=== PATIENT | male | born 1960 | race Caucasian/White ===

== ENCOUNTER 2018-12-14 20:49 | Emergency (ER) | payer MEDICAID, MEDICARE, OTHER ==
[~2018-12-14] VITALS: Ht 190.5 cm; Wt 89.8 kg
[~2018-12-14 20:49] MED LIST: ALBU0.83RX IH; ANTI1CAP3 PO; ASPI-245 PO; CARV3.122 PO; CETI10TA17 PO; CYAN100071 PO; FLECTOR TP; FLT05NA16 NSEACH; FLUN7INH IH; FLUT16SP22 NS; FNT50TD TD; IPR14IN INH; LORA1TAB PO; MAGN400T6 PO; MONT10TA24 PO; NITR0.3T6 SL; NYST1000 PO; OMEP-10 PO; POTA99TA7 PO; PRAV80TA PO; [UNRECOGNIZED DRUG - CODE] PO; albuterol INH; asmanex INH
--- OUTSIDE RECORDS SUMMARY | 2018-12-14 21:06 | XMS REPORT | Continuity of Care Document ---
Author Author [facility] [address] Organization [facility] [address] Address Unknown Phone Unavailable Allergies Active Description Code Type Severity Reaction Onset Reported/Identified Relationship to Patient Clinical Status Yes ketorolac tromethamine [id number] Drug Allergy Severe ANAPHYLAXIS 2011 Yes egg [id number] Drug Allergy Moderate N/A 08/18/2012 Yes meperidine HCl [id number] Drug Allergy Moderate N/A 08/18/2012 Yes Penicillins [id number] Drug Allergy Moderate N/A 08/18/2012 Yes honey bee venom honey bee venom Mild N/A 08/18/2012 Yes metoprolol [id number] Drug Allergy Mild N/A 08/18/2012 Yes propoxyphene HCl [id number] Drug Allergy Mild N/A 08/18/2012 Yes topiramate [id number] Drug Allergy Mild NAUSEA 08/18/2012 Yes citalopram [id number] Drug Allergy Unknown N/A 12/10/2013 Medications There is no data. Problems Date Dx Coded Attending Type Code Diagnosis Diagnosed By 08/18/2012 Ot 401.9 HYPERTENSION NOS 08/18/2012 Ot 412 OLD MYOCARDIAL INFARCT 08/18/2012 Ot 414.01 CORONARY ATHEROSCLEROSIS OF [place] CORON 08/18/2012 Ot 427.69 PREMATURE BEATS NEC 08/18/2012 Ot 496 CHR AIRWAY OBSTRUCT NEC 08/18/2012 Ot 786.59 CHEST PAIN NEC 08/18/2012 Ot V45.82 PERCUTANEOUS TRANSLUM CORON ANGIOPLASTY 08/18/2012 Ot V58.66 LONG-TERM ( 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 OF ASPIRIN 08/18/2012 Ot V58.69 OTH MED,LT, CURRENT USE 12/10/2013 VIRGINIA NAJERA MD Ot 786.50 CHEST PAIN NOS 12/10/2013 VIRGINIA NAJERA MD Ot 789.00 ABDOMINAL PAIN, UNSPECIFIED SITE 06/26/2016 GENNA FALLON MD Ot 272.4 HYPERLIPIDEMIA NEC/NOS 06/26/2016 GENNA FALLON MD Ot 397.0 TRICUSPID VALVE DISEASE 06/26/2016 GENNA FALLON MD Ot 401.9 HYPERTENSION NOS 06/26/2016 GENNA FALLON MD Ot 424.0 MITRAL VALVE DISORDER 06/26/2016 GENNA FALLON MD Ot 427.69 PREMATURE BEATS NEC 06/26/2016 GENNA FALLON MD Ot 786.50 CHEST PAIN NOS 06/26/2016 DAVID STEVENSON MD Ot M50.13 CERVICAL DISC DISORDER W RADICULOPATHY, 06/26/2016 DAVID STEVENSON MD Ot Z79.899 OTHER SENIOR LIVING (CURRENT) DRUG THERAPY 07/27/2016 DAVID STEVESNON MD Ot M50.13 CERVICAL DISC DISORDER W RADICULOPATHY, 07/27/2016 DAVID STEVENSON MD Ot Z79.899 OTHER SENIOR LIVING (CURRENT) DRUG THERAPY 07/29/2016 DAVID STEVENSON MD Ot M50.13 CERVICAL DISC DISORDER W RADICULOPATHY, 07/29/2016 DAVID STEVENSON MD Ot Z79.899 OTHER SENIOR LIVING (CURRENT) DRUG THERAPY 12/14/2018 GENNA FALLON MD Ot 272.4 HYPERLIPIDEMIA NEC/NOS 12/14/2018 GENNA FALLON MD Ot 397.0 TRICUSPID VALVE DISEASE 12/14/2018 GENNA FALLON MD Ot 401.9 HYPERTENSION NOS 12/14/2018 GENNA FALLON MD Ot 424.0 MITRAL VALVE DISORDER 12/14/2018 GENNA FALLON MD Ot 427.69 PREMATURE BEATS NEC 12/14/2018 GENNA FALLON MD Ot 786.50 CHEST PAIN NOS Procedures There is no data. Results There is no data. Encounters ACCT No. Visit Date/Time Discharge Status Pt. Type Provider Facility Loc./Unit Complaint [id number] 06/26/2016 07:30:00 06/26/2016 09:05:00 DIS Outpatient DAVID STEVENSON MD [facility] CARD DISC DISORDER [id number] 12/25/2013 14:46:00 12/25/2013 23:59:59 CLS Outpatient GENNA FALLON MD [facility] [address] CARD BP,HTN,HLP [id number] 12/10/2013 18:49:00 12/10/2013 21:04:00 DIS Emergency VIRGINIA NAJERA MD [facility] [address] ER ADB PAIN;ENLARGED HEART [id number] 12/14/2018 20:50:00 ACT Emergency ALEENA KING DO [facility] [address] ER FS SOB [id number] 08/18/2012 12:11:00 Document Registration
[2018-12-14] MEDS ORDERED: RT-ALBUTEROL/IPRATROPIUM 3 ML (DUONEB) VIAL INH STA (21:18)
[2018-12-14] MEDS ORDERED: DEXAMETHASONE 4 MG TAB (DECADRON) PO STA (21:18)
[2018-12-14] MEDS ORDERED: NS IV 1000 ML 1,000 ML IV STA (21:27)
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
[2018-12-14 22:01] LABS: HEMOGLOBIN 14.5 G/DL (13.3-17.7); WHITE BLOOD COUNT 8.6 10^3/uL (4.3-11.0)
[2018-12-14 22:02] LABS: MEAN PLATELET VOLUME 9.5 FL (7.4-10.4); RED CELL DISTRIBUTION WIDTH 12.8 % (10.0-14.5)
[2018-12-14] MEDS ORDERED: DEXAMETHASONE 10 MG/ML (DECADRON) 1 ML VIAL IV STA (22:17)
[2018-12-14 22:29] LABS: ALANINE AMINOTRANSFERASE 22 U/L (0-55); ALKALINE PHOSPHATASE 95 U/L (40-136); BILIRUBIN,TOTAL 0.3 MG/DL (0.1-1.0); BUN/CREATININE RATIO 16; CALCIUM 8.7 MG/DL (8.5-10.1); CARBON DIOXIDE 26 MMOL/L (21-32); CHLORIDE 99 MMOL/L (98-107); CREATININE SERUM 1.11 MG/DL (0.60-1.30); GFR ESTIMATED > 60; GLUCOSE 98 MG/DL (70-105); POTASSIUM 3.9 MMOL/L (3.6-5.0); SODIUM 139 MMOL/L (135-145)
[2018-12-14 22:30] LABS: ALBUMIN 4.3 GM/DL (3.2-4.5); TOTAL PROTEIN 6.9 GM/DL (6.4-8.2)
[2018-12-14 23:47] VITALS: BP 138/84
--- NOTE | 2018-12-15 06:51 | Diagnostic Imaging Report ---
INDICATION: Dyspnea Upright AP view of the chest is obtained with comparison made to the study of 12/10/2013. FINDINGS: Heart size and pulmonary vascularity are within normal limits, and the lungs are clear, bilaterally. IMPRESSION: Unremarkable chest. Dictated by: Dictated on workstation # [id number]
== END 2018-12-14 23:47 | disposition home or self-care (01) ==
LOC: EDUNIT# 20:49 → ER FS 20:50
DX: J45.901 Unspecified asthma with (acute) exacerbation (principal); J43.9 Emphysema, unspecified; I25.2 Old myocardial infarction; I10 Essential (primary) hypertension; G43.909 Migraine, unspecified, not intractable, without status migrainosus; F41.9 Anxiety disorder, unspecified; Z88.4 Allergy status to anesthetic agent; Z88.8 Allergy status to other drugs, medicaments and biological substances; Z88.0 Allergy status to penicillin; Z79.82 Long term (current) use of aspirin; Z79.51 Long term (current) use of inhaled steroids; Z87.891 Personal history of nicotine dependence
CPT/HCPCS: 36415; 71045; 80053; 83735; 83880; 84484; 85027; 85610; 85730; 93041

== ENCOUNTER 2019-01-30 18:41 | Emergency (ER) | payer MEDICARE ==
[~2019-01-30] VITALS: Ht 190.5 cm; Wt 90.7 kg
[2019-01-30] MEDS ORDERED: NS IV 500 ML 500 ML IV ONE (19:05)
[2019-01-30] MEDS ORDERED: methylPREDNISolone 125 MG (Solu-MEDROL) VIAL IV STA (19:05)
[2019-01-30] MEDS ORDERED: RT-epiNEPHrine (RACEMIC) 2.25% 0.5 ML VIAL INH ONE (19:15)
[2019-01-30] MEDS ORDERED: LORATADINE (CLARITIN) 10 MG TAB PO ONE (19:15)
[2019-01-30] MEDS ORDERED: FAMOTIDINE 20MG/2ML IV (PEPCID) IVP ONE (19:15)
[2019-01-30] MEDS ORDERED: diphenhydrAMINE 50 MG/ML INJ (BENADRYL) IVP ONE (19:15)
[2019-01-30] MEDS ORDERED: RT-ALBUTEROL/IPRATROPIUM 3 ML (DUONEB) VIAL ONE (19:23)
--- NOTE | 2019-01-30 19:24 | ED Respiratory ---
General Chief Complaint: Allergic Reaction Stated Complaint: ALLERGIC REACTION Source: patient Exam Limitations: no limitations History of Present Illness Date Seen by Provider: Jan 30, 2019 Time Seen by Provider: 18:53 Initial Comments The patient presents to the ER by private conveyance with chief complaint of shortness of breath, tightness in his throat after eating something at [employer] which she thinks may have contained eggs to which she is known to be allergic. He says he went immediately to urgent care and they gave him a subcutaneous shot of epinephrine which helped some but he still feeling a lot of tightness and swelling in the back of his throat. He felt voice changes. He does not carry a autoinjector of epinephrine with him. He takes Coreg with a history of heart attacks and COPD/asthma. He is not coughing anything up and is having only minor difficulty swallowing secretions. No nausea, chills or fever. No abdominal pain dysuria or diarrhea. Allergies and Home Medications Allergies Coded Allergies: ketorolac tromethamine (Verified Allergy, Severe, ANAPHYLAXIS, 01/30/19) prednisone (Verified Allergy, Severe, angry and agitated, 01/30/19) Penicillins (Verified Allergy, Intermediate, 01/30/19) sob, wheezing egg (Verified Allergy, Intermediate, 01/30/19) swelling meperidine HCl (Verified Allergy, Intermediate, 01/30/19) sob, wheezing propoxyphene HCl (Verified Allergy, Mild, 01/30/19) sob, wheezing topiramate (Verified Allergy, Mild, NAUSEA, 08/18/12) diarrhea, citalopram (Verified Allergy, Unknown, 12/14/18) metoprolol (Verified Adverse Reaction, Mild, 08/18/12) sob, wheezing Uncoded Allergies: honey bee venom (Allergy, Mild, 08/18/12) sob, wheezing Home Medications Aspirin 81 Mg Tablet.dr, 81 MG PO DAILY, (Reported) Carvedilol 3.125 Mg Tablet, 1 EACH PO BID, (Reported) Cetirizine Hcl 10 Mg Tablet, 10 MG PO DAILY, (Reported) Fluticasone Propionate 16 Gm [place], 2 SPRAYS NSEACH DAILY, (Reported) Ipratropium [place] 12.9 Gm Aers, 12.9 GM INH Q6H, (Reported) Lorazepam 1 Mg Tablet, 1 EACH PO TID PRN, (Reported) Montelukast Sodium 10 Mg Tablet, 10 MG PO DAILY, (Reported) Nitroglycerin 0.3 Mg Tab.subl, 0.3 MG SL PRN, (Reported) Omeprazole 20 Mg Capsule.dr, 20 MG PO DAILY, (Reported) Salsalate 500 Mg Tab, 1,000 MG PO TID, (Reported) [albuterol] , 2 PUFF INH QID, (Reported) Patient Home Medication List Home Medication List Reviewed: Yes Review of Systems Review of Systems Constitutional: No chills, No fever EENTM: No ear discharge, No ear pain Respiratory: No cough, No orthopnea; short of breath, wheezing Cardiovascular: No chest pain, No edema Gastrointestinal: No abdominal pain, No constipation, No diarrhea Genitourinary: No discharge, No dysuria Past Vjhiods-Mysxys-Ztjnuo Hx Patient Social History Alcohol Use: Denies Use Recreational Drug Use: No Smoking Status: Current Someday Smoker Type Used: Cigars Former Smoker, Quit: March 09, 2018 2nd Hand Smoke Exposure: No Recent Foreign Travel: No Contact w/Someone Who Travel: No Recent Hopitalizations: No Seasonal Allergies Seasonal Allergies: Yes Past Medical History Gallbladder, Joint Replacement Respiratory: Yes Asthma, Chronic Bronchitis, COPD, Emphysema Currently Using CPAP: No Currently Using BIPAP: No Cardiac: Yes Heart Attack, Hypertension, Palpitations Neurological: Yes Headaches /Migraines Genitourinary: No Gastrointestinal: No Musculoskeletal: No Arthritis Endocrine: No Anxiety Integumentary: No Physical Exam Vital Signs - First Documented 01/30/19 18:45 Temp 98.0 Pulse 76 Resp 20 B/P (MAP) 121/76 (91) Pulse Ox 96 Capillary Refill : Height: 6'3.00" Weight: 198lbs. 0.0oz. 89.259205ki; 25.6 BMI Method:Stated General Appearance: WD/WN, mild distress Eyes: Bilateral Eye Normal Inspection, Bilateral Eye PERRL, Bilateral Eye EOMI HEENT: PERRL/EOMI, other (erythema, soft palate and uvula with mild edema) Neck: non-tender, full range of motion, supple, normal inspection Respiratory: chest non-tender, lungs clear, no respiratory distress, no accessory muscle use, decreased breath sounds, wheezing (faint bilateral) Cardiovascular: normal peripheral pulses, regular rate, rhythm Gastrointestinal: non tender, soft Neurologic/Psychiatric: alert, oriented x 3, other (anxious) Skin: normal color, warm/dry Progress/Results/Core Measures Suspected Sepsis SIRS Temperature: Pulse: Respiratory Rate: Laboratory Tests 01/30/19 18:50: White Blood Count 11.6H Blood Pressure / Mean: Laboratory Tests 01/30/19 18:50: Creatinine 1.06, Platelet Count 386, Total Bilirubin 0.5 Results/Orders Lab Results Laboratory Tests Test 01/30/19 18:50 Range/Units White Blood Count 11.6 H 4.3-11.0 10^3/uL Red Blood Count 4.87 4.35-5.85 10^6/uL Hemoglobin 15.2 13.3-17.7 G/DL Hematocrit 44 40-54 % Mean Corpuscular Volume 90 80-99 FL Mean Corpuscular Hemoglobin 31 25-34 PG Mean Corpuscular Hemoglobin Concent 35 32-36 G/DL Red Cell Distribution Width 12.5 10.0-14.5 % Platelet Count 386 130-400 10^3/uL Mean Platelet Volume 9.4 7.4-10.4 FL Neutrophils (%) (Auto) 42 42-75 % Lymphocytes (%) (Auto) 44 12-44 % Monocytes (%) (Auto) 9 0-12 % Eosinophils (%) (Auto) 5 0-10 % Basophils (%) (Auto) 1 0-10 % Neutrophils # (Auto) 4.9 1.8-7.8 X 10^3 Lymphocytes # (Auto) 5.1 H 1.0-4.0 X 10^3 Monocytes # (Auto) 1.0 0.0-1.0 X 10^3 Eosinophils # (Auto) 0.5 H 0.0-0.3 10^3/uL Basophils # (Auto) 0.1 0.0-0.1 10^3/uL Sodium Level 138 135-145 MMOL/L Potassium Level 3.9 3.6-5.0 MMOL/L Chloride Level 97 L 98-107 MMOL/L Carbon Dioxide Level 23 21-32 MMOL/L Anion Gap 18 H 5-14 MMOL/L Blood Urea Nitrogen 13 7-18 MG/DL Creatinine 1.06 0.60-1.30 MG/DL Estimat Glomerular Filtration Rate > 60 BUN/Creatinine Ratio 12 Glucose Level 137 H 70-105 MG/DL Calcium Level 9.1 8.5-10.1 MG/DL Corrected Calcium 8.7 8.5-10.1 MG/DL Total Bilirubin 0.5 0.1-1.0 MG/DL Aspartate Amino Transf (AST/SGOT) 18 5-34 U/L Alanine Aminotransferase (ALT/SGPT) 14 0-55 U/L Alkaline Phosphatase 83 40-136 U/L Total Protein 7.3 6.4-8.2 GM/DL Albumin 4.5 3.2-4.5 GM/DL My Orders Orders - NATALYA CALZADA Ekg Tracing (01/30/19 19:05) Continuous Ekg Monitoring (01/30/19:05) Ed Iv/Invasive Line Start (01/30/19:05) Ns Iv 500 Ml (Sodium Chloride 0.9%) (01/30/19:05) Rt Epinephrine (Racemic Epinephrine 2.25 (01/30/19 19:15) Methylprednisolone Sod Succ (Solu-Medrol (01/30/19 19:05) Cbc With Automated Diff (01/30/19:05) Comprehensive Metabolic Panel (01/30/19:05) Chest 1 View Ap/Pa Only (01/30/19:05) Svn Small Volume Nebulizer (01/30/19 19:05) Diphenhydramine Injection (Benadryl Inje (01/30/19 19:15) Loratadine Tablet (Claritin Tablet) (01/30/19 19:15) Famotidine Injection (Pepcid Injection) (01/30/19 19:15) Albuterol/Ipra Inhalation Soln (Duoneb I (01/30/19 19:23) Lorazepam Tablet (Ativan Tablet) (01/30/19 19:26) Albuterol/Ipra Inhalation Soln (Duoneb I (01/30/19 19:30) Medications Given in ED Current Medications Medications Dose Ordered Sig/Viv Route Start Time Stop Time Status Last Admin Dose Admin Albuterol/ Ipratropium 3 ml ONCE ONCE INH 01/30/19 19:30 01/30/19 19:31 DC 01/30/19 19:29 3 ML Diphenhydramine HCl 25 mg ONCE ONCE IVP 01/30/19 19:15 01/30/19 19:16 DC 01/30/19 19:18 25 MG Epinephrine 0.5 ml ONCE ONCE INH 01/30/19 19:15 01/30/19 19:16 DC 01/30/19 19:15 0.5 ML Famotidine 20 mg ONCE ONCE IVP 01/30/19 19:15 01/30/19 19:16 DC 01/30/19 19:18 20 MG Sodium Chloride 500 ml @ 0 mls/hr Q0M ONCE IV 01/30/19 19:05 01/30/19 19:08 DC 01/30/19 19:17 999 MLS/HR Vital Signs/I&O 01/30/19 18:45 Temp 98.0 Pulse 76 Resp 20 B/P (MAP) 121/76 (91) Pulse Ox 96 Capillary Refill : Progress Note #1: Time: 19:29 Progress Note 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 Unfortunately her to give him 125 mg Solu- Medrol. He uses Ativan a couple times a day as needed for agitation sober any give him a milligram which is his usual dose now and observe him. His beta blockers or keeping his heart rate down around 80. We've given him an epinephrine nebulizer which has helped open up his lung sounds a little bit has revealed some still wheezing sore and give him a DuoNeb in addition. We'll give him about an hour while these interventions get started and see how he is doing before turning him loose. Loratadine, Benadryl, Pepcid And 500 cc of fluids although his blood pressures still very good. Progress Note #2: Time: 20:12 Progress Note The patient's feeling much better having no difficulty swallowing fluids breathing stridor or wheezing. His breath sounds are much improved. 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 ECG Initial ECG Impression Date: Jan 30, 2019 Initial ECG Impression Time: 19:01 Initial ECG Rate: 74 Initial ECG Rhythm: Normal Sinus Initial ECG Intervals: Normal Initial ECG Impression: Normal Comment No ST elevation or depression. Diagnostic Imaging Diagonstic Imaging: Xray Plain Films/CT/US/NM/MRI: chest Comments No acute cardiopulmonary processes noted. Reviewed: Reviewed by Me Departure Impression Primary Impression: Allergic angioedema Qualified Codes: T78.3XXA - Angioneurotic edema, initial encounter Disposition: 01 HOME, SELF-CARE Condition: Stable Departure-Patient Inst. Decision time for Depature: 20:13 Referrals: JULIA HERRERA MD (PCP/Family) Primary Care Physician Patient Instructions: Angioedema (DC) Add. Discharge Instructions: If he started having itching in the back your throat swelling or difficulty you can take one or 2 tablets of Benadryl every 6 hours. For the next week continue to take Pepcid twice a day as prescribed. For the next week take loratadine or cetirizine 1 tablet daily as a we'll have the same effect of Benadryl without making you drowsy. It can be used in addition to Benadryl. 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 All discharge instructions reviewed with patient and/or family. Voiced understanding. Scripts Epinephrine (Epipen 2-Jatinder) 0.3 Mg/0.3 Ml Auto.injct 0.3 MG IJ Q15M PRN for WHEEZING, #1 EA 0 Refills Use once every 15 min if having angioedema, difficulty breathing, itching and swelling of the throat. Prov: NATALYA CALZADA 01/30/19 Copy Copies To 1: JULIA HERRERA MD, TITUS J Jan 30, 2019 19:24
[2019-01-30] MEDS ORDERED: LORazepam 0.5 MG (ATIVAN) TABLET PO STA (19:26)
[2019-01-30] MEDS ORDERED: RT-ALBUTEROL/IPRATROPIUM 3 ML (DUONEB) VIAL INH ONE (19:30)
--- NOTE | 2019-01-30 19:50 | Diagnostic Imaging Report ---
INDICATION: Allergic reaction. Comparison is made to prior study from 08/08/2018. FINDINGS: Lungs demonstrate no focal alveolar consolidation. There is no effusion. There is no pneumothorax. Heart size and mediastinal contours appear appropriate. The central pulmonary vascularity appears within normal limits. IMPRESSION: 1. No radiographic evidence of an acute cardiopulmonary process. Dictated by: Dictated on workstation # [id number]
[2019-01-30 20:01] LABS: HEMATOCRIT 44 % (40-54); HEMOGLOBIN 15.2 G/DL (13.3-17.7); MEAN CORPUSCULAR HEMOGLOBIN 31 PG (25-34); MEAN CORPUSCULAR HGB CONC 35 G/DL (32-36); MEAN CORPUSCULAR VOLUME 90 FL (80-99); MEAN PLATELET VOLUME 9.4 FL (7.4-10.4); PLATELET COUNT 386 10^3/uL (130-400); RED CELL DISTRIBUTION WIDTH 12.5 % (10.0-14.5); WHITE BLOOD COUNT 11.6 10^3/uL (4.3-11.0)
[2019-01-30 20:02] LABS: BASOPHILS # (AUTO) 0.1 10^3/uL (0.0-0.1); BASOPHILS % (AUTO) 1 % (0-10); EOSINOPHILS # (AUTO) 0.5 10^3/uL (0.0-0.3); EOSINOPHILS % (AUTO) 5 % (0-10); LYMPHOCYTES # (AUTO) 5.1 X 10^3 (1.0-4.0); LYMPHOCYTES % (AUTO) 44 % (12-44); MONOCYTES % (AUTO) 9 % (0-12); NEUTROPHILS # (AUTO) 4.9 X 10^3 (1.8-7.8); NEUTROPHILS % (AUTO) 42 % (42-75)
[2019-01-30 20:03] LABS: ALKALINE PHOSPHATASE 83 U/L (40-136); BILIRUBIN,TOTAL 0.5 MG/DL (0.1-1.0); BUN/CREATININE RATIO 12; CALCIUM 9.1 MG/DL (8.5-10.1); CARBON DIOXIDE 23 MMOL/L (21-32); CHLORIDE 97 MMOL/L (98-107); CREATININE SERUM 1.06 MG/DL (0.60-1.30); GFR ESTIMATED > 60; GLUCOSE 137 MG/DL (70-105); POTASSIUM 3.9 MMOL/L (3.6-5.0); SODIUM 138 MMOL/L (135-145)
[2019-01-30 20:04] LABS: ALANINE AMINOTRANSFERASE 14 U/L (0-55); ALBUMIN 4.5 GM/DL (3.2-4.5); TOTAL PROTEIN 7.3 GM/DL (6.4-8.2)
[2019-01-30] MEDS ORDERED: EPIN0.3P3 IJ (20:17)
[2019-01-30 20:30] VITALS: BP 125/69
== END 2019-01-30 20:30 | disposition home or self-care (01) ==
LOC: EDUNIT# 18:41 → ER FS 18:45
DX: T78.3XXA Angioneurotic edema, initial encounter (principal); J43.9 Emphysema, unspecified; I10 Essential (primary) hypertension; I25.2 Old myocardial infarction; G43.909 Migraine, unspecified, not intractable, without status migrainosus; F41.9 Anxiety disorder, unspecified; Z88.4 Allergy status to anesthetic agent; Z88.8 Allergy status to other drugs, medicaments and biological substances; Z88.0 Allergy status to penicillin; Z79.82 Long term (current) use of aspirin; Z79.51 Long term (current) use of inhaled steroids; Z87.891 Personal history of nicotine dependence
CPT/HCPCS: 36415; 71045; 80053; 85025; 93005; 96374; 96375

== ENCOUNTER 2019-04-05 20:22 | Emergency (ER) | payer MEDICARE ==
[~2019-04-05] VITALS: Ht 190.5 cm; Wt 81.6 kg
[~2019-04-05 20:22] MED LIST changes: +EPIN0.3P3 IJ
[2019-04-05] MEDS ORDERED: DOXYCYCLINE 100 MG (VIBRAMYCIN) TABLET PO STA (21:33)
[2019-04-05] MEDS ORDERED: DOXY100T2 PO (21:39)
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
--- NOTE | 2019-04-05 21:45 | NUR ---
POLICE ARE HERE TAKING A REPORT AT THIS TIME.
--- NOTE | 2019-04-05 21:46 | NUR ---
NOTIFIED THE [facility] DEPARTMENT OF THE PATIENTS DOG BITE. THEY TOLD THIS RN THAT THEY WOULD LET US KNOW IF THEY ARE COMING OUT.
--- NOTE | 2019-04-05 21:48 | NUR ---
POLICE DEPARTMENT JUST CALLED AND WILL COME TO SEE THE PATIENT.
[2019-04-05 22:00] VITALS: BP 134/87
== END 2019-04-05 21:57 | disposition home or self-care (01) ==
LOC: EDUNIT# 20:22 → ER FS 20:23
DX: S71.152A Open bite, left thigh, initial encounter (principal); J43.9 Emphysema, unspecified; J45.909 Unspecified asthma, uncomplicated; J42 Unspecified chronic bronchitis; I10 Essential (primary) hypertension; I25.2 Old myocardial infarction; G43.909 Migraine, unspecified, not intractable, without status migrainosus; F41.9 Anxiety disorder, unspecified; Z88.0 Allergy status to penicillin; Z88.5 Allergy status to narcotic agent; Z88.8 Allergy status to other drugs, medicaments and biological substances; Z88.6 Allergy status to analgesic agent; Z91.012 Allergy to eggs; Z79.82 Long term (current) use of aspirin; Z79.51 Long term (current) use of inhaled steroids; W54.0XXA Bitten by dog, initial encounter

== ENCOUNTER 2019-04-23 19:45 | Emergency (ER) | payer MEDICARE ==
[~2019-04-23] VITALS: Ht 190.5 cm; Wt 88.9 kg
[~2019-04-23 19:45] MED LIST changes: +DOXY100T2 PO
[2019-04-23] MEDS ORDERED: ONDANSETRON 4 MG (ZOFRAN) ORAL DISSOLVE TAB PO STA (20:22)
[2019-04-23] MEDS ORDERED: diphenhydrAMINE 25 MG TAB (BENADRYL) PO ONE (20:30)
[2019-04-23] MEDS ORDERED: methylPREDNISolone 40 MG/ML (DEPO MEDROL) VIAL IM ONE (20:30)
[2019-04-23] MEDS ORDERED: ACETAMINOPHEN 500 MG TAB (TYLENOL) PO ONE (20:30)
[2019-04-23] MEDS ORDERED: HALOPERIDOL 5 MG/ML (HALDOL) AMP IM ONE (20:30)
[2019-04-23] MEDS ORDERED: PROMETHAZINE INJ 25 MG/ML (PHENERGAN) AMP IM ONE (20:30)
--- NOTE | 2019-04-23 20:33 | ED Headache ---
General Stated Complaint: MIGRAINE History of Present Illness Date Seen by Provider: Apr 23, 2019 Time Seen by Provider: 20:15 Initial Comments The patient presents to ER by private conveyance with a significant other and chief complaint he has a migraine headache. He's first started getting it 1400 today and so he took some Zofran because he is having nausea and at 5:00 it really took off and got bad. He laid down and took some Fioricet but it didn't seem to help so he decided to come in. He has a history of migraines and this one is similar to the others although he says it's pretty bad. He says it's frontal left parietal and occipital and has photophobia, phonophobia and no aura. Because of his history of cardiac stents he can no longer take triptan's which it worked well in the past nor does he take any NSAIDs. He does take aspirin on a daily basis. He is not on a blood thinner. He sees a neurologist for his migraines as well as Dr. Shelton. He took his last dose of Fioricet this afternoon. No fevers chills diarrhea dysuria or cough. Allergies and Home Medications Allergies Coded Allergies: ketorolac tromethamine (Verified Allergy, Severe, ANAPHYLAXIS, 01/30/19) prednisone (Verified Allergy, Severe, angry and agitated, 01/30/19) Penicillins (Verified Allergy, Intermediate, 01/30/19) sob, wheezing egg (Verified Allergy, Intermediate, 01/30/19) swelling meperidine HCl (Verified Allergy, Intermediate, 01/30/19) sob, wheezing propoxyphene HCl (Verified Allergy, Mild, 01/30/19) sob, wheezing topiramate (Verified Allergy, Mild, NAUSEA, 08/18/12) diarrhea, citalopram (Verified Allergy, Unknown, 12/14/18) metoprolol (Verified Adverse Reaction, Mild, 08/18/12) sob, wheezing Uncoded Allergies: honey bee venom (Allergy, Mild, 08/18/12) sob, wheezing EGGS (Allergy, Unknown, 04/05/19) TETANUS (Allergy, Unknown, 04/05/19) Home Medications Aspirin 81 Mg Tablet., 81 MG PO DAILY, (Reported) Carvedilol 3.125 Mg Tablet, 1 EACH PO BID, (Reported) Cetirizine Hcl 10 Mg Tablet, 10 MG PO DAILY, (Reported) Doxycycline Hyclate 100 Mg Tablet, 100 MG PO BID Prescribed by: GAVIN PEREZ on 04/05/192138 Epinephrine 0.3 Mg/0.3 Ml Auto.injct, 0.3 MG IJ Q15M PRN for WHEEZING Use once every 15 min if having angioedema, difficulty breathing, itching and swelling of the throat. Prescribed by: NATALYA CALZADA on 01/30/192016 Fluticasone Propionate 16 Gm [place], 2 SPRAYS NSEACH DAILY, (Reported) Ipratropium [place] 12.9 Gm Aers, 12.9 GM INH Q6H, (Reported) Lorazepam 1 Mg Tablet, 1 EACH PO TID PRN, (Reported) Montelukast Sodium 10 Mg Tablet, 10 MG PO DAILY, (Reported) Nitroglycerin 0.3 Mg Tab.subl, 0.3 MG SL PRN, (Reported) Omeprazole 20 Mg Capsule.dr, 20 MG PO DAILY, (Reported) Salsalate 500 Mg Tab, 1,000 MG PO TID, (Reported) [albuterol] , 2 PUFF INH QID, (Reported) Patient Home Medication List Home Medication List Reviewed: Yes Review of Systems Review of Systems Constitutional: No chills, No fever Eyes: See HPI; Denies Blindness, Denies Blurred Vision Ears, Nose, Mouth, Throat: denies ear pain, denies ear discharge Respiratory: No cough, No short of breath Cardiovascular: No chest pain, No edema Gastrointestinal: No abdominal pain; nausea, vomiting Genitourinary: No discharge, No dysuria Musculoskeletal: No back pain, No joint pain Past Ycxasey-Qilulz-Hqauva Hx Patient Social History Alcohol Use: Denies Use Recreational Drug Use: No Smoking Status: Former Smoker Type Used: Cigars Former Smoker, Quit: March 09, 2018 2nd Hand Smoke Exposure: No Recent Hopitalizations: No Seasonal Allergies Seasonal Allergies: Yes Past Medical History Gallbladder, Joint Replacement Respiratory: Yes Asthma, Chronic Bronchitis, COPD, Emphysema Currently Using CPAP: No Currently Using BIPAP: No Cardiac: Yes Heart Attack, Hypertension, Palpitations Neurological: Yes Headaches /Migraines Genitourinary: No Gastrointestinal: No Musculoskeletal: No Arthritis Endocrine: No Cancer: No Psychosocial: Yes Anxiety Integumentary: No Physical Exam Vital Signs Capillary Refill : Height, Weight, BMI Height: 6'3.00" Weight: 180lbs. 0.0oz. 81.678750zt; 25.6 BMI Method:Stated General Appearance: WD/WN, moderate distress HEENT: normal ENT inspection, pharynx normal Neck: full range of motion, normal inspection Cardiovascular: normal peripheral pulses, regular rate, rhythm Respiratory: no respiratory distress, no accessory muscle use Psychiatric: alert, oriented x 3 Crainal Nerves: normal hearing, normal speech, PERRL Coordination/Gait: normal gait Motor/Sensory: no motor deficit, no sensory deficit Progress/Results/Core Measures Results/Orders My Orders Orders - NATALYA CALZADA Ondansetron Oral Dissolve Tab (Zofran (04/23/19 20:22) Acetaminophen Tablet (Tylenol Tablet) (04/23/19 20:30) Promethazine Injection (Phenergan Injec (04/23/19 20:30) Diphenhydramine Tablet (Benadryl Tablet) (04/23/19 20:30) Haloperidol Injection (Haldol Injectio (04/23/19 20:30) Methylprednisolone Acetate Inj (Depo-Med (04/23/19 20:30) Progress Progress Note : Time: 20:31 Progress Note Plan to give him Tylenol, Zofran, Phenergan per his request and we will trial Haldol 5 mg IM as well as Depo-Medrol. He has been successful on this in the past. He does describe some symptoms of akathisia in the past so we'll give him 50 mg of Benadryl and instructions to use it again every 6 hours if the symptoms come back. Patient has a ride home and is in agreement with this plan. We will refill his Fioricet Departure Impression Primary Impression: Migraine headache Qualified Codes: G43.009 - Migraine without aura, not intractable, without status migrainosus Disposition: HOME, SELF-CARE Condition: Stable Departure-Patient Inst. Decision time for Depature: 20:32 Referrals: JULIA HERRERA MD (PCP/Family) Primary Care Physician Patient Instructions: Migraine Headache (DC) Add. Discharge Instructions: Drink plenty of fluids and get some sleep. Use the Fioricet as prescribed. Use Tylenol 1000 mg every 8 hours as needed. If you have feelings of on rest you may use one to 2 tablets of Benadryl every 6 hours as needed. Scripts Butalb/Acetaminophen/Caffeine (Fkhyzs-Yufroddi-Xpdr 50-325-40) 1 Each Tablet 1 EACH PO Q4H PRN for HEADACHE, #14 TAB 0 Refills Prov: NATALYA CALZADA 04/23/19 NATALYA CALZADA Apr 23, 2019 20:33
[2019-04-23] MEDS ORDERED: BUTA1TAB9 PO (20:34)
[2019-04-23 20:51] VITALS: BP 136/79
== END 2019-04-23 20:53 | disposition home or self-care (01) ==
LOC: EDUNIT# 19:45 → ER FS 19:46
DX: G43.909 Migraine, unspecified, not intractable, without status migrainosus (principal); J43.9 Emphysema, unspecified; J45.909 Unspecified asthma, uncomplicated; I10 Essential (primary) hypertension; I25.2 Old myocardial infarction; F41.9 Anxiety disorder, unspecified; Z95.5 Presence of coronary angioplasty implant and graft; Z79.82 Long term (current) use of aspirin; Z88.6 Allergy status to analgesic agent; Z88.0 Allergy status to penicillin; Z88.8 Allergy status to other drugs, medicaments and biological substances; Z88.7 Allergy status to serum and vaccine; Z79.51 Long term (current) use of inhaled steroids; Z87.891 Personal history of nicotine dependence
CPT/HCPCS: 96372; 99284

== ENCOUNTER 2019-05-08 20:34 | Emergency (ER) | payer MEDICARE ==
[~2019-05-08] VITALS: Ht 190.5 cm; Wt 89.8 kg
[~2019-05-08 20:34] MED LIST changes: +BUTA1TAB9 PO
--- NOTE | 2019-05-08 20:56 | ED Headache ---
General Stated Complaint: MIGRAINE, NECK PAIN Source: patient, RN notes reviewed, old records Exam Limitations: no limitations History of Present Illness Date Seen by Provider: May 08, 2019 Time Seen by Provider: 20:56 Initial Comments Patient well known to department. Presents c/ c/o migraine c/ N/V and neck muscle spasms since earlier this evening. (+) PMH of the same. Took a Zofran and the N/V is better. Wasn't sure if he could take his Fioricet along c/ a new medication his PCP gave him for blood in his urine. Reviewed the 2 meds and assured him that he could take them both. Requesting a muscle relaxant for his neck. Timing/Duration: 1-3 hours Severity/Quality: moderate, constant, throbbing Location: occipital Prior Headaches/Recent Trauma: frequent headaches Modifying Factors: improves with other (none) Associated Symptoms: denies symptoms Allergies and Home Medications Allergies Coded Allergies: ketorolac tromethamine (Verified Allergy, Severe, ANAPHYLAXIS, 01/30/19) prednisone (Verified Allergy, Severe, angry and agitated, 01/30/19) Penicillins (Verified Allergy, Intermediate, 01/30/19) sob, wheezing egg (Verified Allergy, Intermediate, 01/30/19) swelling meperidine HCl (Verified Allergy, Intermediate, 01/30/19) sob, wheezing propoxyphene HCl (Verified Allergy, Mild, 01/30/19) sob, wheezing topiramate (Verified Allergy, Mild, NAUSEA, 08/18/12) diarrhea, citalopram (Verified Allergy, Unknown, 12/14/18) metoprolol (Verified Adverse Reaction, Mild, 08/18/12) sob, wheezing Uncoded Allergies: honey bee venom (Allergy, Mild, 08/18/12) sob, wheezing EGGS (Allergy, Unknown, 04/05/19) TETANUS (Allergy, Unknown, 04/05/19) Home Medications Aspirin 81 Mg Tablet.dr, 81 MG PO DAILY, (Reported) Butalb/Acetaminophen/Caffeine 1 Each Tablet, 1 EACH PO Q4H PRN for HEADACHE Prescribed by: NATALYA CALZADA on 04/23/192033 Carvedilol 3.125 Mg Tablet, 1 EACH PO BID, (Reported) Cetirizine Hcl 10 Mg Tablet, 10 MG PO DAILY, (Reported) Doxycycline Hyclate 100 Mg Tablet, 100 MG PO BID Prescribed by: GAVIN PEREZ on 04/05/192138 Epinephrine 0.3 Mg/0.3 Ml Auto.injct, 0.3 MG IJ Q15M PRN for WHEEZING Use once every 15 min if having angioedema, difficulty breathing, itching and swelling of the throat. Prescribed by: NATALYA CALZADA on 01/30/192016 Fluticasone Propionate 16 Gm [place], 2 SPRAYS NSEACH DAILY, (Reported) Ipratropium [place] 12.9 Gm Aers, 12.9 GM INH Q6H, (Reported) Lorazepam 1 Mg Tablet, 1 EACH PO TID PRN, (Reported) Montelukast Sodium 10 Mg Tablet, 10 MG PO DAILY, (Reported) Nitroglycerin 0.3 Mg Tab.subl, 0.3 MG SL PRN, (Reported) Omeprazole 20 Mg Capsule.dr, 20 MG PO DAILY, (Reported) Salsalate 500 Mg Tab, 1,000 MG PO TID, (Reported) [albuterol] , 2 PUFF INH QID, (Reported) Patient Home Medication List Home Medication List Reviewed: Yes Review of Systems Review of Systems Constitutional: see HPI Gastrointestinal: see HPI, nausea, vomiting Musculoskeletal: see HPI, neck pain (spasm) Psychiatric/Neurological: See HPI, Headache All Other Systems Reviewed Negative Unless Noted: Yes (Negative excepted noted.) Past Spvqjmc-Yncfmk-Ulyffx Hx Patient Social History Type Used: Cigars Former Smoker, Quit: March 09, 2018 2nd Hand Smoke Exposure: No Recent Foreign Travel: No Contact w/Someone Who Travel: No Recent Hopitalizations: No Seasonal Allergies Seasonal Allergies: Yes Past Medical History Surgeries: Yes (heart catheter, left shoulder surgery and right hip replacement) Gallbladder, Joint Replacement Respiratory: Yes Asthma, Chronic Bronchitis, COPD, Emphysema Currently Using CPAP: No Currently Using BIPAP: No Cardiac: Yes Heart Attack, Hypertension, Palpitations Neurological: Yes Headaches /Migraines Genitourinary: No Gastrointestinal: No Musculoskeletal: No Arthritis Endocrine: No Cancer: No Psychosocial: Yes Anxiety Integumentary: No Physical Exam Vital Signs Vital Signs - First Documented 05/08/19 20:43 Temp 97.5 Pulse 69 Resp 18 B/P (MAP) 135/88 (104) Pulse Ox 98 O2 Delivery Room Air Capillary Refill : Height, Weight, BMI Height: 6'3.00" Weight: 196lbs. 0.0oz. 88.319594ts; 25.6 BMI Method:Stated General Appearance: WD/WN, moderate distress HEENT: PERRL/EOMI, pharynx normal, photophobia Neck: full range of motion, supple, tender lateral, other ((+) muscle spasm) Cardiovascular: regular rate, rhythm Respiratory: no respiratory distress Psychiatric: alert, oriented x 3, depressed affect Crainal Nerves: normal hearing, normal speech, PERRL Coordination/Gait: normal gait Skin: warm/dry; No rash Progress/Results/Core Measures Results/Orders My Orders Orders - CEASAR REMY DO Orphenadrine Injection (Norflex Injectio (05/08/19 21:15) Medications Given in ED Current Medications Medications Dose Ordered Sig/Viv Route Start Time Stop Time Status Last Admin Dose Admin Orphenadrine Citrate 60 mg ONCE ONCE IM 05/08/19 21:15 05/08/19 21:16 DC 05/08/19 21:15 60 MG Vital Signs/I&O 05/08/19 05/08/19 20:43 21:22 Temp 97.5 97.5 Pulse 69 69 Resp 18 18 B/P (MAP) 135/88 (104) 135/88 (104) Pulse Ox 98 98 O2 Delivery Room Air Room Air Departure Impression Primary Impression: Muscle spasms of neck Additional Impression: Migraine Disposition: 01 HOME, SELF-CARE Condition: Stable Departure-Patient Inst. Decision time for Depature: 21:20 Referrals: JULIA HERRERA MD (PCP/Family) Primary Care Physician Patient Instructions: Tension Headache (DC) CEASAR REMY DO May 08, 2019 20:56
[2019-05-08] MEDS ORDERED: ORPHENADRINE 60 MG/2 ML (NORFLEX) AMP IM ONE (21:15)
[2019-05-08 21:22] VITALS: BP 135/88
== END 2019-05-08 21:22 | disposition home or self-care (01) ==
LOC: EDUNIT# 20:34 → ER FS 20:36
DX: G43.909 Migraine, unspecified, not intractable, without status migrainosus (principal); M62.838 Other muscle spasm; J43.9 Emphysema, unspecified; J45.909 Unspecified asthma, uncomplicated; I10 Essential (primary) hypertension; I25.2 Old myocardial infarction; F41.9 Anxiety disorder, unspecified; Z96.641 Presence of right artificial hip joint; Z95.9 Presence of cardiac and vascular implant and graft, unspecified; Z88.6 Allergy status to analgesic agent; Z88.0 Allergy status to penicillin; Z88.1 Allergy status to other antibiotic agents; Z88.8 Allergy status to other drugs, medicaments and biological substances; Z79.82 Long term (current) use of aspirin; Z79.51 Long term (current) use of inhaled steroids
CPT/HCPCS: 96372; 99284

== ENCOUNTER 2019-06-11 19:53 | Emergency (ER) | payer MEDICARE ==
[~2019-06-11] VITALS: Ht 190.5 cm; Wt 89.4 kg
[2019-06-11] MEDS ORDERED: diphenhydrAMINE 50 MG/ML INJ (BENADRYL) IVP ONE (20:30)
[2019-06-11] MEDS ORDERED: NS IV 1000 ML 1,000 ML IV SCH (20:30)
[2019-06-11] MEDS ORDERED: PROCHLORPERAZINE 10 MG/2ML INJ (COMPAZINE) IV ONE (20:30)
[2019-06-11] MEDS ORDERED: METOCLOPRAMIDE INJ 10 MG/2 ML (REGLAN) IVP ONE (20:30)
[2019-06-11 21:56] VITALS: BP 119/72
--- NOTE | 2019-06-12 10:53 | ED Head Injury ---
General Chief Complaint: Head/Cervical Problems Stated Complaint: MIGRAINE Nursing Triage Note: Patient advises he has a hx. of migraines and states migraine began at 1000 this morning. He advises that he took his regularly prescribed migraine medications at 10am as well as phenergan for nausea at 1200 with no improvement of symptoms. Source: patient Exam Limitations: no limitations History of Present Illness Date Seen by Provider: Jun 12, 2019 Time Seen by Provider: 20:00 Initial Comments Patient is a 58-year-old male with history of migraine headaches who presents with typical migraine headache starting several hours prior to ED arrival. Headache is retro-orbital dull, throbbing and associated with nausea, vomiting and light sensitivity. This is not the worst headache of the patient's life. Denies neck pain, extremity weakness or loss of sensation. Patient is compliant with migraine prophylaxis therapy. He states this migraines are typically triggered by weather and sleep. No other acute symptoms or complaints. Occurred: just prior to arrival Severity: moderate Location: other Loss of Consciousness: no loss of consciousness Associated Systoms: Nausea/Vomiting Allergies and Home Medications Allergies Coded Allergies: ketorolac tromethamine (Verified Allergy, Severe, ANAPHYLAXIS, 01/30/19) prednisone (Verified Allergy, Severe, angry and agitated, 01/30/19) Penicillins (Verified Allergy, Intermediate, 01/30/19) sob, wheezing egg (Verified Allergy, Intermediate, 01/30/19) swelling meperidine HCl (Verified Allergy, Intermediate, 01/30/19) sob, wheezing propoxyphene HCl (Verified Allergy, Mild, 01/30/19) sob, wheezing topiramate (Verified Allergy, Mild, NAUSEA, 08/18/12) diarrhea, citalopram (Verified Allergy, Unknown, 12/14/18) metoprolol (Verified Adverse Reaction, Mild, 08/18/12) sob, wheezing Uncoded Allergies: honey bee venom (Allergy, Mild, 08/18/12) sob, wheezing EGGS (Allergy, Unknown, 04/05/19) TETANUS (Allergy, Unknown, 04/05/19) Home Medications Aspirin 81 Mg Tablet., 81 MG PO DAILY, (Reported) Butalb/Acetaminophen/Caffeine 1 Each Tablet, 1 EACH PO Q4H PRN for HEADACHE Prescribed by: NATALYA CALZADA on 04/23/192033 Carvedilol 3.125 Mg Tablet, 1 EACH PO BID, (Reported) Cetirizine Hcl 10 Mg Tablet, 10 MG PO DAILY, (Reported) Doxycycline Hyclate 100 Mg Tablet, 100 MG PO BID Prescribed by: GAVIN PEREZ on 04/05/192138 Epinephrine 0.3 Mg/0.3 Ml Auto.injct, 0.3 MG IJ Q15M PRN for WHEEZING Use once every 15 min if having angioedema, difficulty breathing, itching and swelling of the throat. Prescribed by: NATALYA CALZADA on 01/30/192016 Fluticasone Propionate 16 Gm [place], 2 SPRAYS NSEACH DAILY, (Reported) Ipratropium [place] 12.9 Gm Aers, 12.9 GM INH Q6H, (Reported) Lorazepam 1 Mg Tablet, 1 EACH PO TID PRN, (Reported) Montelukast Sodium 10 Mg Tablet, 10 MG PO DAILY, (Reported) Nitroglycerin 0.3 Mg Tab.subl, 0.3 MG SL PRN, (Reported) Omeprazole 20 Mg Capsule.dr, 20 MG PO DAILY, (Reported) Salsalate 500 Mg Tab, 1,000 MG PO TID, (Reported) [albuterol] , 2 PUFF INH QID, (Reported) Patient Home Medication List Home Medication List Reviewed: Yes Review of Systems Review of Systems Constitutional: see HPI Eyes: See HPI Ears, Nose, Mouth, Throat: see HPI Respiratory: see HPI Cardiovascular: see HPI Gastrointestinal: see HPI Genitourinary: see HPI Musculoskeletal: see HPI Skin: see HPI Psychiatric/Neurological: See HPI Endocrine: See HPI Hematologic/Lymphatic: See HPI Past Roljzih-Gzhmyh-Gsjuwe Hx Patient Social History Alcohol Use: Denies Use Recreational Drug Use: No Smoking Status: Current Everyday Smoker Type Used: Cigars Former Smoker, Quit: March 09, 2018 2nd Hand Smoke Exposure: No Recent Foreign Travel: No Contact w/Someone Who Travel: No Recent Infectious Disease Expo: No Recent Hopitalizations: No Seasonal Allergies Seasonal Allergies: Yes Past Medical History Surgeries: Yes (heart catheter, left shoulder surgery and right hip replacement) Gallbladder, Joint Replacement Respiratory: Yes Asthma, Chronic Bronchitis, COPD, Emphysema Currently Using CPAP: No Currently Using BIPAP: No Cardiac: Yes Heart Attack, Hypertension, Palpitations Neurological: Yes Headaches /Migraines Genitourinary: No Gastrointestinal: No Musculoskeletal: No Arthritis Endocrine: No Cancer: No Psychosocial: Yes Anxiety Integumentary: No Physical Exam Vital Signs Vital Signs - First Documented 06/11/19 20:06 Temp 98.6 Pulse 70 Resp 14 B/P (MAP) 143/82 (102) Pulse Ox 97 O2 Delivery Room Air Capillary Refill : Less Than 3 Seconds Height, Weight, BMI Height: 6'3.00" Weight: 197lbs. 0oz. 89.297223vl; 25.6 BMI Method:Stated General Appearance: moderate distress HEENT: PERRL/EOMI, normal ENT inspection, pale conjunctivae (L), photophobia Neck: non-tender, full range of motion Cardiovascular: normal peripheral pulses, regular rate, rhythm Respiratory: chest non-tender, lungs clear Gastrointestinal: non tender, soft Extremities: normal range of motion, non-tender Coordination/Gait: normal gait Motor/Sensory: no motor deficit, no sensory deficit Skin: normal color Progress/Results/Core Measures Results/Orders My Orders Orders - GAVIN PEREZ DO Metoclopramide Injection (Reglan Injecti (06/11/19 20:30) Diphenhydramine Injection (Benadryl Inje (06/11/19 20:30) Prochlorperazine Injection (Compazine In (06/11/19 20:30) Ns Iv 1000 Ml (Sodium Chloride 0.9%) (06/11/19 20:30) Blood Pressure Mean: 88 Departure Communication (Admissions) Typical migraine headache without neurologic deficits. Symptoms fully resolved with treatment. Impression Primary Impression: Migraine headache Disposition: 01 HOME, SELF-CARE Condition: Improved Departure-Patient Inst. Patient Instructions: Migraine Headache (DC) GAVIN PEREZ DO Jun 12, 2019 10:53
== END 2019-06-11 21:59 | disposition home or self-care (01) ==
LOC: EDUNIT# 19:53 → ER FS 19:54 → ER 21:59
DX: G43.909 Migraine, unspecified, not intractable, without status migrainosus (principal); J43.9 Emphysema, unspecified; J45.909 Unspecified asthma, uncomplicated; I10 Essential (primary) hypertension; I25.2 Old myocardial infarction; F41.9 Anxiety disorder, unspecified; F17.290 Nicotine dependence, other tobacco product, uncomplicated; Z96.641 Presence of right artificial hip joint; Z88.6 Allergy status to analgesic agent; Z88.0 Allergy status to penicillin; Z88.5 Allergy status to narcotic agent; Z88.8 Allergy status to other drugs, medicaments and biological substances; Z79.82 Long term (current) use of aspirin; Z91.012 Allergy to eggs; Z91.030 Bee allergy status

== ENCOUNTER 2019-07-16 14:10 | Emergency (ER) | payer MEDICARE ==
[~2019-07-16] VITALS: Ht 190.5 cm; Wt 85.9 kg
[2019-07-16] MEDS ORDERED: LIDOCAINE 2% VISCOUS 15 ML UDC PO ONE (14:30)
[2019-07-16] MEDS ORDERED: RT-ALBUTEROL/IPRATROPIUM 3 ML (DUONEB) VIAL INH ONE (14:30)
[2019-07-16] MEDS ORDERED: LORazepam INJ 2 MG/ML (ATIVAN) VIAL IVP ONE (14:30)
[2019-07-16] MEDS ORDERED: PANTOPRAZOLE 40 MG (PROTONIX) VIAL IV ONE (14:30)
[2019-07-16] MEDS ORDERED: ANTACID SUSP 30 ML UDC (MYLANTA) PO ONE (14:30)
--- NOTE | 2019-07-16 14:35 | ED Chest Pain ---
General Chief Complaint: Chest Pain Stated Complaint: CHEST PAIN,SOB Source: patient Exam Limitations: no limitations History of Present Illness Date Seen by Provider: Jul 16, 2019 Time Seen by Provider: 14:22 Initial Comments The patient is a pleasant 58-year-old male presents for evaluation of 2-3 days of chest discomfort described as burning and shortness of breath. He reports a history of 8 previous MIs as well as COPD. He noted some wheezing at home and u ses nebulizer machine with little relief after treatments. He states he recently received some anxiety provoking news, related to some legal trouble, and believes that he is also having a panic attack. He says this does not remind him of his previous MIs. He is alert and oriented 4, anxious, but appears to be in no distress. He denies fevers or chills, abdominal or back pain, dizziness, syncope, palpitations, nausea or vomiting. He did have an episode where he either coughed up or spit up a small amount of blood and does report a history of GERD causing previous similar bleeding in the past. Timing/Duration: 2-3 days Severity/Quality: moderate Location: substernal Radiation: no radiation Activities at Onset: none Prior CP/Workup: cardiac cath ASA po MAINTENANCE MAN: No NTG SL MAINTENANCE MAN: No Associated Symptoms: shortness of breath Allergies and Home Medications Allergies Coded Allergies: ketorolac tromethamine (Verified Allergy, Severe, ANAPHYLAXIS, 01/30/19) prednisone (Verified Allergy, Severe, angry and agitated, 01/30/19) Penicillins (Verified Allergy, Intermediate, 01/30/19) sob, wheezing egg (Verified Allergy, Intermediate, 01/30/19) swelling meperidine HCl (Verified Allergy, Intermediate, 01/30/19) sob, wheezing propoxyphene HCl (Verified Allergy, Mild, 01/30/19) sob, wheezing topiramate (Verified Allergy, Mild, NAUSEA, 08/18/12) diarrhea, citalopram (Verified Allergy, Unknown, 12/14/18) metoprolol (Verified Adverse Reaction, Mild, 08/18/12) sob, wheezing Uncoded Allergies: honey bee venom (Allergy, Mild, 08/18/12) sob, wheezing EGGS (Allergy, Unknown, 04/05/19) TETANUS (Allergy, Unknown, 04/05/19) Home Medications Aspirin 81 Mg Tablet.dr, 81 MG PO DAILY, (Reported) Butalb/Acetaminophen/Caffeine 1 Each Tablet, 1 EACH PO Q4H PRN for HEADACHE Prescribed by: NATALYA CALZADA on 04/23/192033 Carvedilol 3.125 Mg Tablet, 1 EACH PO BID, (Reported) Cetirizine Hcl 10 Mg Tablet, 10 MG PO DAILY, (Reported) Doxycycline Hyclate 100 Mg Tablet, 100 MG PO BID Prescribed by: GAVIN PEREZ on 04/05/192138 Epinephrine 0.3 Mg/0.3 Ml Auto.injct, 0.3 MG IJ Q15M PRN for WHEEZING Use once every 15 min if having angioedema, difficulty breathing, itching and swelling of the throat. Prescribed by: NATALYA CALZADA on 01/30/192016 Fluticasone Propionate 16 Gm [place], 2 SPRAYS NSEACH DAILY, (Reported) Ipratropium [place] 12.9 Gm Aers, 12.9 GM INH Q6H, (Reported) Lorazepam 1 Mg Tablet, 1 EACH PO TID PRN, (Reported) Montelukast Sodium 10 Mg Tablet, 10 MG PO DAILY, (Reported) Nitroglycerin 0.3 Mg Tab.subl, 0.3 MG SL PRN, (Reported) Omeprazole 20 Mg Capsule.dr, 20 MG PO DAILY, (Reported) Salsalate 500 Mg Tab, 1,000 MG PO TID, (Reported) [albuterol] , 2 PUFF INH QID, (Reported) Patient Home Medication List Home Medication List Reviewed: Yes Review of Systems Review of Systems Constitutional: no symptoms reported EENTM: No Symptoms Reported Respiratory: Shortness of Air, Wheezing Cardiovascular: Chest Pain Gastrointestinal: No Symptoms Reported Genitourinary: No Symptoms Reported Musculoskeletal: no symptoms reported Skin: no symptoms reported Psychiatric/Neurological: No Symptoms Reported Endocrine: No Symptoms Reported Hematologic/Lymphatic: No Symptoms Reported All Other Systems Reviewed Negative Unless Noted: Yes Past Hmkutxl-Hiqipv-Mxviqc Hx Past Med/Social Hx: Reviewed Nursing Past Med/Soc Hx Patient Social History Type Used: Cigars Former Smoker, Quit: March 09, 2018 2nd Hand Smoke Exposure: No Recent Hopitalizations: No Seasonal Allergies Seasonal Allergies: Yes Past Medical History Surgeries: Yes (heart catheter, left shoulder surgery and right hip replacement) Gallbladder, Joint Replacement Respiratory: Yes Asthma, Chronic Bronchitis, COPD, Emphysema Currently Using CPAP: No Currently Using BIPAP: No Cardiac: Yes Heart Attack, Hypertension, Palpitations Neurological: Yes Headaches /Migraines Genitourinary: No Gastrointestinal: No Musculoskeletal: No Arthritis Endocrine: No Cancer: No Psychosocial: Yes Anxiety Integumentary: No Physical Exam Vital Signs Vital Signs - First Documented 07/16/19 14:10 Temp 36.7 Pulse 70 Resp 16 B/P (MAP) 166/89 (114) Pulse Ox 98 O2 Delivery Room Air Capillary Refill : Less Than 3 Seconds Height, Weight, BMI Height: 6'3.00" Weight: 197lbs. 0oz. [id number]; 25.6 BMI Method:Stated General Appearance: No Apparent Distress, WD/WN HEENT: PERRL/EOMI, Pharynx Normal Neck: Full Range of Motion, Normal Inspection, Non Tender, Supple Respiratory: Chest Non Tender, No Accessory Muscle Use, No Respiratory Distress, Wheezing Cardiovascular: Regular Rate, Rhythm, No Edema, No Gallop, No JVD, Normal Peripheral Pulses Gastrointestinal: Normal Bowel Sounds, No Pulsatile Mass, Non Tender, Soft Extremity: Normal Capillary Refill, Normal Inspection, Normal Range of Motion, Non Tender Neurologic/Psychiatric: Alert, Oriented x3, No Motor/Sensory Deficits, Normal Mood/Affect, lead consultant II-XII Norm as Tested Skin: Normal Color, Warm/Dry Progress/Results/Core Measures Results/Orders Lab Results Laboratory Tests Test 07/16/19 14:25 Range/Units White Blood Count 9.6 4.3-11.0 10^3/uL Red Blood Count 4.49 4.35-5.85 10^6/uL Hemoglobin 14.3 13.3-17.7 G/DL Hematocrit 41 40-54 % Mean Corpuscular Volume 91 80-99 FL Mean Corpuscular Hemoglobin 32 25-34 PG Mean Corpuscular Hemoglobin Concent 35 32-36 G/DL Red Cell Distribution Width 12.5 10.0-14.5 % Platelet Count 290 130-400 10^3/uL Mean Platelet Volume 9.1 7.4-10.4 FL Neutrophils (%) (Auto) 55 42-75 % Lymphocytes (%) (Auto) 33 12-44 % Monocytes (%) (Auto) 9 0-12 % Eosinophils (%) (Auto) 1 0-10 % Basophils (%) (Auto) 1 0-10 % Neutrophils # (Auto) 5.3 1.8-7.8 X 10^3 Lymphocytes # (Auto) 3.2 1.0-4.0 X 10^3 Monocytes # (Auto) 0.9 0.0-1.0 X 10^3 Eosinophils # (Auto) 0.1 0.0-0.3 10^3/uL Basophils # (Auto) 0.1 0.0-0.1 10^3/uL Prothrombin Time 13.4 12.2-14.7 SEC INR Comment 1.0 0.8-1.4 Activated Partial Thromboplast Time 26 24-35 SEC Sodium Level 137 135-145 MMOL/L Potassium Level 4.4 3.6-5.0 MMOL/L Chloride Level 99 98-107 MMOL/L Carbon Dioxide Level 26 21-32 MMOL/L Anion Gap 12 5-14 MMOL/L Blood Urea Nitrogen 18 7-18 MG/DL Creatinine 1.05 0.60-1.30 MG/DL Estimat Glomerular Filtration Rate > 60 BUN/Creatinine Ratio 17 Glucose Level 95 70-105 MG/DL Calcium Level 9.0 8.5-10.1 MG/DL Corrected Calcium 8.8 8.5-10.1 MG/DL Magnesium Level 1.8 1.6-2.4 MG/DL Total Bilirubin 0.7 0.1-1.0 MG/DL Aspartate Amino Transf (AST/SGOT) 16 5-34 U/L Alanine Aminotransferase (ALT/SGPT) 15 0-55 U/L Alkaline Phosphatase 65 40-136 U/L Troponin I < 0.30 <0.30 NG/ML Total Protein 6.4 6.4-8.2 GM/DL Albumin 4.2 3.2-4.5 GM/DL My Orders Orders - ALLISON OLMEDO DO Cbc With Automated Diff (07/16/19 14:17) Magnesium (07/16/19 14:17) Chest 1 View Ap/Pa Only (07/16/19 14:17) Ekg Tracing (07/16/19 14:17) Comprehensive Metabolic Panel (07/16/19 14:17) Protime With Inr (07/16/19 14:17) Partial Thromboplastin Time (07/16/19 14:17) O2 (07/16/19 14:17) Monitor-Rhythm Ecg Trace Only (07/16/19 14:17) Ed Iv/Invasive Line Start (07/16/19 14:17) Creatine Kinase Mb (07/16/19 14:17) Troponin I Fs (07/16/19 14:17) Probnp Fs (07/16/19 14:17) Lorazepam Injection (Ativan Injection) (07/16/19 14:30) Lidocaine 2% Viscous 15 Ml (Xylocaine Vi (07/16/19 14:30) Antacid Suspension (Mylanta Suspension (07/16/19 14:30) Pantoprazole Injection (Protonix Injecti (07/16/19 14:30) Albuterol/Ipra Inhalation Soln (Duoneb I (07/16/19 14:30) Svn Small Volume Nebulizer (07/16/19 14:27) Troponin I Fs (07/16/19 16:45) Medications Given in ED Current Medications Medications Dose Ordered Sig/Viv Route Start Time Stop Time Status Last Admin Dose Admin Al Hydrox/Mg Hydrox/Simethicone 30 ml ONCE ONCE PO 07/16/19 14:30 07/16/19 14:31 DC 07/16/19 14:43 30 ML Albuterol/ Ipratropium 3 ml ONCE ONCE INH 07/16/19 14:30 07/16/19 14:31 DC 07/16/19 14:44 3 ML Lidocaine HCl 15 ml ONCE ONCE PO 07/16/19 14:30 07/16/19 14:31 DC 07/16/19 14:43 15 ML Lorazepam 1 mg ONCE ONCE IVP 07/16/19 14:30 07/16/19 14:31 DC 07/16/19 14:43 1 MG Pantoprazole 40 mg ONCE ONCE IV 07/16/19 14:30 07/16/19 14:31 DC 07/16/19 14:43 40 MG Vital Signs/I&O 07/16/19 14:10 Temp 36.7 Pulse 70 Resp 16 B/P (MAP) 166/89 (114) Pulse Ox 98 O2 Delivery Room Air Progress Progress Note : Progress Note @1488 - patient updated on lab and imaging results. He states he is feeling completely better and has no complaints. The patient likely a combination of some heartburn as well as some anxiety. Advised the patient to stay for a second troponin however his symptoms have been going on for a week and he declines this. Advised the patient to follow up with his PCP in the next 1-2 days and to return to the emergency Department immediately for new or worsening symptoms. The patient expresses verbal understanding and agreement with the plan and is stable for discharge. EKG : Comment @1417 - Normal sinus rhythm, rate of 66, normal axis, no acute ischemic findings noted, no STEMI, reviewed and interpreted by myself Diagnostic Imaging Comments [facility]. [place], [place] NAME: EMILE CHENG [facility] REC#: [id number] PT STATUS: REG ER : 1960 PHYSICIAN: ALLISON OLMEDO DO ADMIT DATE: 07/16/19/ER FS Draft Date of Exam:07/16/19 CHEST 1 VIEW AP/PA ONLY Clinical indication: Patient with chest pain and shortness of breath. Exam: Portable chest x-ray upright view. Comparisons: Chest x-ray dated 01/30/2019. Findings: Lungs/pleura: Lungs are clear. There is no pneumothorax. There is no pleural effusion. Mediastinum: Unremarkable. Pulmonary vasculature: Unremarkable. Heart: Unremarkable. Bones/extrathoracic soft tissue: Unremarkable. Impression: There is no radiographic evidence of acute cardiopulmonary process. Dictated on workstation # [id number] Dict: 07/16/19 1440 Trans: 07/16/19 1442 CV [id number] Interpreted by: RYANNE TURNER MD Electronically signed by: Departure Impression Primary Impression: Chest pain Additional Impressions: Anxiety Heartburn Disposition: 01 HOME, SELF-CARE Condition: Stable Departure-Patient Inst. Decision time for Depature: 17:18 Referrals: JULIA HERRERA MD (PCP/Family) Primary Care Physician Patient Instructions: Chest Pain That Is Not Caused by the Heart (DC), Acid Reflux (Gastroesophageal Reflux Disease), Adult (DC), Anxiety, Adult (DC) Add. Discharge Instructions: Take the prescribed medication as directed. Return to the emergency department immediately for new or worsening symptoms. Follow-up with your doctor in the next 1-2 days. Scripts Famotidine (Pepcid) 20 Mg Tablet 20 MG PO DAILY for 30 Days, #30 TAB Prov: ALLISON OLMEDO DO 07/16/19 ALLISON OLMEDO DO Jul 16, 2019 14:34
[2019-07-16 14:37] LABS: HEMOGLOBIN 14.3 G/DL (13.3-17.7); MEAN CORPUSCULAR HEMOGLOBIN 32 PG (25-34); WHITE BLOOD COUNT 9.6 10^3/uL (4.3-11.0)
[2019-07-16 14:38] LABS: BASOPHILS # (AUTO) 0.1 10^3/uL (0.0-0.1); BASOPHILS % (AUTO) 1 % (0-10); EOSINOPHILS # (AUTO) 0.1 10^3/uL (0.0-0.3); EOSINOPHILS % (AUTO) 1 % (0-10); HEMATOCRIT 41 % (40-54); LYMPHOCYTES # (AUTO) 3.2 X 10^3 (1.0-4.0); LYMPHOCYTES % (AUTO) 33 % (12-44); MEAN CORPUSCULAR HGB CONC 35 G/DL (32-36); MEAN CORPUSCULAR VOLUME 91 FL (80-99); MEAN PLATELET VOLUME 9.1 FL (7.4-10.4); MONOCYTES # (AUTO) 0.9 X 10^3 (0.0-1.0); MONOCYTES % (AUTO) 9 % (0-12); NEUTROPHILS # (AUTO) 5.3 X 10^3 (1.8-7.8); NEUTROPHILS % (AUTO) 55 % (42-75); PLATELET COUNT 290 10^3/uL (130-400); RED CELL DISTRIBUTION WIDTH 12.5 % (10.0-14.5)
--- NOTE | 2019-07-16 14:42 | Diagnostic Imaging Report ---
Clinical indication: Patient with chest pain and shortness of breath. Exam: Portable chest x-ray upright view. Comparisons: Chest x-ray dated 01/30/2019. Findings: Lungs/pleura: Lungs are clear. There is no pneumothorax. There is no pleural effusion. Mediastinum: Unremarkable. Pulmonary vasculature: Unremarkable. Heart: Unremarkable. Bones/extrathoracic soft tissue: Unremarkable. Impression: There is no radiographic evidence of acute cardiopulmonary process. Dictated by: Dictated on workstation # [id number]
[2019-07-16 14:48] LABS: PROTHROMBIN TIME PATIENT 13.4 SEC (12.2-14.7)
[2019-07-16 15:17] LABS: ALANINE AMINOTRANSFERASE 15 U/L (0-55); ALBUMIN 4.2 GM/DL (3.2-4.5); ALKALINE PHOSPHATASE 65 U/L (40-136); BILIRUBIN,TOTAL 0.7 MG/DL (0.1-1.0); BUN/CREATININE RATIO 17; CARBON DIOXIDE 26 MMOL/L (21-32); CHLORIDE 99 MMOL/L (98-107); CREATININE SERUM 1.05 MG/DL (0.60-1.30); GFR ESTIMATED > 60; GLUCOSE 95 MG/DL (70-105); MAGNESIUM 1.8 MG/DL (1.6-2.4); POTASSIUM 4.4 MMOL/L (3.6-5.0); SODIUM 137 MMOL/L (135-145); TOTAL PROTEIN 6.4 GM/DL (6.4-8.2)
--- NOTE | 2019-07-16 16:00 | NUR ---
Updated pending chemistry results.
--- NOTE | 2019-07-16 17:00 | NUR ---
Updated patient. Delays in lab with chemistry analyzer, hope to be resulted soon.
--- NOTE | 2019-07-16 17:15 | NUR ---
Dr reports patient will be discharged and went to update pt. Pt reports he has slept some after medications administered.
[2019-07-16] MEDS ORDERED: FAMO-119 PO (17:19)
[2019-07-16 17:22] VITALS: BP 143/94
--- NOTE | 2019-07-16 17:22 | NUR ---
Patient discharged to home after review of home instructions read and verbalized by pt as understood.
[2019-07-17 18:56] LABS: CREATINE KINASE MB 2.3 NG/ML (<6.6)
== END 2019-07-16 17:22 | disposition home or self-care (01) ==
LOC: EDUNIT# 14:10 → ER FS 14:11
DX: R07.2 Precordial pain (principal); F41.9 Anxiety disorder, unspecified; R12 Heartburn; I25.2 Old myocardial infarction; J43.9 Emphysema, unspecified; J45.909 Unspecified asthma, uncomplicated; K21.9 Gastro-esophageal reflux disease without esophagitis; I10 Essential (primary) hypertension; G43.909 Migraine, unspecified, not intractable, without status migrainosus; Z88.6 Allergy status to analgesic agent; Z88.8 Allergy status to other drugs, medicaments and biological substances; Z88.0 Allergy status to penicillin; Z91.012 Allergy to eggs; Z79.82 Long term (current) use of aspirin; Z87.891 Personal history of nicotine dependence; Z96.641 Presence of right artificial hip joint; Z95.9 Presence of cardiac and vascular implant and graft, unspecified
CPT/HCPCS: 36415; 71045; 80053; 82553; 83735; 83880; 84484; 85025; 85610; 85730; 93005; 93041; 96374; 96375

== ENCOUNTER 2019-07-18 19:41 | Emergency (ER) | payer MEDICARE ==
[~2019-07-18] VITALS: Ht 190 cm; Wt 83.9 kg
[~2019-07-18 19:41] MED LIST changes: +FAMO-119 PO
[2019-07-18] MEDS ORDERED: LORazepam 0.5 MG (ATIVAN) TABLET PO STA (19:52)
--- NOTE | 2019-07-18 20:30 | ED General ---
General Chief Complaint: Psych/Social Disorder Stated Complaint: ANXIETY ATTACK Nursing Triage Note: PT ANXIOUS AND CRYING ON ARRIVAL. PT STATES HE IS HAVING A REACTION TO A MEDICATION. PT ALSO STATES THAT HE HAS A LOT GOING ON AT HOME AND IS HAVING A LOT OF ANXIETY. Nursing Sepsis Screen: No Definite Risk Source of Information: Patient Exam Limitations: No Limitations History of Present Illness Date Seen by Provider: Jul 18, 2019 Time Seen by Provider: 20:00 Initial Comments Patient is a 58-year-old male with history of anxiety presents with acute panic attack. Patient reports feeling increased unease, anxiety, tremors and headache starting this evening after taking medications prescribed to him he days ago by his primary care provider. Patient states he has chronic daily anxiety but has symptoms of worsening in the past several days prompting him to take 1 mg of Ativan 2 hours prior to ED arrival and then to come to the emergency department. Reports racing thoughts and concerns that the please for monitoring and. No HI or SI. Patient stated friends anxiety by his primary care physician. He is not currently on antidepressant are SSRI. No other acute symptoms or complaints. Timing/Duration: Changing Over Time, Getting Worse Severity: Moderate Modifying Factors: improves with Medication Associated Systoms: Other Allergies and Home Medications Allergies Coded Allergies: ketorolac tromethamine (Verified Allergy, Severe, ANAPHYLAXIS, 01/30/19) prednisone (Verified Allergy, Severe, angry and agitated, 01/30/19) Penicillins (Verified Allergy, Intermediate, 01/30/19) sob, wheezing egg (Verified Allergy, Intermediate, 01/30/19) swelling meperidine HCl (Verified Allergy, Intermediate, 01/30/19) sob, wheezing propoxyphene HCl (Verified Allergy, Mild, 01/30/19) sob, wheezing topiramate (Verified Allergy, Mild, NAUSEA, 08/18/12) diarrhea, citalopram (Verified Allergy, Unknown, 12/14/18) metoprolol (Verified Adverse Reaction, Mild, 08/18/12) sob, wheezing Uncoded Allergies: honey bee venom (Allergy, Mild, 08/18/12) sob, wheezing EGGS (Allergy, Unknown, 04/05/19) TETANUS (Allergy, Unknown, 04/05/19) Home Medications Aspirin 81 Mg Tablet.dr, 81 MG PO DAILY, (Reported) Butalb/Acetaminophen/Caffeine 1 Each Tablet, 1 EACH PO Q4H PRN for HEADACHE Prescribed by: NATALYA CALZADA on 04/23/192033 Carvedilol 3.125 Mg Tablet, 1 EACH PO BID, (Reported) Cetirizine Hcl 10 Mg Tablet, 10 MG PO DAILY, (Reported) Doxycycline Hyclate 100 Mg Tablet, 100 MG PO BID Prescribed by: GAVIN PEREZ on 04/05/192138 Epinephrine 0.3 Mg/0.3 Ml Auto.injct, 0.3 MG IJ Q15M PRN for WHEEZING Use once every 15 min if having angioedema, difficulty breathing, itching and swelling of the throat. Prescribed by: NATALYA CALZADA on 01/30/192016 Famotidine 20 Mg Tablet, 20 MG PO DAILY Prescribed by: ALLISON OLMEDO on 07/16/191718 Fluticasone Propionate 16 Gm [place], 2 SPRAYS NSEACH DAILY, (Reported) Ipratropium [place] 12.9 Gm Aers, 12.9 GM INH Q6H, (Reported) Lorazepam 1 Mg Tablet, 1 EACH PO TID PRN, (Reported) Montelukast Sodium 10 Mg Tablet, 10 MG PO DAILY, (Reported) Nitroglycerin 0.3 Mg Tab.subl, 0.3 MG SL PRN, (Reported) Omeprazole 20 Mg Capsule.dr, 20 MG PO DAILY, (Reported) Salsalate 500 Mg Tab, 1,000 MG PO TID, (Reported) [albuterol] , 2 PUFF INH QID, (Reported) Patient Home Medication List Home Medication List Reviewed: Yes Review of Systems Review of Systems Constitutional: other (anxious) Cardiovascular: no symptoms reported Gastrointestinal: no symptoms reported Genitourinary: no symptoms reported Musculoskeletal: no symptoms reported Skin: no symptoms reported Psychiatric/Neurological: Anxiety, Emotional Problems Past Memhbdh-Ragsfs-Vbfrvd Hx Past Med/Social Hx: Reviewed Nursing Past Med/Soc Hx Patient Social History Alcohol Use: Denies Use Recreational Drug Use: No Smoking Status: Current Everyday Smoker Type Used: Cigarettes Former Smoker, Quit: March 09, 2018 2nd Hand Smoke Exposure: No Recent Foreign Travel: No Contact w/Someone Who Travel: No Recent Infectious Disease Expo: No Recent Hopitalizations: No Physical Abuse: No Sexual Abuse: No Mistreated: No Fear: No Seasonal Allergies Seasonal Allergies: Yes Past Medical History Surgeries: Yes (heart catheter, left shoulder surgery and right hip replacement) Gallbladder, Joint Replacement Respiratory: Yes Asthma, Chronic Bronchitis, COPD, Emphysema Currently Using CPAP: No Currently Using BIPAP: No Cardiac: Yes Heart Attack, Hypertension, Palpitations Neurological: Yes Headaches /Migraines Genitourinary: No Gastrointestinal: No Musculoskeletal: No Arthritis Endocrine: No HEENT: No Cancer: No Psychosocial: Yes Anxiety Integumentary: No Physical Exam Vital Signs Vital Signs - First Documented 07/18/19 19:43 Temp 37.0 Pulse 80 Resp 22 B/P (MAP) 163/84 (110) Pulse Ox 98 O2 Delivery Room Air Capillary Refill : Less Than 3 Seconds Height, Weight, BMI Height: 6'3.00" Weight: 197lbs. 0oz. 89.753896fv; 23.00 BMI Method:Stated General Appearance: Anxious, Other (tearful) Eyes: Bilateral Eye Normal Inspection, Bilateral Eye PERRL, Bilateral Eye EOMI HEENT: PERRL/EOMI Neck: Normal Inspection, Supple Respiratory: Chest Non Tender, Lungs Clear, Normal Breath Sounds Cardiovascular: Regular Rate, Rhythm Gastrointestinal: Soft Extremity: Normal Capillary Refill, Normal Inspection, Normal Range of Motion Neurologic/Psychiatric: Alert, Oriented x3, bird tender II-XII Norm as Tested Skin: Normal Color, Warm/Dry Focused Exam Sepsis Stage: Ruled Out Progress/Results/Core Measures Suspected Sepsis Recent Fever Within 48 Hours: No Infection Criteria Present: None New/Unexplained Altered Menta: No Sepsis Screen: No Definite Risk SIRS Temperature: Pulse: 80 Respiratory Rate: 22 Blood Pressure 163 /84 Mean: 110 Results/Orders My Orders Orders - GAVIN PEREZ DO Lorazepam Tablet (Ativan Tablet) (07/18/19 19:52) Vital Signs/I&O 07/18/19 19:43 Temp 37.0 Pulse 80 Resp 22 B/P (MAP) 163/84 (110) Pulse Ox 98 O2 Delivery Room Air Capillary Refill : Less Than 3 Seconds Blood Pressure Mean: 110 Departure Communication (Admissions) Ativan given. Patient appears more calm. Symptoms are improved. Patient states he feels as though newly prescribed medications, and dicyclomine and do xycycline or contributing to his anxiety. Patient was prescribed these medications on 07/10/19. Patient instructed to hold medications until he can follow up with his PCP for reevaluation of his anxiety. Recommend when necessary Ativan in the interim. Impression Primary Impression: Anxiety Disposition: HOME, SELF-CARE Condition: Improved Departure-Patient Inst. Decision time for Depature: 20:30 Referrals: JULIA HERRERA MD (PCP/Family) Primary Care Physician Patient Instructions: Panic Disorder (DC) Add. Discharge Instructions: Please go home and rest. Given Ativan as prescribed and discontinue newly prescribed medications until he can follow-up with your PCP in the office the next 1-2 days. All discharge instructions reviewed with patient and/or family. Voiced understanding. GAVIN PEREZ DO Jul 18, 2019 20:30
[2019-07-18 20:56] VITALS: BP 125/84
== END 2019-07-18 21:06 | disposition home or self-care (01) ==
LOC: EDUNIT# 19:41 → ER FS 19:43
DX: F41.9 Anxiety disorder, unspecified (principal); I10 Essential (primary) hypertension; I25.2 Old myocardial infarction; J43.9 Emphysema, unspecified; G43.909 Migraine, unspecified, not intractable, without status migrainosus; F17.210 Nicotine dependence, cigarettes, uncomplicated; Z95.9 Presence of cardiac and vascular implant and graft, unspecified; Z96.641 Presence of right artificial hip joint; Z79.51 Long term (current) use of inhaled steroids; Z79.82 Long term (current) use of aspirin; Z88.0 Allergy status to penicillin; Z88.5 Allergy status to narcotic agent; Z88.8 Allergy status to other drugs, medicaments and biological substances; Z88.7 Allergy status to serum and vaccine
CPT/HCPCS: 99283

== ENCOUNTER 2019-08-10 17:07 | Emergency (ER) | payer MEDICARE ==
[~2019-08-10] VITALS: Ht 185.6 cm; Wt 86.2 kg
--- NOTE | 2019-08-10 17:30 | NUR ---
Pt reports to RN in full sentences his history. Pt reports he did not realize the condom he was asked to wear for his girlfriend was made of latex. Pt had initial Sat on arrival 100% Rm air. Pt appears anxious. Pt asks, "Someone aked me to pee in a cup if I went to bathroom, so why?" "You know I am on Lorazepam and I will be positive on drug screen." Pt continues to talk rapidly and escalating voice reporting he has been on Lorazepam for yrs stating he is using a Class IV. Pt concerned about seeing Dr Vazquez Wednesday as he is going to begin the weaning process of Lorazepam.
[2019-08-10] MEDS ORDERED: EPINEPHrine INJECTION 1 MG/ML AMP IM ONE (18:30)
[2019-08-10] MEDS ORDERED: diphenhydrAMINE 50 MG/ML INJ (BENADRYL) IVP ONE (18:30)
[2019-08-10] MEDS ORDERED: FAMOTIDINE 20MG/2ML IV (PEPCID) IVP ONE (18:30)
[2019-08-10] MEDS ORDERED: HYDR-3781 PO (18:41)
[2019-08-10] MEDS ORDERED: FAMO-119 PO (18:41)
[2019-08-10 18:50] LABS: BASOPHILS # (AUTO) 0.1 10^3/uL (0.0-0.1); BASOPHILS % (AUTO) 1 % (0-10); EOSINOPHILS # (AUTO) 0.4 10^3/uL (0.0-0.3); EOSINOPHILS % (AUTO) 4 % (0-10); HEMATOCRIT 39 % (40-54); HEMOGLOBIN 13.7 G/DL (13.3-17.7); LYMPHOCYTES # (AUTO) 2.5 X 10^3 (1.0-4.0); LYMPHOCYTES % (AUTO) 28 % (12-44); MEAN CORPUSCULAR HEMOGLOBIN 32 PG (25-34); MEAN CORPUSCULAR HGB CONC 35 G/DL (32-36); MEAN CORPUSCULAR VOLUME 91 FL (80-99); MONOCYTES # (AUTO) 0.7 X 10^3 (0.0-1.0); MONOCYTES % (AUTO) 7 % (0-12); NEUTROPHILS # (AUTO) 5.5 X 10^3 (1.8-7.8); NEUTROPHILS % (AUTO) 60 % (42-75); PLATELET COUNT 285 10^3/uL (130-400); RED CELL DISTRIBUTION WIDTH 12.1 % (10.0-14.5); WHITE BLOOD COUNT 9.1 10^3/uL (4.3-11.0)
--- NOTE | 2019-08-10 19:00 | NUR ---
Report to Susie QUEVEDO, IV is started and meds pulled but not given at this time. Pt resting on cart HOB elevated 45 degrees, no distress. SaO2 96-100% Rm air.
[2019-08-10 19:11] LABS: ALANINE AMINOTRANSFERASE 13 U/L (0-55); ALKALINE PHOSPHATASE 63 U/L (40-136); BILIRUBIN,TOTAL 0.3 MG/DL (0.1-1.0); BUN/CREATININE RATIO 13; CALCIUM 8.6 MG/DL (8.5-10.1); CARBON DIOXIDE 28 MMOL/L (21-32); CHLORIDE 100 MMOL/L (98-107); GFR ESTIMATED > 60; GLUCOSE 97 MG/DL (70-105); POTASSIUM 3.8 MMOL/L (3.6-5.0); SODIUM 140 MMOL/L (135-145)
--- NOTE | 2019-08-10 19:13 | ED General ---
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 PT REPORTS AFTERWARDS HE SAW ON THE WRAPPER IT WAS LATEX. PT STATES LATEX ALLERGY MAKES HIM FEEL AIRWAY CLOSING. SAO2 100% R.A. Nursing Sepsis Screen: No Definite Risk Exam Limitations: No Limitations History of Present Illness Date Seen by Provider: Aug 10, 2019 Time Seen by Provider: 18:20 Initial Comments Patient is a 58-year-old male with history of psychosis and latex ideology presents with shortness of breath and subjective throat tightening after exposure to latex 1 hour prior to ED arrival. Patient denies hives, wheezing, itching and chest tightness. No medications at home. Patient does have an epinephrine pen available but did not use. No other acute symptoms or complaints. Timing/Duration: 1-3 Hours, 4-6 Hours Associated Systoms: Cough, Shortness of Air Allergies and Home Medications Allergies Coded Allergies: ketorolac tromethamine (Verified Allergy, Severe, ANAPHYLAXIS, 01/30/19) prednisone (Verified Allergy, Severe, angry and agitated, 01/30/19) Penicillins (Verified Allergy, Intermediate, 01/30/19) sob, wheezing egg (Verified Allergy, Intermediate, 01/30/19) swelling meperidine HCl (Verified Allergy, Intermediate, 01/30/19) sob, wheezing propoxyphene HCl (Verified Allergy, Mild, 01/30/19) sob, wheezing topiramate (Verified Allergy, Mild, NAUSEA, 08/18/12) diarrhea, citalopram (Verified Allergy, Unknown, 12/14/18) metoprolol (Verified Adverse Reaction, Mild, 08/18/12) sob, wheezing Uncoded Allergies: honey bee venom (Allergy, Mild, 08/18/12) sob, wheezing EGGS (Allergy, Unknown, 04/05/19) TETANUS (Allergy, Unknown, 04/05/19) Home Medications Aspirin 81 Mg Tablet.dr, 81 MG PO DAILY, (Reported) Butalb/Acetaminophen/Caffeine 1 Each Tablet, 1 EACH PO Q4H PRN for HEADACHE Prescribed by: NATALYA CALZADA on 04/23/192033 Carvedilol 3.125 Mg Tablet, 1 EACH PO BID, (Reported) Cetirizine Hcl 10 Mg Tablet, 10 MG PO DAILY, (Reported) Doxycycline Hyclate 100 Mg Tablet, 100 MG PO BID Prescribed by: GAVIN PEREZ on 04/05/192138 Epinephrine 0.3 Mg/0.3 Ml Auto.injct, 0.3 MG IJ Q15M PRN for WHEEZING Use once every 15 min if having angioedema, difficulty breathing, itching and swelling of the throat. Prescribed by: NATALYA CALZADA on 01/30/192016 Famotidine 20 Mg Tablet, 20 MG PO DAILY Prescribed by: ALLISON OLMEDO on 07/16/191718 Famotidine 20 Mg Tablet, 20 MG PO BID Prescribed by: GAVIN PEREZ on 08/10/191840 Fluticasone Propionate 16 Gm [place], 2 SPRAYS NSEACH DAILY, (Reported) Hydroxyzine Pamoate 25 Mg Capsule, 25 MG PO Q8 Prescribed by: GAVIN PEREZ on 08/10/191840 Ipratropium [place] 12.9 Gm Aers, 12.9 GM INH Q6H, (Reported) Lorazepam 1 Mg Tablet, 1 EACH PO TID PRN, (Reported) Montelukast Sodium 10 Mg Tablet, 10 MG PO DAILY, (Reported) Nitroglycerin 0.3 Mg Tab.subl, 0.3 MG SL PRN, (Reported) Omeprazole 20 Mg Capsule.dr, 20 MG PO DAILY, (Reported) Salsalate 500 Mg Tab, 1,000 MG PO TID, (Reported) [albuterol] , 2 PUFF INH QID, (Reported) Patient Home Medication List Home Medication List Reviewed: Yes Review of Systems Review of Systems Constitutional: see HPI EENTM: see HPI Respiratory: see HPI Cardiovascular: see HPI Gastrointestinal: no symptoms reported Genitourinary: see HPI Musculoskeletal: see HPI Skin: see HPI Psychiatric/Neurological: See HPI Hematologic/Lymphatic: See HPI Immunological/Allergic: see HPI All Other Systems Reviewed Negative Unless Noted: No Past Peuzral-Fpuyht-Aslpzg Hx Past Med/Social Hx: Reviewed Nursing Past Med/Soc Hx Patient Social History Alcohol Use: Denies Use Recreational Drug Use: No Smoking Status: Current Everyday Smoker Type Used: Cigarettes Former Smoker, Quit: March 09, 2018 2nd Hand Smoke Exposure: No Recent Foreign Travel: No Contact w/Someone Who Travel: No Recent Infectious Disease Expo: No Recent Hopitalizations: No Physical Abuse: No Sexual Abuse: No Mistreated: No Fear: No Seasonal Allergies Seasonal Allergies: Yes Past Medical History Surgeries: Yes (heart catheter, left shoulder surgery and right hip replacement) Gallbladder, Joint Replacement Respiratory: Yes Asthma, Chronic Bronchitis, COPD, Emphysema Currently Using CPAP: No Currently Using BIPAP: No Cardiac: Yes Heart Attack, Hypertension, Palpitations Neurological: Yes Headaches /Migraines Genitourinary: No Gastrointestinal: No Musculoskeletal: No Arthritis Endocrine: No HEENT: No Cancer: No Psychosocial: Yes Anxiety Integumentary: No Blood Disorders: No Physical Exam Vital Signs Vital Signs - First Documented 08/10/19 17:20 Temp 36.0 Pulse 74 Resp 18 B/P (MAP) 159/90 (113) Pulse Ox 100 O2 Delivery Room Air Capillary Refill : Less Than 3 Seconds Height, Weight, BMI Height: 6'3.00" Weight: 197lbs. 0oz. 89.737473kn; 25.00 BMI Method:Stated General Appearance: No Apparent Distress, WD/WN, Anxious Eyes: Bilateral Eye Normal Inspection, Bilateral Eye PERRL, Bilateral Eye EOMI HEENT: PERRL/EOMI, TMs Normal, Pharynx Normal Neck: Full Range of Motion, Normal Inspection, Non Tender, Supple Respiratory: Lungs Clear Cardiovascular: Regular Rate, Rhythm, No Edema Skin: Normal Color Focused Exam Sepsis Stage: Ruled Out Progress/Results/Core Measures Suspected Sepsis Recent Fever Within 48 Hours: No Infection Criteria Present: None New/Unexplained Altered Menta: No Sepsis Screen: No Definite Risk SIRS Temperature: Pulse: 74 Respiratory Rate: 18 Laboratory Tests 08/10/19 18:40: White Blood Count 9.1 Blood Pressure 159 /90 Mean: 113 Laboratory Tests 08/10/19 18:40: Platelet Count 285 Results/Orders Lab Results Laboratory Tests Test 08/10/19 18:40 Range/Units White Blood Count 9.1 4.3-11.0 10^3/uL Red Blood Count 4.28 L 4.35-5.85 10^6/uL Hemoglobin 13.7 13.3-17.7 G/DL Hematocrit 39 L 40-54 % Mean Corpuscular Volume 91 80-99 FL Mean Corpuscular Hemoglobin 32 25-34 PG Mean Corpuscular Hemoglobin Concent 35 32-36 G/DL Red Cell Distribution Width 12.1 10.0-14.5 % Platelet Count 285 130-400 10^3/uL Mean Platelet Volume 9.0 7.4-10.4 FL Neutrophils (%) (Auto) 60 42-75 % Lymphocytes (%) (Auto) 28 12-44 % Monocytes (%) (Auto) 7 0-12 % Eosinophils (%) (Auto) 4 0-10 % Basophils (%) (Auto) 1 0-10 % Neutrophils # (Auto) 5.5 1.8-7.8 X 10^3 Lymphocytes # (Auto) 2.5 1.0-4.0 X 10^3 Monocytes # (Auto) 0.7 0.0-1.0 X 10^3 Eosinophils # (Auto) 0.4 H 0.0-0.3 10^3/uL Basophils # (Auto) 0.1 0.0-0.1 10^3/uL My Orders Orders - GAVIN PEREZ DO Epinephrine 1 Mg Injection (Adrenalin I (08/10/19 18:30) Cbc With Automated Diff (08/10/19 18:30) Comprehensive Metabolic Panel (08/10/19 18:30) Diphenhydramine Injection (Benadryl Inje (08/10/19 18:30) Famotidine Injection (Pepcid Injection) (08/10/19 18:30) Medications Given in ED Current Medications Medications Dose Ordered Sig/Viv Route Start Time Stop Time Status Last Admin Dose Admin Diphenhydramine HCl 50 mg ONCE ONCE IVP 08/10/19 18:30 08/10/19 18:32 DC 08/10/19 18:52 50 MG Epinephrine HCl 0.3 mg ONCE ONCE IM 08/10/19 18:30 08/10/19 18:32 DC 08/10/19 18:52 0.3 MG Famotidine 20 mg ONCE ONCE IVP 08/10/19 18:30 08/10/19 18:32 DC 08/10/19 18:51 20 MG Vital Signs/I&O 08/10/19 17:20 Temp 36.0 Pulse 74 Resp 18 B/P (MAP) 159/90 (113) Pulse Ox 100 O2 Delivery Room Air Capillary Refill : Less Than 3 Seconds Blood Pressure Mean: 113 Departure Communication (Admissions) Patient cannot take radiated to worsening of psychosis. Pepcid, Benadryl and I am epinephrine given. The patient was monitored improved in the ED without recurrence of symptoms. Typical Impression Primary Impression: Allergic reaction Disposition: 01 HOME, SELF-CARE Condition: Stable Departure-Patient Inst. Patient Instructions: Latex Allergy Add. Discharge Instructions: Take medications as directed and avoid future allergy exposures. Use home epi- pen if symptoms recur and call 911. Follow up with your PCP as needed. All discharge instructions reviewed with patient and/or family. Voiced understanding. Scripts Hydroxyzine Pamoate (Hydroxyzine Pamoate) 25 Mg Capsule 25 MG PO Q8, #14 CAP Prov: GAVIN PEREZ DO 08/10/19 Famotidine (Pepcid) 20 Mg Tablet 20 MG PO BID, #20 TAB Prov: GAVIN PEREZ DO 08/10/19 GAVIN PEREZ DO Aug 10, 2019 19:13
[2019-08-10 19:39] VITALS: BP 140/71
== END 2019-08-10 19:38 | disposition home or self-care (01) ==
LOC: EDUNIT# 17:07 → ER FS 17:08
DX: T78.49XA Other allergy, initial encounter (principal); J43.9 Emphysema, unspecified; I10 Essential (primary) hypertension; I25.2 Old myocardial infarction; G43.909 Migraine, unspecified, not intractable, without status migrainosus; F41.9 Anxiety disorder, unspecified; F17.210 Nicotine dependence, cigarettes, uncomplicated; Z79.82 Long term (current) use of aspirin; Z91.040 Latex allergy status; Z96.641 Presence of right artificial hip joint; Z79.51 Long term (current) use of inhaled steroids; Z88.6 Allergy status to analgesic agent; Z88.0 Allergy status to penicillin; Z88.5 Allergy status to narcotic agent; Z88.8 Allergy status to other drugs, medicaments and biological substances
CPT/HCPCS: 36415; 80053; 85025; 96372; 96374; 96375

== ENCOUNTER 2019-10-16 17:58 | Emergency (ER) | payer MEDICARE ==
[~2019-10-16] VITALS: Ht 190.5 cm; Wt 84.5 kg
[~2019-10-16 17:58] MED LIST changes: +HYDR-3781 PO
--- NOTE | 2019-10-16 18:28 | ED Headache ---
General Chief Complaint: Head/Cervical Problems Stated Complaint: MIGRAINE/SORE NECK Source: patient Exam Limitations: no limitations History of Present Illness Date Seen by Provider: Oct 16, 2019 Time Seen by Provider: 18:27 Initial Comments 58-year-old male presents with migraine" his neck being out" patient reports similar to his previous migraines and previous neck strain. Patient reports that the symptoms started today. He has no reports of nausea or vomiting at this time. Has no fevers chills or any other systemic complaints. Severity/Quality: moderate Location: occipital Prior Headaches/Recent Trauma: chronic headaches Associated Symptoms: No confusion, No fever/chills, No loss of consciousness, No numbness in legs/feet, No vision changes Allergies and Home Medications Allergies Coded Allergies: ketorolac tromethamine (Verified Allergy, Severe, ANAPHYLAXIS, 01/30/19) prednisone (Verified Allergy, Severe, angry and agitated, 01/30/19) Penicillins (Verified Allergy, Intermediate, 01/30/19) sob, wheezing egg (Verified Allergy, Intermediate, 01/30/19) swelling meperidine HCl (Verified Allergy, Intermediate, 01/30/19) sob, wheezing propoxyphene HCl (Verified Allergy, Mild, 01/30/19) sob, wheezing topiramate (Verified Allergy, Mild, NAUSEA, 08/18/12) diarrhea, citalopram (Verified Allergy, Unknown, 12/14/18) metoprolol (Verified Adverse Reaction, Mild, 08/18/12) sob, wheezing Uncoded Allergies: honey bee venom (Allergy, Mild, 08/18/12) sob, wheezing EGGS (Allergy, Unknown, 04/05/19) TETANUS (Allergy, Unknown, 04/05/19) Home Medications Aspirin 81 Mg Tablet.dr, 81 MG PO DAILY, (Reported) Butalb/Acetaminophen/Caffeine 1 Each Tablet, 1 EACH PO Q4H PRN for HEADACHE Prescribed by: NATALYA CALZADA on 04/23/192033 Carvedilol 3.125 Mg Tablet, 1 EACH PO BID, (Reported) Cetirizine Hcl 10 Mg Tablet, 10 MG PO DAILY, (Reported) Doxycycline Hyclate 100 Mg Tablet, 100 MG PO BID Prescribed by: GAVIN PEREZ on 04/05/192138 Epinephrine 0.3 Mg/0.3 Ml Auto.injct, 0.3 MG IJ Q15M PRN for WHEEZING Use once every 15 min if having angioedema, difficulty breathing, itching and swelling of the throat. Prescribed by: NATALYA CALZADA on 01/30/192016 Famotidine 20 Mg Tablet, 20 MG PO DAILY Prescribed by: ALLISON OLMEDO on 07/16/191718 Famotidine 20 Mg Tablet, 20 MG PO BID Prescribed by: GAVIN PEREZ on 08/10/191840 Fluticasone Propionate 16 Gm [place], 2 SPRAYS NSEACH DAILY, (Reported) Hydroxyzine Pamoate 25 Mg Capsule, 25 MG PO Q8 Prescribed by: GAVIN PEREZ on 08/10/191840 Ipratropium [place] 12.9 Gm Aers, 12.9 GM INH Q6H, (Reported) Lorazepam 1 Mg Tablet, 1 EACH PO TID PRN, (Reported) Montelukast Sodium 10 Mg Tablet, 10 MG PO DAILY, (Reported) Nitroglycerin 0.3 Mg Tab.subl, 0.3 MG SL PRN, (Reported) Omeprazole 20 Mg Capsule.dr, 20 MG PO DAILY, (Reported) Salsalate 500 Mg Tab, 1,000 MG PO TID, (Reported) [albuterol] , 2 PUFF INH QID, (Reported) Patient Home Medication List Home Medication List Reviewed: Yes Review of Systems Review of Systems Constitutional: No chills, No fever Eyes: No Symptoms Reported Respiratory: no symptoms reported Cardiovascular: no symptoms reported Genitourinary: no symptoms reported Musculoskeletal: see HPI Skin: no symptoms reported Past Epzlrnk-Okfmaj-Embmra Hx Past Med/Social Hx: Reviewed Nursing Past Med/Soc Hx Patient Social History Type Used: Cigarettes Former Smoker, Quit: March 09, 2018 2nd Hand Smoke Exposure: No Recent Foreign Travel: No Contact w/Someone Who Travel: No Recent Hopitalizations: No Seasonal Allergies Seasonal Allergies: Yes Past Medical History Surgeries: Yes (heart catheter, left shoulder surgery and right hip replacement) Gallbladder, Joint Replacement Respiratory: Yes Asthma, Chronic Bronchitis, COPD, Emphysema Currently Using CPAP: No Currently Using BIPAP: No Cardiac: Yes Heart Attack, Hypertension, Palpitations Neurological: Yes Headaches /Migraines Genitourinary: No Gastrointestinal: No Musculoskeletal: No Arthritis Endocrine: No HEENT: No Cancer: No Psychosocial: Yes Anxiety Integumentary: No Blood Disorders: No Physical Exam Vital Signs Vital Signs - First Documented 10/16/19 18:24 Temp 36.4 Pulse 73 Resp 18 B/P (MAP) 144/91 (108) Pulse Ox 96 O2 Delivery Room Air Capillary Refill : Height, Weight, BMI Height: 6'3.00" Weight: 197lbs. 0oz. 89.612790nu; 25.00 BMI Method:Stated General Appearance: WD/WN, no apparent distress HEENT: PERRL/EOMI, normal ENT inspection Neck: non-tender, full range of motion Cardiovascular: normal peripheral pulses, regular rate, rhythm Respiratory: chest non-tender, lungs clear, normal breath sounds Gastrointestinal: non tender, soft Extremities: normal range of motion, non-tender Crainal Nerves: normal hearing, normal speech Coordination/Gait: normal gait Motor/Sensory: no motor deficit, no sensory deficit Skin: normal color Progress/Results/Core Measures Results/Orders My Orders Orders - LIZY JEAN BAPTISTE DO Orphenadrine Injection (Norflex Injectio (10/16/19 18:45) Diphenhydramine Injection (Benadryl Inje (10/16/19 18:45) Metoclopramide Injection (Reglan Injecti (10/16/19 18:45) Medications Given in ED Current Medications Medications Dose Ordered Sig/Viv Route Start Time Stop Time Status Last Admin Dose Admin Diphenhydramine HCl 50 mg ONCE ONCE IM 10/16/19 18:45 10/16/19 18:46 DC 10/16/19 18:41 50 MG Metoclopramide HCl 10 mg ONCE ONCE IM 10/16/19 18:45 10/16/19 18:46 DC 10/16/19 18:40 10 MG Orphenadrine Citrate 60 mg ONCE ONCE IM 10/16/19 18:45 10/16/19 18:46 DC 10/16/19 18:41 60 MG Vital Signs/I&O 10/16/19 18:24 Temp 36.4 Pulse 73 Resp 18 B/P (MAP) 144/91 (108) Pulse Ox 96 O2 Delivery Room Air Departure Impression Primary Impression: Tension type headache Qualified Codes: G44.229 - Chronic tension-type headache, not intractable Additional Impression: Migraine Qualified Codes: G43.909 - Migraine, unspecified, not intractable, without status migrainosus Disposition: 01 HOME, SELF-CARE Condition: Improved Departure-Patient Inst. Referrals: GUANI,JULIA K MD (PCP/Family) Primary Care Physician Patient Instructions: Migraine Headache (DC), Headache, Adult (DC), Torticollis (DC) LIZY JEAN BAPTISTE DO Oct 16, 2019 18:27
[2019-10-16] MEDS ORDERED: diphenhydrAMINE 50 MG/ML INJ (BENADRYL) IM ONE (18:45)
[2019-10-16] MEDS ORDERED: METOCLOPRAMIDE INJ 10 MG/2 ML (REGLAN) IM ONE (18:45)
[2019-10-16] MEDS ORDERED: ORPHENADRINE 60 MG/2 ML (NORFLEX) AMP IM ONE (18:45)
[2019-10-16 19:00] VITALS: BP 144/91
== END 2019-10-16 19:00 | disposition home or self-care (01) ==
LOC: EDUNIT# 17:58 → ER FS 18:00
DX: G44.209 Tension-type headache, unspecified, not intractable (principal); G43.909 Migraine, unspecified, not intractable, without status migrainosus; J43.9 Emphysema, unspecified; I10 Essential (primary) hypertension; I25.2 Old myocardial infarction; F41.9 Anxiety disorder, unspecified; Z88.8 Allergy status to other drugs, medicaments and biological substances; Z88.0 Allergy status to penicillin; Z88.5 Allergy status to narcotic agent; Z88.6 Allergy status to analgesic agent; Z79.82 Long term (current) use of aspirin; Z87.891 Personal history of nicotine dependence; Z95.9 Presence of cardiac and vascular implant and graft, unspecified; Z96.641 Presence of right artificial hip joint
CPT/HCPCS: 96372; 99284

== ENCOUNTER 2019-11-10 18:07 | Emergency (ER) | payer MEDICARE ==
[~2019-11-10] VITALS: Ht 190 cm; Wt 88.5 kg
[2019-11-10] MEDS ORDERED: ORPHENADRINE 60 MG/2 ML (NORFLEX) AMP IM ONE (18:45)
[2019-11-10] MEDS ORDERED: diphenhydrAMINE 50 MG/ML INJ (BENADRYL) IM ONE (18:45)
[2019-11-10] MEDS ORDERED: METOCLOPRAMIDE INJ 10 MG/2 ML (REGLAN) IM ONE (18:45)
--- NOTE | 2019-11-10 19:03 | ED Headache ---
General Chief Complaint: Head/Cervical Problems Stated Complaint: MIGRAINE Nursing Triage Note: PT HAS HAD A MIGRAINE SINCE 1500. PT HAS NOT TAKEN ANYTHING FOR THE HEADACHE. Nursing Sepsis Screen: No Definite Risk Source: patient History of Present Illness Date Seen by Provider: Nov 10, 2019 Time Seen by Provider: 17:30 Initial Comments This 59-year-old male presents to the emergency room for evaluation for treatment of intractable migraine headache. The patient states that he has throbbing headache that radiates from the top of his head around the sides and down the back of the neck. The patient reports that he is in the emergency room approximately one time per month for evaluation and treatment of intractable headaches. Patient states that he has a neurologist at the [facility]. He had previously been on opioids but no longer is allowed to take opioids for his headaches. He has allergies to eggs penicillin and tetanus citalopram honey bee venom ketorolac meperidine metoprolol prednisone propoxyphene and topiramate. This headache started at 3 PM this afternoon became extremely severe and he came into the emergency room for evaluation and treatment. Patient states that he no longer is allowed to take the tripped and she used to be on Imitrex but this has been stopped. Patient states that his heart has been damaged from previous use. He states he's had multiple small heart attacks. Dr. Gonzales is his attending physician. Patient states that we give him a combination of 3 medications intramuscularly to break his migraine headaches and this is what he wanted. Upon review the previous record the patient has been getting Benadryl 50 mg Norflex 60 mg and Reglan 10 mg IM. Patient has history of a right total knee replacement and a left shoulder replacement. This patient has given informed consent for diagnostic and therapeutic intervention. Patient is aware of the risks benefits and alternatives of opioids and he is decided to avoid taking any opioids. Patient appears slightly dehydrated and he has been advised that appropriate hydration and appropriate sleep are critical to prevent recurrent migraine headaches. Timing/Duration: 1-3 hours Severity/Quality: moderate Location: frontal, temporal, occipital Prior Headaches/Recent Trauma: frequent headaches, other (atypical migraine headaches. The treatment of neurology in [facility]) Modifying Factors: improves with exposure to light, improves with movement, improves with rest (aggravated by the lack of rest) Associated Symptoms: confusion, facial pain, nasal congestion, stiff neck, weakness Allergies and Home Medications Allergies Coded Allergies: ketorolac tromethamine (Verified Allergy, Severe, ANAPHYLAXIS, 01/30/19) prednisone (Verified Allergy, Severe, angry and agitated, 01/30/19) Penicillins (Verified Allergy, Intermediate, 01/30/19) sob, wheezing egg (Verified Allergy, Intermediate, 01/30/19) swelling meperidine HCl (Verified Allergy, Intermediate, 01/30/19) sob, wheezing propoxyphene HCl (Verified Allergy, Mild, 01/30/19) sob, wheezing topiramate (Verified Allergy, Mild, NAUSEA, 08/18/12) diarrhea, citalopram (Verified Allergy, Unknown, 12/14/18) metoprolol (Verified Adverse Reaction, Mild, 08/18/12) sob, wheezing Uncoded Allergies: honey bee venom (Allergy, Mild, 08/18/12) sob, wheezing EGGS (Allergy, Unknown, 04/05/19) TETANUS (Allergy, Unknown, 04/05/19) Home Medications Aspirin 81 Mg Tablet.dr, 81 MG PO DAILY, (Reported) Butalb/Acetaminophen/Caffeine 1 Each Tablet, 1 EACH PO Q4H PRN for HEADACHE Prescribed by: NATALYA CALZADA on 04/23/192033 Carvedilol 3.125 Mg Tablet, 1 EACH PO BID, (Reported) Cetirizine Hcl 10 Mg Tablet, 10 MG PO DAILY, (Reported) Doxycycline Hyclate 100 Mg Tablet, 100 MG PO BID Prescribed by: GAVIN PEREZ on 04/05/192138 Epinephrine 0.3 Mg/0.3 Ml Auto.injct, 0.3 MG IJ Q15M PRN for WHEEZING Use once every 15 min if having angioedema, difficulty breathing, itching and swelling of the throat. Prescribed by: NATALYA CALZADA on 01/30/192016 Famotidine 20 Mg Tablet, 20 MG PO DAILY Prescribed by: ALLISON OLMEDO on 07/16/19 171 Famotidine 20 Mg Tablet, 20 MG PO BID Prescribed by: GAVIN PEREZ on 08/10/19 184 Fluticasone Propionate 16 Gm [place], 2 SPRAYS NSEACH DAILY, (Reported) Hydroxyzine Pamoate 25 Mg Capsule, 25 MG PO Q8 Prescribed by: GAVIN PEREZ on 08/10/19 184 Ipratropium [place] 12.9 Gm Aers, 12.9 GM INH Q6H, (Reported) Lorazepam 1 Mg Tablet, 1 EACH PO TID PRN, (Reported) Montelukast Sodium 10 Mg Tablet, 10 MG PO DAILY, (Reported) Nitroglycerin 0.3 Mg Tab.subl, 0.3 MG SL PRN, (Reported) Omeprazole 20 Mg Capsule.dr, 20 MG PO DAILY, (Reported) Salsalate 500 Mg Tab, 1,000 MG PO TID, (Reported) [albuterol] , 2 PUFF INH QID, (Reported) Patient Home Medication List Home Medication List Reviewed: Yes Review of Systems Review of Systems Constitutional: dizziness, malaise, weakness Eyes: Blurred Vision Ears, Nose, Mouth, Throat: no symptoms reported Respiratory: cough Cardiovascular: other (weakness but no ischemic heart disease symptoms he however has to avoid triptan's because of recurrent ischemic events) Gastrointestinal: no symptoms reported, nausea Genitourinary: no symptoms reported Musculoskeletal: back pain, muscle stiffness, neck pain Skin: no symptoms reported Psychiatric/Neurological: Anxiety (currently on lorazepam 1 mg 3 times a day) Past Yrvhghd-Rpevpb-Bzegvi Hx Patient Social History Alcohol Use: Denies Use Recreational Drug Use: No Type Used: Cigarettes Former Smoker, Quit: March 09, 2018 2nd Hand Smoke Exposure: No Recent Foreign Travel: No Contact w/Someone Who Travel: No Recent Infectious Disease Expo: No Recent Hopitalizations: No Physical Abuse: No Sexual Abuse: No Mistreated: No Fear: No Seasonal Allergies Seasonal Allergies: Yes Past Medical History Surgeries: Yes (heart catheter, left shoulder surgery and right hip replacement) Gallbladder, Joint Replacement Respiratory: Yes Asthma, Chronic Bronchitis, COPD, Emphysema Currently Using CPAP: No Currently Using BIPAP: No Cardiac: Yes Heart Attack, Hypertension, Palpitations Neurological: Yes Headaches /Migraines Genitourinary: No Gastrointestinal: No Musculoskeletal: No Arthritis Endocrine: No HEENT: No Cancer: No Psychosocial: Yes Anxiety Integumentary: No Blood Disorders: No Family Medical History Reviewed Nursing Family Hx Physical Exam Vital Signs Vital Signs - First Documented 11/10/19 18:23 Temp 36.2 Pulse 70 Resp 18 B/P (MAP) 112/77 (89) Pulse Ox 96 O2 Delivery Room Air Capillary Refill : Less Than 3 Seconds Height, Weight, BMI Height: 6'3.00" Weight: 197lbs. 0oz. 89.314341tj; 24.00 BMI Method:Stated General Appearance: moderate distress (secondary to acute exacerbation of chronic headache) HEENT: PERRL/EOMI, normal ENT inspection, pharynx normal Neck: normal inspection, limited range of motion, tender lateral Cardiovascular: regular rate, rhythm, no edema, no gallop, no JVD, no murmur Respiratory: chest non-tender, lungs clear, normal breath sounds, no respiratory distress, no accessory muscle use Gastrointestinal: normal bowel sounds, non tender, soft, no organomegaly, no pulsatile mass Back: CVA tenderness (L), muscle spasm, vertebral tenderness Extremities: normal range of motion, non-tender, normal inspection, no pedal edema, no calf tenderness Psychiatric: alert, oriented x 3, depressed affect (from chronic pain) Crainal Nerves: hearing deficit (R), hearing deficit (L) Coordination/Gait: normal gait Motor/Sensory: negative Babinski's sign, sensory deficit Reflexes: 2+ Bicep (R), 2+ Bicep (L), 2+ Knee (R), 2+ Knee (L) Skin: normal color, warm/dry Lymphatic: no adenopathy Progress/Results/Core Measures Results/Orders My Orders Orders - DACIA WRIGHT DO Metoclopramide Injection (Reglan Injecti (11/10/19 18:45) Diphenhydramine Injection (Benadryl Inje (11/10/19 18:45) Orphenadrine Injection (Norflex Injectio (11/10/19 18:45) Vital Signs/I&O 11/10/19 18:23 Temp 36.2 Pulse 70 Resp 18 B/P (MAP) 112/77 (89) Pulse Ox 96 O2 Delivery Room Air Blood Pressure Mean: 89 Departure Impression Primary Impression: Migraine Disposition: 01 HOME, SELF-CARE Condition: Stable Departure-Patient Inst. Decision time for Depature: 19:11 Referrals: JULIA HERRERA MD (PCP/Family) Primary Care Physician Patient Instructions: Migraine Headache (DC) Add. Discharge Instructions: 59-year-old male with acute exacerbation of chronic headaches and has been treated with a combination of Reglan Benadryl and Norflex with positive results. Patient's in the emergency room asking for the same and treatment and this has been ordered for him. Follow up with Dr Herrera. Needs to stay hydrated and rest adequately All discharge instructions reviewed with patient and/or family. Voiced understanding. DACIA WRIGHT DO Nov 10, 2019 19:03
[2019-11-10 19:31] VITALS: BP 108/69
== END 2019-11-10 19:31 | disposition home or self-care (01) ==
LOC: EDUNIT# 18:07 → ER FS 18:08
DX: G43.909 Migraine, unspecified, not intractable, without status migrainosus (principal); J43.9 Emphysema, unspecified; I10 Essential (primary) hypertension; I25.2 Old myocardial infarction; Z96.641 Presence of right artificial hip joint; Z88.0 Allergy status to penicillin; Z88.5 Allergy status to narcotic agent; Z88.8 Allergy status to other drugs, medicaments and biological substances; Z79.82 Long term (current) use of aspirin; Z79.51 Long term (current) use of inhaled steroids; Z87.891 Personal history of nicotine dependence
CPT/HCPCS: 96372; 99284

== ENCOUNTER 2019-12-18 17:49 | Emergency (ER) | payer MEDICARE, OTHER ==
[~2019-12-18] VITALS: Ht 190 cm; Wt 90.7 kg
[2019-12-18 18:07] VITALS: BP 126/108
[2019-12-18] MEDS ORDERED: diphenhydrAMINE 50 MG/ML INJ (BENADRYL) IM STA (18:12)
[2019-12-18] MEDS ORDERED: ORPHENADRINE 60 MG/2 ML (NORFLEX) AMP IM STA (18:12)
[2019-12-18] MEDS ORDERED: METOCLOPRAMIDE INJ 10 MG/2 ML (REGLAN) IM STA (18:12)
--- NOTE | 2019-12-18 18:29 | ED Headache ---
General Chief Complaint: Head/Cervical Problems Stated Complaint: HEADACHE Nursing Triage Note: complaining of migraine x 1 hour. States has not had his migraine meds for several months. Nursing Sepsis Screen: No Definite Risk Source: patient History of Present Illness Date Seen by Provider: Dec 18, 2019 Time Seen by Provider: 18:09 Initial Comments 59-year-old male presenting with complaints of right-sided headache. He states this feels like his typical migraine headache. He had been taking a nap at home and woke up with headache. He had one episode of vomiting at home. He denies any fever or chills. He has no increase in his cough or congestion. He states that the headache feels similar to his prior headaches. He recently has had his neck and back out of place as well as left shoulder. He did see a chiropractor earlier today and had an adjustment done. He does have a history of tension headaches as well. Part of this episode today could be related to his neck pain from before being adjusted and having muscle spasms. He states that he usually responds well to injections of Benadryl, Norflex, Reglan when he comes to the emergency department. Allergies and Home Medications Allergies Coded Allergies: ketorolac tromethamine (Verified Allergy, Severe, ANAPHYLAXIS, 01/30/19) prednisone (Verified Allergy, Severe, angry and agitated, 01/30/19) Penicillins (Verified Allergy, Intermediate, 01/30/19) sob, wheezing egg (Verified Allergy, Intermediate, 01/30/19) swelling meperidine HCl (Verified Allergy, Intermediate, 01/30/19) sob, wheezing propoxyphene HCl (Verified Allergy, Mild, 01/30/19) sob, wheezing topiramate (Verified Allergy, Mild, NAUSEA, 08/18/12) diarrhea, citalopram (Verified Allergy, Unknown, 12/14/18) metoprolol (Verified Adverse Reaction, Mild, 08/18/12) sob, wheezing Uncoded Allergies: honey bee venom (Allergy, Mild, 08/18/12) sob, wheezing EGGS (Allergy, Unknown, 04/05/19) TETANUS (Allergy, Unknown, 04/05/19) Home Medications Aspirin 81 Mg Tablet.dr, 81 MG PO DAILY, (Reported) Butalb/Acetaminophen/Caffeine 1 Each Tablet, 1 EACH PO Q4H PRN for HEADACHE Prescribed by: NATALYA CALZADA on 04/23/192033 Carvedilol 3.125 Mg Tablet, 1 EACH PO BID, (Reported) Cetirizine Hcl 10 Mg Tablet, 10 MG PO DAILY, (Reported) Doxycycline Hyclate 100 Mg Tablet, 100 MG PO BID Prescribed by: GAVIN PEREZ on 04/05/192138 Epinephrine 0.3 Mg/0.3 Ml Auto.injct, 0.3 MG IJ Q15M PRN for WHEEZING Use once every 15 min if having angioedema, difficulty breathing, itching and swelling of the throat. Prescribed by: NATALYA CALZADA on 01/30/192016 Famotidine 20 Mg Tablet, 20 MG PO DAILY Prescribed by: ALLISON OLMEDO on 07/16/191718 Famotidine 20 Mg Tablet, 20 MG PO BID Prescribed by: GAVIN PEREZ on 08/10/191840 Fluticasone Propionate 16 Gm [place], 2 SPRAYS NSEACH DAILY, (Reported) Hydroxyzine Pamoate 25 Mg Capsule, 25 MG PO Q8 Prescribed by: GAVIN PEREZ on 08/10/191840 Ipratropium [place] 12.9 Gm Aers, 12.9 GM INH Q6H, (Reported) Lorazepam 1 Mg Tablet, 1 EACH PO TID PRN, (Reported) Montelukast Sodium 10 Mg Tablet, 10 MG PO DAILY, (Reported) Nitroglycerin 0.3 Mg Tab.subl, 0.3 MG SL PRN, (Reported) Omeprazole 20 Mg Capsule.dr, 20 MG PO DAILY, (Reported) Salsalate 500 Mg Tab, 1,000 MG PO TID, (Reported) [albuterol] , 2 PUFF INH QID, (Reported) Patient Home Medication List Home Medication List Reviewed: Yes Review of Systems Review of Systems Constitutional: No chills, No diaphoresis, No dizziness, No fever Eyes: Denies Blurred Vision; Photophobia; Denies Vision Changes Ears, Nose, Mouth, Throat: denies ear pain, denies ear discharge, denies nose pain, denies nose discharge, denies epistaxis Respiratory: cough (chronic and not worse than normal) Cardiovascular: No chest pain Gastrointestinal: nausea, vomiting (x1 at home) Genitourinary: no symptoms reported Musculoskeletal: back pain (chronic neck and low back pain), joint pain (chronic left shoulder pain), neck pain (chronic neck and low back pain) Skin: No rash Psychiatric/Neurological: Anxiety, Headache (and right-sided headache feels similar to his migraines that he usually gets); Denies Numbness, Denies Paresthesia All Other Systems Reviewed Negative Unless Noted: Yes (Negative excepted noted.) Past Wpjrttv-Jywghg-Lqdzhq Hx Past Med/Social Hx: Reviewed Nursing Past Med/Soc Hx Patient Social History Alcohol Use: Denies Use Recreational Drug Use: No Smoking Status: Current Everyday Smoker Type Used: Cigarettes Former Smoker, Quit: March 09, 2018 2nd Hand Smoke Exposure: Yes Recent Foreign Travel: No Contact w/Someone Who Travel: No Recent Infectious Disease Expo: No Recent Hopitalizations: No Seasonal Allergies Seasonal Allergies: Yes Past Medical History Surgeries: Yes (heart catheter, left shoulder surgery and right hip replacement) Gallbladder, Joint Replacement Respiratory: Yes Asthma, Chronic Bronchitis, COPD, Emphysema Currently Using CPAP: No Currently Using BIPAP: No Cardiac: Yes Heart Attack, Hypertension, Palpitations Neurological: Yes Headaches /Migraines Genitourinary: No Gastrointestinal: No Musculoskeletal: No Arthritis Endocrine: No HEENT: No Cancer: No Psychosocial: Yes Anxiety Integumentary: No Blood Disorders: No Physical Exam Vital Signs Vital Signs - First Documented 12/18/19 18:07 Temp 36.3 Pulse 71 Resp 16 B/P (MAP) 126/108 (114) Pulse Ox 93 Capillary Refill : Less Than 3 Seconds Height, Weight, BMI Height: 6'3.00" Weight: 197lbs. 0oz. 89.574120au; 25.00 BMI Method:Stated General Appearance: WD/WN, mild distress, thin HEENT: PERRL/EOMI, normal ENT inspection, TMs normal, pharynx normal Neck: supple, other (paraspinal muscle spasms of the neck) Cardiovascular: normal peripheral pulses, regular rate, rhythm Respiratory: chest non-tender, lungs clear, normal breath sounds Gastrointestinal: normal bowel sounds, non tender, soft, no pulsatile mass Extremities: normal range of motion, non-tender, normal capillary refill Psychiatric: alert, oriented x 3 Crainal Nerves: normal speech, PERRL Coordination/Gait: normal gait Motor/Sensory: no motor deficit, no sensory deficit Skin: normal color, warm/dry Progress/Results/Core Measures Results/Orders My Orders Orders - TOOTIE PAEZ MD Diphenhydramine Injection (Benadryl Inje (12/18/19 18:12) Orphenadrine Injection (Norflex Injectio (12/18/19 18:12) Metoclopramide Injection (Reglan Injecti (12/18/19 18:12) Vital Signs/I&O 12/18/19 18:07 Temp 36.3 Pulse 71 Resp 16 B/P (MAP) 126/108 (114) Pulse Ox 93 Blood Pressure Mean: 114 Progress Progress Note : Progress Note Ordered Norflex 60 mg IM, Benadryl 50 mg IM, Reglan 10 mg IM as he has responded well to these medications in the past. Encouraged to rest in a dark room at home. Continue on his regular medicines. Follow-up with Dr. Herrera for continued care Departure Impression Primary Impression: Migraine headache Qualified Codes: G43.009 - Migraine without aura, not intractable, without status migrainosus Disposition: 01 HOME, SELF-CARE Condition: Stable Departure-Patient Inst. Decision time for Depature: 18:28 Referrals: JULIA HERRERA MD (PCP/Family) Primary Care Physician Patient Instructions: Migraine Headache (DC) Add. Discharge Instructions: Continue on your regular medicines. Follow up with Dr. Herrera for continued concerns Rest in a cool dark room. All discharge instructions reviewed with patient and/or family. Voiced understanding. TOOTIE PAEZ MD Dec 18, 2019 18:29
== END 2019-12-18 18:44 | disposition home or self-care (01) ==
LOC: EDUNIT# 17:49 → ER FS 17:51
DX: G43.909 Migraine, unspecified, not intractable, without status migrainosus (principal); J43.9 Emphysema, unspecified; J45.909 Unspecified asthma, uncomplicated; I10 Essential (primary) hypertension; I25.2 Old myocardial infarction; F41.9 Anxiety disorder, unspecified; F17.210 Nicotine dependence, cigarettes, uncomplicated; Z96.641 Presence of right artificial hip joint; Z88.0 Allergy status to penicillin; Z88.8 Allergy status to other drugs, medicaments and biological substances; Z91.012 Allergy to eggs; Z91.030 Bee allergy status; Z79.82 Long term (current) use of aspirin
CPT/HCPCS: 99284

== ENCOUNTER 2020-01-11 16:23 | Emergency (ER) | payer MEDICARE, OTHER ==
[~2020-01-11] VITALS: Ht 191 cm; Wt 88.6 kg
--- NOTE | 2020-01-11 16:38 | ED Headache ---
General Chief Complaint: Head/Cervical Problems Stated Complaint: MIGRAINE Nursing Triage Note: Patient reports migraine after smoking meat all day, patient states has a history of migraines and this feels quite similiar Nursing Sepsis Screen: No Definite Risk Source: patient Exam Limitations: no limitations History of Present Illness Date Seen by Provider: Jan 11, 2020 Time Seen by Provider: 16:25 Initial Comments The patient is a pleasant 59-year-old male who presents for evaluation of a migraine headache. He states it is a history of migraines and gets them frequently. He states that he often times will have to come to the emergency department for treatment. He states the pain is in the back of his head and reminds him of his typical migraines. It began gradually while he was smoking meat at home. He denies anything unusual about this headache. He also denies fevers or chills, neck pain or stiffness, vision changes, focal weakness or numbness, confusion, difficulty speaking, dizziness or syncope. He is alert and oriented 4, calm, and appears to be in no distress at this time. Timing/Duration: 1-3 hours Severity/Quality: moderate Location: occipital Prior Headaches/Recent Trauma: frequent headaches, chronic headaches Modifying Factors: improves with exposure to light (makes it worse) Associated Symptoms: denies symptoms Allergies and Home Medications Allergies Coded Allergies: ketorolac tromethamine (Verified Allergy, Severe, ANAPHYLAXIS, 01/30/19) prednisone (Verified Allergy, Severe, angry and agitated, 01/30/19) Penicillins (Verified Allergy, Intermediate, 01/30/19) sob, wheezing egg (Verified Allergy, Intermediate, 01/30/19) swelling meperidine HCl (Verified Allergy, Intermediate, 01/30/19) sob, wheezing propoxyphene HCl (Verified Allergy, Mild, 01/30/19) sob, wheezing topiramate (Verified Allergy, Mild, NAUSEA, 08/18/12) diarrhea, citalopram (Verified Allergy, Unknown, 12/14/18) metoprolol (Verified Adverse Reaction, Mild, 08/18/12) sob, wheezing Uncoded Allergies: honey bee venom (Allergy, Mild, 08/18/12) sob, wheezing EGGS (Allergy, Unknown, 04/05/19) TETANUS (Allergy, Unknown, 04/05/19) Home Medications Aspirin 81 Mg Tablet.dr, 81 MG PO DAILY, (Reported) Butalb/Acetaminophen/Caffeine 1 Each Tablet, 1 EACH PO Q4H PRN for HEADACHE Prescribed by: NATALYA CALZADA on 04/23/192033 Carvedilol 3.125 Mg Tablet, 1 EACH PO BID, (Reported) Cetirizine Hcl 10 Mg Tablet, 10 MG PO DAILY, (Reported) Doxycycline Hyclate 100 Mg Tablet, 100 MG PO BID Prescribed by: GAVIN PEREZ on 04/05/192138 Epinephrine 0.3 Mg/0.3 Ml Auto.injct, 0.3 MG IJ Q15M PRN for WHEEZING Use once every 15 min if having angioedema, difficulty breathing, itching and swelling of the throat. Prescribed by: NATALYA CALZADA on 01/30/192016 Famotidine 20 Mg Tablet, 20 MG PO DAILY Prescribed by: ALLISON OLMEDO on 07/16/191718 Famotidine 20 Mg Tablet, 20 MG PO BID Prescribed by: GAVIN PEREZ on 08/10/191840 Fluticasone Propionate 16 Gm [place], 2 SPRAYS NSEACH DAILY, (Reported) Hydroxyzine Pamoate 25 Mg Capsule, 25 MG PO Q8 Prescribed by: GAVIN PEREZ on 08/10/191840 Ipratropium [place] 12.9 Gm Aers, 12.9 GM INH Q6H, (Reported) Lorazepam 1 Mg Tablet, 1 EACH PO TID PRN, (Reported) Montelukast Sodium 10 Mg Tablet, 10 MG PO DAILY, (Reported) Nitroglycerin 0.3 Mg Tab.subl, 0.3 MG SL PRN, (Reported) Omeprazole 20 Mg Capsule.dr, 20 MG PO DAILY, (Reported) Salsalate 500 Mg Tab, 1,000 MG PO TID, (Reported) [albuterol] , 2 PUFF INH QID, (Reported) Patient Home Medication List Home Medication List Reviewed: Yes Review of Systems Review of Systems Constitutional: no symptoms reported Eyes: No Symptoms Reported Ears, Nose, Mouth, Throat: no symptoms reported Respiratory: no symptoms reported Cardiovascular: no symptoms reported Gastrointestinal: no symptoms reported Genitourinary: no symptoms reported Musculoskeletal: no symptoms reported Skin: no symptoms reported Psychiatric/Neurological: Headache All Other Systems Reviewed Negative Unless Noted: Yes Past Glydzor-Hfqtdq-Ndydsb Hx Past Med/Social Hx: Reviewed Nursing Past Med/Soc Hx Patient Social History Alcohol Use: Denies Use Recreational Drug Use: No Smoking Status: Former Smoker Type Used: Cigarettes Former Smoker, Quit: March 09, 2018 2nd Hand Smoke Exposure: Yes Recent Foreign Travel: No Contact w/Someone Who Travel: No Recent Infectious Disease Expo: No Recent Hopitalizations: No Seasonal Allergies Seasonal Allergies: Yes Past Medical History Surgeries: Yes (heart catheter, left shoulder surgery and right hip replacement) Gallbladder, Joint Replacement Respiratory: Yes Asthma, Chronic Bronchitis, COPD, Emphysema Currently Using CPAP: No Currently Using BIPAP: No Cardiac: Yes Heart Attack, Hypertension, Palpitations Neurological: Yes Headaches /Migraines Genitourinary: No Gastrointestinal: No Musculoskeletal: No Arthritis Endocrine: No HEENT: No Cancer: No Psychosocial: Yes Anxiety Integumentary: No Blood Disorders: No Physical Exam Vital Signs Vital Signs - First Documented 01/11/20 16:28 Temp 36.8 Pulse 83 Resp 18 B/P (MAP) 134/98 (110) Pulse Ox 97 Capillary Refill : Less Than 3 Seconds Height, Weight, BMI Height: 6'3.00" Weight: 197lbs. 0oz. 89.288872pd; 24.00 BMI Method:Stated General Appearance: WD/WN, no apparent distress HEENT: PERRL/EOMI, pharynx normal Neck: non-tender, full range of motion, supple, normal inspection Cardiovascular: regular rate, rhythm, no edema, no JVD Respiratory: lungs clear, normal breath sounds, no respiratory distress, no accessory muscle use Gastrointestinal: normal bowel sounds, non tender, soft Extremities: normal range of motion, no pedal edema Psychiatric: alert, oriented x 3 Crainal Nerves: normal hearing, normal speech, PERRL Motor/Sensory: no motor deficit, no sensory deficit Skin: normal color, warm/dry Progress/Results/Core Measures Results/Orders My Orders Orders - ALLISON OLMEDO DO Metoclopramide Injection (Reglan Injecti (01/11/20 16:45) Orphenadrine Injection (Norflex Injectio (01/11/20 16:45) Diphenhydramine Injection (Benadryl Inje (01/11/20 16:45) Medications Given in ED Current Medications Medications Dose Ordered Sig/Viv Route Start Time Stop Time Status Last Admin Dose Admin Diphenhydramine HCl 25 mg ONCE ONCE IM 01/11/20 16:45 01/11/20 16:46 DC 01/11/20 16:42 25 MG Metoclopramide HCl 10 mg ONCE ONCE IM 01/11/20 16:45 01/11/20 16:46 DC 01/11/20 16:42 10 MG Orphenadrine Citrate 60 mg ONCE ONCE IM 01/11/20 16:45 01/11/20 16:46 DC 01/11/20 16:42 60 MG Vital Signs/I&O 01/11/20 16:28 Temp 36.8 Pulse 83 Resp 18 B/P (MAP) 134/98 (110) Pulse Ox 97 Blood Pressure Mean: 110 Progress Progress Note : Progress Note @1655 - The patient reports it is feeling better at this time. He is asking to be discharged home. The patient asked for medication recommendations and we discussed a few options. He would like to be prescribed Fioricet. Advised the patient to follow up with his PCP and/or neurologist the next 1-2 days and to return to the Emergency Department immediately for new or worsening symptoms. The patient expresses verbal understanding and agreement with the plan and is stable for discharge. Departure Impression Primary Impression: Migraine Disposition: 01 HOME, SELF-CARE Condition: Stable Departure-Patient Inst. Decision time for Depature: 16:56 Referrals: JULIA HERRERA MD (PCP/Family) Primary Care Physician Patient Instructions: Migraine Headache (DC) Add. Discharge Instructions: Take her home migraine medications as directed. Follow-up with your PCP and/or neurologist in the next 1-2 days. Return to the emergency Department immediately for new or worsening symptoms. Scripts Butalb/Acetaminophen/Caffeine (Avtpil-Qwzfscgp-Jdwz 50-325-40) 1 Each Tablet 1 EACH PO Q6H for Migraine for 5 Days, #20 TAB Prov: ALLISON OLMEDO DO 01/11/20 ALLISON OLMEDO DO Jan 11, 2020 16:38
[2020-01-11] MEDS ORDERED: ORPHENADRINE 60 MG/2 ML (NORFLEX) AMP IM ONE (16:45)
[2020-01-11] MEDS ORDERED: diphenhydrAMINE 50 MG/ML INJ (BENADRYL) IM ONE (16:45)
[2020-01-11] MEDS ORDERED: METOCLOPRAMIDE INJ 10 MG/2 ML (REGLAN) IM ONE (16:45)
[2020-01-11] MEDS ORDERED: BUTA1TAB9 PO (16:58)
[2020-01-11 17:08] VITALS: BP 134/98
--- OUTSIDE RECORDS SUMMARY | 2020-01-11 18:17 | XMS REPORT | Clinical Summary ---
Author Author [facility] Organization [facility] Address Unknown Phone Unavailable Care Team Providers Care Hr Shared Services Consultant Name Role Phone Kalina Vazquez MD PCP [phone] Source Comments Some departments are not documenting in the electronic medical record. If you d o not see the information that you expected, contact Release of Information in [facility] [place] Information Management department at [phone] for further assistan ce in locating additional records.[facility] Allergies Comments Active Allergy Reactions Severity Noted Date Azithromycin AGITATION Low 06/02/2019 Allergen Xqa-Dhiaz-Eclub RASH Medium 06/02 Bee Meperidine ITCHING, Low 06/02/2019 AGITATION Nutritional ITCHING Low 06/02/2019 Supplement-Fiber Gabapentin RHINITIS, Low 06/02/2019 AGITATION Influenza A (H1n1) Vac 09 ITCHING Low 05/18 (Pf) Clonazepam RHINITIS, Low 06/02/2019 ITCHING, AGITATION Latex RHINITIS, Low 06/02/2019 AGITATION Levofloxacin RASH, Medium 06/02/2019 RHINITIS, AGITATION Metoprolol RHINITIS, Low 06/02/2019 ITCHING, AGITATION Oxycodone RHINITIS, Medium 06/02/2019 ITCHING, AGITATION Penicillins AGITATION Low 06/02/2019 Prednisone ITCHING, Low 06/02/2019 PHOTOSENSITIV ITY, AGITATION Propoxyphene ITCH[place], Low 06/02/2019 AGITATION Topiramate [place]CH[place], Low 06/02/2019 AGITATION Ketorolac RHINITIS, Low 06/02/2019 ITCHING, AGITATION Tramadol RHINITIS, Low 06/02/2019 ITCHING, AGITATION Tizanidine [place], Low 06/02/2019 ITCHING, AGITATION Medications End Date Status Medication Sig Dispensed Refills Start Date Active albuterol 0.5% Inhale 2.5 mg 0 (PROVENTIL; VENTOLIN) 2.5 solution by mg/0.5 mL nebulizer nebulizer as solution directed every 6 hours as needed for Shortness of Breath or Wheezing. Active aspirin 81 mg chewable Chew 81 mg by 0 tablet mouth daily. Take with food. Active carvedilol (COREG) 6.25 Take 6.25 mg 0 mg tablet by mouth twice daily with meals. Take with food. Active EPINEPHRINE HCL IJ Inject 0.3 mg 0 to area(s) as directed. Active fluticasone/salmeterol Inhale 2 0 (ADVAIR DISKUS) 100-50 puffs by mcg inhalation disk mouth into the lungs every 12 hours. Active mometasone(+) (ASMANEX Inhale 1 puff 0 TWISTHALER) 220 by mouth into mcg/actuation inhaler the lungs twice daily. Active nitroglycerin (NITROSTAT) Place 0.4 mg 0 0.3 mg tablet under tongue every 5 minutes as needed for Chest Pain. Active tiotropium-olodaterol Inhale 2 0 (STIOLTO RESPIMAT) puffs by 2.5-2.5 mcg/actuation mouth into inhaler the lungs daily. Active nystatin (MYCOSTATIN) Take 500,000 0 100,000 units/mL oral Units by suspension mouth four times daily. Active acetaminophen (TYLENOL) Take 325 mg 0 325 mg tablet by mouth every 4 hours as needed for Pain. Active calcium carbonate (TUMS) Chew 500 mg 0 500 mg (200 mg elemental by mouth calcium) chewable tablet daily. Active codeine/guaiFENesin Take 5 mL by 0 (ROBITUSSIN-AC) 10/100 mouth every 4 mg/5 mL oral solution hours as needed for Cough. Active cyclobenzaprine Take 10 mg by 0 (FLEXERIL) 10 mg tablet mouth twice daily as needed for Muscle Cramps. Active divalproex (DEPAKOTE EC) Take [address] mg [address] tablet by mouth twice daily. Take with food. Active famotidine(+) (PEPCID) 40 Take 40 mg by 0 mg tablet mouth twice daily. Active fish oil /omega-3 fatty Take 2 0 acids (SEA-OMEGA) capsules by 340/1000 mg capsule mouth daily. Active LORazepam (ATIVAN) 1 mg Take 1 mg by 0 tablet mouth twice daily. Active ondansetron (ZOFRAN ODT) Dissolve 8 mg 0 8 mg rapid dissolve by mouth tablet every 8 hours as needed for Nausea or Vomiting. Place on tongue to disolve. Active sertraline (ZOLOFT) 25 mg Take 25 mg by 0 tablet mouth daily. Active sucralfate (CARAFATE) 1 Take 1 g by 0 gram tablet mouth every 6 hours. Take on an empty stomach. Active Problems Not on file Social History Date Tobacco Use Types Packs/Day Years Used Current Every Day Smoker 1 10 Smokeless Tobacco: Former Chew User Sex Assigned at Date Recorded Not on file Industry Job Start Date Occupation Not on file Not on file Not on file Travel End Travel History Travel Start No recent travel history available. Last Filed Vital Signs Reading Time Taken Comments Vital Sign 128/89 06/02/2019 3:00 PM CDT Blood Pressure 62 06/02/2019 3:00 PM CDT Pulse 36.3 C (97.3 F) 06/02/2019 2:36 PM CDT Temperature - - Respiratory Rate 96% 06/02/2019 3:00 PM CDT Oxygen Saturation - - Inhaled Oxygen Concentration 89.8 kg (198 lb) 06/02/2019 1:23 PM CDT Weight 190.5 cm (6' 3") 06/02/2019 1:23 PM CDT Height 24.75 06/02/2019 1:23 PM CDT Body Mass Index Plan of Treatment Health Maintenance Due Date Last Done Comments HEPATITIS C SCREENING 1959 DTAP/TDAP VACCINES (1 - 1970 Tdap) HIV SCREENING 1974 PHYSICAL (COMPREHENSIVE) 1977 EXAM COLORECTAL CANCER 2009 SCREENING SHINGLES RECOMBINANT 2009 VACCINE (1 of 2) INFLUENZA VACCINE 05/18/2019 Implants Device Identifier Shelf Expiration Date Model / Serial / L ot Implanted Type Area Manufactur er Hip Hip Wire Wire Left: Shoulder Results Not on filefrom Last 3 Months Advance Directives Patient 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
--- OUTSIDE RECORDS SUMMARY | 2020-01-11 18:19 | XMS REPORT ---
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 Active 667309804 Problem Paralytic ileus K56.0 Dec, Active 5 6468993 Problem Migraine with aura G43.109 Active 4 032634 Problem Chronic obstructive pulmonar y disease with acute lower respiratory infection J44.0 Active 119288694 Problem Anxiety state F41.1 Dec, Active 198 768741 Problem Erectile dysfunction N52.9 22 Nov, 2010 Active 384349656 Problem CAD (coronary artery disease) I25.10 14 Jun, 09 Active 38873026 Problem Essential hypertension I10 Active 61827608 Problem Primary osteoarthritis of left shoulder M19.012 Active 76126029 Problem Chronic migraine w/o aura w/o status migrainosus , not intractable G43.709 Active 501762705 Problem HTN (hypertension) with goal to be determined I10 Active 74366757 Problem Benign prostatic hyperplasia without lower urina ry tract symptoms N40.0 Active 023826498 Problem Primary osteoarthritis, right shoulder M19.011 Active 88434036 Problem Status post colonoscopy with polypectomy Z98.890 12 Nov, 2014 Active 958380334 Problem Benign prostatic hyperplasia without lower urina ry tract symptoms N40.0 Active 127831103 Problem Tobacco use Z72.0 Jun, Active 63862 3000 Problem Serrated adenoma of colon D12.6 12 Nov, 2014 A ctive 50761046 Problem RLS (restless legs syndrome) G25.81 A ctive 23670124 Problem Yuen''s esophagus with low grade dysplasia K22. 710 Active [id number] Problem Irritable bowel syndrome with diarrhea K58.0 Active 199412427 Problem Irritable bowel syndrome with diarrhea K58.0 Active 142281242 ALLERGIES No Information ENCOUNTERS Encounter Location Date Diagnosis [facility] [address] [place] [address] Sep, [facility] [address] [place] [address] Sep, Anxiety state F41.1 [facility] [address] [place] [address] Sep, Anxiety state F41.1 [facility] [address] [place] [address] Sep, [facility] [address] [place] [address] Aug, Anxiety state F41.1 [facility] [address] [place] [address] Aug, [facility] [address] [place] [address] Jul, Essential hypertension I10 ; CAD (coronary artery disease) I25.10 and Anxiety state F41.1 [facility] [address] [place] [address] Jul, [facility] [address] [place] [address] Jul, Anxiety state F41.1 [facility] [address] [place] [address] Jul, [facility] [address] [place] [address] Jul, [facility] [address] [place] [address] Jul, [facility] [address] [place] [address] Jul, [facility] [address] [place] [address] Jun, Irritable bowel syndrome wit h diarrhea K58.0 ; Chronic obstructive pulmonary disease with acute lower respiratory infection J44.0 and Benign prostatic hyperplasia without lower urinary tract symptoms N40.0 [facility] [address] [place] [address] Jun, [facility] [address] [place] [address] Jun, [facility] [address] [place] [address] Jun, [facility] [address] [place] [address] May, Benign prostatic hyperplasia without lower urinary tract symptoms N40.0 [facility] [address] [place] [address] May, [facility] [address] [place] [address] May, [facility] [address] [place] [address] Apr, Muscle spasm M62.838 and Con tusion of left thigh, initial encounter S70.12XA [facility] [address] [place] [address] Apr, [facility] [address] [place] [address] Apr, Benign prostatic hyperplasia without lower urinary tract symptoms N40.0 ; Chronic obstructive pulmonary disease with acute lower respiratory infection J44.0 and Yuen''s esophagus with low grade dysplasia K22.710 [facility] [address] [place] [address] Apr, Chronic obstructive pulmonar y disease with acute lower respiratory infection J44.0 [facility] [address] [place] [address] Apr, [facility] [address] [place] [address] Apr, Hematuria, unspecified type R31.9 and Dyshidrotic eczema L30.1 [facility] [address] [place] [address] Apr, [address] [place] [address] Mar, [facility] [address] [place] [address] Mar, [address] [place] [address] Mar, [facility] [address] [place] [address] February, [address] [place] [address] February, Essential hypertension I10 ; CAD (coronary artery disease) I25.10 ; Elevated PSA R97.20 ; Yuen''s esophagus with low grade dysplasia K22.710 and RLS (restless legs syndrome) G25.81 [facility] [address] [place] [address] February, HTN (hypertension) with goal to be determined I10 [facility] [address] [place] [address] Jan, [address] [place] [address] Jan, [facility] [address] [place] [address] Jan, Anaphylaxis, initial encount er T78.2XXA [facility] [address] [id number] [place] [address] Jan, [address] [place] [address] Dec, Chronic obstructive pulmonar y disease with acute lower respiratory infection J44.[address] [place] [address] Dec, Chronic obstructive pulmonar y disease with acute lower respiratory infection J44.0 ; Chronic migraine w/o aura w/o status migrainosus, not intractable G43.709 ; Primary osteoarthritis, right shoulder M19.011 and Primary osteoarthritis of left shoulder M19.012 [facility] [address] [id number] [place] [address] Nov, [facility] [id number] [place] [address] Nov, [facility] [address] [id number] [place] [address] Sep, [facility] [address] [id number] [place] [address] Jun, IMMUNIZATIONS No Known Immunizations SOCIAL HISTORY Never Assessed REASON FOR VISIT med change PLAN OF CARE VITAL SIGNS MEDICATIONS Medication Instructions Dosage Frequency Start Date End Date Duration S tatus Flovent HFA 110 MCG/ACT Inhalation Twice a day 1 puff 12h Dec, 30 days Active RESULTS No Results PROCEDURES No Known procedures INSTRUCTIONS MEDICATIONS ADMINISTERED No Known Medications MEDICAL (GENERAL) HISTORY Type Description Date Medical History Migraines Medical History COPD (chronic obstructive pulmonary dise ase) Medical History Coronary artery disease Medical History Anxiety state Medical History Yuen's esophagus without dysplasia Surgical History colonoscopy Surgical History total hip Surgical History shoulder repair x4 Surgical History cardiac cath x3 Hospitalization History surgeries Hospitalization History heart attacks
--- OUTSIDE RECORDS SUMMARY | 2020-01-11 18:20 | XMS REPORT | Continuity of Care Document ---
Author Organization Unknown Address Unknown Phone Unavailable Allergies Active Description Code Type Severity Reaction Onset Reported/Identified Relationship to Patient Clinical Status Yes honey bee venom honey bee venom Mild N/A 08/18/2012 Yes metoprolol [id number] Drug Allerg y Mild N/A 08/18/2012 Yes topiramate [id number] Drug Allerg y Mild NAUSEA 08/18/2012 Yes citalopram [id number] Drug Allerg y Unknown N/A 12/14/2018 Yes ketorolac tromethamine [id number] Drug Allergy Severe ANAPHYLAXIS 9 Yes prednisone [id number] Drug Allerg y Severe angry and agita 01/30/2019 Yes egg [id number] Drug Allergy Moderate N/A 01/30/[id number] ug Allergy Moderate N/A 01/30/2019 Yes Penicillins [id number] Drug Aller gy Moderate N/A 01/30/2019 Yes propoxyphene HCl [id number] Drug Allergy Mild N/A 01/30/2019 Yes EGGS EGGS Unknown N/A 04/05/2019 Yes TETANUS TETANUS Unknown N/A 04/05/2019 Medications There is no data. Problems Date Dx Coded Attending Type Code Diagnosis Diagnosed By 08/18/2012 Ot 401.9 HYPE RTENSION NOS 08/18/2012 Ot 412 OLD MY OCARDIAL INFARCT 08/18/2012 Ot 414.01 COR ONARY ATHEROSCLEROSIS OF [place] CORON 08/18/2012 Ot 427.69 PRE MATURE BEATS NEC 08/18/2012 Ot 496 CHR AI RWAY OBSTRUCT NEC 08/18/[address] PAIN NEC 08/18/2012 Ot V45.82 PER CUTANEOUS TRANSLUM CORON ANGIOPLASTY 08/18/2012 Ot V58.66 JOSE G-TERM (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 OF ASPIRIN 08/18/2012 Ot V58.69 OTH MED,LT,CURRENT USE 12/10/2013 VIRGINIA NAJERA MD Ot 786. 50 CHEST PAIN NOS 12/10/2013 DANIA MD, [place] A Ot 789. 00 ABDOMINAL PAIN, UNSPECIFIED SITE 06/26/2016 GENNA FALLON MD Ot 272. 4 HYPERLIPIDEMIA NEC/NOS 06/26/2016 GENNA FALLON MD Ot 397. 0 TRICUSPID VALVE DISEASE 06/26/2016 GENNA FALLON MD Ot 401. 9 HYPERTENSION NOS 06/26/2016 GENNA FALLON MD Ot 424. 0 MITRAL VALVE DISORDER 06/26/2016 GENNA FALLON MD Ot 427. 69 PREMATURE BEATS NEC 06/26/2016 GENNA FALLON MD Ot 786. 50 CHEST PAIN NOS 06/26/2016 DAVID STEVENSON MD Ot M50. 13 CERVICAL DISC DISORDER W RADICULOPATHY, 06/26/2016 DAVID STEVENSON MD Ot Z79.899 OTHER ASSISTED (CURRENT) DRUG THERAPY 07/27/2016 DAVID STEVENSON MD Ot M50. 13 CERVICAL DISC DISORDER W RADICULOPATHY, 07/27/2016 DAVID STEVENSON MD Ot Z79.899 OTHER ASSISTED (CURRENT) DRUG THERAPY 07/29/2016 DAVDI STEVENSON MD Ot M50. 13 CERVICAL DISC DISORDER W RADICULOPATHY, 07/29/2016 DAVID STEVENSON MD Ot Z79.899 OTHER 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 TEST ENGINEER (CURRENT) DRUG THERAPY 12/14/2018 GENNA FALLON MD Ot 272. 4 HYPERLIPIDEMIA NEC/NOS 12/14/2018 GENNA FALLON MD Ot 397. 0 TRICUSPID VALVE DISEASE 12/14/2018 GENNA FALLON MD Ot 401. 9 HYPERTENSION NOS 12/14/2018 GENNA FALLON MD Ot 424. 0 MITRAL VALVE DISORDER 12/14/2018 GENNA FALLON MD Ot 427. 69 PREMATURE BEATS NEC 12/14/2018 GENNA FALLON MD Ot 786. 50 CHEST PAIN NOS 12/14/2018 ALEENA KING DO Ot F41. 9 ANXIETY DISORDER, UNSPECIFIED 12/14/2018 ALEENA KING DO Ot G43.909 MIGRAINE, UNSP, NOT INTRACTABLE, WITHOUT 12/14/2018 ALEENA KING DO Ot I10 ESSENTIAL (PRIMARY) HYPERTENSION 12/14/2018 ALEENA KING DO Ot I25. 2 OLD MYOCARDIAL INFARCTION 12/14/2018 ALEENA KING DO Ot J43. 9 EMPHYSEMA, UNSPECIFIED 12/14/2018 ALEENA KING DO Ot J45.901 UNSPECIFIED ASTHMA WITH (ACUTE) EXACERBA 12/14/2018 ALEENA KING DO Ot R06. 02 SHORTNESS OF BREATH 12/14/2018 ALEENA KING DO Ot Z79. 51 ASSISTED (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 OF INHALED STERO 12/14/2018 ALEENA KING DO Ot Z79. 82 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 TEST 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 12/14/2018 ALEENA KING DO Ot Z87.891 PERSONAL HISTORY OF NICOTINE DEPENDENCE 12/14/2018 ALEENA KING DO Ot Z88. 0 ALLERGY STATUS TO PENICILLIN 12/14/2018 ALEENA KING DO Ot Z88. 4 ALLERGY STATUS TO ANESTHETIC AGENT STATU 12/14/2018 ALEENA KING DO Ot Z88. 8 ALLERGY STATUS TO OTH DRUG/MEDS/BIOL SUB 12/15/2018 GENNA FALLON MD J Ot 272. 4 HYPERLIPIDEMIA NEC/NOS 12/15/2018 GENNA FALLON MD J Ot 397. 0 TRICUSPID VALVE DISEASE 12/15/2018 GENNA FALLON MD J Ot 401. 9 HYPERTENSION NOS 12/15/2018 LEEANNE CONRAD, GENNA J Ot 424. 0 MITRAL VALVE DISORDER 12/15/2018 LEEANNE CONRAD, GENNA J Ot 427. 69 PREMATURE BEATS NEC 12/15/2018 LEEANNE CONRAD, GENNA J Ot 786. 50 CHEST PAIN NOS 12/16/2018 ALEENA KING DO Ot F41. 9 ANXIETY DISORDER, UNSPECIFIED 12/16/2018 ALEENA KING DO Ot G43.909 MIGRAINE, UNSP, NOT INTRACTABLE, WITHOUT 12/16/2018 ALEENA KING DO T Ot I10 ESSENTIAL (PRIMARY) HYPERTENSION 12/16/2018 ALEENA KING DO Ot I25. 2 OLD MYOCARDIAL INFARCTION 12/16/2018 ALEENA KING DO Ot J43. 9 EMPHYSEMA, UNSPECIFIED 12/16/2018 ALEENA KING DO Ot J45.901 UNSPECIFIED ASTHMA WITH (ACUTE) EXACERBA 12/16/2018 ALEENA KING DO Ot R06. 02 SHORTNESS OF BREATH 12/16/2018 ALEENA KING DO Ot Z79. 51 ASSISTED (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 OF INHALED STERO 12/16/2018 ALEENA KING DO Ot Z79. 82 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 TEST 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 12/16/2018 CHRISTINE GERBER ALEENA T Ot Z87.891 PERSONAL HISTORY OF NICOTINE DEPENDENCE 12/16/2018 DUSTY KING DOED T Ot Z88. 0 ALLERGY STATUS TO PENICILLIN 12/16/2018 CHRISTINE GERBER ALEENA T Ot Z88. 4 ALLERGY STATUS TO ANESTHETIC AGENT STATU 12/16/2018 CHRISTINE GERBER ALEENA T Ot Z88. 8 ALLERGY STATUS TO OTH DRUG/MEDS/BIOL SUB 01/07/2019 CHRISTINE GERBER ALEENA T Ot F41. 9 ANXIETY DISORDER, UNSPECIFIED 01/07/2019 CHRISTINE GERBER ALEENA T Ot G43.909 MIGRAINE, UNSP, NOT INTRACTABLE, WITHOUT 01/07/2019 CHRISTINE GERBER ALEENA T Ot I10 ESSENTIAL (PRIMARY) HYPERTENSION 01/07/2019 CHRISTINE GERBER ALEENA T Ot I25. 2 OLD MYOCARDIAL INFARCTION 01/07/2019 DUSTY KING DOED T Ot J43. 9 EMPHYSEMA, UNSPECIFIED 01/07/2019 DUSTY KING DOED T Ot J45.901 UNSPECIFIED ASTHMA WITH (ACUTE) EXACERBA 01/07/2019 DUSTY KING DOED T Ot R06. 02 SHORTNESS OF BREATH 01/07/2019 CHRISTINE GERBER ALEENA T Ot Z79. 51 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 TEST ENGINEER (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 OF INHALED STERO 01/07/2019 DUSTY KING DOED T Ot Z79. 82 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 TEST 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 01/07/2019 DUSTY KING DOED T Ot Z87.891 PERSONAL HISTORY OF NICOTINE DEPENDENCE 01/07/2019 DUSTY KING DOED T Ot Z88. 0 ALLERGY STATUS TO PENICILLIN 01/07/2019 DUSTY KING DOED T Ot Z88. 4 ALLERGY STATUS TO ANESTHETIC AGENT STATU 01/07/2019 CHRISTINE GREBER ALEENA T Ot Z88. 8 ALLERGY STATUS TO OTH DRUG/MEDS/BIOL SUB 01/30/2019 ELSI CONRAD, NATALYA Barclay Ot F41. 9 ANXIETY DISORDER, UNSPECIFIED 01/30/2019 ELSI CONRAD, NATALYA Barclay Ot G43.909 MIGRAINE, UNSP, NOT INTRACTABLE, WITHOUT 01/30/2019 ELSI CONRAD, NATALYA J Ot I10 ESSENTIAL (PRIMARY) HYPERTENSION 01/30/2019 ELSI CONRAD, NATALYA Barclay Ot I25. 2 OLD MYOCARDIAL INFARCTION 01/30/2019 ELSI CONRAD, NATALYA Barclay Ot J43. 9 EMPHYSEMA, UNSPECIFIED 01/30/2019 NATALYA CALZADA MD Ot R06. 02 SHORTNESS OF BREATH 01/30/2019 NATALYA CALZADA MD Ot T78.3XXA ANGIONEUROTIC EDEMA, INITIAL ENCOUNTER 01/30/2019 NATALYA CALZADA MD Ot Z79. 51 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 TEST ENGINEER (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 OF INHALED STERO 01/30/2019 NATALYA CALZADA MD Ot Z79. 82 ASSISTED (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 OF ASPIRIN 01/30/2019 NATALYA CALZADA MD Ot Z87.891 PERSONAL HISTORY OF NICOTINE DEPENDENCE 01/30/2019 NATALYA CALZADA MD Ot Z88. 0 ALLERGY STATUS TO PENICILLIN 01/30/2019 NATALYA CALZADA MD Ot Z88. 4 ALLERGY STATUS TO ANESTHETIC AGENT STATU 01/30/2019 NATALYA CALZADA MD Ot Z88. 8 ALLERGY STATUS TO OTH DRUG/MEDS/BIOL SUB 02/01/2019 NATALYA CALZADA MD Ot F41. 9 ANXIETY DISORDER, UNSPECIFIED 02/01/2019 NATALYA CALZADA MD Ot G43.909 MIGRAINE, UNSP, NOT INTRACTABLE, WITHOUT 02/01/2019 NATALYA CALZADA MD Ot I10 ESSENTIAL (PRIMARY) HYPERTENSION 02/01/2019 NATALYA CALZADA MD Ot I25. 2 OLD MYOCARDIAL INFARCTION 02/01/2019 NATALYA CALZADA MD Ot J43. 9 EMPHYSEMA, UNSPECIFIED 02/01/2019 NATALYA CALZADA MD Ot R06. 02 SHORTNESS OF BREATH 02/01/2019 NATALYA CALZADA MD Ot T78.3XXA ANGIONEUROTIC EDEMA, INITIAL ENCOUNTER 02/01/2019 NATALYA CALZADA MD Ot Z79. 51 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 TEST ENGINEER (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 OF INHALED STERO 02/01/2019 NATALYA CALZADA MD Ot Z79. 82 ASSISTED (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 OF ASPIRIN 02/01/2019 NATALYA CALZADA MD Ot Z87.891 PERSONAL HISTORY OF NICOTINE DEPENDENCE 02/01/2019 NATALYA CALZADA MD Ot Z88. 0 ALLERGY STATUS TO PENICILLIN 02/01/2019 NATALYA CALZADA MD Ot Z88. 4 ALLERGY STATUS TO ANESTHETIC AGENT STATU 02/01/2019 NATALYA CALZADA MD Ot Z88. 8 ALLERGY STATUS TO OTH DRUG/MEDS/BIOL SUB 02/05/2019 NATALYA CALZADA MD Ot F41. 9 ANXIETY DISORDER, UNSPECIFIED 02/05/2019 NATALYA CALZADA MD Ot G43.909 MIGRAINE, UNSP, NOT INTRACTABLE, WITHOUT 02/05/2019 NATALYA CALZADA MD Ot I10 ESSENTIAL (PRIMARY) HYPERTENSION 02/05/2019 NATALYA CALZADA MD Ot I25. 2 OLD MYOCARDIAL INFARCTION 02/05/2019 NATALYA CALZADA MD, Ot J43. 9 EMPHYSEMA, UNSPECIFIED 02/05/2019 NATALYA CALZADA MD Ot R06. 02 SHORTNESS OF BREATH 02/05/2019 NATALYA CALZADA MD Ot T78.3XXA ANGIONEUROTIC EDEMA, INITIAL ENCOUNTER 02/05/2019 NATALYA CALZADA MD Ot Z79. 51 ASSISTED (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 OF INHALED STERO 02/05/2019 NATALYA CALZADA MD Ot Z79. 82 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 TEST 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 02/05/2019 NATALYA CALZADA MD Ot Z87.891 PERSONAL HISTORY OF NICOTINE DEPENDENCE 02/05/2019 NATALYA CALZADA MD Ot Z88. 0 ALLERGY STATUS TO PENICILLIN 02/05/2019 NATALYA CALZADA MD Ot Z88. 4 ALLERGY STATUS TO ANESTHETIC AGENT STATU 02/05/2019 NATALYA CALZADA MD Ot Z88. 8 ALLERGY STATUS TO OTH DRUG/MEDS/BIOL SUB 04/05/2019 GAVIN PEREZ DO, Ot F41.9 ANXIETY DISORDER, UNSPECIFIED 04/05/2019 GAVIN PEREZ DO, Ot G43.909 MIGRAINE, UNSP, NOT INTRACTABLE, WITHOUT 04/05/2019 GAVIN PEREZ DO, Ot I10 ESSENTIAL (PRIMARY) HYPERTENSION 04/05/2019 GAVIN PEREZ DO, Ot I25.2 OLD MYOCARDIAL INFARCTION 04/05/2019 GAVIN PEREZ DO, Ot J42 UNSPECIFIED CHRONIC BRONCHITIS 04/05/2019 GAVIN PEREZ DO, Ot J43.9 EMPHYSEMA, UNSPECIFIED 04/05/2019 GAVIN PEREZ DO, Ot J45.909 UNSPECIFIED ASTHMA, UNCOMPLICATED 04/05/2019 GAVIN PEREZ DO, Ot S71.152A OPEN BITE, LEFT THIGH, INITIAL ENCOUNTER 04/05/2019 GAVIN PEREZ DO, Ot W54.0XXA BITTEN BY DOG, INITIAL ENCOUNTER 04/05/2019 GAVIN PEREZ DO, Ot Z79.51 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 TEST ENGINEER (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 OF INHALED STERO 04/05/2019 PEREZ DO, GAVIN Ot Z79.82 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 TEST 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 04/05/2019 CHRIS DO, GAVIN Ot Z88.0 ALLERGY STATUS TO PENICILLIN 04/05/2019 PEREZ DO, GAVIN Ot Z88.5 ALLERGY STATUS TO NARCOTIC AGENT STATUS 04/05/2019 PEREZ DO, GAVIN Ot Z88.6 ALLERGY STATUS TO ANALGESIC AGENT STATUS 04/05/2019 PEREZ DO, GAVIN Ot Z88.8 ALLERGY STATUS TO OTH DRUG/MEDS/BIOL SUB 04/05/2019 [place] DO, GAVIN Ot Z91.012 ALLERGY TO EGGS 04/07/2019 [place] DO, GAVIN Ot F41.9 ANXIETY DISORDER, UNSPECIFIED 04/07/2019 [place] DO, GAVIN Ot G43.909 MIGRAINE, UNSP, NOT INTRACTABLE, WITHOUT 04/07/2019 PEREZ DO, GAVIN Ot I10 ESSENTIAL (PRIMARY) HYPERTENSION 04/07/2019 [place] DO, GAVIN Ot I25.2 OLD MYOCARDIAL INFARCTION 04/07/2019 PEREZ DO, GAVIN Ot J42 UNSPECIFIED CHRONIC BRONCHITIS 04/07/2019 [place] DO, GAVIN Ot J43.9 EMPHYSEMA, UNSPECIFIED 04/07/2019 [place] DO, GAVIN Ot J45.909 UNSPECIFIED ASTHMA, UNCOMPLICATED 04/07/2019 [place] DO, GAVIN Ot S71.152A OPEN BITE, LEFT THIGH, INITIAL ENCOUNTER 04/07/2019 PEREZ DO, GAVIN Ot W54.0XXA BITTEN BY DOG, INITIAL ENCOUNTER 04/07/2019 PEREZ DO, GAVIN Ot Z79.51 ASSISTED (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 OF INHALED STERO 04/07/2019 CHRIS DO, GAVIN Ot Z79.82 ASSISTED (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 OF ASPIRIN 04/07/2019 CHRIS DO, GAVIN Ot Z88.0 ALLERGY STATUS TO PENICILLIN 04/07/2019 PEREZ DO, GAVIN Ot Z88.5 ALLERGY STATUS TO NARCOTIC AGENT STATUS 04/07/2019 CHRIS DO, GAVIN Ot Z88.6 ALLERGY STATUS TO ANALGESIC AGENT STATUS 04/07/2019 CHRIS DO, GAVIN Ot Z88.8 ALLERGY STATUS TO OTH DRUG/MEDS/BIOL SUB 04/07/2019 PEREZ DO, GAVIN Ot Z91.012 ALLERGY TO EGGS 04/23/2019 ELSI CONRAD, NATALYA Barclay Ot F41. 9 ANXIETY DISORDER, UNSPECIFIED 04/23/2019 ELSI CONRAD, NATALYA Barclay Ot G43.909 MIGRAINE, UNSP, NOT INTRACTABLE, WITHOUT 04/23/2019 NATALYA CALZADA MD Ot I10 ESSENTIAL (PRIMARY) HYPERTENSION 04/23/2019 NATALYA CALZADA MD Ot I25. 2 OLD MYOCARDIAL INFARCTION 04/23/2019 NATALYA CALZADA MD Ot J43. 9 EMPHYSEMA, UNSPECIFIED 04/23/2019 NATALYA CALZADA MD Ot J45.909 UNSPECIFIED ASTHMA, UNCOMPLICATED 04/23/2019 NATALYA CALZADA MD Ot Z79. 51 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 TEST ENGINEER (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 OF INHALED STERO 04/23/2019 NATALYA CALZADA MD Ot Z79. 82 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 TEST 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 04/23/2019 NATALYA CALZADA MD Ot Z87.891 PERSONAL HISTORY OF NICOTINE DEPENDENCE 04/23/2019 NATALYA CALZADA MD Ot Z88. 0 ALLERGY STATUS TO PENICILLIN 04/23/2019 NATALYA CALZADA MD Ot Z88. 6 ALLERGY STATUS TO ANALGESIC AGENT STATUS 04/23/2019 NATALYA CALZADA MD Ot Z88. 7 ALLERGY STATUS TO SERUM AND VACCINE STAT 04/23/2019 NATALYA CALZADA MD Ot Z88. 8 ALLERGY STATUS TO OTH DRUG/MEDS/BIOL SUB 04/23/2019 NATALYA CALZADA MD Ot Z95. 5 PRESENCE OF CORONARY ANGIOPLASTY IMPLANT 04/29/2019 NATALYA CALZADA MD Ot F41. 9 ANXIETY DISORDER, UNSPECIFIED 04/29/2019 NATALYA CALZADA MD Ot G43.909 MIGRAINE, UNSP, NOT INTRACTABLE, WITHOUT 04/29/2019 NATALYA CALZADA MD Ot I10 ESSENTIAL (PRIMARY) HYPERTENSION 04/29/2019 NATALYA CALZADA MD Ot I25. 2 OLD MYOCARDIAL INFARCTION 04/29/2019 NATALYA CALZADA MD Ot J43. 9 EMPHYSEMA, UNSPECIFIED 04/29/2019 NATALYA CALZADA MD Ot J45.909 UNSPECIFIED ASTHMA, UNCOMPLICATED 04/29/2019 NATALYA CALZADA MD Ot Z79. 51 ASSISTED (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 OF INHALED STERO 04/29/2019 NATALYA CALZADA MD Ot Z79. 82 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 TEST 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 04/29/2019 NATALYA CALZADA MD Ot Z87.891 PERSONAL HISTORY OF NICOTINE DEPENDENCE 04/29/2019 NATALYA CALZADA MD Ot Z88. 0 ALLERGY STATUS TO PENICILLIN 04/29/2019 NATALYA CALZADA MD Ot Z88. 6 ALLERGY STATUS TO ANALGESIC AGENT STATUS 04/29/2019 NATALYA CALZADA MD Ot Z88. 7 ALLERGY STATUS TO SERUM AND VACCINE STAT 04/29/2019 NATALYA CALZADA MD Ot Z88. 8 ALLERGY STATUS TO OTH DRUG/MEDS/BIOL SUB 04/29/2019 NATALYA CALZADA MD Ot Z95. 5 PRESENCE OF CORONARY ANGIOPLASTY IMPLANT 04/29/2019 NATALYA CALZADA MD Ot F41. 9 ANXIETY DISORDER, UNSPECIFIED 04/29/2019 NATALYA CALZADA MD Ot G43.909 MIGRAINE, UNSP, NOT INTRACTABLE, WITHOUT 04/29/2019 NATALYA CALZADA MD Ot I10 ESSENTIAL (PRIMARY) HYPERTENSION 04/29/2019 NATALYA CALZADA MD Ot I25. 2 OLD MYOCARDIAL INFARCTION 04/29/2019 NATALYA CALZADA MD Ot J43. 9 EMPHYSEMA, UNSPECIFIED 04/29/2019 NATALYA CALZADA MD Ot J45.909 UNSPECIFIED ASTHMA, UNCOMPLICATED 04/29/2019 NATALYA CALZADA MD Ot Z79. 51 ASSISTED (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 OF INHALED STERO 04/29/2019 NATALYA CALZADA MD Ot Z79. 82 ASSISTED (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 OF ASPIRIN 04/29/2019 NATALYA CALZADA MD Ot Z87.891 PERSONAL HISTORY OF NICOTINE DEPENDENCE 04/29/2019 NATALYA CALZADA MD Ot Z88. 0 ALLERGY STATUS TO PENICILLIN 04/29/2019 NATALYA CALZADA MD Ot Z88. 6 ALLERGY STATUS TO ANALGESIC AGENT STATUS 04/29/2019 NATALYA CALZADA MD Ot Z88. 7 ALLERGY STATUS TO SERUM AND VACCINE STAT 04/29/2019 NATALYA CALZADA MD Ot Z88. 8 ALLERGY STATUS TO OTH DRUG/MEDS/BIOL SUB 04/29/2019 NATALYA CALZADA MD Ot Z95. 5 PRESENCE OF CORONARY ANGIOPLASTY IMPLANT 05/08/2019 CEASAR REMY DO Ot F41.9 ANXIETY DISORDER, UNSPECIFIED 05/08/2019 CEASAR REMY DO Ot G43.909 MIGRAINE, UNSP, NOT INTRACTABLE, WITHOUT 05/08/2019 CEASAR REMY DO Ot I1 0 ESSENTIAL (PRIMARY) HYPERTENSION 05/08/2019 CEASAR REMY DO, Ot I25.2 OLD MYOCARDIAL INFARCTION 05/08/2019 CEASAR REMY DO, Ot J43.9 EMPHYSEMA, UNSPECIFIED 05/08/2019 CEASAR REMY DO, Ot J45.909 UNSPECIFIED ASTHMA, UNCOMPLICATED 05/08/2019 CEASAR REMY DO, Ot M62.838 OTHER MUSCLE SPASM 05/08/2019 CEASAR REMY DO, Ot Z79.51 ASSISTED (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 OF INHALED STERO 05/08/2019 CEASAR REMY DO, Ot Z79.82 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 TEST 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 05/08/2019 CEASAR REMY DO, Ot Z88.0 ALLERGY STATUS TO PENICILLIN 05/08/2019 CEASAR REMY DO, Ot Z88.1 ALLERGY STATUS TO OTHER ANTIBIOTIC AGENT 05/08/2019 CEASAR REMY DO, Ot Z88.6 ALLERGY STATUS TO ANALGESIC AGENT STATUS 05/08/2019 CEASAR REMY DO, Ot Z88.8 ALLERGY STATUS TO OT DRUG/MEDS/BIOL SUB 05/08/2019 CEASAR REMY DO, Ot Z95.9 PRESENCE OF CARDIAC AND VASCULAR IMPLANT 05/08/2019 CEASAR REMY DO, Ot Z96.641 PRESENCE OF RIGHT ARTIFICIAL HIP JOINT 05/15/2019 CEASAR REMY DO, Ot F41.9 ANXIETY DISORDER, UNSPECIFIED 05/15/2019 CEASAR REMY DO, Ot G43.909 MIGRAINE, UNSP, NOT INTRACTABLE, WITHOUT 05/15/2019 CEASAR REMY DO, Ot I1 0 ESSENTIAL (PRIMARY) HYPERTENSION 05/15/2019 CEASAR REMY DO, Ot I25.2 OLD MYOCARDIAL INFARCTION 05/15/2019 CEASAR REMY DO, Ot J43.9 EMPHYSEMA, UNSPECIFIED 05/15/2019 CEASAR REMY DO, Ot J45.909 UNSPECIFIED ASTHMA, UNCOMPLICATED 05/15/2019 CEASAR REMY DO, Ot M62.838 OTHER MUSCLE SPASM 05/15/2019 CEASAR REMY DO, Ot Z79.51 ASSISTED (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 OF INHALED STERO 05/15/2019 CEASAR REMY DO, Ot Z79.82 ASSISTED (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 OF ASPIRIN 05/15/2019 CEASAR REMY DO, Ot Z88.0 ALLERGY STATUS TO PENICILLIN 05/15/2019 SANDRITA DO, CEASAR D Ot Z88.1 ALLERGY STATUS TO OTHER ANTIBIOTIC AGENT 05/15/2019 CEASAR REMY DO Ot Z88.6 ALLERGY STATUS TO ANALGESIC AGENT STATUS 05/15/2019 CEASAR REMY DO, Ot Z88.8 ALLERGY STATUS TO OTH DRUG/MEDS/BIOL SUB 05/15/2019 CEASAR REMY DO Ot Z95.9 PRESENCE OF CARDIAC AND VASCULAR IMPLANT 05/15/2019 CEASAR REMY DO Ot Z96.641 PRESENCE OF RIGHT ARTIFICIAL HIP JOINT 05/17/2019 CEASAR REMY DO, Ot F41.9 ANXIETY DISORDER, UNSPECIFIED 05/17/2019 CEASAR REMY DO, Ot G43.909 MIGRAINE, UNSP, NOT INTRACTABLE, WITHOUT 05/17/2019 CEASAR REMY DO, Ot I1 0 ESSENTIAL (PRIMARY) HYPERTENSION 05/17/2019 CEASAR REMY DO, Ot I25.2 OLD MYOCARDIAL INFARCTION 05/17/2019 CEASAR REMY DO, Ot J43.9 EMPHYSEMA, UNSPECIFIED 05/17/2019 CEASAR REMY DO, Ot J45.909 UNSPECIFIED ASTHMA, UNCOMPLICATED 05/17/2019 CEASAR REMY DO, Ot M62.838 OTHER MUSCLE SPASM 05/17/2019 CEASAR REMY DO, Ot Z79.51 ASSISTED (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 OF INHALED STERO 05/17/2019 CEASAR REMY DO, Ot Z79.82 ASSISTED (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 OF ASPIRIN 05/17/2019 CEASAR REMY DO, Ot Z88.0 ALLERGY STATUS TO PENICILLIN 05/17/2019 CEASAR REMY DO, Ot Z88.1 ALLERGY STATUS TO OTHER ANTIBIOTIC AGENT 05/17/2019 CEASAR REMY DO, Ot Z88.6 ALLERGY STATUS TO ANALGESIC AGENT STATUS 05/17/2019 CEASAR REMY DO, Ot Z88.8 ALLERGY STATUS TO OT DRUG/MEDS/BIOL SUB 05/17/2019 CEASAR REMY DO Ot Z95.9 PRESENCE OF CARDIAC AND VASCULAR IMPLANT 05/17/2019 CEASAR REMY DO, Ot Z96.641 PRESENCE OF RIGHT ARTIFICIAL HIP JOINT 06/11/2019 GAVIN PEREZ DO Ot F17.290 NICOTINE DEPENDENCE, OTHER TOBACCO PRODU 06/11/2019 GAVIN PEREZ DO Ot F41.9 ANXIETY DISORDER, UNSPECIFIED 06/11/2019 GAVIN PEREZ DO, Ot G43.909 MIGRAINE, UNSP, NOT INTRACTABLE, WITHOUT 06/11/2019 PEREZ DO, GAVIN Ot I10 ESSENTIAL (PRIMARY) HYPERTENSION 06/11/2019 PEREZ DO, GAVIN Ot I25.2 OLD MYOCARDIAL INFARCTION 06/11/2019 PEREZ DO, GAVIN Ot J43.9 EMPHYSEMA, UNSPECIFIED 06/11/2019 PEREZ DO, GAVIN Ot J45.909 UNSPECIFIED ASTHMA, UNCOMPLICATED 06/11/2019 PEREZ DO, GAVIN Ot Z79.82 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 TEST 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 06/11/2019 PEREZ DO, GAVIN Ot Z88.0 ALLERGY STATUS TO PENICILLIN 06/11/2019 PEREZ DO, GAVIN Ot Z88.5 ALLERGY STATUS TO NARCOTIC AGENT STATUS 06/11/2019 PEREZ DO, GAVIN Ot Z88.6 ALLERGY STATUS TO ANALGESIC AGENT STATUS 06/11/2019 PEREZ DO, GAVIN Ot Z88.8 ALLERGY STATUS TO OTH DRUG/MEDS/BIOL SUB 06/11/2019 PEREZ DO, GAVIN Ot Z91.012 ALLERGY TO EGGS 06/11/2019 [place] DO, GAVIN Ot Z91.030 BEE ALLERGY STATUS 06/11/2019 [place] DO, GAVIN Ot Z96.641 PRESENCE OF RIGHT ARTIFICIAL HIP JOINT 06/14/2019 PEREZ DO, GAVIN Ot F17.290 NICOTINE DEPENDENCE, OTHER TOBACCO PRODU 06/14/2019 PEREZ DO, GAVIN Ot F41.9 ANXIETY DISORDER, UNSPECIFIED 06/14/2019 PEREZ DO, GAVIN Ot G43.909 MIGRAINE, UNSP, NOT INTRACTABLE, WITHOUT 06/14/2019 PEREZ DO, GAVIN Ot I10 ESSENTIAL (PRIMARY) HYPERTENSION 06/14/2019 PEREZ DO, GAVIN Ot I25.2 OLD MYOCARDIAL INFARCTION 06/14/2019 PEREZ DO, GAVIN Ot J43.9 EMPHYSEMA, UNSPECIFIED 06/14/2019 PEREZ DO, GAVIN Ot J45.909 UNSPECIFIED ASTHMA, UNCOMPLICATED 06/14/2019 PEREZ DO, GAVIN Ot Z79.82 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 TEST 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 06/14/2019 PEREZ DO, GAVIN Ot Z88.0 ALLERGY STATUS TO PENICILLIN 06/14/2019 PEREZ DO, GAVIN Ot Z88.5 ALLERGY STATUS TO NARCOTIC AGENT STATUS 06/14/2019 PEREZ DO, GAVIN Ot Z88.6 ALLERGY STATUS TO ANALGESIC AGENT STATUS 06/14/2019 PEREZ DO, GAVIN Ot Z88.8 ALLERGY STATUS TO OTH DRUG/MEDS/BIOL SUB 06/14/2019 PEREZ DO, GAVIN Ot Z91.012 ALLERGY TO EGGS 06/14/2019 PEREZ DO, GAVIN Ot Z91.030 BEE ALLERGY STATUS 06/14/2019 PEREZ DO, GAVIN Ot Z96.641 PRESENCE OF RIGHT ARTIFICIAL HIP JOINT 06/17/2019 PEREZ DO, GAVIN Ot F17.290 NICOTINE DEPENDENCE, OTHER TOBACCO PRODU 06/17/2019 PEREZ DO, GAVIN Ot F41.9 ANXIETY DISORDER, UNSPECIFIED 06/17/2019 PEREZ DO, GAVIN Ot G43.909 MIGRAINE, UNSP, NOT INTRACTABLE, WITHOUT 06/17/2019 PEREZ DO, GAVIN Ot I10 ESSENTIAL (PRIMARY) HYPERTENSION 06/17/2019 PEREZ DO, GAVIN Ot I25.2 OLD MYOCARDIAL INFARCTION 06/17/2019 PEREZ DO, GAVIN Ot J43.9 EMPHYSEMA, UNSPECIFIED 06/17/2019 PEREZ DO, GAVIN Ot J45.909 UNSPECIFIED ASTHMA, UNCOMPLICATED 06/17/2019 PEREZ DO, GAVIN Ot Z79.82 ASSISTED (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 OF ASPIRIN 06/17/2019 PEREZ DO, GAVIN Ot Z88.0 ALLERGY STATUS TO PENICILLIN 06/17/2019 PEREZ DO, GAVIN Ot Z88.5 ALLERGY STATUS TO NARCOTIC AGENT STATUS 06/17/2019 PEREZ DO, GAVIN Ot Z88.6 ALLERGY STATUS TO ANALGESIC AGENT STATUS 06/17/2019 PEREZ DO, GAVIN Ot Z88.8 ALLERGY STATUS TO OTH DRUG/MEDS/BIOL SUB 06/17/2019 PEREZ DO, GAVIN Ot Z91.012 ALLERGY TO EGGS 06/17/2019 PEREZ DO, GAVIN Ot Z91.030 BEE ALLERGY STATUS 06/17/2019 PEREZ DO, GAVIN Ot Z96.641 PRESENCE OF RIGHT ARTIFICIAL HIP JOINT 07/18/2019 HONORIO COOPER DO Ot F41. 9 ANXIETY DISORDER, UNSPECIFIED 07/18/2019 HONORIO COOPRE DO Ot G43.909 MIGRAINE, UNSP, NOT INTRACTABLE, WITHOUT 07/18/2019 HONORIO COOPER DO Ot I10 ESSENTIAL (PRIMARY) HYPERTENSION 07/18/2019 HONORIO COOPER DO Ot I25. 2 OLD MYOCARDIAL INFARCTION 07/18/2019 HONORIO COOPER DO Ot J43. 9 EMPHYSEMA, UNSPECIFIED 07/18/2019 HONORIO COOPER DO Ot J45.909 UNSPECIFIED ASTHMA, UNCOMPLICATED 07/18/2019 HONORIO COOPER DO Ot K21. 9 GASTRO-ESOPHAGEAL REFLUX DISEASE WITHOUT 07/18/2019 HONORIO COOPER DO Ot R07. 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 0 ALLERGY STATUS TO PENICILLIN 07/18/2019 HONORIO COOPER DO Ot Z88. 6 ALLERGY STATUS TO ANALGESIC AGENT STATUS 07/18/2019 HONORIO COOPER DO Ot Z88. 8 ALLERGY STATUS TO OTH DRUG/MEDS/BIOL SUB 07/18/2019 HONORIO COOPER DO Ot Z91.012 ALLERGY TO EGGS 07/18/2019 HONORIO COOPER DO Ot Z95. 9 PRESENCE OF CARDIAC AND VASCULAR IMPLANT 07/18/2019 HONORIO COOPER DO Ot Z96.641 PRESENCE OF RIGHT ARTIFICIAL HIP JOINT 07/18/2019 GAVIN PEREZ DO Ot F17.210 NICOTINE DEPENDENCE, CIGARETTES, UNCOMPL 07/18/2019 GAVIN PEREZ DO Ot F41.9 ANXIETY DISORDER, UNSPECIFIED 07/18/2019 GAVIN PEREZ DO Ot G43.909 MIGRAINE, UNSP, NOT INTRACTABLE, WITHOUT 07/18/2019 GAVIN PEREZ DO Ot I10 ESSENTIAL (PRIMARY) HYPERTENSION 07/18/2019 GAVIN PEREZ DO Ot I25.2 OLD MYOCARDIAL INFARCTION 07/18/2019 GAVIN PEREZ DO Ot J43.9 EMPHYSEMA, UNSPECIFIED 07/18/2019 AGVIN PEREZ DO Ot Z79.51 ASSISTED (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 OF INHALED STERO 07/18/2019 GAVIN PEREZ DO Ot Z79.82 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 TEST 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 07/18/2019 GAVIN PEREZ DO Ot Z88.0 ALLERGY STATUS TO PENICILLIN 07/18/2019 GAVIN PEREZ DO Ot Z88.5 ALLERGY STATUS TO NARCOTIC AGENT STATUS 07/18/2019 GAVIN PEREZ DO Ot Z88.7 ALLERGY STATUS TO SERUM AND VACCINE STAT 07/18/2019 GAVIN PEREZ DO Ot Z88.8 ALLERGY STATUS TO OTH DRUG/MEDS/BIOL SUB 07/18/2019 GAVIN PEREZ DO Ot Z95.9 PRESENCE OF CARDIAC AND VASCULAR IMPLANT 07/18/2019 GAVIN PEREZ DO Ot Z96.641 PRESENCE OF RIGHT ARTIFICIAL HIP JOINT 07/20/2019 GAVIN PEREZ DO Ot F17.210 NICOTINE DEPENDENCE, CIGARETTES, UNCOMPL 07/20/2019 [place] DO, GAVIN Ot F41.9 ANXIETY DISORDER, UNSPECIFIED 07/20/2019 [place] DO, GAVIN Ot G43.909 MIGRAINE, UNSP, NOT INTRACTABLE, WITHOUT 07/20/2019 [place] DO, GAVIN Ot I10 ESSENTIAL (PRIMARY) HYPERTENSION 07/20/2019 PEREZ DO, GAVIN Ot I25.2 OLD MYOCARDIAL INFARCTION 07/20/2019 [place] DO, GAVIN Ot J43.9 EMPHYSEMA, UNSPECIFIED 07/20/2019 [place] DO, GAVIN Ot Z79.51 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 TEST ENGINEER (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 OF INHALED STERO 07/20/2019 [place] DO, GAVIN Ot Z79.82 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 TEST 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 07/20/2019 [place] DO, GAVIN Ot Z88.0 ALLERGY STATUS TO PENICILLIN 07/20/2019 [place] DO, GAVIN Ot Z88.5 ALLERGY STATUS TO NARCOTIC AGENT STATUS 07/20/2019 [place] DO, GAVIN Ot Z88.7 ALLERGY STATUS TO SERUM AND VACCINE STAT 07/20/2019 [place] DO, GAVIN Ot Z88.8 ALLERGY STATUS TO OTH DRUG/MEDS/BIOL SUB 07/20/2019 [place] DO, GAVIN Ot Z95.9 PRESENCE OF CARDIAC AND VASCULAR IMPLANT 07/20/2019 [place] DO, GAVIN Ot Z96.641 PRESENCE OF RIGHT ARTIFICIAL HIP JOINT 08/10/2019 [place] DO, GAVIN Ot F17.210 NICOTINE DEPENDENCE, CIGARETTES, UNCOMPL 08/10/2019 [place] DO, GAVIN Ot F41.9 ANXIETY DISORDER, UNSPECIFIED 08/10/2019 [place] DO, GAVIN Ot G43.909 MIGRAINE, UNSP, NOT INTRACTABLE, WITHOUT 08/10/2019 [place] DO, GAVIN Ot I10 ESSENTIAL (PRIMARY) HYPERTENSION 08/10/2019 [place] DO, GAVIN Ot I25.2 OLD MYOCARDIAL INFARCTION 08/10/2019 [place] DO, GAVIN Ot J43.9 EMPHYSEMA, UNSPECIFIED 08/10/2019 [place] DO, GAVIN Ot T78.40XA ALLERGY, UNSPECIFIED, INITIAL ENCOUNTER 08/10/2019 [place] DO, GAVIN Ot T78.49XA OTHER ALLERGY, INITIAL ENCOUNTER 08/10/2019 [place] DO, GAVIN Ot 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.51 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 TEST ENGINEER (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 OF INHALED STERO 08/10/2019 [place] DO, GAVIN Ot Z79.82 ASSISTED (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 OF ASPIRIN 08/10/2019 [place] DO, GAVIN Ot Z88.0 ALLERGY STATUS TO PENICILLIN 08/10/2019 [place] DO, GAVIN Ot Z88.5 ALLERGY STATUS TO NARCOTIC AGENT STATUS 08/10/2019 [place] DO, GAVIN Ot Z88.6 ALLERGY STATUS TO ANALGESIC AGENT STATUS 08/10/2019 [place] DO, GAVIN Ot Z88.8 ALLERGY STATUS TO OTH DRUG/MEDS/BIOL SUB 08/10/2019 [place] DO, GAVIN Ot Z91.040 LATEX ALLERGY STATUS 08/10/2019 [place] DO, GAVIN Ot Z96.641 PRESENCE OF RIGHT ARTIFICIAL HIP JOINT 10/20/2019 JEAN BAPTISTE DO, LIZY L Ot F41.9 ANXIETY DISORDER, UNSPECIFIED 10/20/2019 JEAN BAPTISTE DO, LIZY L Ot G43.9 09 MIGRAINE, UNSP, NOT INTRACTABLE, WITHOUT 10/20/2019 JEAN BAPTISTE DO, LIZY L Ot G44.2 09 TENSION-TYPE HEADACHE, UNSPECIFIED, NOT 10/20/2019 JEAN BAPTISTE DO, LIZY L Ot I10 ESSENTIAL (PRIMARY) HYPERTENSION 10/20/2019 JEAN BAPTISTE DO, LIZY L Ot I25.2 OLD MYOCARDIAL INFARCTION 10/20/2019 JEAN BAPTISTE DO, LIZY L Ot J43.9 EMPHYSEMA, UNSPECIFIED 10/20/2019 JEAN BAPTISTE DO, LIZY L Ot R51 HEADACHE 10/20/2019 JEAN BAPTISTE DO, LIZY L Ot Z79.8 2 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 TEST 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 10/20/2019 JEAN BAPTISTE DO, LIZY L Ot Z87.8 91 PERSONAL HISTORY OF NICOTINE DEPENDENCE 10/20/2019 JEAN BAPTISTE DO, LIZY L Ot Z88.0 ALLERGY STATUS TO PENICILLIN 10/20/2019 JEAN BAPTISTE DO, LIZY L Ot Z88.5 ALLERGY STATUS TO NARCOTIC AGENT STATUS 10/20/2019 JEAN BAPTISTE DO, LIZY L Ot Z88.6 ALLERGY STATUS TO ANALGESIC AGENT STATUS 10/20/2019 JEAN BAPTIST[place] DO, LIZY L Ot Z88.8 ALLERGY STATUS TO OTH DRUG/MEDS/BIOL SUB 10/20/2019 JEAN [place]APTIST[place] DO, LIZY L Ot Z95.9 PRESENCE OF CARDIAC AND VASCULAR IMPLANT 10/20/2019 JEAN BAPTISTE DO, LZIY L Ot Z96.6 41 PRESENCE OF RIGHT ARTIFICIAL HIP JOINT 11/10/2019 DACIA WRIGHT DO, Ot G43.909 MIGRAINE, UNSP, NOT INTRACTABLE, WITHOUT 11/10/2019 DACIA WRIGHT DO Ot I1 0 ESSENTIAL (PRIMARY) HYPERTENSION 11/10/2019 LILLY WRIGHT DOONY H Ot I25.2 OLD MYOCARDIAL INFARCTION 11/10/2019 [facility], DACIA Bari Ot J43.9 EMPHYSEMA, UNSPECIFIED 11/10/2019 [facility], DACIA Bari Ot R5 1 HEADACHE 11/10/2019 [facility], DACIA H Ot Z79.51 ASSISTED (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 OF INHALED STERO 11/10/2019 [facility], DACIA Bari Ot Z79.82 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 TEST 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 11/10/2019 [facility], DACIA Candelaria Ot Z87.891 PERSONAL HISTORY OF NICOTINE DEPENDENCE 11/10/2019 [facility], DACIA H Ot Z88.0 ALLERGY STATUS TO PENICILLIN 11/10/2019 [facility], DACIA Candelaria Ot Z88.5 ALLERGY STATUS TO NARCOTIC AGENT STATUS 11/10/2019 [facility], DACIA Candelaria Ot Z88.8 ALLERGY STATUS TO OTH DRUG/MEDS/BIOL SUB 11/10/2019 [facility], DACIA Candelaria Ot Z96.641 PRESENCE OF RIGHT ARTIFICIAL HIP JOINT 12/21/2019 JEANNINE CONRAD, TOOTIE John Ot F17.2 10 NICOTINE DEPENDENCE, CIGARETTES, UNCOMPL 12/21/2019 JEANNINE CONRAD, TOOTIE John Ot F41.9 ANXIETY DISORDER, UNSPECIFIED 12/21/2019 TOOTIE PAEZ MD Ot G43.9 09 MIGRAINE, UNSP, NOT INTRACTABLE, WITHOUT 12/21/2019 TOOTIE PAEZ MD Ot I10 ESSENTIAL (PRIMARY) HYPERTENSION 12/21/2019 TOOTIE PAEZ MD Ot I25.2 OLD MYOCARDIAL INFARCTION 12/21/2019 JEANNINE CONRAD, TOOTIE John Ot J43.9 EMPHYSEMA, UNSPECIFIED 12/21/2019 TOOTIE PAEZ MD Ot J45.9 09 UNSPECIFIED ASTHMA, UNCOMPLICATED 12/21/2019 TOOTIE PAEZ MD Ot R51 HEADACHE 12/21/2019 TOOTIE PAEZ MD Ot Z79.8 2 ASSISTED (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 OF ASPIRIN 12/21/2019 TOOTIE PAEZ MD Ot Z88.0 ALLERGY STATUS TO PENICILLIN 12/21/2019 TOOTIE PAEZ MD Ot Z88.8 ALLERGY STATUS TO OTH DRUG/MEDS/BIOL SUB 12/21/2019 TOOTIE PAEZ MD Ot Z91.0 12 ALLERGY TO EGGS 12/21/2019 TOOTIE PAEZ MD Ot Z91.0 30 BEE ALLERGY STATUS 12/21/2019 TOOTIE PAEZ MD Ot Z96.6 41 PRESENCE OF RIGHT ARTIFICIAL HIP JOINT 01/03/2020 TOOTIE PAEZ MD Ot F17.2 10 NICOTINE DEPENDENCE, CIGARETTES, UNCOMPL 01/03/2020 TOOTIE PAEZ MD Ot F41.9 ANXIETY DISORDER, UNSPECIFIED 01/03/2020 TOOTIE PAEZ MD Ot G43.9 09 MIGRAINE, UNSP, NOT INTRACTABLE, WITHOUT 01/03/2020 TOOTIE PAEZ MD Ot I10 ESSENTIAL (PRIMARY) HYPERTENSION 01/03/2020 TOOTIE PAEZ MD, Ot I25.2 OLD MYOCARDIAL INFARCTION 01/03/2020 TOOTIE PAEZ MD, Ot J43.9 EMPHYSEMA, UNSPECIFIED 01/03/2020 TOOTIE PAEZ MD, Ot J45.9 09 UNSPECIFIED ASTHMA, UNCOMPLICATED 01/03/2020 TOOTIE PAEZ MD Ot R51 HEADACHE 01/03/2020 TOOTIE PAEZ MD, Ot Z79.8 2 ASSISTED (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 OF ASPIRIN 01/03/2020 TOOTIE PAEZ MD Ot Z88.0 ALLERGY STATUS TO PENICILLIN 01/03/2020 TOOTIE PAEZ MD Ot Z88.8 ALLERGY STATUS TO OTH DRUG/MEDS/BIOL SUB 01/03/2020 TOOTIE PAEZ MD Ot Z91.0 12 ALLERGY TO EGGS 01/03/2020 TOOTIE PAEZ MD Ot Z91.0 30 BEE ALLERGY STATUS 01/03/2020 TOOTIE PAEZ MD, Ot Z96.6 41 PRESENCE OF RIGHT ARTIFICIAL HIP JOINT Procedures There is no data. Results Test Result Range Automated blood complete blood count (he mogram) panel - 12/14/18 21:37 Blood leukocytes automated count (number/volume) 8.6 10*3/uL 4.3-11.0 Blood erythrocytes automated count (number/volume) 4.66 10*6/uL 4.35-5.85 Venous blood hemoglobin measurement (mass/volume) 14.5 g/dL 13.3-17.7 Blood hematocrit (volume fraction) 43 % 40-54 Automated erythrocyte mean corpuscular volume 92 [ foz_us] 80-99 Automated erythrocyte mean corpuscular h emoglobin (mass per erythrocyte) 31 pg 25-34 Automated erythrocyte mean corpuscular h emoglobin concentration measurement (mass/volume) 34 g/dL 32-36 Automated erythrocyte distribution width ratio 12. 8 % 10.0- 14.5 Automated blood platelet count (count/volume) 294 10*3/uL 130-400 Automated blood platelet mean volume measurement 9.5 [foz_us] 7.4-10.4 Serum or plasma lithium measurement (mol es/volume) - 12/14/18 21:37 BNP level 31.4 pg/mL <100.0 Comprehensive metabolic panel - 12/14/18 21:37 Serum or plasma sodium measurement (moles/volume) 139 mmol/L 135-145 Serum or plasma potassium measurement (moles/volume) 3.9 mmol/L 3.6-5.0 Serum or plasma chloride measurement (moles/volume) 99 mmol/L 98-107 Carbon dioxide 26 mmol/L 21-32 Serum or plasma anion gap determination (moles/volume) 14 mmol/L 5-14 Serum or plasma urea nitrogen measurement (mass/volume ) 18 mg/dL 7-18 Serum or plasma creatinine measurement (mass/volume) 1.11 mg/dL 0.60-1.30 Serum or plasma urea nitrogen/creatinine mass ratio 16 NRG Serum or plasma creatinine measurement w ith calculation of estimated glomerular filtration rate > NRG Serum or plasma glucose measurement (mass/volume) 98 mg/dL 70-105 Serum or plasma calcium measurement (mass/volume) 8.7 mg/dL 8.5-10.1 Serum or plasma total bilirubin measurement (mass/volu me) 0.3 mg/dL 0.1-1.0 Serum or plasma alkaline phosphatase cinthya surement (enzymatic activity/volume) 95 U/L 40-136 Serum or plasma aspartate aminotransfera se measurement (enzymatic activity/volume) 31 U/L 5-34 Serum or plasma alanine aminotransferase measurement (enzymatic activity/volume) 22 U/L 0-55 Serum or plasma protein measurement (mass/volume) 6.9 g/dL 6.4-8.2 Serum or plasma albumin measurement (mass/volume) 4.3 g/dL 3.2-4.5 CALCIUM CORRECTED 8.5 mg/dL 8.5-10.1 Magnesium - 02/27/19 21:37 Magnesium 2.0 mg/dL 1.8-2.4 TROPONIN T - 12/14/18 21:37 TROPONIN T 9 % <=15 PT panel in platelet poor plasma by coag ulation assay - 12/14/18 21:37 Prothrombin time (PT) in platelet poor plasma by coagu lation assay 13.0 s 12.2-14.7 INR in platelet poor plasma or blood by coagulation as say 1.0 0.8-1.4 Activated partial thromboplastin time (a PTT) in platelet poor plasma bycoagulation assay - 12/14/18 21:37 Activated partial thromboplastin time (a PTT) in platelet poor plasma bycoagulation assay 29 s 24-35 Complete blood count (CBC) with automate d white blood cell (WBC) differential - 01/30/19 18:50 Blood leukocytes automated count (number/volume) 11.6 10*3/uL 4.3-11.0 Blood erythrocytes automated count (number/volume) 4.87 10*6/uL 4.35-5.85 Venous blood hemoglobin measurement (mass/volume) 15.2 g/dL 13.3-17.7 Blood hematocrit (volume fraction) 44 % 40-54 Automated erythrocyte mean corpuscular volume 90 [ foz_us] 80-99 Automated erythrocyte mean corpuscular h emoglobin (mass per erythrocyte) 31 pg 25-34 Automated erythrocyte mean corpuscular h emoglobin concentration measurement (mass/volume) 35 g/dL 32-36 Automated erythrocyte distribution width ratio 12. 5 % 10.0- 14.5 Automated blood platelet count (count/volume) 386 10*3/uL 130-400 Automated blood platelet mean volume measurement 9.4 [foz_us] 7.4-10.4 Automated blood neutrophils/100 leukocytes 42 % 42-75 Automated blood lymphocytes/100 leukocytes 44 % 12-44 Blood monocytes/100 leukocytes 9 % 0-12 Automated blood eosinophils/100 leukocytes 5 % 0-10 Automated blood basophils/100 leukocytes 1 % 0-10 Blood neutrophils automated count (number/volume) 4.9 10*3 1.8-7.8 Blood lymphocytes automated count (number/volume) 5.1 10*3 1.0-4.0 Blood monocytes automated count (number/volume) 1. 0 10*3 0.0-1.0 Automated eosinophil count 0.5 10*3/uL 0 .0-0.3 Automated blood basophil count (count/volume) 0.1 10*3/uL 0.0-0.1 Comprehensive metabolic panel - 01/30/19 18:50 Serum or plasma sodium measurement (moles/volume) 138 mmol/L 135-145 Serum or plasma potassium measurement (moles/volume) 3.9 mmol/L 3.6-5.0 Serum or plasma chloride measurement (moles/volume) 97 mmol/L 98-107 Carbon dioxide 23 mmol/L 21-32 Serum or plasma anion gap determination (moles/volume) 18 mmol/L 5-14 Serum or plasma urea nitrogen measurement (mass/volume ) 13 mg/dL 7-18 Serum or plasma creatinine measurement (mass/volume) 1.06 mg/dL 0.60-1.30 Serum or plasma urea nitrogen/creatinine mass ratio 12 NRG Serum or plasma creatinine measurement w ith calculation of estimated glomerular filtration rate > NRG Serum or plasma glucose measurement (mass/volume) 137 mg/dL 70-105 Serum or plasma calcium measurement (mass/volume) 9.1 mg/dL 8.5-10.1 Serum or plasma total bilirubin measurement (mass/volu me) 0.5 mg/dL 0.1-1.0 Serum or plasma alkaline phosphatase cinthya surement (enzymatic activity/volume) 83 U/L 40-136 Serum or plasma aspartate aminotransfera se measurement (enzymatic activity/volume) 18 U/L 5-34 Serum or plasma alanine aminotransferase measurement (enzymatic activity/volume) 14 U/L 0-55 Serum or plasma protein measurement (mass/volume) 7.3 g/dL 6.4-8.2 Serum or plasma albumin measurement (mass/volume) 4.5 g/dL 3.2-4.5 CALCIUM CORRECTED 8.7 mg/dL 8.5-10.1 PSA - 07/10/19 11:23 PSA, TOTAL 2.9 ng/mL < OR = 4.0 Complete blood count (CBC) with automate d white blood cell (WBC) differential - 07/16/19 14:25 Blood leukocytes automated count (number/volume) 9.6 10*3/uL 4.3-11.0 Blood erythrocytes automated count (number/volume) 4.49 10*6/uL 4.35-5.85 Venous blood hemoglobin measurement (mass/volume) 14.3 g/dL 13.3-17.7 Blood hematocrit (volume fraction) 41 % 40-54 Automated erythrocyte mean corpuscular volume 91 [ foz_us] 80-99 Automated erythrocyte mean corpuscular h emoglobin (mass per erythrocyte) 32 pg 25-34 Automated erythrocyte mean corpuscular h emoglobin concentration measurement (mass/volume) 35 g/dL 32-36 Automated erythrocyte distribution width ratio 12. 5 % 10.0- 14.5 Automated blood platelet count (count/volume) 290 10*3/uL 130-400 Automated blood platelet mean volume measurement 9.1 [foz_us] 7.4-10.4 Automated blood neutrophils/100 leukocytes 55 % 42-75 Automated blood lymphocytes/100 leukocytes 33 % 12-44 Blood monocytes/100 leukocytes 9 % 0-12 Automated blood eosinophils/100 leukocytes 1 % 0-10 Automated blood basophils/100 leukocytes 1 % 0-10 Blood neutrophils automated count (number/volume) 5.3 10*3 1.8-7.8 Blood lymphocytes automated count (number/volume) 3.2 10*3 1.0-4.0 Blood monocytes automated count (number/volume) 0. 9 10*3 0.0-1.0 Automated eosinophil count 0.1 10*3/uL 0 .0-0.3 Automated blood basophil count (count/volume) 0.1 10*3/uL 0.0-0.1 PT panel in platelet poor plasma by coag ulation assay - 07/16/19 14:25 Prothrombin time (PT) in platelet poor plasma by coagu lation assay 13.4 s 12.2-14.7 INR in platelet poor plasma or blood by coagulation as say 1.0 0.8-1.4 Activated partial thromboplastin time (a PTT) in platelet poor plasma bycoagulation assay - 07/16/19 14:25 Activated partial thromboplastin time (a PTT) in platelet poor plasma bycoagulation assay 26 s 24-35 Comprehensive metabolic panel - 07/16/19 14:25 Serum or plasma sodium measurement (moles/volume) 137 mmol/L 135-145 Serum or plasma potassium measurement (moles/volume) 4.4 mmol/L 3.6-5.0 Serum or plasma chloride measurement (moles/volume) 99 mmol/L 98-107 Carbon dioxide 26 mmol/L 21-32 Serum or plasma anion gap determination (moles/volume) 12 mmol/L 5-14 Serum or plasma urea nitrogen measurement (mass/volume ) 18 mg/dL 7-18 Serum or plasma creatinine measurement (mass/volume) 1.05 mg/dL 0.60-1.30 Serum or plasma urea nitrogen/creatinine mass ratio 17 NRG Serum or plasma creatinine measurement w ith calculation of estimated glomerular filtration rate > NRG Serum or plasma glucose measurement (mass/volume) 95 mg/dL 70-105 Serum or plasma calcium measurement (mass/volume) 9.0 mg/dL 8.5-10.1 Serum or plasma total bilirubin measurement (mass/volu me) 0.7 mg/dL 0.1-1.0 Serum or plasma alkaline phosphatase cinthya surement (enzymatic activity/volume) 65 U/L 40-136 Serum or plasma aspartate aminotransfera se measurement (enzymatic activity/volume) 16 U/L 5-34 Serum or plasma alanine aminotransferase measurement (enzymatic activity/volume) 15 U/L 0-55 Serum or plasma protein measurement (mass/volume) 6.4 g/dL 6.4-8.2 Serum or plasma albumin measurement (mass/volume) 4.2 g/dL 3.2-4.5 CALCIUM CORRECTED 8.8 mg/dL 8.5-10.1 Magnesium - 07/16/19 14:25 Magnesium 1.8 mg/dL 1.6-2.4 TROPONIN I FS - 07/16/19 14:25 TROPONIN I FS < 0.30 <0.30 Serum or plasma lithium measurement (mol es/volume) - 07/16/19 14:25 BNP PT 13.8 pg/mL <100.0 Serum or plasma creatine kinase MB measu rement (enzymatic activity/volume) - 07/16/19 14:25 Serum or plasma creatine kinase MB measu rement (enzymatic activity/volume) 2.3 ng/mL <6.6 Complete blood count (CBC) with automate d white blood cell (WBC) differential - 08/10/19 18:40 Blood leukocytes automated count (number/volume) 9.1 10*3/uL 4.3-11.0 Blood erythrocytes automated count (number/volume) 4.28 10*6/uL 4.35-5.85 Venous blood hemoglobin measurement (mass/volume) 13.7 g/dL 13.3-17.7 Blood hematocrit (volume fraction) 39 % 40-54 Automated erythrocyte mean corpuscular volume 91 [ foz_us] 80-99 Automated erythrocyte mean corpuscular h emoglobin (mass per erythrocyte) 32 pg 25-34 Automated erythrocyte mean corpuscular h emoglobin concentration measurement (mass/volume) 35 g/dL 32-36 Automated erythrocyte distribution width ratio 12. 1 % 10.0- 14.5 Automated blood platelet count (count/volume) 285 10*3/uL 130-400 Automated blood platelet mean volume measurement 9.0 [foz_us] 7.4-10.4 Automated blood neutrophils/100 leukocytes 60 % 42-75 Automated blood lymphocytes/100 leukocytes 28 % 12-44 Blood monocytes/100 leukocytes 7 % 0-12 Automated blood eosinophils/100 leukocytes 4 % 0-10 Automated blood basophils/100 leukocytes 1 % 0-10 Blood neutrophils automated count (number/volume) 5.5 10*3 1.8-7.8 Blood lymphocytes automated count (number/volume) 2.5 10*3 1.0-4.0 Blood monocytes automated count (number/volume) 0. 7 10*3 0.0-1.0 Automated eosinophil count 0.4 10*3/uL 0 .0-0.3 Automated blood basophil count (count/volume) 0.1 10*3/uL 0.0-0.1 Comprehensive metabolic panel - 08/10/19 18:40 Serum or plasma sodium measurement (moles/volume) 140 mmol/L 135-145 Serum or plasma potassium measurement (moles/volume) 3.8 mmol/L 3.6-5.0 Serum or plasma chloride measurement (moles/volume) 100 mmol/L 98-107 Carbon dioxide 28 mmol/L 21-32 Serum or plasma anion gap determination (moles/volume) 12 mmol/L 5-14 Serum or plasma urea nitrogen measurement (mass/volume ) 10 mg/dL 7-18 Serum or plasma creatinine measurement (mass/volume) 0.80 mg/dL 0.60-1.30 Serum or plasma urea nitrogen/creatinine mass ratio 13 NRG Serum or plasma creatinine measurement w ith calculation of estimated glomerular filtration rate > NRG Serum or plasma glucose measurement (mass/volume) 97 mg/dL 70-105 Serum or plasma calcium measurement (mass/volume) 8.6 mg/dL 8.5-10.1 Serum or plasma total bilirubin measurement (mass/volu me) 0.3 mg/dL 0.1-1.0 Serum or plasma alkaline phosphatase cinthya surement (enzymatic activity/volume) 63 U/L 40-136 Serum or plasma aspartate aminotransfera se measurement (enzymatic activity/volume) 15 U/L 5-34 Serum or plasma alanine aminotransferase measurement (enzymatic activity/volume) 13 U/L 0-55 Serum or plasma protein measurement (mass/volume) 6.0 g/dL 6.4-8.2 Serum or plasma albumin measurement (mass/volume) 4.0 g/dL 3.2-4.5 CALCIUM CORRECTED 8.6 mg/dL 8.5-10.1 Encounters ACCT No. Visit Date/Time Discharge Status Pt. Type Provider Facility Loc./Unit Complaint [id number] 08/14/2019 13:30:00 08/14/2019 23:59: 59 [facility] Outpatient [facility] [id number] 07/10/2019 09:45:00 Document Registration [id number] 12/18/2019 17:51:00 18:44:00 DIS Outpatient TOOTIE PAEZ MD Via [facility] ER FS HEADACHE [id number] 11/10/2019 18:08:00 19:31:00 DIS Emergency DACIA WRIGHT DO [facility] ER FS MIGRAINE [id number] 10/16/2019 18:00:00 19:00:00 DIS Outpatient LIZY JEAN BAPTISTE DO Via [facility] ER FS MIGRAINE/SORE NECK [id number] 08/10/2019 17:08:00 19:38:00 DIS Emergency GAVIN PEREZ DO [facility] ER FS ALLERGIC REACTION [id number] 07/18/2019 19:43:00 21:06:00 DIS Emergency GAVIN PEREZ DO [facility] ER FS ANXIETY ATTACK [id number] 07/16/2019 14:11:00 17:22:00 DIS Outpatient ALLISON HONORIO GERBER [facility] ER FS CHEST PAIN,SOB [id number] 06/11/2019 19:54:00 21:59:00 DIS Emergency GAVIN PEREZ DO [facility] ER MIGRAINE [id number] 05/08/2019 20:36:00 21:22:00 DIS Emergency SANDRITA GERBER CEASAR Gaitan [facility] ER FS MIGRAINE, NECK PAIN [id number] 04/23/2019 19:46:00 20:53:00 DIS Emergency ELSI CONRAD, NATALYA Barclay [facility] ER FS MIGRAINE [id number] 04/05/2019 20:23:00 21:57:00 DIS Emergency GAVIN PEREZ DO [facility] ER FS LT LEG ANIMAL BITE [id number] 01/30/2019 18:45:00 20:30:00 DIS Emergency ELSI CONRAD, NATALYA Barclay [facility] ER FS ALLERGIC REACTION [id number] 12/14/2018 20:50:00 23:47:00 DIS Emergency CHRISTINE GERBER ALEENA T [facility] ER FS SOB [id number] 06/26/2016 07:30:00 016 09:05:00 DIS Outpatient DAVID STEVENSON MD [facility] CARD DISC DISORDER [id number] 12/25/2013 14:46:00 014 23:59:59 CLS Outpatient LEEANNE CONRAD, GENNA Barclay [facility] CARD BP,HTN,HLP [id number] 12/10/2013 18:49:00 014 21:04:00 DIS Emergency VIRGINIA NAJERA MD [facility] ER ADB PAIN;ENLARGED HEART [id number] 08/18/2012 12:11:00 Document Registration
== END 2020-01-11 17:08 | disposition home or self-care (01) ==
LOC: EDUNIT# 16:23 → ER FS 16:25
DX: G43.909 Migraine, unspecified, not intractable, without status migrainosus (principal); J43.8 Other emphysema; I10 Essential (primary) hypertension; I25.2 Old myocardial infarction; Z96.641 Presence of right artificial hip joint; F41.9 Anxiety disorder, unspecified
CPT/HCPCS: 99284

== ENCOUNTER 2020-01-31 10:26 | Emergency (ER) | payer MEDICARE ==
[~2020-01-31] VITALS: Ht 191 cm; Wt 90.0 kg
--- NOTE | 2020-01-31 11:03 | ED Neurological Problem ---
General Chief Complaint: Neuro-Stroke Like Symptoms Stated Complaint: BLURRY VISION; ALTERED SPEECH; LT FACIAL NUMBNESS Nursing Triage Note: Patient reports at 1000 this morning he was driving at began to have blurry and cloudy vision in the L eye with L sided facial tingling and numbness. Patient denies symptoms below the neck and was able to ambulate without assistance. Nursing Sepsis Screen: No Definite Risk Source: patient Exam Limitations: no limitations History of Present Illness Date Seen by Provider: Jan 31, 2020 Time Seen by Provider: 10:36 Initial Comments 59-year-old male who appears older than his stated age presents with new onset blurry vision cloudy vision in his left eye with left-sided facial tingling and numbness. Patient states he had no trauma. He was able to ambulate without assistance and drove into the [facility] and was driven by staff to the emergency room parking lot for evaluation in the ER. Patient states his symptoms began at approximately 10 AM and he was at our facility by 10:30. Patient does admit to having a similar episode in the past. He denies any neck pain neck injury. He has no effect to his upper or lower extremities. His ambulation is asymmetric he was able to step on the scale without assistance he does not appear to have balance issues. The patient has given informed consent for diagnostic and therapeutic services. CT scan of the head has been ordered. NIH stroke evaluation has been done by nursing and is documented. Patient said when he had slight change in vision "I felt weird". He has a history of recurrent migraine headaches. He states he also has some discomfort in his left foot and his left hand tingles but there is no significant change in lateralization on examination. Timing/Duration: 1/2 hour Severity: moderate Associated Symptoms: fatigue, other (vision changes left thigh field) Allergies and Home Medications Allergies Coded Allergies: ketorolac tromethamine (Verified Allergy, Severe, ANAPHYLAXIS, 01/30/19) prednisone (Verified Allergy, Severe, angry and agitated, 01/30/19) Penicillins (Verified Allergy, Intermediate, 01/30/19) sob, wheezing egg (Verified Allergy, Intermediate, 01/30/19) swelling meperidine HCl (Verified Allergy, Intermediate, 01/30/19) sob, wheezing propoxyphene HCl (Verified Allergy, Mild, 01/30/19) sob, wheezing topiramate (Verified Allergy, Mild, NAUSEA, 08/18/12) diarrhea, citalopram (Verified Allergy, Unknown, 12/14/18) metoprolol (Verified Adverse Reaction, Mild, 08/18/12) sob, wheezing Uncoded Allergies: honey bee venom (Allergy, Mild, 08/18/12) sob, wheezing EGGS (Allergy, Unknown, 04/05/19) TETANUS (Allergy, Unknown, 04/05/19) Home Medications Aspirin 81 Mg Tablet.dr, 81 MG PO DAILY, (Reported) Butalb/Acetaminophen/Caffeine 1 Each Tablet, 1 EACH PO Q4H PRN for HEADACHE Prescribed by: NATALYA CALZADA on 04/23/192033 Butalb/Acetaminophen/Caffeine 1 Each Tablet, 1 EACH PO Q6H Prescribed by: ALLISON OLMEDO on 01/11/201657 Carvedilol 3.125 Mg Tablet, 1 EACH PO BID, (Reported) Cetirizine Hcl 10 Mg Tablet, 10 MG PO DAILY, (Reported) Doxycycline Hyclate 100 Mg Tablet, 100 MG PO BID Prescribed by: GAVIN PEREZ on 04/05/192138 Epinephrine 0.3 Mg/0.3 Ml Auto.injct, 0.3 MG IJ Q15M PRN for WHEEZING Use once every 15 min if having angioedema, difficulty breathing, itching and swelling of the throat. Prescribed by: NATALYA CALZADA on 01/30/192016 Famotidine 20 Mg Tablet, 20 MG PO DAILY Prescribed by: ALLISON OLMEDO on 07/16/19 171 Famotidine 20 Mg Tablet, 20 MG PO BID Prescribed by: GAVIN PEREZ on 08/10/19 184 Fluticasone Propionate 16 Gm [place], 2 SPRAYS NSEACH DAILY, (Reported) Hydroxyzine Pamoate 25 Mg Capsule, 25 MG PO Q8 Prescribed by: GAVIN PEREZ on 08/10/191840 Ipratropium [place] 12.9 Gm Aers, 12.9 GM INH Q6H, (Reported) Lorazepam 1 Mg Tablet, 1 EACH PO TID PRN, (Reported) Montelukast Sodium 10 Mg Tablet, 10 MG PO DAILY, (Reported) Nitroglycerin 0.3 Mg Tab.subl, 0.3 MG SL PRN, (Reported) Omeprazole 20 Mg Capsule.dr, 20 MG PO DAILY, (Reported) Salsalate 500 Mg Tab, 1,000 MG PO TID, (Reported) [albuterol] , 2 PUFF INH QID, (Reported) Patient Home Medication List Home Medication List Reviewed: Yes Review of Systems Review of Systems Constitutional: see HPI, other (vision changes left thigh field 30 minutes prior to arrival in the emergency room) Eyes: Blurred Vision (left eye field no trauma), Glasses Ears, Nose, Mouth, Throat: no symptoms reported (patient is edentulous) Respiratory: cough, dyspnea on exertion, other (she has a long history of emphysema bronchitis and COPD) Cardiovascular: no symptoms reported, other (he has a history of myocardial infarction with ischemic heart disease been no complaints of ischemic symptoms at this time) Gastrointestinal: no symptoms reported (but has a history of gallbladder d isease) Genitourinary: no symptoms reported Musculoskeletal: no symptoms reported, other (patient has degenerative joint disease but no lateralizing muscle weakness. He has some tingling in his left hand and left foot) Skin: no symptoms reported Psychiatric/Neurological: Anxiety (she has a history of migraine headaches anxiety) Endocrine: No Symptoms Reported Hematologic/Lymphatic: No Symptoms Reported Past Seduzbl-Qgndmk-Gezvff Hx Past Med/Social Hx: Reviewed Nursing Past Med/Soc Hx Patient Social History Alcohol Use: Denies Use Recreational Drug Use: No Type Used: Cigarettes Former Smoker, Quit: March 09, 2018 2nd Hand Smoke Exposure: Yes Recent Foreign Travel: No Contact w/Someone Who Travel: No Recent Infectious Disease Expo: No Recent Hopitalizations: No Seasonal Allergies Seasonal Allergies: Yes Past Medical History Surgeries: Yes (heart catheter, left shoulder surgery and right hip replacement) Gallbladder, Joint Replacement Respiratory: Yes Asthma, Chronic Bronchitis, COPD, Emphysema Currently Using CPAP: No Currently Using BIPAP: No Cardiac: Yes Heart Attack, Hypertension, Palpitations Neurological: Yes Headaches /Migraines Genitourinary: No Gastrointestinal: No Musculoskeletal: No Arthritis Endocrine: No HEENT: No Cancer: No Psychosocial: Yes Anxiety Integumentary: No Blood Disorders: No Physical Exam Vital Signs Vital Signs - First Documented 01/31/20 10:38 Temp 36.4 Pulse 60 Resp 14 B/P (MAP) 167/102 (123) Pulse Ox 100 Capillary Refill : Less Than 3 Seconds Height, Weight, BMI Height: 6'3.00" Weight: 197lbs. 0oz. 89.364496pb; 24.00 BMI Method:Stated General Appearance: WD/WN, moderate distress, other (she is concerned about left thigh field blurring) HEENT: PERRL/EOMI, normal ENT inspection, pharynx normal, other (patient is edentulous cranial nerve evaluation 2 through 12 are grossly intact NIH stroke score is 0) Neck: non-tender, full range of motion, supple, normal inspection Respiratory: chest non-tender, no respiratory distress, no accessory muscle u se, rales (posterior rales both lower bases improved with coughing and deep ventilation history of COPD and bronchitis) Cardiovascular: normal peripheral pulses, regular rate, rhythm, no edema, no gallop, no JVD, no murmur Peripheral Pulses: 1+ Carotid (R), 1+ Carotid (L); 2+ Femoral (R), 2+ Femoral (L) Gastrointestinal: normal bowel sounds, non tender, soft, no organomegaly, no pulsatile mass Back: normal inspection, no CVA tenderness, no vertebral tenderness Extremities: normal range of motion (with DJD changes according to age), non- tender, normal inspection, no pedal edema, no calf tenderness 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, no motor/sensory deficits, alert, normal mood/affect, oriented x 3, other (but patient does have subjective complaint of blurring left visual field) Crainal Nerves: normal hearing, normal speech Coordination/Gait: normal finger to nose, normal gait, negative Romberg's sign Motor/Sensory: no motor deficit, no sensory deficit, no pronator drift Reflexes: 2+ Bicep (R), 2+ Bicep (L), 2+ Knee (R), 2+ Knee (L) Skin: normal color, warm/dry Lymphatic: no adenopathy Stroke Onset of Symptoms Date of Onset of Symptoms: Jan 31, 2020 Time of Symptom Onset: 10:00 Onset of Symptoms: Yes (patient reports 10 AM started having some visual changes results observed and monitored by nurse and reviewed by physician) NIH Stroke Scale Assessment Level of Consciousness: 0=Alert (0), Level of Consciousness-Questions: 0=Answers both month/age (0), LOC Commands: 0=Performs both tasks (0), Visual Hale: 0=No visual loss (0), Facial Movement (Facial Paresis): 0=Normal symmetrical mnt (0), Motor Function-Arms Right: 0=No drift (0), Motor Function-Arms Left: 0=No drift (0), Motor Function-Legs Right: 0=No drift (0), Motor Function-Legs Left: 0=No drift (0), Limb Ataxia: 0=Absent (0), Sensory: 0=Normal:no loss (0), Best Language: 0=No aphasia (0), Extinction & Inattention: 0=No abnormality (0), Total: 0 Focused Exam Lactate Level 01/31/20 11:04: Lactic Acid Level 1.37 Lactic Acid Level Laboratory Tests Test 01/31/20 11:04 Lactic Acid Level 1.37 MMOL/L (0.50-2.00) Progress/Results/Core Measures Results/Orders Lab Results Laboratory Tests Test 01/31/20 10:38 01/31/20 10:44 01/31/20 11:04 Range/Units Glucometer 98 70-110 MG/DL White Blood Count 11.0 4.3-11.0 10^3/uL Red Blood Count 5.44 4.35-5.85 10^6/uL Hemoglobin 16.7 13.3-17.7 G/DL Hematocrit 48 40-54 % Mean Corpuscular Volume 90 80-99 FL Mean Corpuscular Hemoglobin 31 25-34 PG Mean Corpuscular Hemoglobin Concent 34 32-36 G/DL Red Cell Distribution Width 12.1 10.0-14.5 % Platelet Count 368 130-400 10^3/uL Mean Platelet Volume 9.0 7.4-10.4 FL Neutrophils (%) (Auto) 66 42-75 % Lymphocytes (%) (Auto) 25 12-44 % Monocytes (%) (Auto) 7 0-12 % Eosinophils (%) (Auto) 2 0-10 % Basophils (%) (Auto) 1 0-10 % Neutrophils # (Auto) 7.2 1.8-7.8 X 10^3 Lymphocytes # (Auto) 2.7 1.0-4.0 X 10^3 Monocytes # (Auto) 0.8 0.0-1.0 X 10^3 Eosinophils # (Auto) 0.2 0.0-0.3 10^3/uL Basophils # (Auto) 0.1 0.0-0.1 10^3/uL Neutrophils % (Manual) 64 % Lymphocytes % (Manual) 26 % Monocytes % (Manual) 7 % Eosinophils % (Manual) 1 % Basophils % (Manual) 0 % Band Neutrophils 2 % Blood Morphology Comment NORMAL Prothrombin Time 13.4 12.2-14.7 SEC INR Comment 1.0 0.8-1.4 Activated Partial Thromboplast Time 27 24-35 SEC Sodium Level 133 L 135-145 MMOL/L Potassium Level 4.5 3.6-5.0 MMOL/L Chloride Level 96 L 98-107 MMOL/L Carbon Dioxide Level 25 21-32 MMOL/L Anion Gap 12 5-14 MMOL/L Blood Urea Nitrogen 14 7-18 MG/DL Creatinine 0.96 0.60-1.30 MG/DL Estimat Glomerular Filtration Rate > 60 BUN/Creatinine Ratio 15 Glucose Level 95 70-105 MG/DL Calcium Level 9.4 8.5-10.1 MG/DL Corrected Calcium 9.0 8.5-10.1 MG/DL Total Bilirubin 0.8 0.1-1.0 MG/DL Aspartate Amino Transf (AST/SGOT) 22 5-34 U/L Alanine Aminotransferase (ALT/SGPT) 32 0-55 U/L Alkaline Phosphatase 118 40-136 U/L Troponin I < 0.30 <0.30 NG/ML Total Protein 7.2 6.4-8.2 GM/DL Albumin 4.5 3.2-4.5 GM/DL Urine Color YELLOW Urine Clarity CLEAR Urine pH 6.0 5-9 Urine Specific [place] <1.005 1.016-1.022 Urine Protein NEGATIVE NEGATIVE Urine Glucose (UA) NEGATIVE NEGATIVE Urine Ketones NEGATIVE NEGATIVE Urine Nitrite NEGATIVE NEGATIVE Urine Bilirubin NEGATIVE NEGATIVE Urine Urobilinogen 0.2 < = 1.0 MG/DL Urine Leukocyte Esterase NEGATIVE NEGATIVE Urine RBC (Auto) NEGATIVE NEGATIVE Urine RBC NONE /HPF Urine WBC RARE /HPF Urine Squamous Epithelial Cells RARE /HPF Urine Crystals NONE /LPF Urine Bacteria NONE /HPF Urine Casts NONE /LPF Urine Mucus NEGATIVE /LPF Urine Culture Indicated NO Lactic Acid Level 1.37 0.50-2.00 MMOL/L Micro Results Microbiology 01/31/20 Influenza Types A,B Antigen (CHATO) - Final, Complete My Orders Orders - DACIA WRIGHT DO Ct Head Wo (01/31/20 10:51) Cbc And Manual Diff (01/31/20 10:51) Comprehensive Metabolic Panel (01/31/20 10:51) Troponin I Fs (01/31/20 10:51) Urinalysis (01/31/20 10:51) Protime With Inr (01/31/20 10:51) Influenza A And B Antigens (01/31/20 10:51) Peripheral Iv Line Care 00,04,08,12,16,20 (01/31/20 10:51) Partial Thromboplastin Time (01/31/20 10:51) Lactic Acid Analyzer (01/31/20 10:51) Ekg Tracing (01/31/20 11:19) Vital Signs/I&O 01/31/20 10:38 Temp 36.4 Pulse 60 Resp 14 B/P (MAP) 167/102 (123) Pulse Ox 100 Blood Pressure Mean: 123 FSBG Bedside Testing Finger Stick Blood Glucose: 98 Blood Glucose Action Taken: told physician blood sugar Progress Progress Note : Time: 11:18 Progress Note FINDINGS: The examination is mildly limited by motion. Mild to moderate generalized cerebral and cerebellar parenchymal volume loss is age appropriate. No CT evidence of a territorial infarction. No intracranial hemorrhage, mass effect, hydrocephalus, or extra-axial fluid collections. The osseous structures are intact. The visualized paranasal sinuses and mastoids are clear. IMPRESSION: No acute intracranial CT findings. Initial ECG Impression Date: Jan 31, 2020 Initial ECG Impression Time: 11:18 Initial ECG Rate: 81 Initial ECG Rhythm: Normal Sinus Initial ECG Intervals: Normal Initial ECG Impression: Normal Departure Impression Primary Impression: Migraine Additional Impressions: Headache COPD (chronic obstructive pulmonary disease) Disposition: 01 HOME, SELF-CARE Condition: Improved Departure-Patient Inst. Decision time for Depature: 11:59 Referrals: JULIA HERRERA MD (PCP/Family) Primary Care Physician Patient Instructions: COPD Including Emphysema (DC), Headache, Adult (DC), Migraine Headache (DC) Add. Discharge Instructions: 59-year-old male has been evaluated in the emergency room laboratory evaluation CT scan and continued neurological evaluations have all been negative. Patient states that his visual disturbance has resolved. He states he has a "kink in the neck". He wanted to go to the chiropractor to have his neck snapped but I recommended that he not do so. The patient does have evidence of small vessel disease and most likely has some plaque formation in the carotids. Patient will follow up with his primary care provider. Does not appear that he has an acute central nervous system injury at this time. He does have evidence of small vessel disease with cerebral atrophy. Patient needs to hydrate well. Rest and fluids at home follow-up care with [facility]. If the patient has any degradation or lateralization or weakness he is encouraged to return to the emergency room. The patient did state that he wanted to go home. Patient appears to be appropriate for driving home he only lives a half mile from the hospital. Ambulation is without defect. All discharge instructions reviewed with patient and/or family. Voiced understanding. Copy Copies To 1: [facility]/DACIA MEJIA DO Jan 31, 2020 11:03
--- NOTE | 2020-01-31 11:04 | Diagnostic Imaging Report ---
PROCEDURE: CT head without contrast. TECHNIQUE: Multiple contiguous axial images were obtained through the brain without the use of intravenous contrast. Auto Exposure Controls were utilized during the CT exam to meet ALARA standards for radiation dose reduction. INDICATION: Left-sided numbness in face and neck. COMPARISON: None. FINDINGS: The examination is mildly limited by motion. Mild to moderate generalized cerebral and cerebellar parenchymal volume loss is age appropriate. No CT evidence of a territorial infarction. No intracranial hemorrhage, mass effect, hydrocephalus, or extra-axial fluid collections. The osseous structures are intact. The visualized paranasal sinuses and mastoids are clear. IMPRESSION: No acute intracranial CT findings. Dictated by: Dictated on workstation # [id number]
[2020-01-31 11:06] LABS: BASOPHILS # (AUTO) 0.1 10^3/uL (0.0-0.1); BASOPHILS % (AUTO) 1 % (0-10); EOSINOPHILS # (AUTO) 0.2 10^3/uL (0.0-0.3); EOSINOPHILS % (AUTO) 2 % (0-10); HEMATOCRIT 48 % (40-54); HEMOGLOBIN 16.7 G/DL (13.3-17.7); LYMPHOCYTES # (AUTO) 2.7 X 10^3 (1.0-4.0); LYMPHOCYTES % (AUTO) 25 % (12-44); MEAN CORPUSCULAR HEMOGLOBIN 31 PG (25-34); MEAN CORPUSCULAR HGB CONC 34 G/DL (32-36); MEAN CORPUSCULAR VOLUME 90 FL (80-99); MONOCYTES # (AUTO) 0.8 X 10^3 (0.0-1.0); MONOCYTES % (AUTO) 7 % (0-12); NEUTROPHILS # (AUTO) 7.2 X 10^3 (1.8-7.8); NEUTROPHILS % (AUTO) 66 % (42-75); PLATELET COUNT 368 10^3/uL (130-400); RED CELL DISTRIBUTION WIDTH 12.1 % (10.0-14.5)
[2020-01-31 11:13] LABS: PROTHROMBIN TIME PATIENT 13.4 SEC (12.2-14.7)
[2020-01-31 11:20] LABS: ALANINE AMINOTRANSFERASE 32 U/L (0-55); ALBUMIN 4.5 GM/DL (3.2-4.5); ALKALINE PHOSPHATASE 118 U/L (40-136); BILIRUBIN,TOTAL 0.8 MG/DL (0.1-1.0); BUN/CREATININE RATIO 15; CALCIUM 9.4 MG/DL (8.5-10.1); CARBON DIOXIDE 25 MMOL/L (21-32); CHLORIDE 96 MMOL/L (98-107); CREATININE SERUM 0.96 MG/DL (0.60-1.30); GFR ESTIMATED > 60; GLUCOSE 95 MG/DL (70-105); POTASSIUM 4.5 MMOL/L (3.6-5.0); SODIUM 133 MMOL/L (135-145); TOTAL PROTEIN 7.2 GM/DL (6.4-8.2)
[2020-01-31 11:33] LABS: BILIRUBIN,URINE NEGATIVE (NEGATIVE); CLARITY,URINE CLEAR; COLOR,URINE YELLOW; GLUCOSE, URINE (UA) NEGATIVE (NEGATIVE); KETONES,URINE NEGATIVE (NEGATIVE); LEUKOCYTE ESTERASE ,URINE NEGATIVE (NEGATIVE); NITRITE,URINE NEGATIVE (NEGATIVE); PROTEIN,URINE NEGATIVE (NEGATIVE); SQUAMOUS EPITHELIAL CELL,UR RARE /HPF; WBC,URINE RARE /HPF
[2020-01-31 11:42] LABS: BAND NEUTROPHILS 2 %; BASOPHILS % (MANUAL) 0 %; EOSINOPHILS % (MANUAL) 1 %; LYMPHOCYTES % (MANUAL) 26 %; MONOCYTES % (MANUAL) 7 %; NEUTROPHILS % (MANUAL) 64 %; RBC MORPH NORMAL
[2020-01-31 12:06] VITALS: BP 153/92
== END 2020-01-31 12:06 | disposition home or self-care (01) ==
LOC: EDUNIT# 10:26 → ER FS 10:27
DX: G43.909 Migraine, unspecified, not intractable, without status migrainosus (principal); J43.9 Emphysema, unspecified; I10 Essential (primary) hypertension; F41.9 Anxiety disorder, unspecified; I25.2 Old myocardial infarction; M19.91 Primary osteoarthritis, unspecified site; Z88.0 Allergy status to penicillin; Z88.8 Allergy status to other drugs, medicaments and biological substances; Z88.7 Allergy status to serum and vaccine; Z91.012 Allergy to eggs; Z79.82 Long term (current) use of aspirin; Z79.899 Other long term (current) drug therapy; Z87.891 Personal history of nicotine dependence; Z96.641 Presence of right artificial hip joint
CPT/HCPCS: 36415; 70450; 80053; 81000; 82962; 83605; 84484; 85007; 85027; 85610; 85730; 87804; 93005

== ENCOUNTER 2020-02-10 21:51 | Emergency (ER) | payer MEDICARE ==
[~2020-02-10] VITALS: Ht 190 cm; Wt 90.7 kg
[2020-02-10] MEDS ORDERED: ONDANSETRON 4 MG (ZOFRAN) ORAL DISSOLVE TAB PO STA (22:08)
--- OUTSIDE RECORDS SUMMARY | 2020-02-10 22:11 | XMS REPORT | Clinical Summary ---
Author Author [facility] Organization [facility] Address Unknown Phone Unavailable Care Team Providers Care Side Splitter Name Role Phone Kalina Vazquez MD PCP [phone] Source Comments Some departments are not documenting in the electronic medical record. If you d o not see the information that you expected, contact Release of Information in [facility] [employer] Information Management department at [phone] for further assistan ce in locating additional records.[facility] Allergies Comments Active Allergy Reactions Severity Noted Date Azithromycin AGITATION Low 06/02/2019 Allergen Glz-Lsqof-Hhpbx RASH Medium 06/02 Bee Meperidine ITCHING, Low [...] Health Maintenance Due Date Last Done Comments HIV SCREENING 1974 DTAP/TDAP VACCINES (1 - 1977 Tdap) HEPATITIS C SCREENING 1977 PHYSICAL (COMPREHENSIVE) 1977 EXAM COLORECTAL CANCER 2009 SCREENING SHINGLES RECOMBINANT 2009 VACCINE (1 of 2) INFLUENZA VACCINE 07/18/2020 Implants Device Identifier Shelf Expiration Date Model / Serial / L ot Implanted Type Area Manufactur er Hip Hip Wire Wire Left: Shoulder Results Not on filefrom Last 3 Months 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
--- OUTSIDE RECORDS SUMMARY | 2020-02-10 22:13 | XMS REPORT ---
Author Author Venkata HERRERA Organization [facility] Address [address] [place] [address] Care Team Providers Care Server Name Role Phone JULIA HERRERA Unavailable PROBLEMS Type Condition ICD9-CM Code [id number] Code Onset Dates Condition S tatus SNOMED Code Problem Acute pulmonary manifestations due to radiation J7 0.0 Active 550624715 Problem Paralytic ileus K56.0 Dec, Active 5 6620900 Problem Migraine with aura G43.109 Active 4 705090 Problem Chronic obstructive pulmonar y disease with acute lower respiratory infection J44.0 Active 570345432 Problem Anxiety state F41.1 Dec, Active 198 402043 Problem Erectile dysfunction N52.9 22 Nov, 2010 Active 350569713 Problem CAD (coronary artery disease) I25.10 14 Jun, 09 Active 96787378 Problem Essential hypertension I10 Active 78516515 Problem Primary osteoarthritis of left shoulder M19.012 Active 38046944 Problem Chronic migraine w/o aura w/o status migrainosus , not intractable G43.709 Active 911293985 Problem HTN (hypertension) with goal to be determined I10 Active 16988498 Problem Benign prostatic hyperplasia without lower urina ry tract symptoms N40.0 Active 717015537 Problem Primary osteoarthritis, right shoulder M19.011 Active 38014459 Problem Status post colonoscopy with polypectomy Z98.890 12 Nov, 2014 Active 848396879 Problem Benign prostatic hyperplasia without lower urina ry tract symptoms N40.0 Active 049837057 Problem Tobacco use Z72.0 Jun, Active 16907 3000 Problem Serrated adenoma of colon D12.6 12 Nov, 2014 A ctive 68421027 Problem RLS (restless legs syndrome) G25.81 A ctive 85580723 Problem Yuen''s esophagus with low grade dysplasia K22. 710 Active [id number] Problem Irritable bowel syndrome with diarrhea K58.0 Active 265857952 Problem Irritable bowel syndrome with diarrhea K58.0 Active 888090730 ALLERGIES No Information ENCOUNTERS Encounter Location Date Diagnosis [address] [id number] [place] [address] 07 Jan, 2020 [facility] [address] [id number] [place] [address] 06 Jan, 2020 Neck pain M54.2 and Acute pa in of left shoulder M25.512 [facility] [address] [id number] [place] [address] Nov, [facility] [address] [id number] [place] [address] Oct, [facility] [address] [id number] [place] [address] Sep, [facility] [address] [id number] [place] [address] Sep, Anxiety state F41.1 [facility] [address] [id number] [place] [address] Sep, Anxiety state F41.1 [facility] [address] [id number] [place] [address] Sep, [facility] [address] [id number] [place] [address] Aug, Anxiety state F41.1 [facility] [address] [id number] [place] [address] Aug, [facility] [address] [id number] [place] [address] Jul, Essential hypertension I10 ; CAD (coronary artery disease) I25.10 and Anxiety state F41.1 [facility] [address] [id number] [place] [address] Jul, [facility] [address] [id number] [place] [address] Jul, Anxiety state F41.1 [facility] [place] [address] [id number] [place] [address] Jul, [facility] [address] [id number] [place] [address] Jul, [facility] [address] [id number] [place] [address] Jul, [facility] [address] [id number] [place] [address] Jul, [facility] [place] [address] [id number] [place] [address] Jun, Irritable bowel syndrome wit h diarrhea K58.0 ; Chronic obstructive pulmonary disease with acute lower respiratory infection J44.0 and Benign prostatic hyperplasia without lower urinary tract symptoms N40.0 [facility] [address] [id number] [place] [address] Jun, [facility] [place] [address] [id number] [place] [address] Jun, [facility] [address] [id number] [place] [address] Jun, [facility] [address] [id number] [place] [address] May, Benign prostatic hyperplasia without lower urinary tract symptoms N40.0 [facility] [place] [address] [id number] [place] [address] May, [facility] [address] [id number] [place] [address] May, [facility] [address] [id number] [place] [address] Apr, Muscle spasm M62.838 and Con tusion of left thigh, initial encounter S70.12XA [facility] [address] [id number] [place] [address] Apr, [facility] [address] [id number] [place] [address] Apr, Benign prostatic hyperplasia without lower urinary tract symptoms N40.0 ; Chronic obstructive pulmonary disease with acute lower respiratory infection J44.0 and Yuen''s esophagus with low grade dysplasia K22.710 [facility] [address] [id number] [place] [address] Apr, Chronic obstructive pulmonar y disease with acute lower respiratory infection J44.0 [facility] [address] [id number] [place] [address] Apr, [facility] [address] [id number] [address] Apr, Hematuria, unspecified type R31.9 and Dyshidrotic eczema L30.1 [facility] [address] [id number] [place] [address] Apr, [facility] [address] [id number] [place] [address] Mar, [facility] [address] [id number] [address] Mar, [facility] [address] [id number] [place] [address] Mar, [facility] [address] [id number] [place] [address] February, [facility] [address] [id number] [place] [address] February, Essential hypertension I10 ; CAD (coronary artery disease) I25.10 ; Elevated PSA R97.20 ; Yuen''s esophagus with low grade dysplasia K22.710 and RLS (restless legs syndrome) G25.81 [facility] [address] [id number] [place] [address] February, HTN (hypertension) with goal to be determined I10 [facility] [address] [id number] [place] [address] Jan, [facility] [place] [address] [id number] [place] [address] Jan, [facility] [address] [id number] [place] [address] Jan, Anaphylaxis, initial encount er T78.2XXA [place] [address] [address] [facility] [id number] [address] [place] [address] Jan, [facility] [place] [address] [id number] [place] [address] Dec, Chronic obstructive pulmonar y disease with acute lower respiratory infection J44.0 [facility] [place] [address] [id number] [place] [address] Dec, Chronic obstructive pulmonar y disease with acute lower respiratory infection J44.0 ; Chronic migraine w/o aura w/o status migrainosus, not intractable G43.709 ; Primary osteoarthritis, right shoulder M19.011 and Primary osteoarthritis of left shoulder M19.012 [place] [address] [address] [facility] [id number] [address] [place] [address] Nov, [facility] [address] [facility] [id number] [address] [place] [address] Nov, [place] [address] [address] [facility] [id number] [address] [place] [address] Sep, [place] [address] [address] [facility] [id number] [address] [place] [address] Jun, IMMUNIZATIONS No Known Immunizations SOCIAL HISTORY Never Assessed REASON FOR VISIT controlled. PLAN OF CARE VITAL SIGNS MEDICATIONS Medication Instructions Dosage Frequency Start Date End Date Duration S tatus Lorazepam 1 MG Orally 2 times a day, prn 1 tablet Sep, 28 days Active RESULTS No Results PROCEDURES No [...]
--- OUTSIDE RECORDS SUMMARY | 2020-02-10 22:14 | XMS REPORT | Continuity of Care Document ---
Author Organization Unknown Address Unknown Phone Unavailable Allergies Active Description Code Type Severity Reaction Onset Reported/Identified Relationship to Patient Clinical Status Yes honey bee venom honey bee venom Mild N/A 08/18/2012 Yes metoprolol [id number] Drug Allerg y Mild N/A 08/18/2012 Yes topiramate [id number] Drug Allerg y Mild NAUSEA 08/18/2012 Yes citalopram [id number] Drug Allerg y Unknown N/A 12/14/2018 Yes ketorolac tromethamine [id number] Drug Allergy Severe ANAPHYLAXIS 9 Yes prednisone [id number] Drug Allerg y Severe angry and agita 01/30/2019 Yes egg [id number] Drug Allergy Moderate N/A 01/30/2019 [address] [id number] Dr ug Allergy Moderate N/A 01/30/2019 Yes Penicillins [id number] Drug Aller gy Moderate N/A 01/30/2019 Yes propoxyphene HCl [id number] Drug Allergy Mild N/A 01/30/2019 Yes EGGS EGGS Unknown N/A 04/05/2019 Yes TETANUS TETANUS Unknown N/A 04/05/2019 Medications There is no data. Problems Date Dx Coded Attending Type Code Diagnosis Diagnosed By 08/18/2012 Ot 401.9 HYPE RTENSION NOS 08/18/2012 Ot 412 OLD MY OCARDIAL INFARCT 08/18/2012 Ot 414.01 COR ONARY ATHEROSCLEROSIS OF [place] CORON 08/18/2012 Ot 427.69 PRE MATURE BEATS [...] 06/26/2016 DAVID STEVENSON MD Ot Z79.899 OTHER [facility] (CURRENT) DRUG THERAPY 07/27/2016 DAVID STEVENSON MD Ot M50. 13 CERVICAL DISC DISORDER W RADICULOPATHY, 07/27/2016 DAVID STEVENSON MD Ot Z79.899 OTHER [facility] (CURRENT) DRUG THERAPY 07/29/2016 DAVID STEVENSON MD Ot M50. 13 CERVICAL DISC DISORDER W RADICULOPATHY, 07/29/2016 DAVID STEVENSON MD Ot Z79.899 OTHER [facility] (CURRENT) DRUG THERAPY 12/14/2018 GENNA FALLON MD [...] 12/14/2018 ALEENA KING DO Ot Z79. 51 [facility] (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 OF INHALED STERO 12/14/2018 ALEENA KING DO Ot Z79. 82 [facility] (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 OF ASPIRIN 12/14/2018 ALEENA KING [...] Ot 786. 50 CHEST PAIN NOS 12/16/2018 ALENEA KING DO Ot F41. 9 ANXIETY DISORDER, [...] 12/16/2018 ALEENA KING DO Ot Z79. 51 [facility] (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 OF INHALED STERO 12/16/2018 ALEENA KING DO Ot Z79. 82 [facility] (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 OF ASPIRIN 12/16/2018 CHRISTINE GERBER ALEENA T Ot Z87.891 PERSONAL HISTORY OF NICOTINE DEPENDENCE 12/16/2018 DUSTY KING DOED T Ot Z88. 0 ALLERGY STATUS TO PENICILLIN 12/16/2018 CHRISTINE GERBER ALEENA T Ot Z88. 4 ALLERGY STATUS TO ANESTHETIC AGENT STATU 12/16/2018 CHRISTINE GERBER ALEENA T Ot Z88. 8 ALLERGY STATUS TO OTH DRUG/MEDS/BIOL SUB 01/07/2019 CHRISTINE GERBER LAEENA T Ot F41. 9 ANXIETY DISORDER, UNSPECIFIED [...] CHRISTINE GERBER ALEENA T Ot Z79. 51 [facility] (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 OF INHALED STERO 01/07/2019 DUSTY KING DOED T Ot Z79. 82 [employer] (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 OF ASPIRIN 01/07/2019 DUSTY KING DOED T Ot Z87.891 PERSONAL HISTORY OF NICOTINE DEPENDENCE 01/07/2019 DUSTY KING DOED T Ot Z88. 0 ALLERGY STATUS TO PENICILLIN 01/07/2019 DUSTY KING DOED T Ot Z88. 4 ALLERGY STATUS TO ANESTHETIC AGENT STATU 01/07/2019 CHRISTINE GERBER ALEENA T Ot Z88. 8 [...] 01/30/2019 NATALYA CALZADA MD Ot Z79. 51 [employer] (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 OF INHALED STERO 01/30/2019 NATALYA CALZADA MD Ot Z79. 82 [facility] (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 OF ASPIRIN 01/30/2019 NATALYA CALZADA MD Ot Z87.891 PERSONAL HISTORY OF NICOTINE DEPENDENCE 01/30/2019 NATALYA CALZADA MD Ot Z88. 0 ALLERGY STATUS TO PENICILLIN 01/30/2019 NATALYA CALZADA MD Ot Z88. 4 ALLERGY STATUS TO ANESTHETIC AGENT STATU 01/30/2019 NATALYA CALZADA MD Ot Z88. 8 ALLERGY STATUS TO OTH DRUG/MEDS/BIOL SUB 02/01/2019 NATALAY CALZADA MD Ot F41. 9 ANXIETY DISORDER, [...] 02/01/2019 NATALYA CALZADA MD Ot Z79. 51 [facility] (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 OF INHALED STERO 02/01/2019 NATALYA CALZADA MD Ot Z79. 82 [facility] (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 OF ASPIRIN 02/01/2019 NATALYA CALZADA [...] 02/05/2019 NATALYA CALZADA MD Ot Z79. 51 [facility] (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 OF INHALED STERO 02/05/2019 NATALYA CALZADA MD Ot Z79. 82 [facility] (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 OF ASPIRIN 02/05/2019 NATALYA CALZADA [...] ENCOUNTER 04/05/2019 GAVIN PEREZ DO, Ot Z79.51 [facility] (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 OF INHALED STERO 04/05/2019 PEREZ DO, GAVIN Ot Z79.82 [employer] [facility] (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 OF ASPIRIN 04/05/2019 CHRIS DO, GAVIN Ot Z88.0 ALLERGY STATUS TO PENICILLIN 04/05/2019 PEREZ DO, GAVIN Ot Z88.5 ALLERGY STATUS TO NARCOTIC AGENT STATUS 04/05/2019 PEREZ DO, GAVIN Ot Z88.6 ALLERGY STATUS TO ANALGESIC AGENT STATUS 04/05/2019 PEREZ DO, GAVIN Ot Z88.8 ALLERGY STATUS TO OTH DRUG/MEDS/BIOL SUB 04/05/2019 CANTON DO, GAVIN Ot Z91.012 ALLERGY TO EGGS 04/07/2019 CANTON DO, GAVIN Ot F41.9 ANXIETY DISORDER, UNSPECIFIED 04/07/2019 CANTON DO, GAVIN Ot G43.909 MIGRAINE, UNSP, NOT INTRACTABLE, WITHOUT 04/07/2019 PEREZ DO, GAVIN Ot I10 ESSENTIAL (PRIMARY) HYPERTENSION 04/07/2019 CANTON DO, GAVIN Ot I25.2 OLD MYOCARDIAL INFARCTION 04/07/2019 PEREZ DO, GAVIN Ot J42 UNSPECIFIED CHRONIC BRONCHITIS 04/07/2019 CANTON DO, GAVIN Ot J43.9 EMPHYSEMA, UNSPECIFIED 04/07/2019 CANTON DO, GAVIN Ot J45.909 UNSPECIFIED ASTHMA, UNCOMPLICATED 04/07/2019 CANTON DO, GAVIN Ot S71.152A OPEN BITE, LEFT THIGH, INITIAL ENCOUNTER 04/07/2019 PEREZ DO, GAVIN Ot W54.0XXA BITTEN BY DOG, INITIAL ENCOUNTER 04/07/2019 PEREZ DO, GAVIN Ot Z79.51 [facility] (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 OF INHALED STERO 04/07/2019 CHRIS DO, GAVIN Ot Z79.82 [facility] (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 OF ASPIRIN 04/07/2019 CHRIS DO, [...] 04/23/2019 NATALYA CALZADA MD Ot Z79. 51 [employer] (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 OF INHALED STERO 04/23/2019 NATALYA CALZADA MD Ot Z79. 82 [employer] (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 OF ASPIRIN 04/23/2019 NATALYA CALZADA [...] 04/29/2019 NATALYA CALZADA MD Ot Z79. 51 [facility] (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 OF INHALED STERO 04/29/2019 NATALYA CALZADA MD Ot Z79. 82 [facility] (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 OF ASPIRIN 04/29/2019 NATALYA CALZADA [...] 04/29/2019 NATALYA CALZADA MD Ot Z79. 51 [facility] (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 OF INHALED STERO 04/29/2019 NATALYA CALZADA MD Ot Z79. 82 [facility] (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 OF ASPIRIN 04/29/2019 NATALYA CALZADA [...] SPASM 05/08/2019 CEASAR REMY DO, Ot Z79.51 [facility] (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 OF INHALED STERO 05/08/2019 CEASAR REMY DO, Ot Z79.82 [place] (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 OF ASPIRIN 05/08/2019 CEASAR REMY [...] SPASM 05/15/2019 CEASAR REMY DO, Ot Z79.51 [facility] (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 OF INHALED STERO 05/15/2019 CEASAR REMY DO, Ot Z79.82 [facility] (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 OF ASPIRIN 05/15/2019 CEASAR REMY [...] SPASM 05/17/2019 CEASAR REMY DO, Ot Z79.51 [facility] (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 OF INHALED STERO 05/17/2019 CEASAR REMY DO, Ot Z79.82 [facility] (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 OF ASPIRIN 05/17/2019 CEASAR REMY [...] UNCOMPLICATED 06/11/2019 PEREZ DO, GAVIN Ot Z79.82 [facility] (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 OF ASPIRIN 06/11/2019 PEREZ DO, GAVIN Ot Z88.0 ALLERGY STATUS TO PENICILLIN 06/11/2019 PEREZ DO, GAVIN Ot Z88.5 ALLERGY STATUS TO NARCOTIC AGENT STATUS 06/11/2019 PEREZ DO, GAVIN Ot Z88.6 ALLERGY STATUS TO ANALGESIC AGENT STATUS 06/11/2019 PEREZ DO, GAVIN Ot Z88.8 ALLERGY STATUS TO OTH DRUG/MEDS/BIOL SUB 06/11/2019 PEREZ DO, GAVIN Ot Z91.012 ALLERGY TO EGGS 06/11/2019 CANTON DO, GAVIN Ot Z91.030 BEE ALLERGY STATUS 06/11/2019 CANTON DO, GAVIN Ot Z96.641 PRESENCE OF RIGHT [...] UNCOMPLICATED 06/14/2019 PEREZ DO, GAVIN Ot Z79.82 [place] [facility] (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 OF ASPIRIN 06/14/2019 PEREZ DO, [...] UNCOMPLICATED 06/17/2019 PEREZ DO, GAVIN Ot Z79.82 [facility] (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 OF ASPIRIN 06/17/2019 PEREZ DO, GAVIN Ot Z88.0 ALLERGY STATUS TO PENICILLIN 06/17/2019 PEREZ DO, GAVIN Ot Z88.5 ALLERGY STATUS TO NARCOTIC AGENT STATUS 06/17/2019 PEREZ DO, GAVIN Ot Z88.6 ALLERGY STATUS TO ANALGESIC AGENT STATUS 06/17/2019 PEREZ DO, GAVNI Ot Z88.8 ALLERGY STATUS TO OTH DRUG/MEDS/BIOL SUB 06/17/2019 PEREZ DO, GAVIN Ot Z91.012 ALLERGY TO EGGS 06/17/2019 PEREZ DO, GAVIN Ot Z91.030 BEE ALLERGY STATUS 06/17/2019 PEREZ DO, GAVIN Ot Z96.641 PRESENCE OF RIGHT ARTIFICIAL HIP JOINT 07/18/2019 HONORIO COOPER DO Ot F41. 9 ANXIETY DISORDER, UNSPECIFIED 07/18/2019 HONORIO COOPER DO Ot G43.909 MIGRAINE, UNSP, NOT INTRACTABLE, [...] 07/18/2019 HONORIO COOPER DO Ot Z79. 82 [place] [facility] (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 OF ASPIRIN 07/18/2019 HONORIO COOPER [...] PEREZ DO Ot J43.9 EMPHYSEMA, UNSPECIFIED 07/18/2019 GAVIN PEREZ DO Ot Z79.51 [facility] (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 OF INHALED STERO 07/18/2019 GAVIN PEREZ DO Ot Z79.82 [place] (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 OF ASPIRIN 07/18/2019 GAVIN PEREZ [...] Ot F17.210 NICOTINE DEPENDENCE, CIGARETTES, UNCOMPL 07/20/2019 CANTON DO, GAVIN Ot F41.9 ANXIETY DISORDER, UNSPECIFIED 07/20/2019 CANTON DO, GAVIN Ot G43.909 MIGRAINE, UNSP, NOT INTRACTABLE, WITHOUT 07/20/2019 CANTON DO, GAVIN Ot I10 ESSENTIAL (PRIMARY) HYPERTENSION 07/20/2019 PEREZ DO, GAVIN Ot I25.2 OLD MYOCARDIAL INFARCTION 07/20/2019 CANTON DO, GAVIN Ot J43.9 EMPHYSEMA, UNSPECIFIED 07/20/2019 CANTON DO, GAVIN Ot Z79.51 [facility] (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 OF INHALED STERO 07/20/2019 CANTON DO, GAVIN Ot Z79.82 [place] [facility] (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 OF ASPIRIN 07/20/2019 CANTON DO, GAVIN Ot Z88.0 ALLERGY STATUS TO PENICILLIN 07/20/2019 CANTON DO, GAVIN Ot Z88.5 ALLERGY STATUS TO NARCOTIC AGENT STATUS 07/20/2019 CANTON DO, GAVIN Ot Z88.7 ALLERGY STATUS TO SERUM AND VACCINE STAT 07/20/2019 CANTON DO, GAVIN Ot Z88.8 ALLERGY STATUS TO OTH DRUG/MEDS/BIOL SUB 07/20/2019 CANTON DO, GAVIN Ot Z95.9 PRESENCE OF CARDIAC AND VASCULAR IMPLANT 07/20/2019 CANTON DO, GAVIN Ot Z96.641 PRESENCE OF RIGHT ARTIFICIAL HIP JOINT 08/10/2019 CANTON DO, GAVIN Ot F17.210 NICOTINE DEPENDENCE, CIGARETTES, UNCOMPL 08/10/2019 CANTON DO, GAVIN Ot F41.9 ANXIETY DISORDER, UNSPECIFIED 08/10/2019 CANTON DO, GAVIN Ot G43.909 MIGRAINE, UNSP, NOT INTRACTABLE, WITHOUT 08/10/2019 PEREZ DO, GAVIN Ot I10 ESSENTIAL (PRIMARY) HYPERTENSION 08/10/2019 CANTON DO, GAVIN Ot I25.2 OLD MYOCARDIAL INFARCTION 08/10/2019 CANTON DO, GAVIN Ot J43.9 EMPHYSEMA, UNSPECIFIED 08/10/2019 CANTON DO, GAVIN Ot T78.40XA ALLERGY, UNSPECIFIED, INITIAL ENCOUNTER 08/10/2019 CANTON DO, GAVIN Ot T78.49XA OTHER ALLERGY, INITIAL ENCOUNTER 08/10/2019 CANTON DO, GAVIN Ot Z79.51 [facility] (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 OF INHALED STERO 08/10/2019 CANTON DO, GAVIN Ot Z79.82 [facility] (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 OF ASPIRIN 08/10/2019 CANTON DO, GAVIN Ot Z88.0 ALLERGY STATUS TO [...] BAPTISTE DO, LIZY L Ot Z79.8 2 [employer] (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 OF ASPIRIN 10/20/2019 JEAN BAPTISTE [...] AND VASCULAR IMPLANT 10/20/2019 JEAN BAPTISTE DO, LIZY L Ot Z96.6 41 PRESENCE OF RIGHT ARTIFICIAL HIP JOINT 11/10/2019 DACIA WRIGHT DO, Ot G43.909 MIGRAINE, UNSP, NOT INTRACTABLE, WITHOUT 11/10/2019 DACIA WRIGHT DO Ot I1 0 ESSENTIAL (PRIMARY) HYPERTENSION 11/10/2019 LILLY WRIGHT DOONY H Ot I25.2 OLD MYOCARDIAL INFARCTION 11/10/2019 [facility], DACIA Cnadelaria Ot J43.9 EMPHYSEMA, UNSPECIFIED 11/10/2019 [facility], DACIA Candelaria Ot R5 1 HEADACHE 11/10/2019 [facility], DACIA H Ot Z79.51 [facility] (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 OF INHALED STERO 11/10/2019 [facility], DACIA Candelaria Ot Z79.82 [place] (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 OF ASPIRIN 11/10/2019 [facility], DACIA H Ot Z87.891 PERSONAL HISTORY OF NICOTINE DEPENDENCE 11/10/2019 [facility], DACIA Bari Ot Z88.0 ALLERGY STATUS TO PENICILLIN 11/10/2019 [facility], DACIA Candelaria Ot Z88.5 ALLERGY STATUS TO NARCOTIC AGENT STATUS 11/10/2019 [facility], DACIA Candelaria Ot Z88.8 ALLERGY STATUS TO OTH DRUG/MEDS/BIOL SUB 11/10/2019 [facility], DACIA Candelaria Ot Z96.641 PRESENCE OF RIGHT ARTIFICIAL HIP JOINT 12/18/2019 JEANNINE CONRAD, TOOTIE John Ot F17.2 10 NICOTINE DEPENDENCE, CIGARETTES, UNCOMPL 12/18/2019 JEANNINE CONRAD, TOOTIE John Ot F41.9 ANXIETY DISORDER, UNSPECIFIED 12/18/2019 TOOTIE PAEZ MD Ot G43.9 09 MIGRAINE, UNSP, NOT INTRACTABLE, WITHOUT 12/18/2019 TOOTIE PAEZ MD Ot I10 ESSENTIAL (PRIMARY) HYPERTENSION 12/18/2019 TOOTIE PAEZ MD Ot I25.2 OLD MYOCARDIAL INFARCTION 12/18/2019 JEANNINE CONRAD, TOOTIE John Ot J43.9 EMPHYSEMA, UNSPECIFIED 12/18/2019 TOOTIE PAEZ MD Ot J45.9 09 UNSPECIFIED ASTHMA, UNCOMPLICATED 12/18/2019 TOOTIE PAEZ MD Ot R51 HEADACHE 12/18/2019 TOOTIE PAEZ MD Ot Z79.8 2 [facility] (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 OF ASPIRIN 12/18/2019 TOOTIE PAEZ MD Ot Z88.0 ALLERGY STATUS TO PENICILLIN 12/18/2019 TOOTIE PAEZ MD Ot Z88.8 ALLERGY STATUS TO OTH DRUG/MEDS/BIOL SUB 12/18/2019 TOOTIE PAEZ MD Ot Z91.0 12 ALLERGY TO EGGS 12/18/2019 TOOTIE PAEZ MD Ot Z91.0 30 BEE ALLERGY STATUS 12/18/2019 TOOTIE PAEZ MD Ot Z96.6 41 PRESENCE OF RIGHT ARTIFICIAL HIP JOINT 12/21/2019 TOOTIE PAEZ MD Ot F17.2 10 NICOTINE DEPENDENCE, CIGARETTES, UNCOMPL 12/21/2019 TOOTIE PAEZ MD Ot F41.9 ANXIETY DISORDER, UNSPECIFIED 12/21/2019 TOOTIE PAEZ MD Ot G43.9 09 MIGRAINE, UNSP, NOT INTRACTABLE, WITHOUT 12/21/2019 ENYART TOOTIE CONRAD Ot I10 ESSENTIAL (PRIMARY) HYPERTENSION 12/21/2019 TOOTIE PAEZ MD Ot I25.2 OLD MYOCARDIAL INFARCTION 12/21/2019 TOOTIE PAEZ MD Ot J43.9 EMPHYSEMA, UNSPECIFIED 12/21/2019 TOOTIE PAEZ MD Ot J45.9 09 UNSPECIFIED ASTHMA, UNCOMPLICATED 12/21/2019 TOOTIE PAEZ MD Ot R51 HEADACHE 12/21/2019 TOOTIE PAEZ MD Ot Z79.8 2 [facility] (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 OF ASPIRIN 12/21/2019 TOOTIE PAEZ [...] 09 MIGRAINE, UNSP, NOT INTRACTABLE, WITHOUT 01/03/2020 FRANKRT TOOTIE CONRAD Ot I10 ESSENTIAL (PRIMARY) HYPERTENSION 01/03/2020 TOOTIE PAEZ MD Ot I25.2 OLD MYOCARDIAL INFARCTION 01/03/2020 TOOTIE PAEZ MD Ot J43.9 EMPHYSEMA, UNSPECIFIED 01/03/2020 TOOTIE PAEZ MD Ot J45.9 09 UNSPECIFIED ASTHMA, UNCOMPLICATED 01/03/2020 TOOTIE PAEZ MD Ot R51 HEADACHE 01/03/2020 TOOTIE PAEZ MD Ot Z79.8 2 [facility] (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 OF ASPIRIN 01/03/2020 TOOTIE PAEZ MD Ot Z88.0 ALLERGY STATUS TO PENICILLIN 01/03/2020 TOOTIE PAEZ MD Ot Z88.8 ALLERGY STATUS TO OTH DRUG/MEDS/BIOL SUB 01/03/2020 TOOTIE PAEZ MD Ot Z91.0 12 ALLERGY TO EGGS 01/03/2020 TOOTIE PAEZ MD Ot Z91.0 30 BEE ALLERGY STATUS 01/03/2020 TOOTIE PAEZ MD Ot Z96.6 41 PRESENCE OF RIGHT ARTIFICIAL HIP JOINT 01/11/2020 HONORIO COOPER DO Ot F41. 9 ANXIETY DISORDER, UNSPECIFIED 01/11/2020 HONORIO COOPER DO Ot G43.909 MIGRAINE, UNSP, NOT INTRACTABLE, WITHOUT 01/11/2020 HONORIO COOPER DO Ot I10 ESSENTIAL (PRIMARY) HYPERTENSION 01/11/2020 HONORIO COOPER DO Ot I25. 2 OLD MYOCARDIAL INFARCTION 01/11/2020 HONORIO COOEPR DO Ot J43. 8 OTHER EMPHYSEMA 01/11/2020 HONORIO COOPER DO Ot Z96.641 PRESENCE OF RIGHT ARTIFICIAL HIP JOINT 01/15/2020 HONORIO COOPER DO Ot F41. 9 ANXIETY DISORDER, UNSPECIFIED 01/15/2020 HONORIO COOPER DO Ot G43.909 MIGRAINE, UNSP, NOT INTRACTABLE, WITHOUT 01/15/2020 HONORIO COOPER DO Ot I10 ESSENTIAL (PRIMARY) HYPERTENSION 01/15/2020 HONORIO COOPER DO Ot I25. 2 OLD MYOCARDIAL INFARCTION 01/15/2020 HONORIO COOPER DO Ot J43. 8 OTHER EMPHYSEMA 01/15/2020 HONORIO COOPER DO Ot Z96.641 PRESENCE OF RIGHT ARTIFICIAL HIP JOINT 02/01/2020 DACIA WRIGHT DO Ot F41.9 ANXIETY DISORDER, UNSPECIFIED 02/01/2020 DACIA WRIGHT DO Ot G43.909 MIGRAINE, UNSP, NOT INTRACTABLE, WITHOUT 02/01/2020 DACIA WRIGHT DO Ot H53.8 OTHER VISUAL DISTURBANCES 02/01/2020 [facility], DACIA Bari Ot I1 0 ESSENTIAL (PRIMARY) HYPERTENSION 02/01/2020 [facility], DACIA H Ot I25.2 OLD MYOCARDIAL INFARCTION 02/01/2020 [facility], DACIA H Ot J43.9 EMPHYSEMA, UNSPECIFIED 02/01/2020 [facility], DACIA H Ot M19.91 PRIMARY OSTEOARTHRITIS, UNSPECIFIED SITE 02/01/2020 [facility], DACIA Candelaria Ot Z79.82 [place] (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 OF ASPIRIN 02/01/2020 [facility], DACIA Candelaria Ot Z79.899 OTHER [place] (CURRENT) DRUG THERAPY 02/01/2020 [facility], DACIA Candelaria Ot Z87.891 PERSONAL HISTORY OF NICOTINE DEPENDENCE 02/01/2020 [facility], DACIA Candelaria Ot Z88.0 ALLERGY STATUS TO PENICILLIN 02/01/2020 [facility], DACIA Candelaria Ot Z88.7 ALLERGY STATUS TO SERUM AND VACCINE STAT 02/01/2020 [facility], DACIA Candelaria Ot Z88.8 ALLERGY STATUS TO OT DRUG/MEDS/BIOL SUB 02/01/2020 [facility], DACIA Bari Ot Z91.012 ALLERGY TO EGGS 02/01/2020 [facility], DACIA H Ot Z96.641 PRESENCE OF RIGHT ARTIFICIAL HIP JOINT Procedures There is no data. Results Test Result Range Automated blood complete blood count ([facility]) panel - 12/14/18 21:37 Blood leukocytes automated [...] CALCIUM CORRECTED 8.5 mg/dL 8.5-10.1 Magnesium - 12/14/18 21:37 Magnesium 2.0 mg/dL 1.8-2.4 TROPONIN T [...] g/dL 3.2-4.5 CALCIUM CORRECTED 8.6 mg/dL 8.5-10.1 Capillary blood glucose measurement by g lucometer (mass/volume) - 01/31/20 10:38 Capillary blood glucose measurement by glucometer (mas s/volume) 98 mg/dL 70-110 Blood CBC with ordered manual differenti al panel - 01/31/20 10:44 Blood leukocytes automated count (number/volume) 11.0 10*3/uL 4.3-11.0 Blood erythrocytes automated count (number/volume) 5.44 10*6/uL 4.35-5.85 Venous blood hemoglobin measurement (mass/volume) 16.7 g/dL 13.3-17.7 Blood hematocrit (volume fraction) 48 % 40-54 Automated erythrocyte mean corpuscular volume 90 [ foz_us] 80-99 Automated erythrocyte mean corpuscular h emoglobin (mass per erythrocyte) 31 pg 25-34 Automated erythrocyte mean corpuscular h emoglobin concentration measurement (mass/volume) 34 g/dL 32-36 Automated erythrocyte distribution width ratio 12. 1 % 10.0- 14.5 Automated blood platelet count (count/volume) 368 10*3/uL 130-400 Automated blood platelet mean volume measurement 9.0 [foz_us] 7.4-10.4 Automated blood neutrophils/100 leukocytes 66 % 42-75 Automated blood lymphocytes/100 leukocytes 25 % 12-44 Blood monocytes/100 leukocytes 7 % NRG Automated blood eosinophils/100 leukocytes 2 % 0-10 Automated blood basophils/100 leukocytes 1 % 0-10 Blood neutrophils automated count (number/volume) 7.2 10*3 1.8-7.8 Blood lymphocytes automated count (number/volume) 2.7 10*3 1.0-4.0 Blood monocytes automated count (number/volume) 0. 8 10*3 0.0-1.0 Automated eosinophil count 0.2 10*3/uL 0 .0-0.3 Automated blood basophil count (count/volume) 0.1 10*3/uL 0.0-0.1 Manual blood segmented neutrophils/100 leukocytes 64 % NRG Blood band neutrophils/100 leukocytes 2 % NRG Manual blood lymphocytes/100 leukocytes 26 % NRG Manual eosinophils/100 leukocytes in nose 1 % NRG Manual blood basophils/100 leukocytes 0 % NRG Blood erythrocyte morphology finding identification NORMAL NRG PT panel in platelet poor plasma by coag ulation assay - 01/31/20 10:44 Prothrombin time (PT) in platelet poor plasma by coagu lation assay 13.4 s 12.2-14.7 INR in platelet poor plasma or blood by coagulation as say 1.0 0.8-1.4 Activated partial thromboplastin time (a PTT) in platelet poor plasma bycoagulation assay - 01/31/20 10:44 Activated partial thromboplastin time (a PTT) in platelet poor plasma bycoagulation assay 27 s 24-35 Comprehensive metabolic panel - 01/31/20 10:44 Serum or plasma sodium measurement (moles/volume) 133 mmol/L 135-145 Serum or plasma potassium measurement (moles/volume) 4.5 mmol/L 3.6-5.0 Serum or plasma chloride measurement (moles/volume) 96 mmol/L 98-107 Carbon dioxide 25 mmol/L 21-32 Serum or plasma anion gap determination (moles/volume) 12 mmol/L 5-14 Serum or plasma urea nitrogen measurement (mass/volume ) 14 mg/dL 7-18 Serum or plasma creatinine measurement (mass/volume) 0.96 mg/dL 0.60-1.30 Serum or plasma urea nitrogen/creatinine mass ratio 15 NRG Serum or plasma creatinine measurement w ith calculation of estimated glomerular filtration rate > NRG Serum or plasma glucose measurement (mass/volume) 95 mg/dL 70-105 Serum or plasma calcium measurement (mass/volume) 9.4 mg/dL 8.5-10.1 Serum or plasma total bilirubin measurement (mass/volu me) 0.8 mg/dL 0.1-1.0 Serum or plasma alkaline phosphatase cinthya surement (enzymatic activity/volume) 118 U/L 40-136 Serum or plasma aspartate aminotransfera se measurement (enzymatic activity/volume) 22 U/L 5-34 Serum or plasma alanine aminotransferase measurement (enzymatic activity/volume) 32 U/L 0-55 Serum or plasma protein measurement (mass/volume) 7.2 g/dL 6.4-8.2 Serum or plasma albumin measurement (mass/volume) 4.5 g/dL 3.2-4.5 CALCIUM CORRECTED 9.0 mg/dL 8.5-10.1 TROPONIN I FS - 01/31/20 10:44 TROPONIN I FS < 0.30 <0.30 Blood lactic acid measurement (moles/vol ume) - 01/31/20 11:04 Blood lactic acid measurement (moles/volume) 1.37 mmol/L 0.50-2.00 Complete urinalysis with reflex to cultu re - 01/31/20 11:04 Urine color determination YELLOW NRG Urine clarity determination CLEAR NR G Urine pH measurement by test strip 6.0 5-9 Specific gravity of urine by test strip < 1.016-1.022 Urine protein assay by test strip, semi-quantitative NEGATIVE NEGATIVE Urine glucose detection by automated test strip NE GATIVE NEGATIVE Erythrocytes detection in urine sediment by light micr oscopy NEGATIVE NEGATIVE Urine ketones detection by automated test strip NE GATIVE NEGATIVE Urine nitrite detection by test strip NEGATIVE NEGATIVE Urine total bilirubin detection by test strip NEGA TIVE NEGATIVE Urine urobilinogen measurement by automated test strip (mass/volume) 0.2 mg/dL < = 1.0 Urine leukocyte esterase detection by dipstick NEG ATIVE NEGATIVE Automated urine sediment erythrocyte cou nt by microscopy (number/high power field) NONE NRG Automated urine sediment leukocyte count by microscopy (number/high power field) RARE NRG Bacteria detection in urine sediment by light microsco py NONE NRG Squamous epithelial cells detection in u rine sediment by light microscopy RARE NRG Crystals detection in urine sediment by light microsco py NONE NRG Casts detection in urine sediment by light microscopy NONE NRG Mucus detection in urine sediment by light microscopy NEGATIVE NRG Complete urinalysis with reflex to culture NO NRG Influenza virus A and B antigen detectio n - 01/31/20 11:04 FLU RESULT NEGATIVE FOR INFLUENZA A AND B ANTIGENS BY IA NRG Encounters ACCT No. Visit Date/Time Discharge Status Pt. Type Provider Facility Loc./Unit Complaint [id number] 08/14/2019 13:30:00 08/14/2019 23:59: 59 [facility] Outpatient JULIA HERRERA [facility] [id number] 07/10/2019 09:45:00 Document Registration [id number] 01/31/2020 10:27:00 12:06:00 DIS Outpatient DACIA WRIGHT DO [facility] ER FS BLURRY VISION; ALTERED SPEECH; LT FACIAL NUMBNESS [id number] 01/31/2020 10:24:00 10:24:00 CAN Preadmit DACIA WRIGHT DO [facility] ER BLURRY VISION; ALTERED SPEECH [id number] 01/11/2020 16:25:00 17:08:00 DIS Emergency HONORIO COOPER DO [facility] ER FS MIGRAINE [id number] 12/18/2019 17:51:00 18:44:00 DIS Emergency TOOTIE PAEZ MD [facility] ER FS HEADACHE [id number] 11/10/2019 18:08:00 19:31:00 DIS Emergency DACIA WRIGHT DO [facility] ER FS MIGRAINE [id number] 10/16/2019 18:00:00 19:00:00 DIS Outpatient LIZY JEAN BAPTISTE DO [facility] ER FS MIGRAINE/SORE NECK [id number] 08/10/2019 17:08:00 19:38:00 DIS Emergency GAVIN PEREZ DO [facility] ER FS ALLERGIC REACTION [id number] 07/18/2019 19:43:00 21:06:00 DIS Emergency GAVIN PEREZ DO [facility] ER FS ANXIETY ATTACK [id number] 07/16/2019 14:11:00 17:22:00 DIS Outpatient HONORIO COOPER DO [facility] ER FS CHEST PAIN,SOB [id number] 06/11/2019 19:54:00 019 21:59:00 DIS Emergency GAVIN PEREZ DO [facility] ER MIGRAINE [id number] 05/08/2019 20:36:00 019 21:22:00 DIS Emergency SANDRITA DOCEASAR [facility] ER FS MIGRAINE, NECK PAIN [id number] 04/23/2019 19:46:00 019 20:53:00 DIS Emergency ELSI CONRAD, NATALYA Barclay [facility] ER FS MIGRAINE [id number] 04/05/2019 20:23:00 21:57:00 DIS Emergency GAVIN PEREZ DO [facility] ER FS LT LEG ANIMAL BITE [id number] 01/30/2019 18:45:00 20:30:00 DIS Emergency ELSI CONRAD, NATALYA Barclay [facility] ER FS ALLERGIC REACTION [id number] 12/14/2018 20:50:00 019 23:47:00 DIS Emergency CHRISTINE GERBER ALEENA Abrahan [facility] ER FS SOB [id number] 06/26/2016 07:30:00 016 09:05:00 DIS Outpatient GRAHAM CONRAD, DAVID Barclay [facility] CARD DISC DISORDER [id number] 12/25/2013 14:46:00 014 23:59:59 CLS Outpatient LEEANNE CONRAD, GENNA Barclay [facility] CARD BP,HTN,HLP [id number] 12/10/2013 18:49:00 014 21:04:00 DIS Emergency VIRGINIA NAJERA [facility] [facility] PAIN;ENLARGED HEART [id number] 08/18/2012 12:11:00 Document Registration
[2020-02-10] MEDS ORDERED: ORPHENADRINE 60 MG/2 ML (NORFLEX) AMP IM ONE (22:15)
[2020-02-10] MEDS ORDERED: PROMETHAZINE INJ 25 MG/ML (PHENERGAN) AMP IM ONE (22:15)
[2020-02-10] MEDS ORDERED: diphenhydrAMINE 50 MG/ML INJ (BENADRYL) IM ONE (22:15)
--- NOTE | 2020-02-10 22:16 | ED Headache ---
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 He says this is similar presentation but 10 out of 10 pain. Started about an hour prior to arrival. He has nausea. He took no ondansetron at home but he did take Flexeril and Fioricet without relief of symptoms. He does not take Imitrex or NSAIDs and has a history of heart attacks. He is not on any blood thinners or antiplatelets or aspirin. He has frequent migraine headaches. Last time he was here he received Norflex, Phenergan and Benadryl and that worked for her well for him. 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 He is not having any weakness, numbness, lateralizing symptoms, slurred speech. He was brought up by his ex-. Allergies and Home Medications Allergies Coded Allergies: ketorolac tromethamine (Verified Allergy, Severe, ANAPHYLAXIS, 01/30/19) prednisone (Verified Allergy, Severe, angry and agitated, 01/30/19) Penicillins (Verified Allergy, Intermediate, 01/30/19) sob, wheezing egg (Verified Allergy, Intermediate, 01/30/19) swelling meperidine HCl (Verified Allergy, Intermediate, 01/30/19) sob, wheezing propoxyphene HCl (Verified Allergy, Mild, 01/30/19) sob, wheezing topiramate (Verified Allergy, Mild, NAUSEA, 08/18/12) diarrhea, citalopram (Verified Allergy, Unknown, 12/14/18) metoprolol (Verified Adverse Reaction, Mild, 08/18/12) sob, wheezing Uncoded Allergies: honey bee venom (Allergy, Mild, 08/18/12) sob, wheezing EGGS (Allergy, Unknown, 04/05/19) TETANUS (Allergy, Unknown, 04/05/19) Home Medications Aspirin 81 Mg Tablet.dr, 81 MG PO DAILY, (Reported) Butalb/Acetaminophen/Caffeine 1 Each Tablet, 1 EACH PO Q4H PRN for HEADACHE Prescribed by: NATALYA CALZADA on 04/23/192033 Butalb/Acetaminophen/Caffeine 1 Each Tablet, 1 EACH PO Q6H Prescribed by: ALLISON OLMEDO on 01/11/20 165 Carvedilol 3.125 Mg Tablet, 1 EACH PO BID, (Reported) Cetirizine Hcl 10 Mg Tablet, 10 MG PO DAILY, (Reported) Doxycycline Hyclate 100 Mg Tablet, 100 MG PO BID Prescribed by: GAVIN PEREZ on 04/05/192138 Epinephrine 0.3 Mg/0.3 Ml Auto.injct, 0.3 MG IJ Q15M PRN for WHEEZING Use once every 15 min if having angioedema, difficulty breathing, itching and swelling of the throat. Prescribed by: NATALYA CALZADA on 01/30/192016 Famotidine 20 Mg Tablet, 20 MG PO DAILY Prescribed by: ALLISON OLMEDO on 07/16/191718 Famotidine 20 Mg Tablet, 20 MG PO BID Prescribed by: GAVIN PEREZ on 08/10/191840 Fluticasone Propionate 16 Gm [place], 2 SPRAYS NSEACH DAILY, (Reported) Hydroxyzine Pamoate 25 Mg Capsule, 25 MG PO Q8 Prescribed by: GAVIN PEREZ on 08/10/19 184 Ipratropium [place] 12.9 Gm Aers, 12.9 GM INH Q6H, (Reported) Lorazepam 1 Mg Tablet, 1 EACH PO TID PRN, (Reported) Montelukast Sodium 10 Mg Tablet, 10 MG PO DAILY, (Reported) Nitroglycerin 0.3 Mg Tab.subl, 0.3 MG SL PRN, (Reported) Omeprazole 20 Mg Capsule.dr, 20 MG PO DAILY, (Reported) Salsalate 500 Mg Tab, 1,000 MG PO TID, (Reported) [albuterol] , 2 PUFF INH QID, (Reported) Patient Home Medication List Home Medication List Reviewed: Yes Review of Systems Review of Systems Constitutional: see HPI; No chills, No diaphoresis Eyes: Denies Blindness, Denies Blurred Vision, Denies Drainage Ears, Nose, Mouth, Throat: denies ear pain, denies ear discharge Respiratory: No cough, No short of breath Cardiovascular: No chest pain, No edema; Hx of Intervention Gastrointestinal: No abdominal pain; nausea, vomiting Genitourinary: No decreased output, No discharge, No dysuria Musculoskeletal: No back pain, No joint pain Past Jombumy-Iagfbi-Ccmiet Hx Patient Social History Alcohol Use: Denies Use Recreational Drug Use: No Type Used: Cigarettes Former Smoker, Quit: March 09, 2018 2nd Hand Smoke Exposure: Yes Recent Foreign Travel: No Contact w/Someone Who Travel: No Recent Infectious Disease Expo: No Recent Hopitalizations: No Physical Abuse: No Sexual Abuse: No Seasonal Allergies Seasonal Allergies: Yes Past Medical History Surgeries: Yes (heart cath, left shoulder surgery and right hip replacement) Gallbladder, Joint Replacement Respiratory: Yes Asthma, Chronic Bronchitis, COPD, Emphysema Currently Using CPAP: No Currently Using BIPAP: No Cardiac: Yes Heart Attack, Hypertension, Palpitations Neurological: Yes Headaches /Migraines Genitourinary: No Gastrointestinal: No Musculoskeletal: No Arthritis Endocrine: No HEENT: No Cancer: No Psychosocial: Yes Anxiety Integumentary: No Blood Disorders: No Physical Exam Vital Signs Vital Signs - First Documented 02/10/20 21:55 Temp 36.4 Pulse 73 Resp 18 B/P (MAP) 152/93 (112) Pulse Ox 98 O2 Delivery Room Air Capillary Refill : Less Than 3 Seconds Height, Weight, BMI Height: 6'3.00" Weight: 197lbs. 0oz. [id number]; 25.00 BMI Method:Stated General Appearance: WD/WN, mild distress HEENT: PERRL/EOMI, pharynx normal Neck: full range of motion, normal inspection Cardiovascular: normal peripheral pulses, regular rate, rhythm Respiratory: no respiratory distress, no accessory muscle use Psychiatric: alert, oriented x 3 Crainal Nerves: normal hearing, normal speech, PERRL Coordination/Gait: normal gait Motor/Sensory: no motor deficit, no sensory deficit Skin: normal color, warm/dry Progress/Results/Core Measures Results/Orders Vital Signs/I&O 02/10/20 21:55 Temp 36.4 Pulse 73 Resp 18 B/P (MAP) 152/93 (112) Pulse Ox 98 O2 Delivery Room Air Blood Pressure Mean: 112 Progress Progress Note : Time: 22:14 Progress Note Review the patient a shot of IM Phenergan, IM Benadryl, Norflex. He has Tylenol at home. Departure Impression Primary Impression: Migraine Qualified Codes: G43.009 - Migraine without aura, not intractable, without status migrainosus Disposition: 01 HOME, SELF-CARE Condition: Stable Departure-Patient Inst. Decision time for Depature: 22:15 Referrals: JULIA HERRERA MD (PCP/Family) Primary Care Physician Patient Instructions: Migraine Headache (DC) Add. Discharge Instructions: Go home and get some sleep. Drink some water. Tylenol 1000 mg every 8 hours as needed for pain. Return to the ER promptly if your symptoms worsen or change. All discharge instructions reviewed with patient and/or family. Voiced understanding. NATALYA CALZADA Feb 10, 2020 22:16
[2020-02-10 22:39] VITALS: BP 152/93
== END 2020-02-10 22:39 | disposition home or self-care (01) ==
LOC: EDUNIT# 21:51 → ER FS 21:54
DX: G43.909 Migraine, unspecified, not intractable, without status migrainosus (principal); J43.9 Emphysema, unspecified; J45.909 Unspecified asthma, uncomplicated; I10 Essential (primary) hypertension; I25.2 Old myocardial infarction; F41.9 Anxiety disorder, unspecified; Z87.891 Personal history of nicotine dependence; Z96.641 Presence of right artificial hip joint; Z79.82 Long term (current) use of aspirin; Z88.0 Allergy status to penicillin; Z88.6 Allergy status to analgesic agent; Z88.5 Allergy status to narcotic agent; Z88.8 Allergy status to other drugs, medicaments and biological substances; Z88.7 Allergy status to serum and vaccine; Z91.012 Allergy to eggs; Z91.030 Bee allergy status
CPT/HCPCS: 99284

== ENCOUNTER 2020-08-20 20:22 | Emergency (ER) | payer MEDICARE ==
[~2020-08-20] VITALS: Ht 190.5 cm; Wt 90.0 kg
--- NOTE | 2020-08-20 20:51 | ED Headache ---
General Chief Complaint: Head/Cervical Problems Stated Complaint: MIGRIANE,LT FOOT TOE PAIN Nursing Triage Note: pt reports dillon starting this afternoon, took dillon medication at home with no rlief, pt reports normal dillon for hime. pt also states left second toe has been hurting Nursing Sepsis Screen: No Definite Risk Source: patient Exam Limitations: no limitations History of Present Illness Date Seen by Provider: Aug 20, 2020 Time Seen by Provider: 20:46 Initial Comments Patient complains of headache describes onset at noon time throbbing left-sided occipital headache that she's had 2-3 times a week he describes as migraines. States he has had previous neurologic workups normally takes butalbital acetaminophen which he says is taken to today without relief. He's had no nausea no vomiting. The patient says he has the same typical headache to 3 times a week every week. He also complains of pain in the proximal left second toe since he broke his great toenail kicking a door and injured the other toe has been limping on it for several days. There was no bleeding no laceration no other injury Timing/Duration: other (8 hours) Severity/Quality: moderate Location: occipital (on the left) Prior Headaches/Recent Trauma: frequent headaches Modifying Factors: improves with exposure to light Associated Symptoms: denies symptoms Allergies and Home Medications Allergies Coded Allergies: ketorolac tromethamine (Verified Allergy, Severe, ANAPHYLAXIS, 01/30/19) prednisone (Verified Allergy, Severe, angry and agitated, 01/30/19) Penicillins (Verified Allergy, Intermediate, 01/30/19) sob, wheezing egg (Verified Allergy, Intermediate, 01/30/19) swelling meperidine HCl (Verified Allergy, Intermediate, 01/30/19) sob, wheezing propoxyphene HCl (Verified Allergy, Mild, 01/30/19) sob, wheezing topiramate (Verified Allergy, Mild, NAUSEA, 08/18/12) diarrhea, citalopram (Verified Allergy, Unknown, 12/14/18) metoprolol (Verified Adverse Reaction, Mild, 08/18/12) sob, wheezing Uncoded Allergies: honey bee venom (Allergy, Mild, 08/18/12) sob, wheezing EGGS (Allergy, Unknown, 04/05/19) TETANUS (Allergy, Unknown, 04/05/19) Home Medications Aspirin 81 Mg Tablet.dr, 81 MG PO DAILY, (Reported) Butalb/Acetaminophen/Caffeine 1 Each Tablet, 1 EACH PO Q4H PRN for HEADACHE Prescribed by: NATALYA CALZADA on 04/23/192033 Butalb/Acetaminophen/Caffeine 1 Each Tablet, 1 EACH PO Q6H Prescribed by: ALLISON OLMEDO on 01/11/20 165 Carvedilol 3.125 Mg Tablet, 1 EACH PO BID, (Reported) Cetirizine Hcl 10 Mg Tablet, 10 MG PO DAILY, (Reported) Doxycycline Hyclate 100 Mg Tablet, 100 MG PO BID Prescribed by: GAVIN PEREZ on 04/05/192138 Epinephrine 0.3 Mg/0.3 Ml Auto.injct, 0.3 MG IJ Q15M PRN for WHEEZING Use once every 15 min if having angioedema, difficulty breathing, itching and swelling of the throat. Prescribed by: NATALYA CALZADA on 01/30/192016 Famotidine 20 Mg Tablet, 20 MG PO DAILY Prescribed by: ALLISON OLMEDO on 07/16/19 171 Famotidine 20 Mg Tablet, 20 MG PO BID Prescribed by: GAVIN PEREZ on 08/10/19 184 Fluticasone Propionate 16 Gm [place], 2 SPRAYS NSEACH DAILY, (Reported) Hydroxyzine Pamoate 25 Mg Capsule, 25 MG PO Q8 Prescribed by: GAVIN PEREZ on 08/10/19 184 Ipratropium [place] 12.9 Gm Aers, 12.9 GM INH Q6H, (Reported) Lorazepam 1 Mg Tablet, 1 EACH PO TID PRN, (Reported) Montelukast Sodium 10 Mg Tablet, 10 MG PO DAILY, (Reported) Nitroglycerin 0.3 Mg Tab.subl, 0.3 MG SL PRN, (Reported) Omeprazole 20 Mg Capsule.dr, 20 MG PO DAILY, (Reported) Salsalate 500 Mg Tab, 1,000 MG PO TID, (Reported) [albuterol] , 2 PUFF INH QID, (Reported) Patient Home Medication List Home Medication List Reviewed: Yes Review of Systems Review of Systems Constitutional: no symptoms reported Eyes: Blurred Vision; Denies Drainage, Denies Decreased Acuity Ears, Nose, Mouth, Throat: no symptoms reported Respiratory: cough Cardiovascular: chest pain (yesterday for which she takes nitroglycerin for and none today) Gastrointestinal: diarrhea (patient states this is a chronic condition which she has to wear some diapers periodically 4.); No nausea, No vomiting Genitourinary: no symptoms reported Musculoskeletal: no symptoms reported Skin: no symptoms reported Psychiatric/Neurological: No Symptoms Reported Past Qfnibea-Pzyipq-Mwapbv Hx Past Med/Social Hx: Reviewed Nursing Past Med/Soc Hx Patient Social History Alcohol Use: Denies Use Recreational Drug Use: No Type Used: Cigarettes Former Smoker, Quit: March 09, 2018 2nd Hand Smoke Exposure: Yes Recent Foreign Travel: No Contact w/Someone Who Travel: No Recent Infectious Disease Expo: No Recent Hopitalizations: No Physical Abuse: No Sexual Abuse: No Mistreated: No Fear: No Seasonal Allergies Seasonal Allergies: Yes Past Medical History Surgeries: Yes (heart cath, left shoulder surgery and right hip replacement) Gallbladder, Joint Replacement Respiratory: Yes Asthma, Chronic Bronchitis, COPD, Emphysema Currently Using CPAP: No Currently Using BIPAP: No Cardiac: Yes Heart Attack, Hypertension, Palpitations Neurological: Yes Headaches /Migraines Genitourinary: No Gastrointestinal: No Musculoskeletal: No Arthritis Endocrine: No HEENT: No Cancer: No Psychosocial: Yes Anxiety Integumentary: No Blood Disorders: No Physical Exam Vital Signs Vital Signs - First Documented 08/20/20 20:31 Temp 35.8 Pulse 83 Resp 16 B/P (MAP) 157/77 (103) Pulse Ox 97 O2 Delivery Room Air Capillary Refill : Less Than 3 Seconds Height, Weight, BMI Height: 6'3.00" Weight: 197lbs. 0oz. 89.005029kf; 24.00 BMI Method:Stated General Appearance: WD/WN, no apparent distress HEENT: PERRL/EOMI, normal ENT inspection, TMs normal, other (funduscopic exam is unremarkable) Neck: non-tender, full range of motion, supple Cardiovascular: regular rate, rhythm, no edema Respiratory: chest non-tender, lungs clear, normal breath sounds, no respiratory distress Gastrointestinal: normal bowel sounds, non tender, soft, no organomegaly Back: normal inspection Extremities: normal range of motion, non-tender, normal inspection, no pedal edema, other (no deformity of the toes noted no erythema no bruising) Psychiatric: alert, oriented x 3 Crainal Nerves: normal hearing, normal speech, PERRL; No abnormal eye position, No abnormal pupil position, No abnormal speech, No facial asymmetry, No facial droop, No facial paresthesias, No facial weakness Coordination/Gait: normal gait, negative Romberg's sign Motor/Sensory: no motor deficit, no sensory deficit, no pronator drift Skin: normal color, warm/dry Progress/Results/Core Measures Results/Orders My Orders Orders - SARAHI SINGER DO Foot 2 View Left (08/20/20 20:44) Diphenhydramine Injection (Benadryl Inje (08/20/20 21:00) Metoclopramide Injection (Reglan Injecti (08/20/20 21:00) Dexamethasone Injection (Decadron Inje (08/20/20 21:00) Ed Iv/Invasive Line Start (08/20/20 20:59) Medications Given in ED Current Medications Medications Dose Ordered Sig/Viv Route Start Time Stop Time Status Last Admin Dose Admin Diphenhydramine HCl 25 mg ONCE ONCE IVP 08/20/20 21:00 08/20/20 21:02 DC 08/20/20 21:19 25 MG Metoclopramide HCl 10 mg ONCE ONCE IVP 08/20/20 21:00 08/20/20 21:02 DC 08/20/20 21:18 10 MG Vital Signs/I&O 08/20/20 20:31 Temp 35.8 Pulse 83 Resp 16 B/P (MAP) 157/77 (103) Pulse Ox 97 O2 Delivery Room Air Blood Pressure Mean: 103 Progress Progress Note : Progress Note Patient presents with exacerbation foot appears to be chronic migraines and a contusion to his left second toe. Neurologically his exam is normal there is no evidence of trauma to the toe. Differential includes migraine headache no red flags of intracranial pathology. The plan will be a x-ray of the toe her usual migraine therapy and discharged home for primary care follow-up Departure Impression Primary Impression: Headache Qualified Codes: G44.89 - Other headache syndrome Additional Impression: Toe pain, left Disposition: 01 HOME, SELF-CARE Condition: Improved Departure-Patient Inst. Decision time for Depature: 21:34 Referrals: JULIA HERRERA MD (PCP/Family) Primary Care Physician Patient Instructions: Headache, Adult (DC) SARAHI SINGER DO Aug 20, 2020 20:51
[2020-08-20] MEDS ORDERED: diphenhydrAMINE 50 MG/ML INJ (BENADRYL) IVP ONE (21:00)
[2020-08-20] MEDS ORDERED: dexAMETHasone INJECTION 15 MG in NS (IVPB) 50 ML IV SCH (21:00)
[2020-08-20] MEDS ORDERED: METOCLOPRAMIDE INJ 10 MG/2 ML (REGLAN) IVP ONE (21:00)
--- NOTE | 2020-08-20 21:05 | Diagnostic Imaging Report ---
INDICATION: Stubbed toe, pain COMPARISON: None available TECHNIQUE: 2 radiographs of the left foot dated 08/20/2020 FINDINGS: No acute fracture or dislocation. No destructive osseous process. Mild scattered degenerative changes, greatest involving the 1st MTP joint where there is joint space narrowing and mild sclerosis of the articular surfaces. No suspicious radiopaque foreign body. IMPRESSION: No acute osseous abnormality with mild degenerative changes. Dictated by: Dictated on workstation # [id number]
[2020-08-20 21:52] VITALS: BP 124/84
== END 2020-08-20 21:52 | disposition home or self-care (01) ==
LOC: EDUNIT# 20:22 → ER FS 20:23
DX: S90.122A Contusion of left lesser toe(s) without damage to nail, initial encounter (principal); G44.89 Other headache syndrome; R07.9 Chest pain, unspecified; R19.7 Diarrhea, unspecified; I10 Essential (primary) hypertension; I25.2 Old myocardial infarction; F41.9 Anxiety disorder, unspecified; J43.9 Emphysema, unspecified; Z77.22 Contact with and (suspected) exposure to environmental tobacco smoke (acute) (chronic); Z96.641 Presence of right artificial hip joint; Z95.9 Presence of cardiac and vascular implant and graft, unspecified; Z87.448 Personal history of other diseases of urinary system; Z79.82 Long term (current) use of aspirin; Z79.51 Long term (current) use of inhaled steroids; Z79.899 Other long term (current) drug therapy; Z88.5 Allergy status to narcotic agent; Z88.8 Allergy status to other drugs, medicaments and biological substances; Z88.7 Allergy status to serum and vaccine; Z88.0 Allergy status to penicillin; Z88.6 Allergy status to analgesic agent; W22.8XXA Striking against or struck by other objects, initial encounter
CPT/HCPCS: 73620

== ENCOUNTER 2020-08-27 15:22 | Emergency (ER) | payer MEDICARE ==
[~2020-08-27] VITALS: Ht 190.5 cm; Wt 90.2 kg
--- NOTE | 2020-08-27 15:48 | ED Respiratory ---
General Chief Complaint: Respiratory Problems Stated Complaint: THROAT AND CHEST TIGHTNESS Nursing Triage Note: Patient reports he has frequent asthma attacks, states he had one at 4 am this morning and again this afternoon just prior to arrival to the EMS. He reports his shortness of breath and chest tightness have improved, reports his throat still feels tight. He denies any fever or cough. Source: patient, RN/MD, RN notes reviewed Exam Limitations: no limitations History of Present Illness Date Seen by Provider: Aug 27, 2020 Time Seen by Provider: 03:40 Initial Comments This patient presents to the emergency department complaining that he had asthma attack. Patient states he awakened with shortness of breath around 2 AM and again limited ago. Patient also has a history of asthma and anxiety. Patient states he is a smoker but is down to 1-2 cigarettes a day down from 3 packs per day. Patient's lungs are clear pulse ox is 99% on room air. Patient states when he feels like he can't breathe he does get anxious. But he does not want any Ativan. We'll do medical evaluation treatment is needed Timing/Duration: this morning Prior Episodes/Possible Cause: occasional episodes Modifying Factors: Improves With Albuterol Inhaler Associated Symptoms: shortness of breath Allergies and Home Medications Allergies Coded Allergies: ketorolac tromethamine (Verified Allergy, Severe, ANAPHYLAXIS, 01/30/19) prednisone (Verified Allergy, Severe, angry and agitated, 01/30/19) Penicillins (Verified Allergy, Intermediate, 01/30/19) sob, wheezing egg (Verified Allergy, Intermediate, 01/30/19) swelling meperidine HCl (Verified Allergy, Intermediate, 01/30/19) sob, wheezing propoxyphene HCl (Verified Allergy, Mild, 01/30/19) sob, wheezing topiramate (Verified Allergy, Mild, NAUSEA, 08/18/12) diarrhea, citalopram (Verified Allergy, Unknown, 12/14/18) metoprolol (Verified Adverse Reaction, Mild, 08/18/12) sob, wheezing Uncoded Allergies: honey bee venom (Allergy, Mild, 08/18/12) sob, wheezing EGGS (Allergy, Unknown, 04/05/19) TETANUS (Allergy, Unknown, 04/05/19) Home Medications Aspirin 81 Mg Tablet.dr, 81 MG PO DAILY, (Reported) Butalb/Acetaminophen/Caffeine 1 Each Tablet, 1 EACH PO Q4H PRN for HEADACHE Prescribed by: NATALYA CALZADA on 04/23/192033 Butalb/Acetaminophen/Caffeine 1 Each Tablet, 1 EACH PO Q6H Prescribed by: ALLISON OLMEDO on 01/11/20 165 Carvedilol 3.125 Mg Tablet, 1 EACH PO BID, (Reported) Cetirizine Hcl 10 Mg Tablet, 10 MG PO DAILY, (Reported) Doxycycline Hyclate 100 Mg Tablet, 100 MG PO BID Prescribed by: GAVIN PEREZ on 04/05/192138 Epinephrine 0.3 Mg/0.3 Ml Auto.injct, 0.3 MG IJ Q15M PRN for WHEEZING Use once every 15 min if having angioedema, difficulty breathing, itching and swelling of the throat. Prescribed by: NATALYA CALZADA on 01/30/192016 Famotidine 20 Mg Tablet, 20 MG PO DAILY Prescribed by: ALLISON OLMEDO on 07/16/191718 Famotidine 20 Mg Tablet, 20 MG PO BID Prescribed by: GAVIN PEREZ on 08/10/191840 Fluticasone Propionate 16 Gm [place], 2 SPRAYS NSEACH DAILY, (Reported) Hydroxyzine Pamoate 25 Mg Capsule, 25 MG PO Q8 Prescribed by: GAVIN PEREZ on 08/10/191840 Ipratropium [place] 12.9 Gm Aers, 12.9 GM INH Q6H, (Reported) Lorazepam 1 Mg Tablet, 1 EACH PO TID PRN, (Reported) Montelukast Sodium 10 Mg Tablet, 10 MG PO DAILY, (Reported) Nitroglycerin 0.3 Mg Tab.subl, 0.3 MG SL PRN, (Reported) Omeprazole 20 Mg Capsule.dr, 20 MG PO DAILY, (Reported) Salsalate 500 Mg Tab, 1,000 MG PO TID, (Reported) [albuterol] , 2 PUFF INH QID, (Reported) Patient Home Medication List Home Medication List Reviewed: Yes Review of Systems Review of Systems Constitutional: No no symptoms reported; see HPI; No chills, No diaphoresis, No dizziness, No fever, No malaise, No weakness, No weight gain, No weight loss, No other EENTM: No see HPI, No no symptoms reported, No ear discharge, No hearing loss, No ear pain, No blurred vision, No double vision, No eye pain, No tearing, No vision loss, No dental problems, No hoarseness, No mouth pain, No mouth swelling, No epistaxis, No nose congestion, No nose pain, No throat pain, No throat swelling, No other Respiratory: No no symptoms reported; see HPI; No cough, No dyspnea on exertion, No hemoptysis, No orthopnea, No phlegm; short of breath; No stridor, No wheezing, No other Cardiovascular: No no symptoms reported, No see HPI, No chest pain, No edema, No Hx of Intervention, No palpitations, No syncope, No vascular heart diseas, No other Gastrointestinal: No RUQ, No LUQ, No RLQ, No LLQ, No no symptoms reported, No see HPI, No abdominal pain, No constipation, No diarrhea, No dysphagia, No hematemesis, No heartburn, No jaundice, No loss of appetite, No melena, No nausea, No vomiting, No other Genitourinary: No no symptoms reported, No see HPI, No decreased output, No discharge, No dysuria, No frequency, No hematuria, No hesitancy, No incontinence, No nocturia, No pain, No other Musculoskeletal: No no symptoms reported, No see HPI, No back pain, No gout, No joint pain, No joint swelling, No muscle pain, No muscle stiffness, No muscle cramps, No muscle twitching, No muscle weakness, No neck pain, No other Skin: No no symptoms reported, No see HPI, No change in color, No change in hair/nails, No dryness, No hx of skin cancer, No lesions, No lumps, No pruritus, No rash, No other Psychiatric/Neurological: Denies No Symptoms Reported, Denies See HPI, Denies Anxiety, Denies Depressed, Denies Emotional Problems, Denies Headache, Denies Numbness, Denies Paresthesia, Denies Pre-Existing Deficit, Denies Seizure, Denies Tingling, Denies Tremors, Denies Weakness, Denies Other Hematologic/Lymphatic: Denies No Symptoms Reported, Denies See HPI, Denies Anemia, Denies Blood Clots, Denies Easy Bleeding, Denies Easy Bruising, Denies Swollen Glands, Denies Other All Other Systems Reviewed Negative Unless Noted: Yes Past Cbzbrqd-Tvpvgu-Rpzqel Hx Patient Social History Alcohol Use: Denies Use Recreational Drug Use: No Smoking Status: Current Everyday Smoker Type Used: Cigarettes Former Smoker, Quit: March 09, 2018 2nd Hand Smoke Exposure: Yes Recent Foreign Travel: No Contact w/Someone Who Travel: No Recent Infectious Disease Expo: No Recent Hopitalizations: No Seasonal Allergies Seasonal Allergies: Yes Past Medical History Surgeries: Yes (heart cath, left shoulder surgery and right hip replacement) Gallbladder, Joint Replacement Respiratory: Yes Asthma, Chronic Bronchitis, COPD, Emphysema Currently Using CPAP: No Currently Using BIPAP: No Cardiac: Yes Heart Attack, Hypertension, Palpitations Neurological: Yes Headaches /Migraines Genitourinary: No Gastrointestinal: No Musculoskeletal: No Arthritis Endocrine: No HEENT: No Cancer: No Psychosocial: Yes Anxiety Integumentary: No Blood Disorders: No Physical Exam Vital Signs - First Documented 08/27/20 15:39 Temp 36.1 Pulse 70 Resp 20 B/P (MAP) 177/103 (127) Pulse Ox 99 O2 Delivery Room Air Capillary Refill : Less Than 3 Seconds Height: 6'3.00" Weight: 197lbs. 0oz. [id number]; 24.00 BMI Method:Stated General Appearance: WD/WN, no apparent distress Neck: non-tender, full range of motion, supple, normal inspection, carotid bruit Respiratory: chest non-tender, lungs clear, normal breath sounds, no respiratory distress, no accessory muscle use Cardiovascular: normal peripheral pulses, regular rate, rhythm, no edema, no gallop, no JVD, no murmur Gastrointestinal: normal bowel sounds, non tender, soft, no organomegaly, no pulsatile mass Extremities: normal range of motion, non-tender, normal inspection, no pedal edema, no calf tenderness, normal capillary refill Skin: normal color, warm/dry, cyanosis, cool, diaphoresis, damp Progress/Results/Core Measures Suspected Sepsis Recent Fever Within 48 Hours: No Infection Criteria Present: None New/Unexplained Altered Menta: No Sepsis Screen: No Definite Risk SIRS Temperature: Pulse: 70 Respiratory Rate: 20 Blood Pressure 177 /103 Mean: 127 Results/Orders My Orders Orders - NATANAEL PÉREZ MD Chest 1 View Ap/Pa Only (08/27/20 15:45) Vital Signs/I&O 08/27/20 15:39 Temp 36.1 Pulse 70 Resp 20 B/P (MAP) 177/103 (127) Pulse Ox 99 O2 Delivery Room Air Capillary Refill : Less Than 3 Seconds Blood Pressure Mean: 127 Progress Note : Time: 16:08 Progress Note Negative evaluation in the emergency department. Negative chest x-ray. Patient is calm pulse ox is 100% on room air. Did discuss at length with patient about options. Patient will continue with his Pro Air puff inhaler. Coolmist humidifier as needed. Pro Air puff inhaler as instructed. Follow-up with your primary care physician in 2-3 days discuss options of additional medications to help with anxiety. May take Benadryl twice a day 25 mg to help with any type of congestion. Try to avoid smoking. Departure Impression Primary Impression: Asthma Additional Impression: Anxiety Disposition: 01 HOME, SELF-CARE Condition: Stable Departure-Patient Inst. Decision time for Depature: 16:09 Referrals: JULIA HERRERA MD (PCP/Family) Primary Care Physician Patient Instructions: Asthma, Adult (DC), Anxiety, Adult (DC) Add. Discharge Instructions: Coolmist humidifier as needed. Pro Air puff inhaler as instructed. Follow-up with your primary care physician in 2-3 days discuss options of additional medications to help with anxiety. May take Benadryl twice a day 25 mg to help with any type of congestion. Try to avoid smoking. All discharge instructions reviewed with patient and/or family. Voiced understanding. NATANAEL PÉREZ MD Aug 27, 2020 15:48
--- NOTE | 2020-08-27 15:58 | Diagnostic Imaging Report ---
INDICATION: Shortness of breath and asthma. TIME OF EXAM: 03:44 p.m. COMPARISON: Comparison is made with prior chest from 07/16/2019. The heart size is normal. The pulmonary vascularity is unremarkable. The lungs are clear. No infiltrate, effusion or pneumothorax is detected. IMPRESSION: No acute cardiopulmonary process is detected. Dictated by: Dictated on workstation # [id number]
[2020-08-27 16:35] VITALS: BP 161/92
== END 2020-08-27 16:35 | disposition home or self-care (01) ==
LOC: EDUNIT# 15:22 → ER FS 15:24
DX: J45.909 Unspecified asthma, uncomplicated (principal); F41.9 Anxiety disorder, unspecified; I10 Essential (primary) hypertension; I25.2 Old myocardial infarction; F17.210 Nicotine dependence, cigarettes, uncomplicated; Z88.7 Allergy status to serum and vaccine; Z88.8 Allergy status to other drugs, medicaments and biological substances; Z88.5 Allergy status to narcotic agent; Z88.1 Allergy status to other antibiotic agents; Z79.82 Long term (current) use of aspirin
CPT/HCPCS: 71045

== ENCOUNTER → 2020-09-23 | Outpatient (CLI) | payer MEDICARE ==
--- NOTE | 2020-09-23 13:48 | Diagnostic Imaging Report ---
INDICATION: SHOULDER PAIN TECHNIQUE: Three views of the right shoulder CORRELATION STUDY: None FINDINGS: The glenohumeral and acromioclavicular alignment are maintained and unremarkable. There is no evidence for acute fracture or dislocation. Old healed right posterior lateral rib fractures. The visualized soft tissues are unremarkable. IMPRESSION: 1. Negative for acute bony abnormality about the shoulder. Dictated by: Dictated on workstation # [id number]
== END ==
LOC: RAD FS 13:22
PROVIDERS: ATTEND Nurse Practitioner
DX: M25.511 Pain in right shoulder (principal)
CPT/HCPCS: 73030

== ENCOUNTER 2020-10-04 20:51 | Emergency (ER) | payer MEDICARE ==
[2020-10-04] MEDS ORDERED: RT-ALBUTEROL/IPRATROPIUM 3 ML (DUONEB) VIAL INH ONE (21:15)
[2020-10-04 21:30] LABS: BASOPHILS % (AUTO) 1 % (0-10); EOSINOPHILS % (AUTO) 2 % (0-10); HEMATOCRIT 45 % (40-54); HEMOGLOBIN 15.9 G/DL (13.3-17.7); LYMPHOCYTES % (AUTO) 34 % (12-44); MEAN CORPUSCULAR HEMOGLOBIN 31 PG (25-34); MEAN CORPUSCULAR HGB CONC 35 G/DL (32-36); MEAN CORPUSCULAR VOLUME 89 FL (80-99); MEAN PLATELET VOLUME 9.1 FL (7.4-10.4); MONOCYTES % (AUTO) 8 % (0-12); NEUTROPHILS % (AUTO) 56 % (42-75); PLATELET COUNT 390 10^3/uL (130-400); WHITE BLOOD COUNT 13.3 10^3/uL (4.3-11.0)
[2020-10-04 21:31] LABS: BASOPHILS # (AUTO) 0.1 10^3/uL (0.0-0.1); EOSINOPHILS # (AUTO) 0.3 10^3/uL (0.0-0.3); LYMPHOCYTES # (AUTO) 4.5 X 10^3 (1.0-4.0); NEUTROPHILS # (AUTO) 7.4 X 10^3 (1.8-7.8)
[2020-10-04 21:41] LABS: SMEAR SCAN COMMENT OK
[2020-10-04 21:46] LABS: CARBON DIOXIDE 23 MMOL/L (21-32); CHLORIDE 99 MMOL/L (98-107); POTASSIUM 4.3 MMOL/L (3.6-5.0); SODIUM 133 MMOL/L (135-145)
[2020-10-04 21:47] LABS: ALANINE AMINOTRANSFERASE 23 U/L (0-55); ALBUMIN 4.4 GM/DL (3.2-4.5); ALKALINE PHOSPHATASE 123 U/L (40-136); BILIRUBIN,TOTAL 0.9 MG/DL (0.1-1.0); BUN/CREATININE RATIO 7; CALCIUM 9.2 MG/DL (8.5-10.1); CREATININE SERUM 1.34 MG/DL (0.60-1.30); GFR ESTIMATED 54; GLUCOSE 126 MG/DL (70-105); TOTAL PROTEIN 6.8 GM/DL (6.4-8.2)
[2020-10-04] MEDS ORDERED: FAMOTIDINE 20MG/2ML IV (PEPCID) IVP ONE (22:15)
--- NOTE | 2020-10-04 22:58 | ED General ---
General Chief Complaint: Allergic Reaction Stated Complaint: ALLERGIC REACTION Nursing Triage Note: Pt states he is having an allergic reaction to eggs. 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 He was eating at a local diner when he discovered the food item he ate containing product. Patient developed chest tightness, shortness of breath wheezing and diffuse erythema. He took 50 mg of Benadryl and was giving epinephrine auto injection prior to ED arrival with improved breathing. Patient remains short of breath complaints of chest tightness, wheezing and has diffuse erythema or hives on skin. Denies airways swelling. Denies chest pain palpitations sweats, headache, blurred vision, dizziness or other acute symptoms or complaints. No prior history of intubation Timing/Duration: 1/2 Hour Severity: Moderate, Severe Modifying Factors: improves with Eating Associated Systoms: Shortness of Air Allergies and Home Medications Allergies Coded Allergies: ketorolac tromethamine (Verified Allergy, Severe, ANAPHYLAXIS, 01/30/19) prednisone (Verified Allergy, Severe, angry and agitated, 01/30/19) Penicillins (Verified Allergy, Intermediate, 01/30/19) sob, wheezing egg (Verified Allergy, Intermediate, 01/30/19) swelling meperidine HCl (Verified Allergy, Intermediate, 01/30/19) sob, wheezing propoxyphene HCl (Verified Allergy, Mild, 01/30/19) sob, wheezing topiramate (Verified Allergy, Mild, NAUSEA, 08/18/12) diarrhea, citalopram (Verified Allergy, Unknown, 12/14/18) metoprolol (Verified Adverse Reaction, Mild, 08/18/12) sob, wheezing Uncoded Allergies: honey bee venom (Allergy, Mild, 08/18/12) sob, wheezing EGGS (Allergy, Unknown, 04/05/19) TETANUS (Allergy, Unknown, 04/05/19) Home Medications Aspirin 81 Mg Tablet., 81 MG PO DAILY, (Reported) Butalb/Acetaminophen/Caffeine 1 Each Tablet, 1 EACH PO Q4H PRN for HEADACHE Prescribed by: NATALYA CALZADA on 04/23/192033 Butalb/Acetaminophen/Caffeine 1 Each Tablet, 1 EACH PO Q6H Prescribed by: ALLISON OLMEDO on 01/11/20 165 Carvedilol 3.125 Mg Tablet, 1 EACH PO BID, (Reported) Cetirizine Hcl 10 Mg Tablet, 10 MG PO DAILY, (Reported) Doxycycline Hyclate 100 Mg Tablet, 100 MG PO BID Prescribed by: GAVIN PEREZ on 04/05/192138 Epinephrine 0.3 Mg/0.3 Ml Auto.injct, 0.3 MG IJ Q15M PRN for WHEEZING Use once every 15 min if having angioedema, difficulty breathing, itching and swelling of the throat. Prescribed by: NATALYA CALZADA on 01/30/192016 Famotidine 20 Mg Tablet, 20 MG PO DAILY Prescribed by: ALLISON OLMEDO on 07/16/191718 Famotidine 20 Mg Tablet, 20 MG PO BID Prescribed by: GAVIN PEREZ on 08/10/191840 Fluticasone Propionate 16 Gm [place], 2 SPRAYS NSEACH DAILY, (Reported) Hydroxyzine Pamoate 25 Mg Capsule, 25 MG PO Q8 Prescribed by: GAVIN PEREZ on 08/10/19 184 Ipratropium [place] 12.9 Gm Aers, 12.9 GM INH Q6H, (Reported) Lorazepam 1 Mg Tablet, 1 EACH PO TID PRN, (Reported) Montelukast Sodium 10 Mg Tablet, 10 MG PO DAILY, (Reported) Nitroglycerin 0.3 Mg Tab.subl, 0.3 MG SL PRN, (Reported) Omeprazole 20 Mg Capsule.dr, 20 MG PO DAILY, (Reported) Salsalate 500 Mg Tab, 1,000 MG PO TID, (Reported) [albuterol] , 2 PUFF INH QID, (Reported) Patient Home Medication List Home Medication List Reviewed: Yes Review of Systems Review of Systems Constitutional: see HPI EENTM: see HPI Respiratory: short of breath, stridor, wheezing Cardiovascular: see HPI Gastrointestinal: see HPI Genitourinary: see HPI Musculoskeletal: no symptoms reported Skin: see HPI Hematologic/Lymphatic: See HPI Immunological/Allergic: see HPI All Other Systems Reviewed Negative Unless Noted: Yes Past Qlkucnq-Hmhvpk-Rxinbr Hx Past Med/Social Hx: Reviewed Nursing Past Med/Soc Hx Patient Social History Alcohol Use: Denies Use Recreational Drug Use: No Smoking Status: Current Everyday Smoker Type Used: Cigarettes Former Smoker, Quit: March 09, 2018 2nd Hand Smoke Exposure: Yes Recent Foreign Travel: No Contact w/Someone Who Travel: No Recent Infectious Disease Expo: No Recent Hopitalizations: No Physical Abuse: No Sexual Abuse: No Seasonal Allergies Seasonal Allergies: Yes Past Medical History Surgeries: Yes (heart cath, left shoulder surgery and right hip replacement) Gallbladder, Joint Replacement Respiratory: Yes Asthma, Chronic Bronchitis, COPD, Emphysema Currently Using CPAP: No Currently Using BIPAP: No Cardiac: Yes Heart Attack, Hypertension, Palpitations Neurological: Yes Headaches /Migraines Genitourinary: No Gastrointestinal: No Musculoskeletal: No Arthritis Endocrine: No HEENT: No Cancer: No Psychosocial: Yes Anxiety Integumentary: No Blood Disorders: No Physical Exam Vital Signs Vital Signs - First Documented 10/04/20 21:00 Temp 36.7 Pulse 76 Resp 20 B/P (MAP) 147/86 (106) Pulse Ox 96 O2 Delivery Room Air Capillary Refill : Less Than 3 Seconds Height, Weight, BMI Height: 6'3.00" Weight: 197lbs. 0oz. 89.928274ti; 24.00 BMI Method:Stated General Appearance: No Apparent Distress, Anxious Eyes: Bilateral Eye Normal Inspection HEENT: PERRL/EOMI, Moist Mucous Membranes, Other (no injury swelling) Neck: Full Range of Motion, Non Tender, Supple Respiratory: Chest Non Tender, No Accessory Muscle Use, No Respiratory Distress, Decreased Breath Sounds, Wheezing Cardiovascular: Regular Rate, Rhythm Gastrointestinal: Soft Back: Normal Inspection Extremity: Normal Capillary Refill, Normal Inspection, Non Tender, No Calf Tenderness Neurologic/Psychiatric: Alert, Oriented x3, No Motor/Sensory Deficits, enchilada maker II- XII Norm as Tested Focused Exam Sepsis Stage: Ruled Out Progress/Results/Core Measures Suspected Sepsis Recent Fever Within 48 Hours: No Infection Criteria Present: None New/Unexplained Altered Menta: No Sepsis Screen: No Definite Risk SIRS Temperature: Pulse: 76 Respiratory Rate: 20 Laboratory Tests 10/04/20 21:07: White Blood Count 13.3H Blood Pressure 147 /86 Mean: 106 Laboratory Tests 10/04/20 21:07: Creatinine 1.34H, Platelet Count 390, Total Bilirubin 0.9 Results/Orders Lab Results Laboratory Tests Test 10/04/20 21:07 Range/Units White Blood Count 13.3 H 4.3-11.0 10^3/uL Red Blood Count 5.05 4.35-5.85 10^6/uL Hemoglobin 15.9 13.3-17.7 G/DL Hematocrit 45 40-54 % Mean Corpuscular Volume 89 80-99 FL Mean Corpuscular Hemoglobin 31 25-34 PG Mean Corpuscular Hemoglobin Concent 35 32-36 G/DL Red Cell Distribution Width 12.5 10.0-14.5 % Platelet Count 390 130-400 10^3/uL Mean Platelet Volume 9.1 7.4-10.4 FL Immature Granulocyte % (Auto) 0 % Neutrophils (%) (Auto) 56 42-75 % Lymphocytes (%) (Auto) 34 12-44 % Monocytes (%) (Auto) 8 0-12 % Eosinophils (%) (Auto) 2 0-10 % Basophils (%) (Auto) 1 0-10 % Neutrophils # (Auto) 7.4 1.8-7.8 X 10^3 Lymphocytes # (Auto) 4.5 H 1.0-4.0 X 10^3 Monocytes # (Auto) 1.0 0.0-1.0 X 10^3 Eosinophils # (Auto) 0.3 0.0-0.3 10^3/uL Basophils # (Auto) 0.1 0.0-0.1 10^3/uL Immature Granulocyte # (Auto) 0.1 0.0-0.1 10^3/uL Sodium Level 133 L 135-145 MMOL/L Potassium Level 4.3 3.6-5.0 MMOL/L Chloride Level 99 98-107 MMOL/L Carbon Dioxide Level 23 21-32 MMOL/L Anion Gap 11 5-14 MMOL/L Blood Urea Nitrogen 10 7-18 MG/DL Creatinine 1.34 H 0.60-1.30 MG/DL Estimat Glomerular Filtration Rate 54 BUN/Creatinine Ratio 7 Glucose Level 126 H 70-105 MG/DL Calcium Level 9.2 8.5-10.1 MG/DL Corrected Calcium 8.9 8.5-10.1 MG/DL Total Bilirubin 0.9 0.1-1.0 MG/DL Aspartate Amino Transf (AST/SGOT) 21 5-34 U/L Alanine Aminotransferase (ALT/SGPT) 23 0-55 U/L Alkaline Phosphatase 123 40-136 U/L Troponin I < 0.30 <0.30 NG/ML Total Protein 6.8 6.4-8.2 GM/DL Albumin 4.4 3.2-4.5 GM/DL Smear Scan OK My Orders Orders - GAVIN PEREZ DO Cbc With Automated Diff (10/04/20 21:05) Comprehensive Metabolic Panel (10/04/20 21:05) Troponin I Fs (10/04/20 21:05) Albuterol/Ipra Inhalation Soln (Duoneb I (10/04/20 21:15) Svn Small Volume Nebulizer (10/04/20 21:05) Ed Iv/Invasive Line Start (10/04/20 21:18) Famotidine Injection (Pepcid Injection) (10/04/20 22:15) Methylprednisolone Sod Succ (Solu-Medrol (10/04/20 23:15) Medications Given in ED Current Medications Medications Dose Ordered Sig/Viv Route Start Time Stop Time Status Last Admin Dose Admin Albuterol/ Ipratropium 6 ml ONCE ONCE INH 10/04/20 21:15 10/04/20 21:16 DC 10/04/20 21:22 6 ML Famotidine 40 mg ONCE ONCE IVP 10/04/20 22:15 10/04/20 22:16 DC 10/04/20 22:09 40 MG Methylprednisolone Sodium Succinate 125 mg ONCE ONCE IVP 10/04/20 23:15 10/04/20 23:16 10/04/20 23:03 125 MG Vital Signs/I&O 10/04/20 21:00 Temp 36.7 Pulse 76 Resp 20 B/P (MAP) 147/86 (106) Pulse Ox 96 O2 Delivery Room Air Capillary Refill : Less Than 3 Seconds Blood Pressure Mean: 106 Departure Communication (Admissions) Patient with significant clinical improvement after breathing treatment, Pepcid and steroids in the emergency department. Will continue supportive care, refill EpiPen. Impression Primary Impression: Allergic reaction Disposition: 01 HOME, SELF-CARE Condition: Improved Departure-Patient Inst. Referrals: JULIA HERRERA MD (PCP/Family) Primary Care Physician Patient Instructions: Anaphylaxis (DC) Add. Discharge Instructions: Please continue albuterol inhaler and take newly prescribed medication as directed. Refill epinephrine pen. Return to the ED if symptoms worsen. All discharge instructions reviewed with patient and/or family. Voiced understanding. Scripts Epinephrine (Epipen 2-Jatinder) 0.3 Mg/0.3 Ml Auto.injct 0.3 MG IJ Q20M, #1 ML Prov: GAVIN PEREZ DO 10/04/20 Dexamethasone (Decadron) 4 Mg Tablet 4 MG PO BID, #6 TAB Prov: GAVIN PEREZ DO 10/04/20 GAVIN PEREZ DO Oct 04, 2020 22:57
[2020-10-04] MEDS ORDERED: methylPREDNISolone 125 MG (Solu-MEDROL) VIAL IM ONE (23:00)
[2020-10-04] MEDS ORDERED: methylPREDNISolone 125 MG (Solu-MEDROL) VIAL IVP ONE (23:15)
[2020-10-04] MEDS ORDERED: EPIN0.3P3 IJ (23:20)
[2020-10-04] MEDS ORDERED: DEXA4TAB66 PO (23:20)
[2020-10-04 23:22] VITALS: BP 144/83
== END 2020-10-04 23:27 | disposition home or self-care (01) ==
LOC: EDUNIT# 20:51 → ER FS 20:53
DX: T78.1XXA Other adverse food reactions, not elsewhere classified, initial encounter (principal); F41.9 Anxiety disorder, unspecified; J44.9 Chronic obstructive pulmonary disease, unspecified; I25.2 Old myocardial infarction; I10 Essential (primary) hypertension; F17.210 Nicotine dependence, cigarettes, uncomplicated; Z95.9 Presence of cardiac and vascular implant and graft, unspecified; Z88.7 Allergy status to serum and vaccine; Z88.5 Allergy status to narcotic agent; Z88.0 Allergy status to penicillin; Z88.6 Allergy status to analgesic agent; Z88.8 Allergy status to other drugs, medicaments and biological substances; Z79.82 Long term (current) use of aspirin
CPT/HCPCS: 36415; 80053; 84484; 85025; 96374; 96375

== ENCOUNTER 2021-02-01 20:17 | Emergency (ER) | payer MEDICARE ==
[~2021-02-01] VITALS: Ht 190.5 cm; Wt 93.9 kg
[~2021-02-01 20:17] MED LIST changes: +BUTA-235 PO; -BUTA1TAB9 PO; +DEXA4TAB66 PO
[2021-02-01 20:28] VITALS: BP 165/123
--- NOTE | 2021-02-01 20:36 | ED Headache ---
General Chief Complaint: Head/Cervical Problems Stated Complaint: HEADACHE/BACK PAIN/HIP PAIN Source: patient Exam Limitations: no limitations History of Present Illness Date Seen by Provider: Feb 01, 2021 Time Seen by Provider: 20:25 Initial Comments 60-year-old male presents with headache onset since he woke up this morning at 11 AM. States history of chronic migraine headaches for which he takes [id number] Excedrin occasionally with relief, however not today. Associated light sensitivity and nausea without vomiting. No change in severity or character of his typical migraines. Patient states he is here for a shot. Noted multiple allergies to medications. Allergies and Home Medications Allergies Coded Allergies: ketorolac tromethamine (Verified Allergy, Severe, ANAPHYLAXIS, 01/30/19) prednisone (Verified Allergy, Severe, angry and agitated, 01/30/19) Penicillins (Verified Allergy, Intermediate, 01/30/19) sob, wheezing egg (Verified Allergy, Intermediate, 01/30/19) swelling meperidine HCl (Verified Allergy, Intermediate, 01/30/19) sob, wheezing propoxyphene HCl (Verified Allergy, Mild, 01/30/19) sob, wheezing topiramate (Verified Allergy, Mild, NAUSEA, 08/18/12) diarrhea, citalopram (Verified Allergy, Unknown, 12/14/18) metoprolol (Verified Adverse Reaction, Mild, 08/18/12) sob, wheezing Uncoded Allergies: honey bee venom (Allergy, Mild, 08/18/12) sob, wheezing EGGS (Allergy, Unknown, 04/05/19) TETANUS (Allergy, Unknown, 04/05/19) Home Medications Aspirin 81 Mg Tablet.dr, 81 MG PO DAILY, (Reported) Butalb/Acetaminophen/Caffeine 1 Each Tablet, 1 EACH PO Q4H PRN for HEADACHE Prescribed by: NATALYA CALZADA on 04/23/192033 Butalb/Acetaminophen/Caffeine 1 Each Tablet, 1 EACH PO Q6H Prescribed by: ALLISON OLMEDO on 01/11/20 165 Carvedilol 3.125 Mg Tablet, 1 EACH PO BID, (Reported) Cetirizine Hcl 10 Mg Tablet, 10 MG PO DAILY, (Reported) Dexamethasone 4 Mg Tablet, 4 MG PO BID Prescribed by: GAVIN PEREZ on 10/04/202319 Doxycycline Hyclate 100 Mg Tablet, 100 MG PO BID Prescribed by: GAVIN PEREZ on 04/05/192138 Epinephrine 0.3 Mg/0.3 Ml Auto.injct, 0.3 MG IJ Q15M PRN for WHEEZING Use once every 15 min if having angioedema, difficulty breathing, itching and swelling of the throat. Prescribed by: NATALYA CALZADA on 01/30/192016 Epinephrine 0.3 Mg/0.3 Ml Auto.injct, 0.3 MG IJ Q20M Prescribed by: GAVIN PEREZ on 10/04/20 2320 Famotidine 20 Mg Tablet, 20 MG PO DAILY Prescribed by: ALLISON OLMEDO on 07/16/19 171 Famotidine 20 Mg Tablet, 20 MG PO BID Prescribed by: GAVIN PEREZ on 08/10/19 184 Fluticasone Propionate 16 Gm [place], 2 SPRAYS NSEACH DAILY, (Reported) Hydroxyzine Pamoate 25 Mg Capsule, 25 MG PO Q8 Prescribed by: GAVIN PEREZ on 08/10/19 184 Ipratropium [place] 12.9 Gm Aers, 12.9 GM INH Q6H, (Reported) Lorazepam 1 Mg Tablet, 1 EACH PO TID PRN, (Reported) Montelukast Sodium 10 Mg Tablet, 10 MG PO DAILY, (Reported) Nitroglycerin 0.3 Mg Tab.subl, 0.3 MG SL PRN, (Reported) Omeprazole 20 Mg Capsule.dr, 20 MG PO DAILY, (Reported) Salsalate 500 Mg Tab, 1,000 MG PO TID, (Reported) [albuterol] , 2 PUFF INH QID, (Reported) Patient Home Medication List Home Medication List Reviewed: Yes Review of Systems Review of Systems Constitutional: No dizziness, No fever, No malaise, No weakness Eyes: Denies Blindness, Denies Blurred Vision, Denies Pain; Photophobia (mild) Ears, Nose, Mouth, Throat: no symptoms reported Respiratory: no symptoms reported Cardiovascular: no symptoms reported Gastrointestinal: No abdominal pain, No loss of appetite; nausea; No vomiting Musculoskeletal: back pain, joint pain (chronic hip pain) Skin: No change in color, No rash Past Tadktnu-Vvbwbk-Lqnkfv Hx Past Med/Social Hx: Reviewed Nursing Past Med/Soc Hx Patient Social History Alcohol Use: Denies Use Smoking Status: Current Everyday Smoker Type Used: Cigarettes Former Smoker, Quit: March 09, 2018 2nd Hand Smoke Exposure: Yes Recent Hopitalizations: No Seasonal Allergies Seasonal Allergies: Yes Past Medical History Surgeries: Yes (heart cath, left shoulder surgery and right hip replacement) Gallbladder, Joint Replacement Respiratory: Yes Asthma, Chronic Bronchitis, COPD, Emphysema Currently Using CPAP: No Currently Using BIPAP: No Cardiac: Yes Heart Attack, Hypertension, Palpitations Neurological: Yes Headaches /Migraines Genitourinary: No Gastrointestinal: No Musculoskeletal: No Arthritis Endocrine: No HEENT: No Cancer: No Psychosocial: Yes Anxiety Integumentary: No Blood Disorders: No Physical Exam Vital Signs Capillary Refill : Height, Weight, BMI Height: 6'3.00" Weight: 197lbs. 0oz. 89.374782qa; 24.00 BMI Method:Stated General Appearance: WD/WN, no apparent distress HEENT: PERRL/EOMI, normal ENT inspection Neck: non-tender, supple Psychiatric: alert, oriented x 3 Crainal Nerves: normal hearing, normal speech, PERRL Coordination/Gait: normal gait Motor/Sensory: no motor deficit, no sensory deficit Skin: normal color, warm/dry Departure Impression Primary Impression: Migraine Qualified Codes: G43.909 - Migraine, unspecified, not intractable, without status migrainosus Disposition: 01 HOME, SELF-CARE Condition: Stable Departure-Patient Inst. Referrals: JULIA HERRERA MD (PCP/Family) Primary Care Physician Patient Instructions: Migraines (DC) Add. Discharge Instructions: Follow up with Dr Herrera in 2 to 3 days if not improving, sooner if worse. All discharge instructions reviewed with patient and/or family. Voiced understanding. ALLYSON GUTIERREZ DO Feb 01, 2021 20:36
[2021-02-01] MEDS ORDERED: PROMETHAZINE INJ 25 MG/ML (PHENERGAN) AMP IM/IV ONE (20:45)
[2021-02-01] MEDS ORDERED: diphenhydrAMINE 50 MG/ML INJ (BENADRYL) IM ONE (20:45)
== END 2021-02-01 20:54 | disposition home or self-care (01) ==
LOC: EDUNIT# 20:17 → ER FS 20:20
DX: G43.909 Migraine, unspecified, not intractable, without status migrainosus (principal); J44.9 Chronic obstructive pulmonary disease, unspecified; I25.2 Old myocardial infarction; I10 Essential (primary) hypertension; F41.9 Anxiety disorder, unspecified; F17.210 Nicotine dependence, cigarettes, uncomplicated; Z88.0 Allergy status to penicillin; Z88.6 Allergy status to analgesic agent; Z88.5 Allergy status to narcotic agent; Z88.8 Allergy status to other drugs, medicaments and biological substances; Z79.82 Long term (current) use of aspirin
CPT/HCPCS: 99284

== ENCOUNTER 2021-02-09 16:56 | Emergency (ER) | payer MEDICARE ==
[~2021-02-09] VITALS: Ht 190.5 cm; Wt 91.0 kg
[2021-02-09 17:00] VITALS: BP 145/103
[2021-02-09] MEDS ORDERED: oxyCODONE/APAP 5/325MG (PERCOCET 5) TABLET PO ONE (17:15)
[2021-02-09] MEDS ORDERED: oxyCODONE/APAP 5/325MG (PERCOCET 5) TABLET ONE (17:15)
--- NOTE | 2021-02-09 17:17 | ED General ---
General Chief Complaint: General Problems/Pain Stated Complaint: SOB | PAIN RIGHT SIDE OF HIP History of Present Illness Date Seen by Provider: Feb 09, 2021 Time Seen by Provider: 17:12 Initial Comments Patient presenting to the emergency department for evaluation of right hip pain that he says started as he was coughing and having an asthma attack he hit his right hip up against a counter and also had a twisting injury as well as he has low back pain that shooting down into his buttocks. He denies any weakness numbness tingling saddle anesthesia bowel or bladder incontinence and he was able to ambulate to the room with no difficulty. He is in no obvious distress with normal vital signs. Allergies and Home Medications Allergies Coded Allergies: ketorolac tromethamine (Verified Allergy, Severe, ANAPHYLAXIS, 01/30/19) prednisone (Verified Allergy, Severe, angry and agitated, 01/30/19) Penicillins (Verified Allergy, Intermediate, 01/30/19) sob, wheezing egg (Verified Allergy, Intermediate, 01/30/19) swelling meperidine HCl (Verified Allergy, Intermediate, 01/30/19) sob, wheezing propoxyphene HCl (Verified Allergy, Mild, 01/30/19) sob, wheezing topiramate (Verified Allergy, Mild, NAUSEA, 08/18/12) diarrhea, citalopram (Verified Allergy, Unknown, 12/14/18) metoprolol (Verified Adverse Reaction, Mild, 08/18/12) sob, wheezing Uncoded Allergies: honey bee venom (Allergy, Mild, 08/18/12) sob, wheezing EGGS (Allergy, Unknown, 04/05/19) TETANUS (Allergy, Unknown, 04/05/19) Home Medications Aspirin 81 Mg Tablet.dr, 81 MG PO DAILY, (Reported) Butalb/Acetaminophen/Caffeine 1 Each Tablet, 1 EACH PO Q4H PRN for HEADACHE Prescribed by: NATALYA CALZADA on 04/23/192033 Butalb/Acetaminophen/Caffeine 1 Each Tablet, 1 EACH PO Q6H Prescribed by: ALLISON OLMEDO on 01/11/20 165 Carvedilol 3.125 Mg Tablet, 1 EACH PO BID, (Reported) Cetirizine Hcl 10 Mg Tablet, 10 MG PO DAILY, (Reported) Dexamethasone 4 Mg Tablet, 4 MG PO BID Prescribed by: GAVIN PEREZ on 10/04/202319 Doxycycline Hyclate 100 Mg Tablet, 100 MG PO BID Prescribed by: GAVIN PEREZ on 04/05/192138 Epinephrine 0.3 Mg/0.3 Ml Auto.injct, 0.3 MG IJ Q15M PRN for WHEEZING Use once every 15 min if having angioedema, difficulty breathing, itching and swelling of the throat. Prescribed by: NATALYA CALZADA on 01/30/192016 Epinephrine 0.3 Mg/0.3 Ml Auto.injct, 0.3 MG IJ Q20M Prescribed by: GAVIN PEREZ on 10/04/202319 Famotidine 20 Mg Tablet, 20 MG PO DAILY Prescribed by: ALLISON OLMEDO on 07/16/19 171 Famotidine 20 Mg Tablet, 20 MG PO BID Prescribed by: GAVIN PEREZ on 08/10/19 184 Fluticasone Propionate 16 Gm [place], 2 SPRAYS NSEACH DAILY, (Reported) Hydroxyzine Pamoate 25 Mg Capsule, 25 MG PO Q8 Prescribed by: GAVIN PEREZ on 08/10/191840 Ipratropium [place] 12.9 Gm Aers, 12.9 GM INH Q6H, (Reported) Lorazepam 1 Mg Tablet, 1 EACH PO TID PRN, (Reported) Montelukast Sodium 10 Mg Tablet, 10 MG PO DAILY, (Reported) Nitroglycerin 0.3 Mg Tab.subl, 0.3 MG SL PRN, (Reported) Omeprazole 20 Mg Capsule.dr, 20 MG PO DAILY, (Reported) Salsalate 500 Mg Tab, 1,000 MG PO TID, (Reported) [albuterol] , 2 PUFF INH QID, (Reported) Patient Home Medication List Home Medication List Reviewed: Yes Review of Systems Review of Systems Constitutional: no symptoms reported Respiratory: no symptoms reported Cardiovascular: no symptoms reported Musculoskeletal: joint pain Skin: no symptoms reported Psychiatric/Neurological: No Symptoms Reported All Other Systems Reviewed Negative Unless Noted: Yes Past Nucwtgt-Rcwpmh-Zqpqao Hx Patient Social History Type Used: Cigarettes Former Smoker, Quit: March 09, 2018 2nd Hand Smoke Exposure: Yes Recent Hopitalizations: No Seasonal Allergies Seasonal Allergies: Yes Past Medical History Surgeries: Yes (heart cath, left shoulder surgery and right hip replacement) Gallbladder, Joint Replacement Respiratory: Yes Asthma, Chronic Bronchitis, COPD, Emphysema Currently Using CPAP: No Currently Using BIPAP: No Cardiac: Yes Heart Attack, Hypertension, Palpitations Neurological: Yes Headaches /Migraines Genitourinary: No Gastrointestinal: No Musculoskeletal: No Arthritis Endocrine: No HEENT: No Cancer: No Psychosocial: Yes Anxiety Integumentary: No Blood Disorders: No Physical Exam Vital Signs Capillary Refill : Height, Weight, BMI Height: 6'3.00" Weight: 197lbs. 0oz. 89.217118px; 25.00 BMI Method:Stated General Appearance: No Apparent Distress, WD/WN Respiratory: No Respiratory Distress Cardiovascular: Regular Rate, Rhythm Back: Other (R LUMBAR PARASPINAL TTP) Extremity: Normal Capillary Refill, Normal Range of Motion Neurologic/Psychiatric: Alert, Oriented x3, No Motor/Sensory Deficits Skin: Warm/Dry Progress/Results/Core Measures Suspected Sepsis SIRS Temperature: Pulse: Respiratory Rate: Blood Pressure / Mean: Results/Orders Vital Signs/I&O Capillary Refill : Progress Note : Progress Note Patient with likely sprain versus lumbar radiculopathy. I recommended getting imaging to ensure there is no bony pathology however he refused stating that he simply wanted to get pain medications and go home. Patient has no red flag signs or symptoms necessitating emergent MRI so I will give him 2 pills of Percocet and a prescription for Percocet told to call his primary care provider tomorrow for further pain management and to come back to the ER sooner with worsening pain neurologic changes or other general concerns. Patient aware and agreeable with plan and verbalized understanding of the above instructions. Departure Impression Primary Impression: Right hip pain Additional Impression: Lumbar radiculopathy, right Disposition: 01 HOME, SELF-CARE Condition: Stable Departure-Patient Inst. Referrals: JULIA HERRERA MD (PCP/Family) Primary Care Physician Patient Instructions: Acute Pain, Adult Scripts Oxycodone HCl/Acetaminophen (Percocet 5-325 mg Tablet) 1 Each Tablet 1 TAB PO Q6H for PAIN-MODERATE MDD 6 TABS for 1 Day, #6 TAB Prov: NITIN ZHAO DO 02/09/21 NITIN ZHAO DO Feb 09, 2021 17:17
[2021-02-09] MEDS ORDERED: OXYC1TAB87 PO (17:20)
== END 2021-02-09 17:30 | disposition home or self-care (01) ==
LOC: EDUNIT# 16:56 → ER FS 16:58
DX: M25.551 Pain in right hip (principal); M54.16 Radiculopathy, lumbar region; J44.9 Chronic obstructive pulmonary disease, unspecified; I25.2 Old myocardial infarction; I10 Essential (primary) hypertension; F41.9 Anxiety disorder, unspecified; Z88.0 Allergy status to penicillin; Z88.6 Allergy status to analgesic agent; Z88.7 Allergy status to serum and vaccine; Z88.8 Allergy status to other drugs, medicaments and biological substances; Z88.5 Allergy status to narcotic agent; Z87.891 Personal history of nicotine dependence; Z79.82 Long term (current) use of aspirin
CPT/HCPCS: 99283

== ENCOUNTER 2021-05-03 15:14 | Emergency (ER) | payer MEDICARE ==
[~2021-05-03] VITALS: Ht 190 cm; Wt 89.0 kg
[~2021-05-03 15:14] MED LIST changes: +OXYC1TAB87 PO
[2021-05-03 15:15] VITALS: BP 152/98
--- NOTE | 2021-05-03 15:27 | ED Headache ---
General Chief Complaint: General Problems/Pain Stated Complaint: HEADACHE History of Present Illness Date Seen by Provider: May 03, 2021 Time Seen by Provider: 15:21 Initial Comments 60-year-old male presents with headache, light sensitivity and nausea since about 9 AM this morning. Past medical history significant for migraine headaches and he has taken his prescription migraine medication without any relief. Does not frequently come to the ER for headaches. No change of severity or pattern of his typical bad migraines. No recent illness, fever or chills. Allergies and Home Medications Allergies Coded Allergies: ketorolac tromethamine (Verified Allergy, Severe, ANAPHYLAXIS, 01/30/19) prednisone (Verified Allergy, Severe, angry and agitated, 01/30/19) Penicillins (Verified Allergy, Intermediate, 01/30/19) sob, wheezing egg (Verified Allergy, Intermediate, 01/30/19) swelling meperidine HCl (Verified Allergy, Intermediate, 01/30/19) sob, wheezing propoxyphene HCl (Verified Allergy, Mild, 01/30/19) sob, wheezing topiramate (Verified Allergy, Mild, NAUSEA, 08/18/12) diarrhea, citalopram (Verified Allergy, Unknown, 12/14/18) metoprolol (Verified Adverse Reaction, Mild, 08/18/12) sob, wheezing Uncoded Allergies: honey bee venom (Allergy, Mild, 08/18/12) sob, wheezing EGGS (Allergy, Unknown, 04/05/19) TETANUS (Allergy, Unknown, 04/05/19) Home Medications Aspirin 81 Mg Tablet.dr, 81 MG PO DAILY, (Reported) Butalb/Acetaminophen/Caffeine 1 Each Tablet, 1 EACH PO Q4H PRN for HEADACHE Prescribed by: NATALYA CALZADA on 04/23/192033 Butalb/Acetaminophen/Caffeine 1 Each Tablet, 1 EACH PO Q6H Prescribed by: ALLISON OLMEDO on 01/11/20 165 Carvedilol 3.125 Mg Tablet, 1 EACH PO BID, (Reported) Cetirizine Hcl 10 Mg Tablet, 10 MG PO DAILY, (Reported) Dexamethasone 4 Mg Tablet, 4 MG PO BID Prescribed by: GAVIN PEREZ on 10/04/202319 Doxycycline Hyclate 100 Mg Tablet, 100 MG PO BID Prescribed by: GAVIN PEREZ on 04/05/192138 Epinephrine 0.3 Mg/0.3 Ml Auto.injct, 0.3 MG IJ Q15M PRN for WHEEZING Use once every 15 min if having angioedema, difficulty breathing, itching and swelling of the throat. Prescribed by: NATALYA CALZADA on 01/30/192016 Epinephrine 0.3 Mg/0.3 Ml Auto.injct, 0.3 MG IJ Q20M Prescribed by: GAVIN PEREZ on 10/04/20 2320 Famotidine 20 Mg Tablet, 20 MG PO DAILY Prescribed by: ALLISON OLMEDO on 07/16/19 171 Famotidine 20 Mg Tablet, 20 MG PO BID Prescribed by: GAVIN PEREZ on 08/10/19 184 Fluticasone Propionate 16 Gm [place], 2 SPRAYS NSEACH DAILY, (Reported) Hydroxyzine Pamoate 25 Mg Capsule, 25 MG PO Q8 Prescribed by: GAVIN PEREZ on 08/10/19 184 Ipratropium [place] 12.9 Gm Aers, 12.9 GM INH Q6H, (Reported) Lorazepam 1 Mg Tablet, 1 EACH PO TID PRN, (Reported) Montelukast Sodium 10 Mg Tablet, 10 MG PO DAILY, (Reported) Nitroglycerin 0.3 Mg Tab.subl, 0.3 MG SL PRN, (Reported) Omeprazole 20 Mg Capsule.dr, 20 MG PO DAILY, (Reported) Oxycodone HCl/Acetaminophen 1 Each Tablet, 1 TAB PO Q6H Prescribed by: NITIN ZHAO on 02/09/21 172 Salsalate 500 Mg Tab, 1,000 MG PO TID, (Reported) [albuterol] , 2 PUFF INH QID, (Reported) Patient Home Medication List Home Medication List Reviewed: Yes Review of Systems Review of Systems Constitutional: No chills, No fever; malaise; No weakness Eyes: Denies Blindness, Denies Blurred Vision, Denies Pain; Photophobia Ears, Nose, Mouth, Throat: denies see HPI, denies ear pain, denies epistaxis Respiratory: No cough, No short of breath, No stridor, No wheezing Cardiovascular: No chest pain, No palpitations Gastrointestinal: No abdominal pain; nausea; No vomiting Musculoskeletal: No back pain, No neck pain Past Kqssbpj-Ioxrgd-Ehljgs Hx Patient Social History Tobacco Use?: Yes Tobacco type used: Cigarettes Use of E-Cig and/or Vaping dev: No Substance use?: No Alcohol Use?: No Pt feels they are or have been: No Seasonal Allergies Seasonal Allergies: Yes Past Medical History Surgeries: Yes (heart cath, left shoulder surgery and right hip replacement) Gallbladder, Joint Replacement Respiratory: Yes Asthma, Chronic Bronchitis, COPD, Emphysema Currently Using CPAP: No Currently Using BIPAP: No Cardiac: Yes Heart Attack, Hypertension, Palpitations Neurological: Yes Headaches /Migraines Genitourinary: No Gastrointestinal: No Musculoskeletal: No Arthritis Endocrine: No HEENT: No Cancer: No Psychosocial: Yes Anxiety Integumentary: No Blood Disorders: No Physical Exam Vital Signs Vital Signs - First Documented 05/03/21 15:15 Temp 36.7 Pulse 59 Resp 16 B/P (MAP) 152/98 (116) Pulse Ox 98 O2 Delivery Room Air Capillary Refill : Height, Weight, BMI Height: 6'3.00" Weight: 197lbs. 0oz. 89.435259vz; 25.00 BMI Method:Stated General Appearance: WD/WN, no apparent distress HEENT: PERRL/EOMI, normal ENT inspection, photophobia (mild) Neck: non-tender, supple Psychiatric: alert, oriented x 3 Crainal Nerves: normal hearing, normal speech, PERRL Coordination/Gait: normal finger to nose, normal gait Motor/Sensory: no motor deficit, no sensory deficit Skin: normal color, warm/dry Progress/Results/Core Measures Results/Orders My Orders Orders - ALLYSON GUTIERREZ DO Metoclopramide Injection (Reglan Injecti (05/03/21 15:30) Ns Iv 1000 Ml (Sodium Chloride 0.9%) (05/03/21 15:30) Diphenhydramine Injection (Benadryl Inje (05/03/21 15:30) Medications Given in ED Current Medications Medications Dose Ordered Sig/Viv Route Start Time Stop Time Status Last Admin Dose Admin Diphenhydramine HCl 25 mg ONCE ONCE IVP 05/03/21 15:30 05/03/21 15:31 DC 05/03/21 15:33 25 MG Metoclopramide HCl 5 mg ONCE ONCE IV 05/03/21 15:30 05/03/21 15:31 DC 05/03/21 15:32 5 MG Vital Signs/I&O 05/03/21 15:15 Temp 36.7 Pulse 59 Resp 16 B/P (MAP) 152/98 (116) Pulse Ox 98 O2 Delivery Room Air Progress Progress Note : Time: 15:53 Progress Note doing much better, FERRIS from 06/27- 12/25 intensity w decreased photophobia. Will give a little more reglan and DC afterward Departure Impression Primary Impression: Migraine headache Qualified Codes: G43.909 - Migraine, unspecified, not intractable, without status migrainosus Disposition: HOME, SELF-CARE Condition: Improved Departure-Patient Inst. Decision time for Depature: 15:54 Referrals: JULIA HERRERA MD (PCP/Family) Primary Care Physician Patient Instructions: Migraines (DC) Add. Discharge Instructions: follow up with Dr Herrera as needed for headaches. Return to the ER for any worsening headaches All discharge instructions reviewed with patient and/or family. Voiced understanding. Scripts Metoclopramide HCl (Metoclopramide HCl) 10 Mg Tablet 10 MG PO DAILY PRN PRN for headache, #10 TAB take 1/2 to 1 po daily as needed for migraine headache Prov: ALLYSON GUTIERREZ DO 05/03/21 ALLYSON GUTIERREZ DO May 03, 2021 15:27
[2021-05-03] MEDS ORDERED: diphenhydrAMINE 50 MG/ML INJ (BENADRYL) IVP ONE (15:30)
[2021-05-03] MEDS ORDERED: NS IV 1000 ML 1,000 ML IV SCH (15:30)
[2021-05-03] MEDS ORDERED: METOCLOPRAMIDE INJ 10 MG/2 ML (REGLAN) IV ONE ×2 (15:30→16:00)
[2021-05-03] MEDS ORDERED: MTC10T PO (15:56)
== END 2021-05-03 15:59 | disposition home or self-care (01) ==
LOC: EDUNIT# 15:14 → ER FS 15:16
DX: G43.909 Migraine, unspecified, not intractable, without status migrainosus (principal); J44.9 Chronic obstructive pulmonary disease, unspecified; I10 Essential (primary) hypertension; I25.2 Old myocardial infarction; F41.9 Anxiety disorder, unspecified; Z79.899 Other long term (current) drug therapy; Z79.82 Long term (current) use of aspirin

== ENCOUNTER 2021-06-13 17:06 | Emergency (ER) | payer MEDICARE ==
[~2021-06-13] VITALS: Ht 190.5 cm; Wt 87.6 kg
[~2021-06-13 17:06] MED LIST changes: +MTC10T PO
[2021-06-13 17:19] VITALS: BP 158/89
[2021-06-13] MEDS ORDERED: diphenhydrAMINE 50 MG/ML INJ (BENADRYL) IVP STA (17:22)
[2021-06-13] MEDS ORDERED: ORPHENADRINE 60 MG/2 ML (NORFLEX) AMP (ED ONLY) IVP STA (17:22)
[2021-06-13] MEDS ORDERED: PROMETHAZINE INJ 25 MG/ML (PHENERGAN) AMP IVP STA (17:22)
[2021-06-13] MEDS ORDERED: NS IV 1000 ML 1,000 ML IV STA (17:22)
--- NOTE | 2021-06-13 17:29 | ED Headache ---
General Chief Complaint: Head/Cervical Problems Stated Complaint: HEADACHE Source: patient, old records History of Present Illness Date Seen by Provider: Jun 13, 2021 Time Seen by Provider: 17:09 Initial Comments 60-year-old male presenting with complaints of left-sided migraine headache. He states it started around noon today. He has tried taking the metoclopramide and acetaminophen that he was prescribed. He has had nausea but no vomiting. He has some light sensitivity. He feels this is similar to his regular migraine headaches. He denies any fever, chills, vomiting, increased cough, head injury, fall. In the past he has responded to IM shots of Phenergan, Benadryl, Norflex. He is having a lot of tightness and spasms in his neck muscles as well. Timing/Duration: 4-6 hours Severity/Quality: severe, throbbing Location: parietal (Left-sided) Prior Headaches/Recent Trauma: frequent headaches (3 to 4 each week), chronic headaches Modifying Factors: worse with exposure to light Associated Symptoms: No confusion, No fatigue, No facial pain, No fever/chills, No flushing, No loss of consciousness, No nasal congestion, No nasal drainage, No numbness in legs/feet, No rash, No seizures, No sinus infection, No stiff neck, No vision changes, No weakness Allergies and Home Medications Allergies Coded Allergies: ketorolac tromethamine (Verified Allergy, Severe, ANAPHYLAXIS, 01/30/19) prednisone (Verified Allergy, Severe, angry and agitated, 01/30/19) Penicillins (Verified Allergy, Intermediate, 01/30/19) sob, wheezing egg (Verified Allergy, Intermediate, 01/30/19) swelling meperidine HCl (Verified Allergy, Intermediate, 01/30/19) sob, wheezing propoxyphene HCl (Verified Allergy, Mild, 01/30/19) sob, wheezing topiramate (Verified Allergy, Mild, NAUSEA, 08/18/12) diarrhea, citalopram (Verified Allergy, Unknown, 12/14/18) metoprolol (Verified Adverse Reaction, Mild, 08/18/12) sob, wheezing Uncoded Allergies: honey bee venom (Allergy, Mild, 08/18/12) sob, wheezing EGGS (Allergy, Unknown, 04/05/19) TETANUS (Allergy, Unknown, 04/05/19) Home Medications Aspirin 81 Mg Tablet.dr, 81 MG PO DAILY, (Reported) Butalb/Acetaminophen/Caffeine 1 Each Tablet, 1 EACH PO Q4H PRN for HEADACHE Prescribed by: NATALYA CALZADA on 04/23/192033 Butalb/Acetaminophen/Caffeine 1 Each Tablet, 1 EACH PO Q6H Prescribed by: ALLISON OLMEDO on 01/11/20 165 Carvedilol 3.125 Mg Tablet, 1 EACH PO BID, (Reported) Cetirizine Hcl 10 Mg Tablet, 10 MG PO DAILY, (Reported) Dexamethasone 4 Mg Tablet, 4 MG PO BID Prescribed by: GAVIN PEREZ on 10/04/202319 Doxycycline Hyclate 100 Mg Tablet, 100 MG PO BID Prescribed by: GAVIN PEREZ on 04/05/192138 Epinephrine 0.3 Mg/0.3 Ml Auto.injct, 0.3 MG IJ Q15M PRN for WHEEZING Use once every 15 min if having angioedema, difficulty breathing, itching and swelling of the throat. Prescribed by: NATALYA CALZADA on 01/30/192016 Epinephrine 0.3 Mg/0.3 Ml Auto.injct, 0.3 MG IJ Q20M Prescribed by: GAVIN PEREZ on 10/04/202319 Famotidine 20 Mg Tablet, 20 MG PO DAILY Prescribed by: ALLISON OLMEDO on 07/16/19 171 Famotidine 20 Mg Tablet, 20 MG PO BID Prescribed by: GAVIN PEREZ on 08/10/19 184 Fluticasone Propionate 16 Gm [place], 2 SPRAYS NSEACH DAILY, (Reported) Hydroxyzine Pamoate 25 Mg Capsule, 25 MG PO Q8 Prescribed by: GAVIN PEREZ on 08/10/19 184 Ipratropium [place] 12.9 Gm Aers, 12.9 GM INH Q6H, (Reported) Lorazepam 1 Mg Tablet, 1 EACH PO TID PRN, (Reported) Metoclopramide HCl 10 Mg Tablet, 10 MG PO DAILY PRN PRN for headache take 1/2 to 1 po daily as needed for migraine headache Prescribed by: ALLYSON GUTIERREZ on 05/03/21 1556 Montelukast Sodium 10 Mg Tablet, 10 MG PO DAILY, (Reported) Nitroglycerin 0.3 Mg Tab.subl, 0.3 MG SL PRN, (Reported) Omeprazole 20 Mg Capsule.dr, 20 MG PO DAILY, (Reported) Oxycodone HCl/Acetaminophen 1 Each Tablet, 1 TAB PO Q6H Prescribed by: NITIN ZHAO on 02/09/21 1720 Salsalate 500 Mg Tab, 1,000 MG PO TID, (Reported) [albuterol] , 2 PUFF INH QID, (Reported) Patient Home Medication List Home Medication List Reviewed: Yes Review of Systems Review of Systems Constitutional: see HPI Eyes: See HPI, Photophobia Ears, Nose, Mouth, Throat: no symptoms reported Respiratory: cough (chronic cough and no worse than usual) Cardiovascular: no symptoms reported Gastrointestinal: see HPI Genitourinary: no symptoms reported Musculoskeletal: neck pain (spasms and tightness in muscles in neck) Skin: no symptoms reported; No rash Psychiatric/Neurological: See HPI Past Oxvogku-Itdhij-Ewhbdc Hx Seasonal Allergies Seasonal Allergies: Yes Past Medical History Surgeries: Yes (heart cath, left shoulder surgery and right hip replacement) Gallbladder, Joint Replacement Respiratory: Yes Asthma, Chronic Bronchitis, COPD, Emphysema Currently Using CPAP: No Currently Using BIPAP: No Cardiac: Yes Heart Attack, Hypertension, Palpitations Neurological: Yes Headaches /Migraines Genitourinary: No Gastrointestinal: No Musculoskeletal: No Arthritis Endocrine: No HEENT: No Cancer: No Psychosocial: Yes Anxiety Integumentary: No Blood Disorders: No Physical Exam Vital Signs Vital Signs - First Documented 06/13/21 17:19 Temp 36.6 Pulse 73 Resp 16 B/P (MAP) 158/89 (112) Pulse Ox 98 O2 Delivery Room Air Capillary Refill : Height, Weight, BMI Height: 6'3.00" Weight: 197lbs. 0oz. [id number]; 24.00 BMI Method:Stated General Appearance: WD/WN, no apparent distress HEENT: PERRL/EOMI, normal ENT inspection, pharynx normal Neck: full range of motion, supple, tender lateral (muscle spasm and tightness in paraspinal muscles of neck) Cardiovascular: normal peripheral pulses, regular rate, rhythm Respiratory: chest non-tender, no respiratory distress, no accessory muscle use, decreased breath sounds Gastrointestinal: normal bowel sounds, non tender, soft, no pulsatile mass Extremities: normal range of motion, non-tender, normal capillary refill Psychiatric: alert, oriented x 3 [place] Nerves: normal hearing, normal speech, PERRL Coordination/Gait: normal gait Motor/Sensory: no motor deficit, no sensory deficit, no pronator drift Skin: normal color, warm/dry; No rash Progress/Results/Core Measures Results/Orders My Orders Orders - TOOTIE PAEZ MD Ed Iv/Invasive Line Start (06/13/21 17:22) Ns Iv 1000 Ml (Sodium Chloride 0.9%) (06/13/21 17:22) Promethazine Injection (Phenergan Injec (06/13/21 17:22) Orphenadrine Inj (Ed Only) (Norflex Inje (06/13/21 17:22) Diphenhydramine Injection (Benadryl Inje (06/13/21 17:22) Vital Signs/I&O 06/13/21 17:19 Temp 36.6 Pulse 73 Resp 16 B/P (MAP) 158/89 (112) Pulse Ox 98 O2 Delivery Room Air Progress Progress Note #1: Progress Note He also states he has been out in the heat and sweating a lot so we will give an IV fluid bolus. Since he otherwise states the headache feels similar to his regular migraine headaches will treat with Phenergan, Benadryl, Norflex. Encourage rest and hydration at home. Try to stay out of the heat. Follow-up through the clinic for continued concerns about migraine headaches. Progress Note #2: Progress Note Improved symptoms after treatment. Discharge to home to continue meds and rest in cool dark room Departure Impression Primary Impression: Migraine headache Qualified Codes: G43.009 - Migraine without aura, not intractable, without status migrainosus Disposition: HOME, SELF-CARE Condition: Stable Departure-Patient Inst. Decision time for Depature: 17:31 Referrals: JULIA HERRERA MD (PCP/Family) Primary Care Physician Patient Instructions: Home Headache Remedies, Migraines in Adults Add. Discharge Instructions: Continue on your regular medications. Follow-up with clinic for continued concerns and frequent headaches. Rest in a cool dark room All discharge instructions reviewed with patient and/or family. Voiced understanding. TOOTIE PAEZ MD Jun 13, 2021 17:29
== END 2021-06-13 18:02 | disposition home or self-care (01) ==
LOC: EDUNIT# 17:06 → ER FS 17:07
DX: G43.009 Migraine without aura, not intractable, without status migrainosus (principal); I10 Essential (primary) hypertension; I25.2 Old myocardial infarction; J43.9 Emphysema, unspecified; F41.9 Anxiety disorder, unspecified; Z88.5 Allergy status to narcotic agent; Z95.9 Presence of cardiac and vascular implant and graft, unspecified; Z79.82 Long term (current) use of aspirin; Z79.899 Other long term (current) drug therapy

== ENCOUNTER 2021-07-08 03:43 | Emergency (ER) | payer MEDICARE ==
[~2021-07-08] VITALS: Ht 190.5 cm; Wt 89.5 kg
--- NOTE | 2021-07-08 03:56 | ED Respiratory ---
General Chief Complaint: Respiratory Problems Stated Complaint: SOB Source: patient Exam Limitations: no limitations History of Present Illness Date Seen by Provider: Jul 08, 2021 Time Seen by Provider: 03:54 Initial Comments 52-year-old male presents with shortness of air for the past 2 days. Gradually getting worse and his inhalers are no longer helping him. Past medical history significant for asthma/COPD. Denies recent fever chills or exposure to COVID- 19. Says this reaction is typical of what happens to him after weather changes. Allergies and Home Medications Allergies Coded Allergies: ketorolac tromethamine (Verified Allergy, Severe, ANAPHYLAXIS, 01/30/19) prednisone (Verified Allergy, Severe, angry and agitated, 01/30/19) Penicillins (Verified Allergy, Intermediate, 01/30/19) sob, wheezing egg (Verified Allergy, Intermediate, 01/30/19) swelling meperidine HCl (Verified Allergy, Intermediate, 01/30/19) sob, wheezing propoxyphene HCl (Verified Allergy, Mild, 01/30/19) sob, wheezing topiramate (Verified Allergy, Mild, NAUSEA, 08/18/12) diarrhea, citalopram (Verified Allergy, Unknown, 12/14/18) metoprolol (Verified Adverse Reaction, Mild, 08/18/12) sob, wheezing Uncoded Allergies: honey bee venom (Allergy, Mild, 08/18/12) sob, wheezing EGGS (Allergy, Unknown, 04/05/19) TETANUS (Allergy, Unknown, 04/05/19) Patient Home Medication List Home Medication List Reviewed: Yes Albuterol Sulfate (Rx-Proventil Neb) 2.5 Mg/3 Ml Solution, 2.49 MG IH, (Reported) Entered as Reported by: ANGLE GARCIA on 08/18/12 1343 Aspirin (Lo-Dose Aspirin Ec) 81 Mg Tablet.dr, 81 MG PO DAILY, (Reported) Entered as Reported by: ANGLE GARCIA on 08/18/12 1343 Butalb/Acetaminophen/Caffeine (Jshfoi-Cmxvtscz-Ocry 50-325-40) 1 Each Tablet, 1 EACH PO Q4H PRN for HEADACHE Prescribed by: NATALYA CALZADA on 04/23/192033 Butalb/Acetaminophen/Caffeine (Ijvsdx-Snbymtzd-Ggrt 50-325-40) 1 Each Tablet, 1 EACH PO Q6H Prescribed by: ALLISON OLMEDO on 01/11/20 1658 Carvedilol (Carvedilol) 3.125 Mg Tablet, 1 EACH PO BID, (Reported) Entered as Reported by: ANGLE GARCIA on 08/18/12 1343 Cetirizine Hcl (Cetirizine Hcl) 10 Mg Tablet, 10 MG PO DAILY, (Reported) Entered as Reported by: ANGLE GARCIA on 08/18/12 134 Dexamethasone (Decadron) 4 Mg Tablet, 4 MG PO BID Prescribed by: GAVIN PEREZ on 10/04/20 232 Dexamethasone (Decadron) 6 Mg Tablet, 6 MG PO DAILY Prescribed by: ALLYSON GUTIERREZ on 07/08/21 043 Doxycycline Hyclate (Doxycycline Hyclate) 100 Mg Tablet, 100 MG PO BID Prescribed by: GAVIN PEREZ on 04/05/192138 Doxycycline Hyclate (Doxycycline Hyclate) 100 Mg Tablet, 100 MG PO BID Prescribed by: ALLYSON GUTIERREZ on 07/08/21438 Epinephrine (Epipen 2-Jatinder) 0.3 Mg/0.3 Ml Auto.injct, 0.3 MG IJ Q15M PRN for WHEEZING Prescribed by: NATALYA CALZADA on 01/30/192016 Epinephrine (Epipen 2-Jatinder) 0.3 Mg/0.3 Ml Auto.injct, 0.3 MG IJ Q20M Prescribed by: GAVIN PEREZ on 10/04/202319 Famotidine (Pepcid) 20 Mg Tablet, 20 MG PO DAILY Prescribed by: ALLISON OLMEDO on 07/16/19 1719 Famotidine (Pepcid) 20 Mg Tablet, 20 MG PO BID Prescribed by: GAVIN PEREZ on 08/10/19 184 Fluticasone Propionate (Flonase 0.05% Nasal [place]) 16 Gm [place], 2 SPRAYS NSEACH DAILY, (Reported) Entered as Reported by: ANGLE GARCIA on 08/18/12 134 Hydroxyzine Pamoate (Hydroxyzine Pamoate) 25 Mg Capsule, 25 MG PO Q8 Prescribed by: GAVIN PEREZ on 08/10/19 184 Ipratropium [place] (Atrovent Inhaler) 12.9 Gm Aers, 12.9 GM INH Q6H, (Reported) Entered as Reported by: ANGLE GARCIA on 08/18/12 1343 Lorazepam (Ativan) 1 Mg Tablet, 1 EACH PO TID PRN, (Reported) Entered as Reported by: ANGLE GARCIA on 08/18/12 134 Metoclopramide HCl (Metoclopramide HCl) 10 Mg Tablet, 10 MG PO DAILY PRN PRN for headache Prescribed by: ALLYSON GUTIERREZ on 05/03/21 1556 Montelukast Sodium (Montelukast Sodium) 10 Mg Tablet, 10 MG PO DAILY, (Reported) Entered as Reported by: ANGLE GARCIA on 08/18/12 134 Nitroglycerin (Nitroglycerin) 0.3 Mg Tab.subl, 0.3 MG SL PRN, (Reported) Entered as Reported by: ANGLE GARCIA on 08/18/12 134 Omeprazole (Prilosec 20 Mg) 20 Mg Capsule.dr, 20 MG PO DAILY, (Reported) Entered as Reported by: ANGLE GARCIA on 08/18/12 134 Oxycodone HCl/Acetaminophen (Percocet 5-325 mg Tablet) 1 Each Tablet, 1 TAB PO Q6H Prescribed by: NITIN ZHAO on 02/09/21 1720 Salsalate (Disalcid) 500 Mg Tab, 1,000 MG PO TID, (Reported) Entered as Reported by: ANGLE GARCIA on 08/18/12 1343 [albuterol] , 2 PUFF INH QID, (Reported) Entered as Reported by: ANGLE GARCIA on 08/18/12 1343 [asmanex] , 220 MCG INH, (Reported) Entered as Reported by: ANGLE GARCIA on 08/18/12 134 Review of Systems Review of Systems Constitutional: see HPI; No chills, No dizziness, No fever, No malaise, No weakness EENTM: no symptoms reported Respiratory: cough; No hemoptysis, No orthopnea, No phlegm; short of breath, wheezing Cardiovascular: No chest pain, No edema, No palpitations Gastrointestinal: No abdominal pain, No nausea, No vomiting Musculoskeletal: no symptoms reported Skin: No change in color, No rash Psychiatric/Neurological: Denies Headache, Denies Paresthesia Past Hddsakh-Rpsiva-Lobdzl Hx Patient Social History Tobacco Use?: Yes Seasonal Allergies Seasonal Allergies: Yes Past Medical History Surgeries: Yes (heart cath, left shoulder surgery and right hip replacement) Gallbladder, Joint Replacement Respiratory: Yes Asthma, Chronic Bronchitis, COPD, Emphysema Currently Using CPAP: No Currently Using BIPAP: No Cardiac: Yes Heart Attack, Hypertension, Palpitations Neurological: Yes Headaches /Migraines Genitourinary: No Gastrointestinal: No Musculoskeletal: No Arthritis Endocrine: No HEENT: No Cancer: No Psychosocial: Yes Anxiety Integumentary: No Blood Disorders: No Physical Exam Vital Signs - First Documented Capillary Refill : Height: 6'3.00" Weight: 197lbs. 0oz. 89.718117ih; 24.00 BMI Method:Stated General Appearance: WD/WN, no apparent distress HEENT: PERRL/EOMI, normal ENT inspection Neck: non-tender, supple Respiratory: chest non-tender, no respiratory distress, no accessory muscle use, decreased breath sounds Cardiovascular: regular rate, rhythm, no JVD Gastrointestinal: normal bowel sounds, non tender, soft Extremities: normal range of motion, non-tender Neurologic/Psychiatric: no motor/sensory deficits, alert, normal mood/affect, oriented x 3 Skin: normal color, warm/dry Progress/Results/Core Measures Suspected Sepsis SIRS Temperature: Pulse: Respiratory Rate: Laboratory Tests 07/08/21 04:25: White Blood Count 10.3 Blood Pressure / Mean: Laboratory Tests 07/08/21 04:25: Creatinine 1.00, Platelet Count 305, Total Bilirubin 0.5 Results/Orders Lab Results Laboratory Tests Test 07/08/21 04:25 Range/Units White Blood Count 10.3 4.3-11.0 10^3/uL Red Blood Count 4.46 4.30-5.52 10^6/uL Hemoglobin 14.2 13.3-17.7 g/dL Hematocrit 41 40-54 % Mean Corpuscular Volume 91 80-99 fL Mean Corpuscular Hemoglobin 32 25-34 pg Mean Corpuscular Hemoglobin Concent 35 32-36 g/dL Red Cell Distribution Width 12.6 10.0-14.5 % Platelet Count 305 130-400 10^3/uL Mean Platelet Volume 9.2 9.0-12.2 fL Immature Granulocyte % (Auto) 0 % Neutrophils (%) (Auto) 60 42-75 % Lymphocytes (%) (Auto) 26 12-44 % Monocytes (%) (Auto) 9 0-12 % Eosinophils (%) (Auto) 5 0-10 % Basophils (%) (Auto) 1 0-10 % Neutrophils # (Auto) 6.2 1.8-7.8 X 10^3 Lymphocytes # (Auto) 2.7 1.0-4.0 X 10^3 Monocytes # (Auto) 0.9 0.0-1.0 X 10^3 Eosinophils # (Auto) 0.5 H 0.0-0.3 10^3/uL Basophils # (Auto) 0.1 0.0-0.1 10^3/uL Immature Granulocyte # (Auto) 0.0 0.0-0.1 10^3/uL Sodium Level 137 135-145 MMOL/L Potassium Level 3.9 3.6-5.0 MMOL/L Chloride Level 102 98-107 MMOL/L Carbon Dioxide Level 25 21-32 MMOL/L Anion Gap 10 5-14 MMOL/L Blood Urea Nitrogen 9 7-18 MG/DL Creatinine 1.00 0.60-1.30 MG/DL Estimat Glomerular Filtration Rate 76 BUN/Creatinine Ratio 9 Glucose Level 116 H 70-105 MG/DL Calcium Level 8.9 8.5-10.1 MG/DL Corrected Calcium 8.7 8.5-10.1 MG/DL Total Bilirubin 0.5 0.1-1.0 MG/DL Aspartate Amino Transf (AST/SGOT) 16 5-34 U/L Alanine Aminotransferase (ALT/SGPT) 15 0-55 U/L Alkaline Phosphatase 134 40-136 U/L Total Protein 6.5 6.4-8.2 GM/DL Albumin 4.2 3.2-4.5 GM/DL My Orders Orders - ROVENSTINE,ALLYSON L DO Albuterol/Ipra Inhalation Soln (Duoneb I (07/08/21 04:15) Methylprednisolone Sod Succ (Solu-Medrol (07/08/21 04:15) Svn Small Volume Nebulizer (07/08/21 04:03) Chest 1 View Ap/Pa Only (07/08/21 04:03) Cbc With Automated Diff (07/08/21 04:03) Comprehensive Metabolic Panel (07/08/21 04:03) Medications Given in ED Vital Signs/I&O 07/08/21 07/08/21 07/08/21 07/08/21 03:55 03:55 04:15 04:47 Temp 36.3 36.6 Pulse 117 117 Resp 24 20 B/P (MAP) 141/97 (112) 149/80 Pulse Ox 98 98 98 O2 Delivery Room Air Room Air Room Air Room Air Capillary Refill : Progress Note : Progress Note feeling much better p Duoneb and Solumedrol. Declines 2nd duoneb. Discussed options for OutPt steroid Rx due to prednisone adverse effect. He has taken other steroids, but doesn't know the names Diagnostic Imaging Diagonstic Imaging: Xray Plain Films/CT/US/NM/MRI: chest Departure Impression Primary Impression: Asthma Qualified Codes: J45.901 - Unspecified asthma with (acute) exacerbation Disposition: HOME, SELF-CARE Condition: Improved Departure-Patient Inst. Decision time for Depature: 04:38 Referrals: JULIA HERRERA MD (PCP/Family) Primary Care Physician Patient Instructions: Asthma, Adult (DC) Add. Discharge Instructions: Call Dr Herrera's office to schedule a follow up appointment in 3 to 5 days, ER sooner if worse All discharge instructions reviewed with patient and/or family. Voiced understanding. Scripts Doxycycline Hyclate (Doxycycline Hyclate) 100 Mg Tablet 100 MG PO BID, #14 TAB 0 Refills Prov: ALLYSON GUTIERREZ DO 07/08/21 Dexamethasone (Decadron) 6 Mg Tablet 6 MG PO DAILY, #5 TAB Prov: SOLSTALLYSON DINERO DO 07/08/21 ROHALEIGHSTALLYSON DINERO DO Jul 08, 2021 03:56
[2021-07-08] MEDS ORDERED: methylPREDNISolone 125 MG (Solu-MEDROL) VIAL IVP ONE (04:15)
[2021-07-08] MEDS ORDERED: RT-ALBUTEROL/IPRATROPIUM 3 ML (DUONEB) VIAL INH ONE (04:15)
[2021-07-08] MEDS ORDERED: DEXA6TAB6 PO (04:39)
[2021-07-08] MEDS ORDERED: DOXY100T2 PO (04:39)
[2021-07-08 04:47] VITALS: BP 149/80
[2021-07-08 04:51] LABS: HEMATOCRIT 41 % (40-54); HEMOGLOBIN 14.2 g/dL (13.3-17.7); LYMPHOCYTES % (AUTO) 26 % (12-44); MEAN CORPUSCULAR HEMOGLOBIN 32 pg (25-34); MEAN CORPUSCULAR HGB CONC 35 g/dL (32-36); MEAN CORPUSCULAR VOLUME 91 fL (80-99); MEAN PLATELET VOLUME 9.2 fL (9.0-12.2); MONOCYTES % (AUTO) 9 % (0-12); NEUTROPHILS % (AUTO) 60 % (42-75); PLATELET COUNT 305 10^3/uL (130-400); WHITE BLOOD COUNT 10.3 10^3/uL (4.3-11.0)
[2021-07-08 04:52] LABS: BASOPHILS # (AUTO) 0.1 10^3/uL (0.0-0.1); BASOPHILS % (AUTO) 1 % (0-10); EOSINOPHILS # (AUTO) 0.5 10^3/uL (0.0-0.3); EOSINOPHILS % (AUTO) 5 % (0-10); LYMPHOCYTES # (AUTO) 2.7 X 10^3 (1.0-4.0); MONOCYTES # (AUTO) 0.9 X 10^3 (0.0-1.0); NEUTROPHILS # (AUTO) 6.2 X 10^3 (1.8-7.8)
[2021-07-08 04:59] LABS: BILIRUBIN,TOTAL 0.5 MG/DL (0.1-1.0); CALCIUM 8.9 MG/DL (8.5-10.1); POTASSIUM 3.9 MMOL/L (3.6-5.0)
[2021-07-08 05:00] LABS: ALBUMIN 4.2 GM/DL (3.2-4.5); TOTAL PROTEIN 6.5 GM/DL (6.4-8.2)
--- NOTE | 2021-07-08 07:04 | Diagnostic Imaging Report ---
EXAMINATION: Chest 1 view HISTORY: Shortness of breath. COMPARISON: 08/27/2020. FINDINGS: The lung volumes are normal. No focal consolidation is seen. No large pleural effusion or pneumothorax is seen. The cardiomediastinal silhouette is normal in size and contour. No acute osseous abnormality is seen. IMPRESSION: 1. No acute pleuroparenchymal process. Please note the right costophrenic angle is not included on this single AP view of the chest. Dictated by: Dictated on workstation # [id number]
== END 2021-07-08 04:47 | disposition home or self-care (01) ==
LOC: EDUNIT# 03:43 → ER FS 03:46
DX: J45.909 Unspecified asthma, uncomplicated (principal); I25.2 Old myocardial infarction; I10 Essential (primary) hypertension; F41.9 Anxiety disorder, unspecified; Z79.899 Other long term (current) drug therapy; Z79.82 Long term (current) use of aspirin
CPT/HCPCS: 36415; 71045; 80053; 85025; 94640

== ENCOUNTER 2021-07-23 18:36 | Emergency (ER) | payer MEDICARE ==
[~2021-07-23 18:36] MED LIST changes: +DEXA6TAB6 PO
[2021-07-23] MEDS ORDERED: FAMOTIDINE 20MG/2ML IV (PEPCID) IV STA (18:48)
[2021-07-23] MEDS ORDERED: NS IV 1000 ML 1,000 ML IV STA (18:48)
--- NOTE | 2021-07-23 18:48 | ED GI ---
General Chief Complaint: Abdominal/GI Problems Stated Complaint: VOMITING History of Present Illness Date Seen by Provider: Jul 23, 2021 Time Seen by Provider: 18:45 Initial Comments 60-year-old male presents with vomiting. Patient reports that he started vomiting around 7 AM this morning and had 3 episodes. That he went to [facility] around 1 PM and was evaluated with a negative Covid test. He reports that at that time he was given some Zofran. He reports that helped for little bit but then he had 4 other episodes of vomiting since then. Patient recently just started Cholestyramine 3 days ago. He had a loose stool this morning. He denies any fevers chills. He had some abdominal bloating earlier today that is resolved. He has some mild discomfort from vomiting. No cough, urinary pain or other systemic complaints Allergies and Home Medications Allergies Coded Allergies: ketorolac tromethamine (Verified Allergy, Severe, ANAPHYLAXIS, 01/30/19) prednisone (Verified Allergy, Severe, angry and agitated, 01/30/19) Penicillins (Verified Allergy, Intermediate, 01/30/19) sob, wheezing egg (Verified Allergy, Intermediate, 01/30/19) swelling meperidine HCl (Verified Allergy, Intermediate, 01/30/19) sob, wheezing propoxyphene HCl (Verified Allergy, Mild, 01/30/19) sob, wheezing topiramate (Verified Allergy, Mild, NAUSEA, 08/18/12) diarrhea, citalopram (Verified Allergy, Unknown, 12/14/18) metoprolol (Verified Adverse Reaction, Mild, 08/18/12) sob, wheezing Uncoded Allergies: honey bee venom (Allergy, Mild, 08/18/12) sob, wheezing EGGS (Allergy, Unknown, 04/05/19) TETANUS (Allergy, Unknown, 04/05/19) Patient Home Medication List Home Medication List Reviewed: Yes Albuterol Sulfate (Rx-Proventil Neb) 2.5 Mg/3 Ml Solution, 2.49 MG IH, (Reported) Entered as Reported by: ANGLE GARCIA on 08/18/12 1343 Aspirin (Lo-Dose Aspirin Ec) 81 Mg Tablet.dr, 81 MG PO DAILY, (Reported) Entered as Reported by: ANGLE GARCIA on 08/18/12 1343 Butalb/Acetaminophen/Caffeine (Foldgh-Bbzzdazt-Yjwl 50-325-40) 1 Each Tablet, 1 EACH PO Q4H PRN for HEADACHE Prescribed by: NATALYA CALZADA on 04/23/192033 Butalb/Acetaminophen/Caffeine (Bppiep-Hqxgpwgx-Genk 50-325-40) 1 Each Tablet, 1 EACH PO Q6H Prescribed by: ALLISON OLMEDO on 01/11/20 1658 Carvedilol (Carvedilol) 3.125 Mg Tablet, 1 EACH PO BID, (Reported) Entered as Reported by: ANGLE GARCIA on 08/18/12 1343 Cetirizine Hcl (Cetirizine Hcl) 10 Mg Tablet, 10 MG PO DAILY, (Reported) Entered as Reported by: ANGLE GARCIA on 08/18/12 1343 Dexamethasone (Decadron) 4 Mg Tablet, 4 MG PO BID Prescribed by: GAVIN PEREZ on 10/04/202319 Dexamethasone (Decadron) 6 Mg Tablet, 6 MG PO DAILY Prescribed by: ALLYSON GUTIERREZ on 07/08/21438 Doxycycline Hyclate (Doxycycline Hyclate) 100 Mg Tablet, 100 MG PO BID Prescribed by: GAVIN PEREZ on 04/05/19 213 Doxycycline Hyclate (Doxycycline Hyclate) 100 Mg Tablet, 100 MG PO BID Prescribed by: ALLYSON HORTONSTBAR on 07/08/21438 Doxycycline Hyclate (Doxycycline Hyclate) 100 Mg Tablet, 100 MG PO BID Prescribed by: LIZY JEAN BAPTISTE on 07/23/212010 Epinephrine (Epipen 2-Jatinder) 0.3 Mg/0.3 Ml Auto.injct, 0.3 MG IJ Q15M PRN for WHEEZING Prescribed by: NATALYA CALZADA on 01/30/192016 Epinephrine (Epipen 2-Jatinder) 0.3 Mg/0.3 Ml Auto.injct, 0.3 MG IJ Q20M Prescribed by: GAVIN PEREZ on 10/04/20 232 Famotidine (Pepcid) 20 Mg Tablet, 20 MG PO DAILY Prescribed by: ALLISON OLMEDO on 07/16/19 171 Famotidine (Pepcid) 20 Mg Tablet, 20 MG PO BID Prescribed by: GAVIN EPREZ on 08/10/19 184 Fluticasone Propionate (Flonase 0.05% Nasal [place]) 16 Gm [place], 2 SPRAYS NSEACH DAILY, (Reported) Entered as Reported by: ANGLE GARCIA on 08/18/12 1343 Hydroxyzine Pamoate (Hydroxyzine Pamoate) 25 Mg Capsule, 25 MG PO Q8 Prescribed by: GAVIN PEREZ on 08/10/19 184 Ipratropium [place] (Atrovent Inhaler) 12.9 Gm Aers, 12.9 GM INH Q6H, (Reported) Entered as Reported by: ANGLE GARCIA on 08/18/12 1343 Lorazepam (Ativan) 1 Mg Tablet, 1 EACH PO TID PRN, (Reported) Entered as Reported by: ANGLE GARCIA on 08/18/12 1343 Metoclopramide HCl (Metoclopramide HCl) 10 Mg Tablet, 10 MG PO DAILY PRN PRN for headache Prescribed by: ALLYSON GUTIERREZ on 05/03/21 1556 Montelukast Sodium (Montelukast Sodium) 10 Mg Tablet, 10 MG PO DAILY, (Reported) Entered as Reported by: ANGLE GARCIA on 08/18/12 1343 Nitroglycerin (Nitroglycerin) 0.3 Mg Tab.subl, 0.3 MG SL PRN, (Reported) Entered as Reported by: ANGLE GARCIA on 08/18/12 1343 Omeprazole (Prilosec 20 Mg) 20 Mg Capsule.dr, 20 MG PO DAILY, (Reported) Entered as Reported by: ANGLE GARCIA on 08/18/12 1343 Oxycodone HCl/Acetaminophen (Percocet 5-325 mg Tablet) 1 Each Tablet, 1 TAB PO Q6H Prescribed by: NITIN ZHAO on 02/09/21 1720 Salsalate (Disalcid) 500 Mg Tab, 1,000 MG PO TID, (Reported) Entered as Reported by: ANGLE GARCIA on 08/18/12 1343 [albuterol] , 2 PUFF INH QID, (Reported) Entered as Reported by: ANGLE GARCIA on 08/18/12 134 [asmanex] , 220 MCG INH, (Reported) Entered as Reported by: ANGLE GARCIA on 08/18/12 134 Review of Systems Review of Systems Constitutional: No chills, No fever EENTM: No Symptoms Reported Respiratory: Denies Cough, Denies Shortness of Air Cardiovascular: No Symptoms Reported Gastrointestinal: Diarrhea, Nausea, Vomiting Genitourinary: No Symptoms Reported Musculoskeletal: no symptoms reported Skin: no symptoms reported Psychiatric/Neurological: No Symptoms Reported Endocrine: No Symptoms Reported Hematologic/Lymphatic: No Symptoms Reported Past Iysbpkq-Ygbdqk-Qnshdy Hx Seasonal Allergies Seasonal Allergies: Yes Past Medical History Surgeries: Yes (heart cath, left shoulder surgery and right hip replacement) Gallbladder, Joint Replacement Respiratory: Yes Asthma, Chronic Bronchitis, COPD, Emphysema Currently Using CPAP: No Currently Using BIPAP: No Cardiac: Yes Heart Attack, Hypertension, Palpitations Neurological: Yes Headaches /Migraines Genitourinary: No Gastrointestinal: No Musculoskeletal: No Arthritis Endocrine: No HEENT: No Cancer: No Psychosocial: Yes Anxiety Integumentary: No Blood Disorders: No Physical Exam Vital Signs Vital Signs - First Documented 07/23/21 18:44 Temp 36.6 Pulse 105 Resp 18 B/P (MAP) 149/87 (107) Pulse Ox 96 O2 Delivery Room Air Capillary Refill : Height/Weight/BMI Height: 6'3.00" Weight: 197lbs. 0oz. 89.485499cn; 24.00 BMI Method:Stated General Appearance: WD/WN, no apparent distress Respiratory: lungs clear, normal breath sounds, no respiratory distress Cardiovascular: normal peripheral pulses, regular rate, rhythm Gastrointestinal: non tender, soft; No distended, No guarding, No rebound Extremities: normal range of motion, non-tender Neurologic/Psychiatric: alert, normal mood/affect, oriented x 3 Skin: normal color, warm/dry Progress/Results/Core Measures Results/Orders Lab Results Laboratory Tests Test 07/23/21 18:55 07/23/21 19:41 Range/Units White Blood Count 11.0 4.3-11.0 10^3/uL Red Blood Count 5.37 4.30-5.52 10^6/uL Hemoglobin 16.8 13.3-17.7 g/dL Hematocrit 50 40-54 % Mean Corpuscular Volume 92 80-99 fL Mean Corpuscular Hemoglobin 31 25-34 pg Mean Corpuscular Hemoglobin Concent 34 32-36 g/dL Red Cell Distribution Width 12.7 10.0-14.5 % Platelet Count 285 130-400 10^3/uL Mean Platelet Volume 9.0 9.0-12.2 fL Immature Granulocyte % (Auto) 0 % Neutrophils (%) (Auto) 90 H 42-75 % Lymphocytes (%) (Auto) 5 L 12-44 % Monocytes (%) (Auto) 4 0-12 % Eosinophils (%) (Auto) 0 0-10 % Basophils (%) (Auto) 0 0-10 % Neutrophils # (Auto) 9.9 H 1.8-7.8 X 10^3 Lymphocytes # (Auto) 0.6 L 1.0-4.0 X 10^3 Monocytes # (Auto) 0.5 0.0-1.0 X 10^3 Eosinophils # (Auto) 0.0 0.0-0.3 10^3/uL Basophils # (Auto) 0.0 0.0-0.1 10^3/uL Immature Granulocyte # (Auto) 0.0 0.0-0.1 10^3/uL Neutrophils % (Manual) 96 % Lymphocytes % (Manual) 2 % Monocytes % (Manual) 1 % Eosinophils % (Manual) 0 % Basophils % (Manual) 0 % Band Neutrophils 1 % Sodium Level 138 135-145 MMOL/L Potassium Level 4.3 3.6-5.0 MMOL/L Chloride Level 100 98-107 MMOL/L Carbon Dioxide Level 26 21-32 MMOL/L Anion Gap 12 5-14 MMOL/L Blood Urea Nitrogen 15 7-18 MG/DL Creatinine 0.95 0.60-1.30 MG/DL Estimat Glomerular Filtration Rate 81 BUN/Creatinine Ratio 16 Glucose Level 128 H 70-105 MG/DL Calcium Level 8.9 8.5-10.1 MG/DL Corrected Calcium 8.7 8.5-10.1 MG/DL Magnesium Level 1.5 L 1.6-2.4 MG/DL Total Bilirubin 1.3 H 0.1-1.0 MG/DL Aspartate Amino Transf (AST/SGOT) 33 5-34 U/L Alanine Aminotransferase (ALT/SGPT) 51 0-55 U/L Alkaline Phosphatase 196 H 40-136 U/L Total Protein 7.3 6.4-8.2 GM/DL Albumin 4.3 3.2-4.5 GM/DL Lipase 15 8-78 U/L Urine Color DARK YELLOW Urine Clarity CLEAR Urine pH 6.0 5-9 Urine Specific Reserve 1.025 H 1.016-1.022 Urine Protein TRACE H NEGATIVE Urine Glucose (UA) NEGATIVE NEGATIVE Urine Ketones NEGATIVE NEGATIVE Urine Nitrite NEGATIVE NEGATIVE Urine Bilirubin 1+ H NEGATIVE Urine Urobilinogen 1.0 < = 1.0 MG/DL Urine Leukocyte Esterase TRACE H NEGATIVE Urine RBC (Auto) TRACE H NEGATIVE Urine RBC NONE /HPF Urine WBC 5-10 H /HPF Urine Squamous Epithelial Cells 0-2 /HPF Urine Crystals NONE /LPF Urine Bacteria TRACE /HPF Urine Casts NONE /LPF Urine Mucus SMALL H /LPF Urine Culture Indicated YES My Orders Orders - JEAN BAPTISTE,LIZY L DO Cbc With Automated Diff (07/23/21 18:48) Comprehensive Metabolic Panel (07/23/21 18:48) Lipase (07/23/21 18:48) Magnesium (07/23/21 18:48) Ua Culture If Indicated (07/23/21 18:48) Ns Iv 1000 Ml (Sodium Chloride 0.9%) (07/23/21 18:48) Famotidine Injection (Pepcid Injection) (07/23/21 18:48) Abdomen (Kub) 1 View (07/23/21 18:48) Manual Differential (07/23/21 18:55) Urine Culture (07/23/21 19:41) Vital Signs/I&O 07/23/21 18:44 Temp 36.6 Pulse 105 Resp 18 B/P (MAP) 149/87 (107) Pulse Ox 96 O2 Delivery Room Air Progress Progress Note : Progress Note Patient with no vomiting while here in the ER. Patient does have a urinary tract infection. Patient states that doxycycline works well for him as an antibiotic he can take. I will prescribe him doxycycline x7 days. Patient should follow-up in 7 to 10 days for recheck of his urine. Patient is discharged home in stable condition Diagnostic Imaging Diagonstic Imaging: Xray Comments Date of Exam:07/23/21 ABDOMEN (KUB) 1 VIEW INDICATION: Pain and vomiting. FINDINGS: Clips are in the gallbladder fossa. The bowel gas pattern is unremarkable. There is stool in the colon. Fecal load is not grossly pathologic. No small bowel dilatation. The right hip replaced. The left hip mildly arthritic. IMPRESSION: Unremarkable abdominal radiographs. Reviewed: Reviewed by Me, Reviewed/Discussed Departure Impression Primary Impression: Acute cystitis Qualified Codes: N30.01 - Acute cystitis with hematuria Disposition: HOME, SELF-CARE Condition: Stable Departure-Patient Inst. Referrals: JULIA HERRERA MD (PCP/Family) Primary Care Physician Patient Instructions: Urinary Tract Infection, Adult (DC) Add. Discharge Instructions: Follow-up with your primary care provider in 5 to 7 days for recheck All discharge instructions reviewed with patient and/or family. Voiced understanding. Scripts Doxycycline Hyclate (Doxycycline Hyclate) 100 Mg Tablet 100 MG PO BID, #14 TAB 0 Refills Prov: LIZY JEAN BAPTISTE DO 07/23/21 LIZY JEAN BAPTISTE DO Jul 23, 2021 18:48
[2021-07-23 19:10] LABS: BASOPHILS % (AUTO) 0 % (0-10); EOSINOPHILS % (AUTO) 0 % (0-10); HEMATOCRIT 50 % (40-54); HEMOGLOBIN 16.8 g/dL (13.3-17.7); LYMPHOCYTES # (AUTO) 0.6 X 10^3 (1.0-4.0); LYMPHOCYTES % (AUTO) 5 % (12-44); MEAN CORPUSCULAR HEMOGLOBIN 31 pg (25-34); MEAN CORPUSCULAR HGB CONC 34 g/dL (32-36); MEAN CORPUSCULAR VOLUME 92 fL (80-99); MONOCYTES % (AUTO) 4 % (0-12); NEUTROPHILS # (AUTO) 9.9 X 10^3 (1.8-7.8); NEUTROPHILS % (AUTO) 90 % (42-75); PLATELET COUNT 285 10^3/uL (130-400)
[2021-07-23 19:11] LABS: MONOCYTES # (AUTO) 0.5 X 10^3 (0.0-1.0)
--- NOTE | 2021-07-23 19:14 | Diagnostic Imaging Report ---
INDICATION: Pain and vomiting. FINDINGS: Clips are in the gallbladder fossa. The bowel gas pattern is unremarkable. There is stool in the colon. Fecal load is not grossly pathologic. No small bowel dilatation. The right hip replaced. The left hip mildly arthritic. IMPRESSION: Unremarkable abdominal radiographs. Dictated by: Dictated on workstation # [id number]
[2021-07-23 19:22] LABS: BAND NEUTROPHILS 1 %; BASOPHILS % (MANUAL) 0 %; EOSINOPHILS % (MANUAL) 0 %; LYMPHOCYTES % (MANUAL) 2 %; MONOCYTES % (MANUAL) 1 %; NEUTROPHILS % (MANUAL) 96 %
[2021-07-23 19:27] LABS: POTASSIUM 4.3 MMOL/L (3.6-5.0)
[2021-07-23 19:28] LABS: ALBUMIN 4.3 GM/DL (3.2-4.5); BILIRUBIN,TOTAL 1.3 MG/DL (0.1-1.0); CALCIUM 8.9 MG/DL (8.5-10.1); CREATININE SERUM 0.95 MG/DL (0.60-1.30); MAGNESIUM 1.5 MG/DL (1.6-2.4); TOTAL PROTEIN 7.3 GM/DL (6.4-8.2)
[2021-07-23 20:04] LABS: CLARITY,URINE CLEAR; COLOR,URINE DARK YELLOW; GLUCOSE, URINE (UA) NEGATIVE (NEGATIVE); KETONES,URINE NEGATIVE (NEGATIVE); NITRITE,URINE NEGATIVE (NEGATIVE); PROTEIN,URINE TRACE (NEGATIVE)
[2021-07-23 20:05] LABS: BACTERIA,URINE TRACE /HPF; BILIRUBIN,URINE 1+ (NEGATIVE); LEUKOCYTE ESTERASE ,URINE TRACE (NEGATIVE); SQUAMOUS EPITHELIAL CELL,UR 0-2 /HPF
[2021-07-23] MEDS ORDERED: DOXY100T2 PO (20:11)
[2021-07-23 20:20] VITALS: BP 109/63
== END 2021-07-23 20:20 | disposition home or self-care (01) ==
LOC: EDUNIT# 18:36 → ER FS 18:37
DX: N30.00 Acute cystitis without hematuria (principal); J44.9 Chronic obstructive pulmonary disease, unspecified; I10 Essential (primary) hypertension; I25.2 Old myocardial infarction; F41.9 Anxiety disorder, unspecified; Z20.822 Contact with and (suspected) exposure to COVID-19; Z79.899 Other long term (current) drug therapy; Z79.82 Long term (current) use of aspirin
CPT/HCPCS: 36415; 74018; 80053; 81000; 83690; 83735; 85007; 85027; 87088

== ENCOUNTER 2022-01-27 14:33 | Emergency (ER) | payer MEDICARE ==
[~2022-01-27] VITALS: Ht 190.5 cm; Wt 87.9 kg
[2022-01-27] MEDS ORDERED: ASPIRIN 81 MG CHEW (CHILDREN'S ASA) PO STA (15:10)
[2022-01-27] MEDS ORDERED: NITROGLYCERIN 0.4 MG SL TABS BTL 25'S SL PRN (15:15)
[2022-01-27 15:36] LABS: INR 0.9 (0.8-1.4); PROTHROMBIN TIME PATIENT 12.4 SEC (12.2-14.7)
[2022-01-27 15:54] LABS: CREATININE SERUM 0.9 MG/DL (0.60-1.30); POTASSIUM 4.1 MMOL/L (3.6-5.0)
[2022-01-27 15:55] LABS: ALBUMIN 4.5 GM/DL (3.2-4.5); BILIRUBIN,TOTAL 0.6 MG/DL (0.1-1.0); MAGNESIUM 1.9 MG/DL (1.6-2.4); TOTAL PROTEIN 6.6 GM/DL (6.4-8.2)
[2022-01-27 15:59] LABS: BASOPHILS # (AUTO) 0.1 10^3/uL (0.0-0.1); BASOPHILS % (AUTO) 1 % (0-10); EOSINOPHILS # (AUTO) 0.3 10^3/uL (0.0-0.3); EOSINOPHILS % (AUTO) 3 % (0-10); HEMATOCRIT 45 % (40-54); HEMOGLOBIN 16.3 g/dL (13.3-17.7); LYMPHOCYTES # (AUTO) 3.4 10^3/uL (1.0-4.0); LYMPHOCYTES % (AUTO) 29 % (12-44); MEAN CORPUSCULAR HEMOGLOBIN 32 pg (25-34); MEAN CORPUSCULAR HGB CONC 36 g/dL (32-36); MEAN CORPUSCULAR VOLUME 89 fL (80-99); MEAN PLATELET VOLUME 9.3 fL (9.0-12.2); MONOCYTES # (AUTO) 0.7 10^3/uL (0.0-1.0); MONOCYTES % (AUTO) 6 % (0-12); NEUTROPHILS # (AUTO) 7.3 10^3/uL (1.8-7.8); NEUTROPHILS % (AUTO) 62 % (42-75); PLATELET COUNT 350 10^3/uL (130-400); WHITE BLOOD COUNT 11.8 10^3/uL (4.3-11.0)
--- NOTE | 2022-01-27 16:27 | ED Cardiac General ---
History of Present Illness General Chief Complaint: Cardiac/General Problems Stated Complaint: ELEVATED BP Nursing Triage Note: Patient c/o elevated blood pressure with chest tightness. Pt. states he has had interm. chest tightness x 4 days. Pt. c/o dizziness when he goes from sitting to standing. Pt. states he does have a Hx. of LA. Pt. denies any N/V/D, pain to back, up into neck or jaw, or down Lt. Arm. Pt. denies any shortness of breath, FERRIS, or Abd. pain. Pt. denies any edema to bilat. LE. Patient denies any increase in pain with activity. Pt. states the tightness last for 30 minutes when it happens. History of Present Illness Date Seen by Provider: Jan 27, 2022 Time Seen by Provider: 14:52 Initial Comments 61-year-old male with PMH of hypertension/COPD/asthma/CAD with stents, last LA 2 years ago, presents to the ER with complaints of chest tightness which has been on and off since 11 AM today. Patient rates it a 3 out of 10 of discomfort. Patient states that in his previous LA he did not have chest pain, and that is why he is concerned with this symptom. Denies SOB, fever, nausea vomiting, diarrhea. 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 Allergies and Home Medications Allergies Coded Allergies: ketorolac tromethamine (Verified Allergy, Severe, ANAPHYLAXIS, 01/30/19) prednisone (Verified Allergy, Severe, angry and agitated, 01/30/19) Penicillins (Verified Allergy, Intermediate, 01/30/19) sob, wheezing egg (Verified Allergy, Intermediate, 01/30/19) swelling meperidine HCl (Verified Allergy, Intermediate, 01/30/19) sob, wheezing propoxyphene HCl (Verified Allergy, Mild, 01/30/19) sob, wheezing topiramate (Verified Allergy, Mild, NAUSEA, 08/18/12) diarrhea, citalopram (Verified Allergy, Unknown, 12/14/18) metoprolol (Verified Adverse Reaction, Mild, 08/18/12) sob, wheezing Uncoded Allergies: honey bee venom (Allergy, Mild, 08/18/12) sob, wheezing EGGS (Allergy, Unknown, 04/05/19) TETANUS (Allergy, Unknown, 04/05/19) Patient Home Medication List Home Medication List Reviewed: Yes Albuterol Sulfate (Rx-Proventil Neb) 2.5 Mg/3 Ml Solution, 2.49 MG IH, (Reported) Entered as Reported by: ANGLE GARCIA on 08/18/12 1343 Aspirin (Lo-Dose Aspirin Ec) 81 Mg Tablet.dr, 81 MG PO DAILY, (Reported) Entered as Reported by: ANGLE GARCIA on 08/18/12 1343 Butalb/Acetaminophen/Caffeine (Rwpmuq-Otofbtwi-Ujss 50-325-40) 1 Each Tablet, 1 EACH PO Q4H PRN for HEADACHE Prescribed by: NATALYA CALZADA on 04/23/192033 Butalb/Acetaminophen/Caffeine (Kzkmxr-Rpgjocko-Otwh 50-325-40) 1 Each Tablet, 1 EACH PO Q6H Prescribed by: ALLISON OLMEDO on 01/11/20 165 Carvedilol (Carvedilol) 3.125 Mg Tablet, 1 EACH PO BID, (Reported) Entered as Reported by: ANGLE GARCIA on 08/18/12 1343 Cetirizine Hcl (Cetirizine Hcl) 10 Mg Tablet, 10 MG PO DAILY, (Reported) Entered as Reported by: ANGLE GARCIA on 08/18/12 1343 Dexamethasone (Decadron) 4 Mg Tablet, 4 MG PO BID Prescribed by: GAVIN PEREZ on 10/04/202319 Dexamethasone (Decadron) 6 Mg Tablet, 6 MG PO DAILY Prescribed by: ALLYSON GUTIERREZ on 07/08/21 043 Doxycycline Hyclate (Doxycycline Hyclate) 100 Mg Tablet, 100 MG PO BID Prescribed by: GAVIN PEREZ on 04/05/19 213 Doxycycline Hyclate (Doxycycline Hyclate) 100 Mg Tablet, 100 MG PO BID Prescribed by: ALLYSON GUTIERREZ on 07/08/21 043 Doxycycline Hyclate (Doxycycline Hyclate) 100 Mg Tablet, 100 MG PO BID Prescribed by: LIZY JEAN BAPTISTE on 07/23/212010 Epinephrine (Epipen 2-Jatinder) 0.3 Mg/0.3 Ml Auto.injct, 0.3 MG IJ Q15M PRN for WHEEZING Prescribed by: NATALYA CALZADA on 01/30/192016 Epinephrine (Epipen 2-Jatinder) 0.3 Mg/0.3 Ml Auto.injct, 0.3 MG IJ Q20M Prescribed by: GAVIN PEREZ on 10/04/20 2320 Famotidine (Pepcid) 20 Mg Tablet, 20 MG PO DAILY Prescribed by: ALLISON OLMEDO on 07/16/19 1719 Famotidine (Pepcid) 20 Mg Tablet, 20 MG PO BID Prescribed by: GAVIN PEREZ on 08/10/19 184 Fluticasone Propionate (Flonase 0.05% Nasal [place]) 16 Gm [place], 2 SPRAYS NSEACH DAILY, (Reported) Entered as Reported by: ANGLE GARCIA on 08/18/12 1343 Hydroxyzine Pamoate (Hydroxyzine Pamoate) 25 Mg Capsule, 25 MG PO Q8 Prescribed by: GAVIN PEREZ on 08/10/19 184 Ipratropium [place] (Atrovent Inhaler) 12.9 Gm Aers, 12.9 GM INH Q6H, (Reported) Entered as Reported by: ANGLE GARCIA on 08/18/12 1343 Lorazepam (Ativan) 1 Mg Tablet, 1 EACH PO TID PRN, (Reported) Entered as Reported by: ANGLE GARCIA on 08/18/12 1343 Metoclopramide HCl (Metoclopramide HCl) 10 Mg Tablet, 10 MG PO DAILY PRN PRN for headache Prescribed by: ALLYSON GUTIERREZ on 05/03/21 1556 Montelukast Sodium (Montelukast Sodium) 10 Mg Tablet, 10 MG PO DAILY, (Reported) Entered as Reported by: ANGLE GARCIA on 08/18/12 1343 Nitroglycerin (Nitroglycerin) 0.3 Mg Tab.subl, 0.3 MG SL PRN, (Reported) Entered as Reported by: ANGLE GARCIA on 08/18/12 1343 Omeprazole (Prilosec 20 Mg) 20 Mg Capsule.dr, 20 MG PO DAILY, (Reported) Entered as Reported by: ANGLE GARCIA on 08/18/12 1343 Oxycodone HCl/Acetaminophen (Percocet 5-325 mg Tablet) 1 Each Tablet, 1 TAB PO Q6H Prescribed by: NITIN ZHAO on 02/09/21 1720 Salsalate (Disalcid) 500 Mg Tab, 1,000 MG PO TID, (Reported) Entered as Reported by: ANGLE GARCIA on 08/18/12 1343 [albuterol] , 2 PUFF INH QID, (Reported) Entered as Reported by: ANGLE GARCIA on 08/18/12 1343 [asmanex] , 220 MCG INH, (Reported) Entered as Reported by: ANGLE GARCIA on 08/18/12 1343 Review of Systems Review of Systems Constitutional: no symptoms reported EENTM: No Symptoms Reported Respiratory: No Symptoms Reported Cardiovascular: Other (chest tightness) Gastrointestinal: No Symptoms Reported Genitourinary: No Symptoms Reported Musculoskeletal: no symptoms reported Skin: no symptoms reported Psychiatric/Neurological: No Symptoms Reported Endocrine: No Symptoms Reported Hematologic/Lymphatic: No Symptoms Reported Past Kslitmx-Pgatek-Qkjcul Hx Patient Social History Tobacco Use?: Yes Tobacco type used: Cigars Smoking Status: Current Everyday Smoker Smokeless Tobacco Frequency: Never a User Use of E-Cig and/or Vaping dev: No Use of E-Cig and/or Vaping Ulisses: Never a User Substance use?: No Alcohol Use?: No Pt feels they are or have been: No Immunizations Up To Date Influenza Vaccine Up-to-Date: Yes; Up-to-Date Seasonal Allergies Seasonal Allergies: Yes Past Medical History Surgery/Hospitalization HX: HTN, Anxiety, COPD, Asthma, Hyperglycemia, elevated cholesterol, depression, LA Lt. shoulder, Rt. hip replacement, choley. Surgeries: Yes (heart cath, left shoulder surgery and right hip replacement) Gallbladder, Joint Replacement Respiratory: Yes Asthma, Chronic Bronchitis, COPD, Emphysema Currently Using CPAP: No Currently Using BIPAP: No Cardiac: Yes Heart Attack, Hypertension, Palpitations Neurological: Yes Headaches /Migraines Genitourinary: No Gastrointestinal: No Musculoskeletal: No Arthritis Endocrine: No HEENT: No Cancer: No Psychosocial: Yes Anxiety Integumentary: No Blood Disorders: No Physical Exam Vital Signs Vital Signs - First Documented 01/27/22 01/27/22 14:38 15:27 Temp 36.6 Pulse 70 Resp 14 B/P (MAP) 168/103 (124) O2 Delivery Room Air Capillary Refill : Height, Weight, BMI Height: 6'3.00" Weight: 197lbs. 0oz. 89.158177pr; 24.00 BMI Method:Stated General Appearance: No Apparent Distress HEENT: PERRL/EOMI Neck: Full Range of Motion Respiratory: Chest Non Tender, Lungs Clear, Normal Breath Sounds, No Accessory Muscle Use, No Respiratory Distress Cardiovascular: Regular Rate, Rhythm, No Edema, No Murmur Gastrointestinal: Normal Bowel Sounds, Non Tender, Soft Neurologic/Psychiatric: Alert, Oriented x3, No Motor/Sensory Deficits, Normal Mood/Affect Skin: Normal Color Progress/Results/Core Measures Results/Orders Lab Results Laboratory Tests Test 01/27/22 14:48 01/27/22 16:25 01/27/22 16:41 Range/Units White Blood Count 11.8 H 4.3-11.0 10^3/uL Red Blood Count 5.11 4.30-5.52 10^6/uL Hemoglobin 16.3 13.3-17.7 g/dL Hematocrit 45 40-54 % Mean Corpuscular Volume 89 80-99 fL Mean Corpuscular Hemoglobin 32 25-34 pg Mean Corpuscular Hemoglobin Concent 36 32-36 g/dL Red Cell Distribution Width 12.5 10.0-14.5 % Platelet Count 350 130-400 10^3/uL Mean Platelet Volume 9.3 9.0-12.2 fL Immature Granulocyte % (Auto) 0 % Neutrophils (%) (Auto) 62 42-75 % Lymphocytes (%) (Auto) 29 12-44 % Monocytes (%) (Auto) 6 0-12 % Eosinophils (%) (Auto) 3 0-10 % Basophils (%) (Auto) 1 0-10 % Neutrophils # (Auto) 7.3 1.8-7.8 10^3/uL Lymphocytes # (Auto) 3.4 1.0-4.0 10^3/uL Monocytes # (Auto) 0.7 0.0-1.0 10^3/uL Eosinophils # (Auto) 0.3 0.0-0.3 10^3/uL Basophils # (Auto) 0.1 0.0-0.1 10^3/uL Immature Granulocyte # (Auto) 0.0 0.0-0.1 10^3/uL Percent Immature Platelet Fraction 2.1 0.0-7.6 % Prothrombin Time 12.4 12.2-14.7 SEC INR Comment 0.9 0.8-1.4 Activated Partial Thromboplast Time 26 24-35 SEC D-Dimer 0.23 0.00-0.49 UG/ML Sodium Level 140 135-145 MMOL/L Potassium Level 4.1 3.6-5.0 MMOL/L Chloride Level 101 98-107 MMOL/L Carbon Dioxide Level 24 21-32 MMOL/L Anion Gap 15 H 5-14 MMOL/L Blood Urea Nitrogen 15 7-18 MG/DL Creatinine 0.90 0.60-1.30 MG/DL Estimat Glomerular Filtration Rate 97 BUN/Creatinine Ratio 17 Glucose Level 101 70-105 MG/DL Calcium Level 9.0 8.5-10.1 MG/DL Corrected Calcium 8.6 8.5-10.1 MG/DL Magnesium Level 1.9 1.6-2.4 MG/DL Total Bilirubin 0.6 0.1-1.0 MG/DL Aspartate Amino Transf (AST/SGOT) 15 5-34 U/L Alanine Aminotransferase (ALT/SGPT) 16 0-55 U/L Alkaline Phosphatase 113 40-136 U/L Troponin I < 0.30 < 0.30 <0.30 NG/ML Pro-B-Type Natriuretic Peptide 45.5 <75.0 PG/ML Total Protein 6.6 6.4-8.2 GM/DL Albumin 4.5 3.2-4.5 GM/DL Urine Color YELLOW Urine Clarity CLEAR Urine pH 7.0 5-9 Urine Specific [place] 1.015 L 1.016-1.022 Urine Protein NEGATIVE NEGATIVE Urine Glucose (UA) NEGATIVE NEGATIVE Urine Ketones NEGATIVE NEGATIVE Urine Nitrite NEGATIVE NEGATIVE Urine Bilirubin NEGATIVE NEGATIVE Urine Urobilinogen 0.2 < = 1.0 MG/DL Urine Leukocyte Esterase NEGATIVE NEGATIVE Urine RBC (Auto) NEGATIVE NEGATIVE Urine RBC 2-5 H /HPF Urine WBC RARE /HPF Urine Squamous Epithelial Cells RARE /HPF Urine Crystals NONE /LPF Urine Bacteria NEGATIVE /HPF Urine Casts NONE /LPF Urine Mucus NEGATIVE /LPF Urine Culture Indicated NO My Orders Orders - DEREJE HESS MD Cbc With Automated Diff (01/27/22 15:10) Magnesium (01/27/22 15:10) Chest 1 View Ap/Pa Only (01/27/22 15:10) Ekg Tracing (01/27/22 15:10) Comprehensive Metabolic Panel (01/27/22 15:10) Protime With Inr (01/27/22 15:10) Partial Thromboplastin Time (01/27/22 15:10) O2 (01/27/22 15:10) Monitor-Rhythm Ecg Trace Only (01/27/22 15:10) Aspirin Chewable Tablet (Baby Aspirin Ch (01/27/22 15:10) Nitroglycerin 0.4 Mg Btl 25's (Nitrostat (01/27/22 15:15) Ed Iv/Invasive Line Start (01/27/22 15:10) Fibrin Degradation Products (01/27/22 15:10) Troponin I Fs (01/27/22 15:10) Probnp Fs (01/27/22 15:10) Ua Culture If Indicated (01/27/22 16:17) Troponin I Fs (01/27/22 16:18) Ekg Tracing (01/27/22 16:28) Medications Given in ED Current Medications Medications Dose Ordered Sig/Viv Route Start Time Stop Time Status Last Admin Dose Admin Nitroglycerin 0.4 mg UD PRN SL 01/27/22 15:15 01/27/22 15:23 DC 01/27/22 15:21 0.4 MG Vital Signs/I&O 01/27/22 01/27/22 14:38 15:27 Temp 36.6 Pulse 70 Resp 14 B/P (MAP) 168/103 (124) O2 Delivery Room Air Blood Pressure Mean: 124 Progress Progress Note : Progress Note ACS RULE OUT/ HYPERTENSIVE URGENCY: - Troponin x2: normal - EKG: NSR x 2 - Labs unremarkable - WBC is 11.4, will check UA - CXR: normal - ASA 324mg STAT - Nitrate sublingual once STAT. BP improved with this. 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 Patient is informed that there is a possibility that disease and illness can evolve and change in acuity rapidly or slowly after patient is discharged from the ER. Precautionary advice given to the patient for immediate return to ER if symptoms worsen or do not resolve, and to seek emergency care sooner rather than later. Pt also advised on the importance of PCP follow up and compliance with management and follow up plan. Pt verbally expressed understanding. Initial ECG Impression Date: Jan 27, 2022 Initial ECG Impression Time: 14:42 Initial ECG Rate: 65 Initial ECG Rhythm: Normal Sinus Initial ECG Intervals: Normal Initial ECG Impression: Normal Initial ECG Comparisson: No Previous ECG Available EKG : EKG Time: 16:46 Rhythm: Normal Sinus Intervals: Normal ECG Impression: Normal Diagnostic Imaging Diagonstic Imaging: Xray Plain Films/CT/US/NM/MRI: chest Comments [facility]. [place], [place] NAME: EMILE CHENG [facility] REC#: [id number] PT STATUS: REG ER : 1960 PHYSICIAN: DEREJE HESS MD ADMIT DATE: 01/27/22/ER FS Draft Date of Exam:01/27/22 CHEST 1 VIEW AP/PA ONLY INDICATION: Elevated blood pressure and chest tightness. TIME OF EXAM: 03:56 p.m. COMPARISON: Correlation is made with prior chest from 07/08/2021. FINDING: The heart size is normal. The pulmonary vascularity is unremarkable. The lungs are clear. No infiltrate, effusion or pneumothorax is detected. IMPRESSION: No acute cardiopulmonary process is detected. Dictated on workstation # [id number] Dict: 01/27/22 1618 Trans: 01/27/22 1630 [id number] Interpreted by: GAYLE ADKINS MD Electronically signed by: Departure Impression Primary Impression: Ruled out for myocardial infarction Additional Impression: Hypertensive urgency Disposition: 01 HOME, SELF-CARE Condition: Improved Departure-Patient Inst. Referrals: JULIA HERRERA MD (PCP) Primary Care Physician Patient Instructions: High Blood Pressure (DC), Chest Pain (DC) Add. Discharge Instructions: - F/u with PCP and embedded software developer within 3 to 5 days -The patient was seen in the ED, and treated appropriately to presentation at a specific point in time. Patient is informed that there is a possibility that disease and illness can evolve and change in acuity rapidly or slowly after patient is discharged from the ER. Precautionary advice given to the patient for immediate return to ER if symptoms worsen or do not resolve, and to seek emergency care sooner rather than later. Pt also advised on the importance of PCP follow up and compliance with management and follow up plan. Pt verbally expressed understanding. All discharge instructions reviewed with patient and/or family. Voiced understanding. DEREJE HESS MD Jan 27, 2022 16:27
--- NOTE | 2022-01-27 16:30 | Diagnostic Imaging Report ---
INDICATION: Elevated blood pressure and chest tightness. TIME OF EXAM: 03:56 p.m. COMPARISON: Correlation is made with prior chest from 07/08/2021. FINDING: The heart size is normal. The pulmonary vascularity is unremarkable. The lungs are clear. No infiltrate, effusion or pneumothorax is detected. IMPRESSION: No acute cardiopulmonary process is detected. Dictated by: Dictated on workstation # [id number]
[2022-01-27 17:02] LABS: BACTERIA,URINE NEGATIVE /HPF; BILIRUBIN,URINE NEGATIVE (NEGATIVE); CLARITY,URINE CLEAR; COLOR,URINE YELLOW; GLUCOSE, URINE (UA) NEGATIVE (NEGATIVE); KETONES,URINE NEGATIVE (NEGATIVE); LEUKOCYTE ESTERASE ,URINE NEGATIVE (NEGATIVE); NITRITE,URINE NEGATIVE (NEGATIVE); PROTEIN,URINE NEGATIVE (NEGATIVE); WBC,URINE RARE /HPF
[2022-01-27 17:03] LABS: SQUAMOUS EPITHELIAL CELL,UR RARE /HPF
[2022-01-27 17:45] VITALS: BP 159/98
== END 2022-01-27 17:46 | disposition home or self-care (01) ==
LOC: EDUNIT# 14:33 → ER FS 14:36
DX: I16.0 Hypertensive urgency (principal); F17.290 Nicotine dependence, other tobacco product, uncomplicated
CPT/HCPCS: 36415; 71045; 80053; 81000; 83735; 83880; 84484; 85025; 85379; 85610; 85730; 93005; 93041

== ENCOUNTER → 2022-02-20 | Outpatient (CLI) | payer MEDICARE ==
--- NOTE | 2022-02-20 10:47 | Diagnostic Imaging Report ---
PROCEDURE: MR imaging of the brain without contrast. TECHNIQUE: Multiplanar, multisequence MR imaging of the brain was performed without contrast. INDICATION: Recurrent migraine headaches and left lower extremity pain. FINDINGS: Ventricles and sulci are within normal limits for size. Franco and white matter signal intensities are unremarkable. There is no abnormal mass effect or shift of midline structures. No restricted diffusion is seen to indicate an infarct and there is no MRI evidence of hemorrhage. Flow-voids are seen in the expected locations at [place] of [place]. There is slight mural thickening within maxillary sinuses, sphenoid sinuses and ethmoid air cells. IMPRESSION: No acute abnormality seen in the brain. Minimal membrane thickening is seen within the visualized paranasal sinuses. Dictated by: Dictated on workstation # [id number]
== END ==
LOC: RAD 10:15
PROVIDERS: ATTEND Family Medicine
DX: G43.909 Migraine, unspecified, not intractable, without status migrainosus (principal); M79.605 Pain in left leg
CPT/HCPCS: 70551

== ENCOUNTER → 2022-03-05 | Outpatient (CLI) | payer MEDICARE | LOC: CARDFS 13:18 | PROVIDERS: ATTEND Internal Medicine Cardiovascular Disease | DX: I10 Essential (primary) hypertension (principal); I25.10 Atherosclerotic heart disease of native coronary artery without angina pectoris | CPT/HCPCS: 93306 ==

== ENCOUNTER 2022-03-31 02:33 | Emergency (ER) | payer MEDICARE ==
[~2022-03-31] VITALS: Ht 190.5 cm; Wt 89.9 kg
--- NOTE | 2022-03-31 02:50 | ED Respiratory ---
General Chief Complaint: Respiratory Problems Stated Complaint: ASTHMA ATTACK Nursing Triage Note: Pt reports difficulty breathing x 2 days. Hx of asthma and pt has use albuterol inhaler x 4. Pt is speaking in full sentances and oxygen is at 97% on RA. Pt denies CP, fever. History of Present Illness Date Seen by Provider: Mar 31, 2022 Time Seen by Provider: 02:50 Initial Comments 61-year-old male with PMH of asthma, chronic left AC separation/ Allergies and Home Medications Allergies Coded Allergies: ketorolac tromethamine (Verified Allergy, Severe, ANAPHYLAXIS, 01/30/19) prednisone (Verified Allergy, Severe, angry and agitated, 01/30/19) Penicillins (Verified Allergy, Intermediate, 01/30/19) sob, wheezing egg (Verified Allergy, Intermediate, 01/30/19) swelling meperidine HCl (Verified Allergy, Intermediate, 01/30/19) sob, wheezing propoxyphene HCl (Verified Allergy, Mild, 01/30/19) sob, wheezing topiramate (Verified Allergy, Mild, NAUSEA, 08/18/12) diarrhea, citalopram (Verified Allergy, Unknown, 12/14/18) metoprolol (Verified Adverse Reaction, Mild, 08/18/12) sob, wheezing Uncoded Allergies: honey bee venom (Allergy, Mild, 08/18/12) sob, wheezing EGGS (Allergy, Unknown, 04/05/19) TETANUS (Allergy, Unknown, 04/05/19) Patient Home Medication List Home Medication List Reviewed: Yes Albuterol Sulfate (Rx-Proventil Neb) 2.5 Mg/3 Ml Solution, 2.49 MG IH, (Reported) Entered as Reported by: ANGLE GARCIA on 08/18/12 1343 Aspirin (Lo-Dose Aspirin Ec) 81 Mg Tablet.dr, 81 MG PO DAILY, (Reported) Entered as Reported by: ANGLE GARCIA on 08/18/12 1343 Butalb/Acetaminophen/Caffeine (Beixvv-Ypecmmsc-Lmuh 50-325-40) 1 Each Tablet, 1 EACH PO Q4H PRN for HEADACHE Prescribed by: NATALYA CALZADA on 04/23/192033 Butalb/Acetaminophen/Caffeine (Ymndbc-Gzkinhau-Oazl 50-325-40) 1 Each Tablet, 1 EACH PO Q6H Prescribed by: ALLISON OLMEDO on 01/11/20 1658 Carvedilol (Carvedilol) 3.125 Mg Tablet, 1 EACH PO BID, (Reported) Entered as Reported by: ANGLE GARCIA on 08/18/12 1343 Cetirizine Hcl (Cetirizine Hcl) 10 Mg Tablet, 10 MG PO DAILY, (Reported) Entered as Reported by: ANGLE GARCIA on 08/18/12 1343 Dexamethasone (Decadron) 4 Mg Tablet, 4 MG PO BID Prescribed by: GAVIN PEREZ on 10/04/20 232 Dexamethasone (Decadron) 6 Mg Tablet, 6 MG PO DAILY Prescribed by: ALLYSON GUTIERREZ on 07/08/21438 Doxycycline Hyclate (Doxycycline Hyclate) 100 Mg Tablet, 100 MG PO BID Prescribed by: GAVIN PEREZ on 04/05/192138 Doxycycline Hyclate (Doxycycline Hyclate) 100 Mg Tablet, 100 MG PO BID Prescribed by: ALLYSON GUTIERREZ on 07/08/21438 Doxycycline Hyclate (Doxycycline Hyclate) 100 Mg Tablet, 100 MG PO BID Prescribed by: LIZY JEAN BAPTISTE on 07/23/212010 Epinephrine (Epipen 2-Jatinder) 0.3 Mg/0.3 Ml Auto.injct, 0.3 MG IJ Q15M PRN for WHEEZING Prescribed by: NATALYA CALZADA on 01/30/192016 Epinephrine (Epipen 2-Jatinder) 0.3 Mg/0.3 Ml Auto.injct, 0.3 MG IJ Q20M Prescribed by: GAVIN PEREZ on 10/04/202319 Famotidine (Pepcid) 20 Mg Tablet, 20 MG PO DAILY Prescribed by: ALLISON OLMEDO on 07/16/19 1719 Famotidine (Pepcid) 20 Mg Tablet, 20 MG PO BID Prescribed by: GAVIN PEREZ on 08/10/19 184 Fluticasone Propionate (Flonase 0.05% Nasal [place]) 16 Gm [place], 2 SPRAYS NSEACH DAILY, (Reported) Entered as Reported by: ANGLE GARCIA on 08/18/12 1343 Hydroxyzine Pamoate (Hydroxyzine Pamoate) 25 Mg Capsule, 25 MG PO Q8 Prescribed by: GAVIN PEREZ on 08/10/19 184 Ipratropium [place] (Atrovent Inhaler) 12.9 Gm Aers, 12.9 GM INH Q6H, (Reported) Entered as Reported by: ANGLE GARCIA on 08/18/12 1343 Lorazepam (Ativan) 1 Mg Tablet, 1 EACH PO TID PRN, (Reported) Entered as Reported by: ANGLE GARCIA on 08/18/12 1343 Metoclopramide HCl (Metoclopramide HCl) 10 Mg Tablet, 10 MG PO DAILY PRN PRN for headache Prescribed by: ALLYSON GUTIERREZ on 05/03/21 1556 Montelukast Sodium (Montelukast Sodium) 10 Mg Tablet, 10 MG PO DAILY, (Reported) Entered as Reported by: ANGLE GARCIA on 08/18/12 1343 Nitroglycerin (Nitroglycerin) 0.3 Mg Tab.subl, 0.3 MG SL PRN, (Reported) Entered as Reported by: ANGLE GARCIA on 08/18/12 134 Omeprazole (Prilosec 20 Mg) 20 Mg Capsule.dr, 20 MG PO DAILY, (Reported) Entered as Reported by: ANGLE GARCIA on 08/18/12 134 Oxycodone HCl/Acetaminophen (Percocet 5-325 mg Tablet) 1 Each Tablet, 1 TAB PO Q6H Prescribed by: NITIN ZHAO on 02/09/21 1720 Salsalate (Disalcid) 500 Mg Tab, 1,000 MG PO TID, (Reported) Entered as Reported by: ANGLE GARCIA on 08/18/12 1343 [albuterol] , 2 PUFF INH QID, (Reported) Entered as Reported by: ANGLE GARCIA on 08/18/12 1343 [asmanex] , 220 MCG INH, (Reported) Entered as Reported by: ANGLE GARCIA on 08/18/12 1343 Review of Systems Review of Systems Constitutional: no symptoms reported EENTM: no symptoms reported Respiratory: wheezing Cardiovascular: no symptoms reported Gastrointestinal: no symptoms reported Genitourinary: no symptoms reported Musculoskeletal: muscle pain Skin: no symptoms reported Psychiatric/Neurological: Anxiety Hematologic/Lymphatic: No Symptoms Reported Immunological/Allergic: no symptoms reported Past Uvmxflq-Qvlxqu-Qbcmaj Hx Patient Social History Tobacco Use?: Yes Tobacco type used: Cigarettes Smoking Status: Current Everyday Smoker Use of E-Cig and/or Vaping dev: No Substance use?: No Alcohol Use?: No Pt feels they are or have been: No Immunizations Up To Date Influenza Vaccine Up-to-Date: Yes; Up-to-Date First/Initial COVID19 Vaccinat: denies Seasonal Allergies Seasonal Allergies: Yes Past Medical History Surgery/Hospitalization HX: HTN, Anxiety, COPD, Asthma, Hyperglycemia, elevated cholesterol, depression, [place] Lt. shoulder, Rt. hip replacement, choley. Surgeries: Yes (heart cath, left shoulder surgery and right hip replacement) Gallbladder, Joint Replacement Respiratory: Yes Asthma, Chronic Bronchitis, COPD, Emphysema Currently Using CPAP: No Currently Using BIPAP: No Cardiac: Yes Heart Attack, Hypertension, Palpitations Neurological: Yes Headaches /Migraines Genitourinary: No Gastrointestinal: No Musculoskeletal: No Arthritis Endocrine: No HEENT: No Cancer: No Psychosocial: Yes Anxiety Integumentary: No Blood Disorders: No Physical Exam Vital Signs - First Documented 03/31/22 02:40 Temp 36.3 Pulse 64 Resp 20 B/P (MAP) 162/117 (132) Pulse Ox 97 O2 Delivery Room Air Capillary Refill : Less Than 3 Seconds Height: 6'3.00" Weight: 197lbs. 0oz. [id number]; 24.00 BMI Method:Stated General Appearance: WD/WN, no apparent distress HEENT: PERRL/EOMI, normal ENT inspection Neck: full range of motion, supple Respiratory: chest non-tender, lungs clear, normal breath sounds, no respi ratory distress Cardiovascular: regular rate, rhythm, no edema, no gallop Gastrointestinal: non tender, soft Extremities: normal range of motion, non-tender, no pedal edema, no calf tenderness Neurologic/Psychiatric: alert, normal mood/affect, oriented x 3 Skin: normal color Lymphatic: no adenopathy Progress/Results/Core Measures Suspected Sepsis SIRS Temperature: Pulse: 64 Respiratory Rate: 20 Blood Pressure 162 /117 Mean: 132 Results/Orders My Orders Orders - DEREJE HESS MD Albuterol/Ipra Inhalation Soln (Duoneb I (03/31/22 03:00) Svn Small Volume Nebulizer (03/31/22 02:55) Acetaminophen Tablet (Tylenol Tablet) (03/31/22 03:00) Vital Signs/I&O 03/31/22 02:40 Temp 36.3 Pulse 64 Resp 20 B/P (MAP) 162/117 (132) Pulse Ox 97 O2 Delivery Room Air Capillary Refill : Less Than 3 Seconds Blood Pressure Mean: 132 Progress Note : Progress Note 1. ASTHMA,CONTROLLED: - Duo Neb - Pt has O2 sat of 98-9% . Pt is comfortable in the ER, O2 sat levels are 97 to 100% and pt speaking in complete sentences without any difficulties. No wheezing on physical exam. - Pt feels better with treatment - Follow up with PCP within 3 to 7 days - Use fan/ AC at home when it is hot outside. 2. ACUTE ON CHRONIC LEFT SHOULDER PAIN DUE TO CHRONIC LEFT AC SEPERATION - Tylenol 1000mg STAT - Pt does not want a sling. He has it at home Departure Impression Primary Impression: Asthma Qualified Codes: J45.20 - Mild intermittent asthma, uncomplicated Additional Impression: AC separation Qualified Codes: S43.102A - Unspecified dislocation of left acromiocla vicular joint, initial encounter Disposition: 01 HOME, SELF-CARE Condition: Stable Departure-Patient Inst. Referrals: JULIA HERREAR MD (PCP/Family) Primary Care Physician Patient Instructions: Asthma, Adult (DC), Medicines for Asthma, Asthma Action Plan, Avoiding Asthma Triggers, Inhalers Add. Discharge Instructions: - Follow up with PCP within 3 to 7 days - Use fan/ AC at home when it is hot outside. - Return to ER if symptoms worsening All discharge instructions reviewed with patient and/or family. Voiced understanding. DEREJE HESS MD Mar 31, 2022 02:50
[2022-03-31] MEDS ORDERED: RT-ALBUTEROL/IPRATROPIUM 3 ML (DUONEB) VIAL INH ONE (03:00)
[2022-03-31] MEDS ORDERED: ACETAMINOPHEN 500 MG TAB (TYLENOL) PO ONE (03:00)
[2022-03-31 03:25] VITALS: BP 127/79
== END 2022-03-31 03:25 | disposition home or self-care (01) ==
LOC: EDUNIT# 02:33 → ER FS 02:36
DX: S43.151A Posterior dislocation of right acromioclavicular joint, initial encounter (principal); J43.9 Emphysema, unspecified; F17.210 Nicotine dependence, cigarettes, uncomplicated; Z79.899 Other long term (current) drug therapy; X58.XXXA Exposure to other specified factors, initial encounter
CPT/HCPCS: 99283

== ENCOUNTER 2022-05-25 19:56 | Emergency (ER) | payer MEDICARE ==
[~2022-05-25] VITALS: Ht 192 cm; Wt 88.4 kg
[2022-05-25] MEDS ORDERED: PROMETHAZINE INJ 25 MG/ML (PHENERGAN) AMP IM STA (20:41)
[2022-05-25] MEDS ORDERED: ORPHENADRINE 60 MG/2 ML (NORFLEX) AMP (ED ONLY) IM STA (20:41)
[2022-05-25] MEDS ORDERED: diphenhydrAMINE 50 MG/ML INJ (BENADRYL) IM STA (20:41)
[2022-05-25] MEDS ORDERED: methylPREDNISolone 125 MG (Solu-MEDROL) VIAL IM STA (20:41)
--- NOTE | 2022-05-25 20:46 | ED Headache ---
General Chief Complaint: Head/Cervical Problems Stated Complaint: MIGRAINE,VOMITTING Nursing Triage Note: patient verbalized has cluster migraines, states COVID positive since 05-18, states hx of these types of migraines. Source: patient, old records History of Present Illness Date Seen by Provider: May 25, 2022 Time Seen by Provider: 20:11 Initial Comments 61-year-old male presenting with complaints of ocular and cluster migraine headache to the left side of his head. He states that this started earlier today. He has taken Zofran to help with the nausea and vomiting at home. He was continuing to have pain and symptoms are not improving so he came to the emergency department. He states when his headaches get this bad he has to get shots and that helps the migraines go away. Usually he gets a combination of Phenergan with Benadryl. He occasionally also gets Solu-Medrol IM but does not tolerate prednisone. He has gotten Norflex when he has neck spasms or neck pain as well. Timing/Duration: 24 hours Severity/Quality: severe Location: parietal (Left side) Prior Headaches/Recent Trauma: frequent headaches, chronic headaches Modifying Factors: worse with exposure to light Associated Symptoms: No confusion; fatigue; No facial pain, No fever/chills, No flushing, No loss of consciousness; nausea/vomiting; No nasal congestion, No nasal drainage, No numbness in legs/feet, No rash, No seizures, No sinus infection; stiff neck; No vision changes, No weakness Allergies and Home Medications Allergies Coded Allergies: ketorolac tromethamine (Verified Allergy, Severe, ANAPHYLAXIS, 01/30/19) prednisone (Verified Allergy, Severe, angry and agitated, 01/30/19) Penicillins (Verified Allergy, Intermediate, 01/30/19) sob, wheezing egg (Verified Allergy, Intermediate, 01/30/19) swelling meperidine HCl (Verified Allergy, Intermediate, 01/30/19) sob, wheezing propoxyphene HCl (Verified Allergy, Mild, 01/30/19) sob, wheezing topiramate (Verified Allergy, Mild, NAUSEA, 08/18/12) diarrhea, citalopram (Verified Allergy, Unknown, 12/14/18) metoprolol (Verified Adverse Reaction, Mild, 08/18/12) sob, wheezing Uncoded Allergies: honey bee venom (Allergy, Mild, 08/18/12) sob, wheezing EGGS (Allergy, Unknown, 04/05/19) TETANUS (Allergy, Unknown, 04/05/19) Patient Home Medication List Home Medication List Reviewed: Yes Albuterol Sulfate (Rx-Proventil Neb) 2.5 Mg/3 Ml Solution, 2.49 MG IH, (Reported) Entered as Reported by: ANGLE GARCIA on 08/18/12 1343 Aspirin (Lo-Dose Aspirin Ec) 81 Mg Tablet.dr, 81 MG PO DAILY, (Reported) Entered as Reported by: ANGLE GARCIA on 08/18/12 1343 Butalb/Acetaminophen/Caffeine (Xlzewc-Lgkclsbv-Sdpd 50-325-40) 1 Each Tablet, 1 EACH PO Q4H PRN for HEADACHE Prescribed by: NATALYA CALZADA on 04/23/192033 Butalb/Acetaminophen/Caffeine (Aevvmj-Mzrbpuxa-Tctq 50-325-40) 1 Each Tablet, 1 EACH PO Q6H Prescribed by: ALLISON OLMEDO on 01/11/20 1658 Carvedilol (Carvedilol) 3.125 Mg Tablet, 1 EACH PO BID, (Reported) Entered as Reported by: ANGLE GARCIA on 08/18/12 1343 Cetirizine Hcl (Cetirizine Hcl) 10 Mg Tablet, 10 MG PO DAILY, (Reported) Entered as Reported by: ANGLE GARCIA on 08/18/12 1343 Dexamethasone (Decadron) 4 Mg Tablet, 4 MG PO BID Prescribed by: GAVIN PEREZ on 10/04/20 2320 Dexamethasone (Decadron) 6 Mg Tablet, 6 MG PO DAILY Prescribed by: ALLYSON GUTIERREZ on 07/08/21438 Doxycycline Hyclate (Doxycycline Hyclate) 100 Mg Tablet, 100 MG PO BID Prescribed by: GAVIN PEREZ on 04/05/192138 Doxycycline Hyclate (Doxycycline Hyclate) 100 Mg Tablet, 100 MG PO BID Prescribed by: ALLYSON GUTIERREZ on 07/08/21438 Doxycycline Hyclate (Doxycycline Hyclate) 100 Mg Tablet, 100 MG PO BID Prescribed by: LIZY JEAN BAPTISTE on 07/23/212010 Epinephrine (Epipen 2-Jatinder) 0.3 Mg/0.3 Ml Auto.injct, 0.3 MG IJ Q15M PRN for WHEEZING Prescribed by: NATALYA CALZADA on 01/30/19 2017 Epinephrine (Epipen 2-Jatinder) 0.3 Mg/0.3 Ml Auto.injct, 0.3 MG IJ Q20M Prescribed by: GAVIN PEREZ on 10/04/20 2320 Famotidine (Pepcid) 20 Mg Tablet, 20 MG PO DAILY Prescribed by: ALLISON OLMEDO on 07/16/19 1719 Famotidine (Pepcid) 20 Mg Tablet, 20 MG PO BID Prescribed by: GAVIN PEREZ on 08/10/19 184 Fluticasone Propionate (Flonase 0.05% Nasal [place]) 16 Gm [place], 2 SPRAYS NSEACH DAILY, (Reported) Entered as Reported by: ANGLE GARCIA on 08/18/12 1343 Hydroxyzine Pamoate (Hydroxyzine Pamoate) 25 Mg Capsule, 25 MG PO Q8 Prescribed by: GAVIN PEREZ on 08/10/19 184 Ipratropium [place] (Atrovent Inhaler) 12.9 Gm Aers, 12.9 GM INH Q6H, (Reported) Entered as Reported by: ANGLE GARCIA on 08/18/12 1343 Lorazepam (Ativan) 1 Mg Tablet, 1 EACH PO TID PRN, (Reported) Entered as Reported by: ANGLE GARCIA on 08/18/12 1343 Metoclopramide HCl (Metoclopramide HCl) 10 Mg Tablet, 10 MG PO DAILY PRN PRN for headache Prescribed by: ALLYSON GUTIERREZ on 05/03/21 1556 Montelukast Sodium (Montelukast Sodium) 10 Mg Tablet, 10 MG PO DAILY, (Reported) Entered as Reported by: ANGLE GARCIA on 08/18/12 1343 Nitroglycerin (Nitroglycerin) 0.3 Mg Tab.subl, 0.3 MG SL PRN, (Reported) Entered as Reported by: ANGLE GARCIA on 08/18/12 1343 Omeprazole (Prilosec 20 Mg) 20 Mg Capsule.dr, 20 MG PO DAILY, (Reported) Entered as Reported by: ANGLE GARCIA on 08/18/12 1343 Oxycodone HCl/Acetaminophen (Percocet 5-325 mg Tablet) 1 Each Tablet, 1 TAB PO Q6H Prescribed by: NITIN ZHAO on 02/09/21 1720 Salsalate (Disalcid) 500 Mg Tab, 1,000 MG PO TID, (Reported) Entered as Reported by: ANGLE GARCIA on 08/18/12 1343 [albuterol] , 2 PUFF INH QID, (Reported) Entered as Reported by: ANGLE GARCIA on 08/18/12 1343 [asmanex] , 220 MCG INH, (Reported) Entered as Reported by: ANGLE GARCIA on 08/18/12 1343 Review of Systems Review of Systems Constitutional: No chills, No diaphoresis, No dizziness, No fever Eyes: Denies Blindness, Denies Blurred Vision; Photophobia; Denies Tunnel Vision, Denies Vision Changes Ears, Nose, Mouth, Throat: denies ear pain, denies ear discharge, denies nose pain, denies nose discharge, denies epistaxis, denies mouth pain, denies mouth swelling Respiratory: cough (Chronic from COPD as well as recent COVID infection) Cardiovascular: no symptoms reported Gastrointestinal: nausea, vomiting Genitourinary: No dysuria Musculoskeletal: neck pain (Muscle spasms in his neck) Skin: No rash Psychiatric/Neurological: See HPI Past Vnctaqr-Rngqsw-Lzjqwa Hx Immunizations Up To Date First/Initial COVID19 Vaccinat: denies Second COVID19 Vaccination [place]: denies Third COVID19 Vaccination Date: denies Seasonal Allergies Seasonal Allergies: Yes Past Medical History Surgery/Hospitalization HX: HTN, Anxiety, COPD, Asthma, Hyperglycemia, elevated cholesterol, depression, [place] Lt. shoulder, Rt. hip replacement, choley. Surgeries: Yes (heart cath, left shoulder surgery and right hip replacement) Gallbladder, Joint Replacement Respiratory: Yes Asthma, Chronic Bronchitis, COPD, Emphysema Currently Using CPAP: No Currently Using BIPAP: No Cardiac: Yes Heart Attack, Hypertension, Palpitations Neurological: Yes Headaches /Migraines Genitourinary: No Gastrointestinal: No Musculoskeletal: No Arthritis Endocrine: No HEENT: No Cancer: No Psychosocial: Yes Anxiety Integumentary: No Blood Disorders: No Physical Exam Vital Signs Vital Signs - First Documented 05/25/22 20:05 Temp 36.7 Pulse 69 Resp 20 B/P (MAP) 158/89 (112) Pulse Ox 96 O2 Delivery Room Air Capillary Refill : Less Than 3 Seconds Height, Weight, BMI Height: 6'3.00" Weight: 197lbs. 0oz. 89.561560fq; 23.00 BMI Method:Stated General Appearance: moderate distress, thin HEENT: PERRL/EOMI, normal ENT inspection, TMs normal, pharynx normal Neck: non-tender, full range of motion, supple, normal inspection, tender lateral (Paraspinal muscle spasms) Cardiovascular: normal peripheral pulses, regular rate, rhythm Respiratory: chest non-tender, lungs clear, normal breath sounds, no respiratory distress, no accessory muscle use Extremities: normal range of motion, non-tender, normal capillary refill Psychiatric: alert, oriented x 3 Cra[place] Nerves: normal speech, PERRL Coordination/Gait: normal gait Motor/Sensory: no motor deficit, no sensory deficit Skin: normal color, warm/dry Progress/Results/Core Measures Results/Orders My Orders Orders - TOOTIE PAEZ MD Orphenadrine Inj (Ed Only) (Norflex Inje (05/25/22 20:41) Diphenhydramine Injection (Benadryl Inje (05/25/22 20:41) Promethazine Injection (Phenergan Injec (05/25/22 20:41) Methylprednisolone Sod Succ (Solu-Medrol (05/25/22 20:41) Vital Signs/I&O 05/25/22 05/25/22 20:05 21:06 Temp 36.7 36.7 Pulse 69 69 Resp 20 20 B/P (MAP) 158/89 (112) 158/89 Pulse Ox 96 96 O2 Delivery Room Air Room Air Blood Pressure Mean: 112 Progress Progress Note : Progress Note Since patient reports that this feels similar to his chronic and regular migraine headaches and cluster headaches well try treating with medications that have worked in the past. Treat with Phenergan 25 mg IM, Benadryl 25 mg IM, Solu-Medrol 125 mg IM, Norflex 60 mg IM. Counseled to go home and rest in a cool dark room. Continue with regular medications. Check back through the clinic for continued concerns Departure Impression Primary Impression: Migraine headache Qualified Codes: G43.919 - Migraine, unspecified, intractable, without status migrainosus Additional Impression: Cluster headache Qualified Codes: G44.011 - Episodic cluster headache, intractable Disposition: 01 HOME, SELF-CARE Condition: Stable Departure-Patient Inst. Decision time for Depature: 20:45 Referrals: JULIA HERRERA MD (PCP/Family) Primary Care Physician Patient Instructions: Headache, Adult ED Add. Discharge Instructions: rest in a cool dark room Follow up with clinic for continued concerns All discharge instructions reviewed with patient and/or family. Voiced understanding. Work/School Note: Work Release Form Date Seen in the Emergency Department: May 25, 2022 Return to Work: May 27, 2022 Restrictions: No Restrictions TOOTIE PAEZ MD May 25, 2022 20:46
[2022-05-25 21:06] VITALS: BP 158/89
== END 2022-05-25 21:07 | disposition home or self-care (01) ==
LOC: EDUNIT# 19:56 → ER FS 19:58
DX: G43.909 Migraine, unspecified, not intractable, without status migrainosus (principal); Z28.310 Unvaccinated for COVID-19
CPT/HCPCS: 99284

== ENCOUNTER 2022-07-16 19:56 | Emergency (ER) | payer MEDICARE ==
[~2022-07-16] VITALS: Ht 195 cm; Wt 87.7 kg
--- NOTE | 2022-07-16 20:06 | ED Headache ---
General Chief Complaint: Head/Cervical Problems Stated Complaint: MIGRAINE,LOWER BACK AND NECK PAIN,VOMITTING History of Present Illness Date Seen by Provider: Jul 16, 2022 Time Seen by Provider: 20:06 Initial Comments 61-year-old male with PMH of migraine, is here with complaints of migraine which began yesterday. Patient has associated nausea and photophobia. Patient states that he has come into the ER to get a migraine cocktail like usually does. Patient has multiple drug allergies including Toradol. Denies fever, chills, abdominal pain, diarrhea, dizziness. Allergies and Home Medications Allergies Coded Allergies: ketorolac tromethamine (Verified Allergy, Severe, ANAPHYLAXIS, 01/30/19) prednisone (Verified Allergy, Severe, angry and agitated, 01/30/19) Penicillins (Verified Allergy, Intermediate, 01/30/19) sob, wheezing egg (Verified Allergy, Intermediate, 01/30/19) swelling meperidine HCl (Verified Allergy, Intermediate, 01/30/19) sob, wheezing propoxyphene HCl (Verified Allergy, Mild, 01/30/19) sob, wheezing topiramate (Verified Allergy, Mild, NAUSEA, 08/18/12) diarrhea, citalopram (Verified Allergy, Unknown, 12/14/18) metoprolol (Verified Adverse Reaction, Mild, 08/18/12) sob, wheezing Uncoded Allergies: honey bee venom (Allergy, Mild, 08/18/12) sob, wheezing EGGS (Allergy, Unknown, 04/05/19) TETANUS (Allergy, Unknown, 04/05/19) Patient Home Medication List Home Medication List Reviewed: Yes Albuterol Sulfate (Rx-Proventil Neb) 2.5 Mg/3 Ml Solution, 2.49 MG IH, (Reported) Entered as Reported by: ANGLE GARCIA on 08/18/12 1343 Aspirin (Lo-Dose Aspirin Ec) 81 Mg Tablet.dr, 81 MG PO DAILY, (Reported) Entered as Reported by: ANGLE GARCIA on 08/18/12 1343 Butalb/Acetaminophen/Caffeine (Smublj-Txriiohc-Bhjd 50-325-40) 1 Each Tablet, 1 EACH PO Q4H PRN for HEADACHE Prescribed by: NATALYA CALZADA on 04/23/192033 Butalb/Acetaminophen/Caffeine (Lhwsdv-Tdbstzqg-Zyaf 50-325-40) 1 Each Tablet, 1 EACH PO Q6H Prescribed by: ALLISON OLMEDO on 01/11/20 1658 Carvedilol (Carvedilol) 3.125 Mg Tablet, 1 EACH PO BID, (Reported) Entered as Reported by: ANGLE GARCIA on 08/18/12 1343 Cetirizine Hcl (Cetirizine Hcl) 10 Mg Tablet, 10 MG PO DAILY, (Reported) Entered as Reported by: ANGLE GARCIA on 08/18/12 134 Dexamethasone (Decadron) 4 Mg Tablet, 4 MG PO BID Prescribed by: GAVIN PEREZ on 10/04/20 232 Dexamethasone (Decadron) 6 Mg Tablet, 6 MG PO DAILY Prescribed by: ALLYSON GUTIERREZ on 07/08/21438 Doxycycline Hyclate (Doxycycline Hyclate) 100 Mg Tablet, 100 MG PO BID Prescribed by: GAVIN PEREZ on 04/05/192138 Doxycycline Hyclate (Doxycycline Hyclate) 100 Mg Tablet, 100 MG PO BID Prescribed by: ALLYSON GUTIERREZ on 07/08/21438 Doxycycline Hyclate (Doxycycline Hyclate) 100 Mg Tablet, 100 MG PO BID Prescribed by: LIZY JEAN BAPTISTE on 07/23/212010 Epinephrine (Epipen 2-Jatinder) 0.3 Mg/0.3 Ml Auto.injct, 0.3 MG IJ Q15M PRN for WHEEZING Prescribed by: NATALYA CALZADA on 01/30/192016 Epinephrine (Epipen 2-Jatinder) 0.3 Mg/0.3 Ml Auto.injct, 0.3 MG IJ Q20M Prescribed by: GAVIN PEREZ on 10/04/202319 Famotidine (Pepcid) 20 Mg Tablet, 20 MG PO DAILY Prescribed by: ALLISON OLMEDO on 07/16/19 171 Famotidine (Pepcid) 20 Mg Tablet, 20 MG PO BID Prescribed by: GAVIN PEREZ on 08/10/19 184 Fluticasone Propionate (Flonase 0.05% Nasal [place]) 16 Gm [place], 2 SPRAYS NSEACH DAILY, (Reported) Entered as Reported by: ANGLE GARCIA on 08/18/12 1343 Hydroxyzine Pamoate (Hydroxyzine Pamoate) 25 Mg Capsule, 25 MG PO Q8 Prescribed by: GAVIN PEREZ on 08/10/19 184 Ipratropium [place] (Atrovent Inhaler) 12.9 Gm Aers, 12.9 GM INH Q6H, (Reported) Entered as Reported by: ANGLE GARCIA on 08/18/12 1343 Lorazepam (Ativan) 1 Mg Tablet, 1 EACH PO TID PRN, (Reported) Entered as Reported by: ANGLE GARCIA on 08/18/12 134 Metoclopramide HCl (Metoclopramide HCl) 10 Mg Tablet, 10 MG PO DAILY PRN PRN for headache Prescribed by: ALLYSON GUTIERREZ on 05/03/21 1556 Montelukast Sodium (Montelukast Sodium) 10 Mg Tablet, 10 MG PO DAILY, (Reported) Entered as Reported by: ANGLE GARCIA on 08/18/12 134 Nitroglycerin (Nitroglycerin) 0.3 Mg Tab.subl, 0.3 MG SL PRN, (Reported) Entered as Reported by: ANGLE GARCIA on 08/18/12 134 Omeprazole (Prilosec 20 Mg) 20 Mg Capsule.dr, 20 MG PO DAILY, (Reported) Entered as Reported by: ANGLE GARCIA on 08/18/12 134 Oxycodone HCl/Acetaminophen (Percocet 5-325 mg Tablet) 1 Each Tablet, 1 TAB PO Q6H Prescribed by: NITIN ZHAO on 02/09/21 1720 Salsalate (Disalcid) 500 Mg Tab, 1,000 MG PO TID, (Reported) Entered as Reported by: ANGLE GARCIA on 08/18/12 1343 [albuterol] , 2 PUFF INH QID, (Reported) Entered as Reported by: ANGLE GARCIA on 08/18/12 1343 [asmanex] , 220 MCG INH, (Reported) Entered as Reported by: ANGLE GARCIA on 08/18/12 134 Review of Systems Review of Systems Constitutional: no symptoms reported Eyes: Photophobia Ears, Nose, Mouth, Throat: no symptoms reported Respiratory: no symptoms reported Cardiovascular: no symptoms reported Gastrointestinal: nausea Genitourinary: no symptoms reported Musculoskeletal: no symptoms reported Skin: no symptoms reported Psychiatric/Neurological: Headache Past Pjbiyvi-Vfxtrr-Nqbecc Hx Immunizations Up To Date First/Initial COVID19 Vaccinat: denies Second COVID19 Vaccination Allen: denies Third COVID19 Vaccination Date: denies Seasonal Allergies Seasonal Allergies: Yes Past Medical History Surgery/Hospitalization HX: HTN, Anxiety, COPD, Asthma, Hyperglycemia, elevated cholesterol, depression, [place] Lt. shoulder, Rt. hip replacement, choley. Surgeries: Yes (heart cath, left shoulder surgery and right hip replacement) Gallbladder, Joint Replacement Respiratory: Yes Asthma, Chronic Bronchitis, COPD, Emphysema Currently Using CPAP: No Currently Using BIPAP: No Cardiac: Yes Heart Attack, Hypertension, Palpitations Neurological: Yes Headaches /Migraines Genitourinary: No Gastrointestinal: No Musculoskeletal: No Arthritis Endocrine: No HEENT: No Cancer: No Psychosocial: Yes Anxiety Integumentary: No Blood Disorders: No Physical Exam Vital Signs Vital Signs - First Documented 07/16/22 20:06 Temp 36.5 Pulse 63 Resp 14 B/P (MAP) 111/83 (92) Capillary Refill : Height, Weight, BMI Height: 6'3.00" Weight: 197lbs. 0oz. 89.812534ih; 23.00 BMI Method:Stated General Appearance: WD/WN, no apparent distress HEENT: PERRL/EOMI Neck: non-tender, full range of motion, supple, normal inspection Cardiovascular: regular rate, rhythm Respiratory: lungs clear Back: normal inspection, no vertebral tenderness Psychiatric: alert, oriented x 3 Cra[place] Nerves: normal hearing, normal speech, PERRL Coordination/Gait: normal gait Motor/Sensory: no motor deficit, no sensory deficit Skin: normal color, warm/dry Lymphatic: no adenopathy Progress/Results/Core Measures Results/Orders My Orders Orders - DEREJE HESS MD Ondansetron Injection (Zofran Injectio (07/16/22 20:15) Diphenhydramine Injection (Benadryl Inje (07/16/22 20:15) Acetaminophen Tablet (Tylenol Tablet) (07/16/22 20:15) Medications Given in ED Current Medications Medications Dose Ordered Sig/Viv Route Start Time Stop Time Status Last Admin Dose Admin Acetaminophen 1,000 mg ONCE ONCE PO 07/16/22 20:15 07/16/22 20:19 DC 07/16/22 20:27 1,000 MG Diphenhydramine HCl 25 mg ONCE ONCE IM 07/16/22 20:15 07/16/22 20:19 DC 07/16/22 20:28 25 MG Ondansetron HCl 4 mg ONCE ONCE IM 07/16/22 20:15 07/16/22 20:19 DC 07/16/22 20:27 4 MG Vital Signs/I&O 07/16/22 20:06 Temp 36.5 Pulse 63 Resp 14 B/P (MAP) 111/83 (92) Progress Progress Note : Progress Note 1. MIGRAINE: - Tylenol 100mg/ Zofran 4mg im/ Benadryl 25mg im STAT in ER - Pt has multiple drug allergies including Toradol -Patient's pain level has improved from 07/27-02/24. -Advised patient to drink adequate water. Patient states he drinks 6 to 8 cups of coffee a day. Advised to cut down on the coffee due to caffeine induced headaches. Advised to cut down to 2 to 3 cups of coffee a day only. -Adequate sleep hygiene advised -Follow-up with PCP within 5 to 7 days for chronic migraine work-up management. -The patient was seen in the ED, and treated appropriately to presentation at a specific point in time. Patient is informed that there is a possibility that disease and illness can evolve and change in acuity rapidly or slowly after patient is discharged from the ER. Precautionary advice given to the patient for immediate return to ER if symptoms worsen or do not resolve, and to seek emergency care sooner rather than later. Pt also advised on the importance of PCP follow up and compliance with management and follow up plan with PCP and/or specialist, as this is part of the management plan. Pt verbally expressed unders tanding. Departure Impression Primary Impression: Migraine Qualified Codes: G43.119 - Migraine with aura, intractable, without status migrainosus Disposition: 01 HOME, SELF-CARE Condition: Improved Departure-Patient Inst. Referrals: JULIA HERRERA MD (PCP/Family) Primary Care Physician Patient Instructions: Migraines (DC) Add. Discharge Instructions: -Advised patient to drink adequate water. Patient states he drinks 6 to 8 cups of coffee a day. Advised to cut down on the coffee due to caffeine induced headaches. Advised to cut down to 2 to 3 cups of coffee a day only. -Adequate sleep hygiene advised -Follow-up with PCP within 5 to 7 days for chronic migraine work-up management. All discharge instructions reviewed with patient and/or family. Voiced understanding. DEREJE HESS MD Jul 16, 2022 20:06
[2022-07-16] MEDS ORDERED: diphenhydrAMINE 50 MG/ML INJ (BENADRYL) IM ONE (20:15)
[2022-07-16] MEDS ORDERED: ACETAMINOPHEN 500 MG TAB (TYLENOL) PO ONE (20:15)
[2022-07-16] MEDS ORDERED: ONDANSETRON 4 MG/2 ML (SDV) Z0FRAN IM ONE (20:15)
[2022-07-16 21:05] VITALS: BP 120/90
== END 2022-07-16 21:06 | disposition home or self-care (01) ==
LOC: EDUNIT# 19:56 → ER FS 19:57
DX: G43.909 Migraine, unspecified, not intractable, without status migrainosus (principal); Z28.310 Unvaccinated for COVID-19
CPT/HCPCS: 99284

== ENCOUNTER 2022-09-09 01:02 | Emergency (ER) | payer MEDICARE ==
[~2022-09-09] VITALS: Ht 185.4 cm; Wt 89.7 kg
[2022-09-09] MEDS ORDERED: diphenhydrAMINE 50 MG/ML INJ (BENADRYL) IV STA (01:09)
[2022-09-09] MEDS ORDERED: FAMOTIDINE 20MG/2ML IV (PEPCID) IV STA (01:09)
[2022-09-09] MEDS ORDERED: diphenhydrAMINE 50 MG/ML INJ (BENADRYL) ONE (01:13)
--- NOTE | 2022-09-09 01:13 | ED General ---
General Chief Complaint: Allergic Reaction Stated Complaint: THROAT SWELLING Nursing Triage Note: PATIENT COMPLAINT OF THROAT SWELLING. STATES FOR THE LAST TWO HOURS FEELS LIKE HIS THROAT IS SWELLING. PATIENT ABLE TO SWALLOW, NOT DROOLING. PATIENT STATS HE ATTEMPTED TO EAT BREAD TO COUNTER ACT THE SWELLING. PATIENT SOUNDS HORSE. History of Present Illness Date Seen by Provider: Sep 09, 2022 Time Seen by Provider: 01:06 Initial Comments 61-year-old male reports with concerns for possible throat swelling. Patient reports about 2-1/2 hours ago he ate horseradish and Tabasco mixed. That since then he has felt like his throat swelling has quite a bit up tenderness and pain. He tried to eat some bread to "counter to the swelling" patient is able to swallow without difficulty, no drooling, no wheezing or shortness of breath. Patient has no rash or other systemic complaints Allergies and Home Medications Allergies Coded Allergies: ketorolac tromethamine (Verified Allergy, Severe, ANAPHYLAXIS, 01/30/19) prednisone (Verified Allergy, Severe, angry and agitated, 01/30/19) Penicillins (Verified Allergy, Intermediate, 01/30/19) sob, wheezing egg (Verified Allergy, Intermediate, 01/30/19) swelling meperidine HCl (Verified Allergy, Intermediate, 01/30/19) sob, wheezing propoxyphene HCl (Verified Allergy, Mild, 01/30/19) sob, wheezing topiramate (Verified Allergy, Mild, NAUSEA, 08/18/12) diarrhea, citalopram (Verified Allergy, Unknown, 12/14/18) metoprolol (Verified Adverse Reaction, Mild, 08/18/12) sob, wheezing Uncoded Allergies: honey bee venom (Allergy, Mild, 08/18/12) sob, wheezing EGGS (Allergy, Unknown, 04/05/19) TETANUS (Allergy, Unknown, 04/05/19) Patient Home Medication List Home Medication List Reviewed: Yes Albuterol Sulfate (Rx-Proventil Neb) 2.5 Mg/3 Ml Solution, 2.49 MG IH, (Reported) Entered as Reported by: ANGLE GARCIA on 08/18/12 1343 Aspirin (Lo-Dose Aspirin Ec) 81 Mg Tablet.dr, 81 MG PO DAILY, (Reported) Entered as Reported by: ANGLE GARCIA on 08/18/12 1343 Butalb/Acetaminophen/Caffeine (Flgafe-Krofeaer-Hfns 50-325-40) 1 Each Tablet, 1 EACH PO Q4H PRN for HEADACHE Prescribed by: NATALYA CALZADA on 04/23/192033 Butalb/Acetaminophen/Caffeine (Awknez-Mugbhhgv-Pqjl 50-325-40) 1 Each Tablet, 1 EACH PO Q6H Prescribed by: ALLISON OLMEDO on 01/11/20 1658 Carvedilol (Carvedilol) 3.125 Mg Tablet, 1 EACH PO BID, (Reported) Entered as Reported by: ANGLE GARCIA on 08/18/12 1343 Cetirizine Hcl (Cetirizine Hcl) 10 Mg Tablet, 10 MG PO DAILY, (Reported) Entered as Reported by: ANGLE GARCIA on 08/18/12 1343 Dexamethasone (Decadron) 4 Mg Tablet, 4 MG PO BID Prescribed by: GAVIN PEREZ on 10/04/202319 Dexamethasone (Decadron) 6 Mg Tablet, 6 MG PO DAILY Prescribed by: ALLYSON GUTIERREZ on 07/08/21 043 Doxycycline Hyclate (Doxycycline Hyclate) 100 Mg Tablet, 100 MG PO BID Prescribed by: GAVIN PEREZ on 04/05/19 213 Doxycycline Hyclate (Doxycycline Hyclate) 100 Mg Tablet, 100 MG PO BID Prescribed by: ALLYSON GUTIERREZ on 07/08/21 043 Doxycycline Hyclate (Doxycycline Hyclate) 100 Mg Tablet, 100 MG PO BID Prescribed by: LIZY JEAN BAPTISTE on 07/23/212010 Epinephrine (Epipen 2-Jatinder) 0.3 Mg/0.3 Ml Auto.injct, 0.3 MG IJ Q15M PRN for WHEEZING Prescribed by: NATALYA CALZADA on 01/30/192016 Epinephrine (Epipen 2-Jatinder) 0.3 Mg/0.3 Ml Auto.injct, 0.3 MG IJ Q20M Prescribed by: GAVIN PEREZ on 10/04/20 232 Famotidine (Pepcid) 20 Mg Tablet, 20 MG PO DAILY Prescribed by: ALLISON OLMDEO on 07/16/19 171 Famotidine (Pepcid) 20 Mg Tablet, 20 MG PO BID Prescribed by: GAVIN PEREZ on 08/10/19 184 Fluticasone Propionate (Flonase 0.05% Nasal [place]) 16 Gm [place], 2 SPRAYS NSEACH DAILY, (Reported) Entered as Reported by: ANGLE GARCIA on 08/18/12 1343 Hydroxyzine Pamoate (Hydroxyzine Pamoate) 25 Mg Capsule, 25 MG PO Q8 Prescribed by: GAVIN PEREZ on 08/10/19 1841 Ipratropium [place] (Atrovent Inhaler) 12.9 Gm Aers, 12.9 GM INH Q6H, (Reported) Entered as Reported by: ANGLE GARCIA on 08/18/12 134 Lorazepam (Ativan) 1 Mg Tablet, 1 EACH PO TID PRN, (Reported) Entered as Reported by: ANGLE GARCIA on 08/18/12 134 Metoclopramide HCl (Metoclopramide HCl) 10 Mg Tablet, 10 MG PO DAILY PRN PRN for headache Prescribed by: ALLYSON GUTIERREZ on 05/03/21 1556 Montelukast Sodium (Montelukast Sodium) 10 Mg Tablet, 10 MG PO DAILY, (Reported) Entered as Reported by: ANGLE GARCIA on 08/18/12 134 Nitroglycerin (Nitroglycerin) 0.3 Mg Tab.subl, 0.3 MG SL PRN, (Reported) Entered as Reported by: ANGLE GARCIA on 08/18/12 134 Omeprazole (Prilosec 20 Mg) 20 Mg Capsule.dr, 20 MG PO DAILY, (Reported) Entered as Reported by: ANGLE GARCIA on 08/18/12 134 Oxycodone HCl/Acetaminophen (Percocet 5-325 mg Tablet) 1 Each Tablet, 1 TAB PO Q6H Prescribed by: NITIN ZHAO on 02/09/21 1720 Salsalate (Disalcid) 500 Mg Tab, 1,000 MG PO TID, (Reported) Entered as Reported by: ANGLE GARCIA on 08/18/12 134 [albuterol] , 2 PUFF INH QID, (Reported) Entered as Reported by: ANGLE GARCIA on 08/18/12 134 [asmanex] , 220 MCG INH, (Reported) Entered as Reported by: ANGLE GARCIA on 08/18/12 1343 Review of Systems Review of Systems Constitutional: No chills, No fever EENTM: see HPI, throat pain Respiratory: no symptoms reported Cardiovascular: no symptoms reported Gastrointestinal: no symptoms reported Genitourinary: no symptoms reported Musculoskeletal: no symptoms reported Skin: no symptoms reported Psychiatric/Neurological: No Symptoms Reported Past Bheyhcc-Brrkcl-Mclrss Hx Patient Social History Tobacco Use?: Yes Tobacco type used: Cigarettes Smoking Status: Current Everyday Smoker Immunizations Up To Date First/Initial COVID19 Vaccinat: denies Second COVID19 Vaccination Allen: denies Third COVID19 Vaccination Date: denies Seasonal Allergies Seasonal Allergies: Yes Past Medical History Surgery/Hospitalization HX: HTN, Anxiety, COPD, Asthma, Hyperglycemia, elevated cholesterol, depression, [place] Lt. shoulder, Rt. hip replacement, choley. Surgeries: Yes (heart cath, left shoulder surgery and right hip replacement) Gallbladder, Joint Replacement Respiratory: Yes Asthma, Chronic Bronchitis, COPD, Emphysema Currently Using CPAP: No Currently Using BIPAP: No Cardiac: Yes Heart Attack, Hypertension, Palpitations Neurological: Yes Headaches /Migraines Genitourinary: No Gastrointestinal: No Musculoskeletal: No Arthritis Endocrine: No HEENT: No Cancer: No Psychosocial: Yes Anxiety Integumentary: No Blood Disorders: No Physical Exam Vital Signs Vital Signs - First Documented 09/09/22 01:07 Temp 36.4 Pulse 72 Resp 20 B/P (MAP) 166/99 (121) Pulse Ox 100 O2 Delivery Room Air Capillary Refill : Less Than 3 Seconds Height, Weight, BMI Height: 6'3.00" Weight: 197lbs. 0oz. 89.651334bu; 26.00 BMI Method:Stated General Appearance: No Apparent Distress, WD/WN HEENT: Normal ENT Inspection, Pharynx Normal, Moist Mucous Membranes Neck: Non Tender, Supple Respiratory: Lungs Clear, Normal Breath Sounds Cardiovascular: Regular Rate, Rhythm, No Edema Gastrointestinal: Non Tender, Soft Extremity: Normal Capillary Refill, Normal Inspection Neurologic/Psychiatric: Alert, Oriented x3, No Motor/Sensory Deficits Skin: Normal Color, Warm/Dry Progress/Results/Core Measures Suspected Sepsis SIRS Temperature: Pulse: 72 Respiratory Rate: 20 Blood Pressure 166 /99 Mean: 121 Results/Orders My Orders Orders - LIZY JEAN BAPTISTE DO Ed Iv/Invasive Line Start (09/09/22 01:09) Diphenhydramine Injection (Benadryl Inje (09/09/22 01:09) Famotidine Injection (Pepcid Injection) (09/09/22 01:09) Antacid Suspension (Mylanta Suspension (09/09/22 01:15) Diphenhydramine Injection (Benadryl Inje (09/09/22 01:13) Medications Given in ED Current Medications Medications Dose Ordered Sig/Viv Route Start Time Stop Time Status Last Admin Dose Admin Al Hydrox/Mg Hydrox/Simethicone 30 ml ONCE ONCE PO 09/09/22 01:15 09/09/22 01:16 DC 09/09/22 01:18 30 ML Vital Signs/I&O 09/09/22 01:07 Temp 36.4 Pulse 72 Resp 20 B/P (MAP) 166/99 (121) Pulse Ox 100 O2 Delivery Room Air Capillary Refill : Less Than 3 Seconds Blood Pressure Mean: 121 Progress Note : Progress Note Patient is feeling much better following treatment. Patient was monitored for approximately an hour and a half in the ER with symptoms resolving. Suspect is likely more GERD or similar reaction from the horseradish and hot sauce. Patient stable discharged Departure Impression Primary Impression: Irritation of pharynx Disposition: HOME, SELF-CARE Condition: Stable Departure-Patient Inst. Referrals: JULIA HERRERA MD (PCP/Family) Primary Care Physician Add. Discharge Instructions: Pepcid 20 mg twice daily as needed. Follow-up with your primary care provider as needed All discharge instructions reviewed with patient and/or family. Voiced understanding. LIZY JEAN BAPTISTE DO Sep 09, 2022 01:13
[2022-09-09] MEDS ORDERED: ANTACID SUSP 30 ML UDC (MYLANTA) PO ONE (01:15)
[2022-09-09 03:10] VITALS: BP 166/99
== END 2022-09-09 03:11 | disposition home or self-care (01) ==
LOC: EDUNIT# 01:02 → ER FS 01:05
DX: J39.2 Other diseases of pharynx (principal); F17.210 Nicotine dependence, cigarettes, uncomplicated; Z28.310 Unvaccinated for COVID-19
CPT/HCPCS: 99283

== ENCOUNTER 2022-10-02 21:48 | Emergency (ER) | payer MEDICARE ==
--- NOTE | 2022-10-02 21:50 | ED Abdominal Pain ---
General Stated Complaint: ABD PAIN History of Present Illness Date Seen by Provider: Oct 02, 2022 Time Seen by Provider: 21:50 Initial Comments Patient with, mild abdominal pain described mid abdominal region. He reports that started a bit earlier today. He had a normal bowel movements morning. No nausea vomiting or diarrhea. No dysuria. No fever no chills. Patient does report that he had a baclofen today because his "hip was out" patient denies fevers chills or any other systemic complaints. Patient is not taking anything for the pain Allergies and Home Medications Allergies Coded Allergies: ketorolac tromethamine (Verified Allergy, Severe, ANAPHYLAXIS, 01/30/19) prednisone (Verified Allergy, Severe, angry and agitated, 01/30/19) Penicillins (Verified Allergy, Intermediate, 01/30/19) sob, wheezing egg (Verified Allergy, Intermediate, 01/30/19) swelling meperidine HCl (Verified Allergy, Intermediate, 01/30/19) sob, wheezing propoxyphene HCl (Verified Allergy, Mild, 01/30/19) sob, wheezing topiramate (Verified Allergy, Mild, NAUSEA, 08/18/12) diarrhea, citalopram (Verified Allergy, Unknown, 12/14/18) metoprolol (Verified Adverse Reaction, Mild, 08/18/12) sob, wheezing Uncoded Allergies: honey bee venom (Allergy, Mild, 08/18/12) sob, wheezing EGGS (Allergy, Unknown, 04/05/19) TETANUS (Allergy, Unknown, 04/05/19) Patient Home Medication List Home Medication List Reviewed: Yes Albuterol Sulfate (Rx-Proventil Neb) 2.5 Mg/3 Ml Solution, 2.49 MG IH, (Reporte d) Entered as Reported by: ANGLE GARCIA on 08/18/12 1343 Aspirin (Lo-Dose Aspirin Ec) 81 Mg Tablet.dr, 81 MG PO DAILY, (Reported) Entered as Reported by: ANGLE GARCIA on 08/18/12 1343 Butalb/Acetaminophen/Caffeine (Elzmpo-Lfypbksa-Sqgx 50-325-40) 1 Each Tablet, 1 EACH PO Q4H PRN for HEADACHE Prescribed by: NATALYA CALZADA on 04/23/192033 Butalb/Acetaminophen/Caffeine (Jjhgsu-Dhwbfqcu-Ufds 50-325-40) 1 Each Tablet, 1 EACH PO Q6H Prescribed by: ALLISON OLMEDO on 01/11/20 1658 Carvedilol (Carvedilol) 3.125 Mg Tablet, 1 EACH PO BID, (Reported) Entered as Reported by: ANGLE GARCIA on 08/18/12 1343 Cetirizine Hcl (Cetirizine Hcl) 10 Mg Tablet, 10 MG PO DAILY, (Reported) Entered as Reported by: ANGLE GARCIA on 08/18/12 1343 Dexamethasone (Decadron) 4 Mg Tablet, 4 MG PO BID Prescribed by: GAVIN PEREZ on 10/04/20 232 Dexamethasone (Decadron) 6 Mg Tablet, 6 MG PO DAILY Prescribed by: ALLYSON GUTIERREZ on 07/08/21438 Doxycycline Hyclate (Doxycycline Hyclate) 100 Mg Tablet, 100 MG PO BID Prescribed by: GAVIN PEREZ on 04/05/192138 Doxycycline Hyclate (Doxycycline Hyclate) 100 Mg Tablet, 100 MG PO BID Prescribed by: ALLYSON GUTIERREZ on 07/08/21438 Doxycycline Hyclate (Doxycycline Hyclate) 100 Mg Tablet, 100 MG PO BID Prescribed by: LIZY JEAN BAPTISTE on 07/23/212010 Epinephrine (Epipen 2-Jatinder) 0.3 Mg/0.3 Ml Auto.injct, 0.3 MG IJ Q15M PRN for WHEEZING Prescribed by: NATALYA CALZADA on 01/30/192016 Epinephrine (Epipen 2-Jatinder) 0.3 Mg/0.3 Ml Auto.injct, 0.3 MG IJ Q20M Prescribed by: GAVIN PEREZ on 10/04/202319 Famotidine (Pepcid) 20 Mg Tablet, 20 MG PO DAILY Prescribed by: ALLISON OLMEDO on 07/16/19 1719 Famotidine (Pepcid) 20 Mg Tablet, 20 MG PO BID Prescribed by: GAVIN PEREZ on 08/10/19 184 Fluticasone Propionate (Flonase 0.05% Nasal [place]) 16 Gm [place], 2 SPRAYS NSEACH DAILY, (Reported) Entered as Reported by: ANGLE GARCIA on 08/18/12 1343 Hydroxyzine Pamoate (Hydroxyzine Pamoate) 25 Mg Capsule, 25 MG PO Q8 Prescribed by: GAVIN PEREZ on 08/10/19 1841 Ipratropium [place] (Atrovent Inhaler) 12.9 Gm Aers, 12.9 GM INH Q6H, (Reported) Entered as Reported by: ANGLE GARCIA on 08/18/12 1343 Lorazepam (Ativan) 1 Mg Tablet, 1 EACH PO TID PRN, (Reported) Entered as Reported by: ANGLE GARCIA on 08/18/12 1343 Metoclopramide HCl (Metoclopramide HCl) 10 Mg Tablet, 10 MG PO DAILY PRN PRN for headache Prescribed by: ALLYSON GUTIERREZ on 05/03/21 1556 Montelukast Sodium (Montelukast Sodium) 10 Mg Tablet, 10 MG PO DAILY, (Reported) Entered as Reported by: ANGLE GARCIA on 08/18/12 1343 Nitroglycerin (Nitroglycerin) 0.3 Mg Tab.subl, 0.3 MG SL PRN, (Reported) Entered as Reported by: ANGLE GARCIA on 08/18/12 134 Omeprazole (Prilosec 20 Mg) 20 Mg Capsule.dr, 20 MG PO DAILY, (Reported) Entered as Reported by: ANGLE GARCIA on 08/18/12 1343 Oxycodone HCl/Acetaminophen (Percocet 5-325 mg Tablet) 1 Each Tablet, 1 TAB PO Q6H Prescribed by: NITIN ZHAO on 02/09/21 1720 Salsalate (Disalcid) 500 Mg Tab, 1,000 MG PO TID, (Reported) Entered as Reported by: ANGLE GARCIA on 08/18/12 1343 [albuterol] , 2 PUFF INH QID, (Reported) Entered as Reported by: ANGLE GARCIA on 08/18/12 1343 [asmanex] , 220 MCG INH, (Reported) Entered as Reported by: ANGLE GARCIA on 08/18/12 1343 Review of Systems Review of Systems Constitutional: no symptoms reported EENTM: No Symptoms Reported Respiratory: No Symptoms Reported Cardiovascular: No Symptoms Reported Gastrointestinal: See HPI, Abdominal Pain Genitourinary: No Symptoms Reported Musculoskeletal: no symptoms reported Skin: no symptoms reported Psychiatric/Neurological: No Symptoms Reported Past Abwawwf-Tytqpi-Jwhtza Hx Immunizations Up To Date First/Initial COVID19 Vaccinat: denies Second COVID19 Vaccination [place]: denies Third COVID19 Vaccination Date: denies Seasonal Allergies Seasonal Allergies: Yes Past Medical History Surgery/Hospitalization HX: HTN, Anxiety, COPD, Asthma, Hyperglycemia, elevated cholesterol, depression, [place] Lt. shoulder, Rt. hip replacement, choley. Surgeries: Yes (heart cath, left shoulder surgery and right hip replacement) Gallbladder, Joint Replacement Respiratory: Yes Asthma, Chronic Bronchitis, COPD, Emphysema Currently Using CPAP: No Currently Using BIPAP: No Cardiac: Yes Heart Attack, Hypertension, Palpitations Neurological: Yes Headaches /Migraines Genitourinary: No Gastrointestinal: No Musculoskeletal: No Arthritis Endocrine: No HEENT: No Cancer: No Psychosocial: Yes Anxiety Integumentary: No Blood Disorders: No Physical Exam Vital Signs Vital Signs - First Documented 10/02/22 21:50 Temp 36.4 Pulse 73 Resp 20 Pulse Ox 97 O2 Delivery Room Air Capillary Refill : Height/Weight/BMI Height: 6'3.00" Weight: 197lbs. 0oz. 89.302356tg; 26.00 BMI Method:Stated General Appearance: WD/WN, no apparent distress Neck: full range of motion, supple Respiratory: lungs clear, normal breath sounds Cardiovascular: normal peripheral pulses, regular rate, rhythm Gastrointestinal: soft; No distended, No guarding, No rebound Neurologic/Psychiatric: alert, normal mood/affect, oriented x 3 Skin: normal color, warm/dry Progress/Results/Core Measures Results/Orders Lab Results Laboratory Tests Test 10/02/22 21:56 10/02/22 23:00 Range/Units White Blood Count 10.2 4.3-11.0 10^3/uL Red Blood Count 4.85 4.30-5.52 10^6/uL Hemoglobin 15.3 13.3-17.7 g/dL Hematocrit 43 40-54 % Mean Corpuscular Volume 88 80-99 fL Mean Corpuscular Hemoglobin 32 25-34 pg Mean Corpuscular Hemoglobin Concent 36 32-36 g/dL Red Cell Distribution Width 12.3 10.0-14.5 % Platelet Count 310 130-400 10^3/uL Mean Platelet Volume 8.9 L 9.0-12.2 fL Immature Granulocyte % (Auto) 0 % Neutrophils (%) (Auto) 59 42-75 % Lymphocytes (%) (Auto) 28 12-44 % Monocytes (%) (Auto) 9 0-12 % Eosinophils (%) (Auto) 3 0-10 % Basophils (%) (Auto) 1 0-10 % Neutrophils # (Auto) 6.0 1.8-7.8 10^3/uL Lymphocytes # (Auto) 2.9 1.0-4.0 10^3/uL Monocytes # (Auto) 0.9 0.0-1.0 10^3/uL Eosinophils # (Auto) 0.3 0.0-0.3 10^3/uL Basophils # (Auto) 0.1 0.0-0.1 10^3/uL Immature Granulocyte # (Auto) 0.0 0.0-0.1 10^3/uL Sodium Level 132 L 135-145 MMOL/L Potassium Level 4.3 3.6-5.0 MMOL/L Chloride Level 98 98-107 MMOL/L Carbon Dioxide Level 24 21-32 MMOL/L Anion Gap 10 5-14 MMOL/L Blood Urea Nitrogen 11 7-18 MG/DL Creatinine 1.01 0.60-1.30 MG/DL Estimat Glomerular Filtration Rate 84 BUN/Creatinine Ratio 11 Glucose Level 132 H 70-105 MG/DL Calcium Level 9.3 8.5-10.1 MG/DL Corrected Calcium 8.5-10.1 MG/DL Total Bilirubin 0.8 0.1-1.0 MG/DL Aspartate Amino Transf (AST/SGOT) 18 5-34 U/L Alanine Aminotransferase (ALT/SGPT) 21 0-55 U/L Alkaline Phosphatase 116 40-136 U/L C-Reactive Protein < 0.30 <0.50 MG/DL Total Protein 7.0 6.4-8.2 GM/DL Albumin 4.6 H 3.2-4.5 GM/DL Lipase 28 8-78 U/L Urine Color DARK YELLOW Urine Clarity CLEAR Urine pH 7.5 5-9 Urine Specific [place] 1.010 L 1.016-1.022 Urine Protein NEGATIVE NEGATIVE Urine Glucose (UA) NEGATIVE NEGATIVE Urine Ketones NEGATIVE NEGATIVE Urine Nitrite NEGATIVE NEGATIVE Urine Bilirubin NEGATIVE NEGATIVE Urine Urobilinogen 0.2 < = 1.0 MG/DL Urine Leukocyte Esterase NEGATIVE NEGATIVE Urine RBC (Auto) NEGATIVE NEGATIVE Urine RBC 0-2 /HPF Urine WBC 5-10 H /HPF Urine Squamous Epithelial Cells NONE /HPF Urine Crystals NONE /LPF Urine Bacteria TRACE /HPF Urine Casts NONE /LPF Urine Mucus MODERATE H /LPF Urine Culture Indicated NO My Orders Orders - LIZY JEAN BAPTISTE DO Cbc With Automated Diff (10/02/22 21:54) Comprehensive Metabolic Panel (10/02/22 21:54) Lipase (10/02/22 21:54) Ua Culture If Indicated (10/02/22 21:54) Crp Fs (10/02/22 21:54) Acetaminophen Tablet (Tylenol Tablet) (10/02/22 21:54) Famotidine Tablet (Pepcid Tablet) (10/02/22 21:54) Ed Iv/Invasive Line Start (10/02/22 21:56) Vital Signs/I&O 10/02/22 10/02/22 21:50 23:12 Temp 36.4 36.4 Pulse 73 73 Resp 20 20 B/P (MAP) Pulse Ox 97 97 O2 Delivery Room Air Room Air Progress Progress Note : Progress Note Patient with benign labs. Patient does not show any signs of abdominal pain on exam and is comfortable throughout his stay. Patient with nonspecific abdominal pain. This time based on exam and labs do not feel any further imaging or work-up is warranted. Patient stable with return precautions given and discharged home. Departure Impression Primary Impression: Nonspecific abdominal pain Disposition: HOME, SELF-CARE Condition: Stable Departure-Patient Inst. Referrals: JULIA HERRERA MD (PCP/Family) Primary Care Physician Patient Instructions: Stomach Ache and Stomach Upset Add. Discharge Instructions: tylenol or ibuprofen as needed. follow up with your pcp LIZY JEAN BAPTISTE DO Oct 02, 2022 21:50
[2022-10-02] MEDS ORDERED: ACETAMINOPHEN 500 MG TAB (TYLENOL) PO STA (21:54)
[2022-10-02] MEDS ORDERED: FAMOTIDINE 20 MG (PEPCID) TABLET PO STA (21:54)
[2022-10-02 22:00] LABS: BASOPHILS # (AUTO) 0.1 10^3/uL (0.0-0.1); BASOPHILS % (AUTO) 1 % (0-10); EOSINOPHILS # (AUTO) 0.3 10^3/uL (0.0-0.3); EOSINOPHILS % (AUTO) 3 % (0-10); HEMATOCRIT 43 % (40-54); HEMOGLOBIN 15.3 g/dL (13.3-17.7); LYMPHOCYTES # (AUTO) 2.9 10^3/uL (1.0-4.0); LYMPHOCYTES % (AUTO) 28 % (12-44); MEAN CORPUSCULAR HEMOGLOBIN 32 pg (25-34); MEAN CORPUSCULAR HGB CONC 36 g/dL (32-36); MEAN CORPUSCULAR VOLUME 88 fL (80-99); MEAN PLATELET VOLUME 8.9 fL (9.0-12.2); MONOCYTES # (AUTO) 0.9 10^3/uL (0.0-1.0); MONOCYTES % (AUTO) 9 % (0-12); NEUTROPHILS % (AUTO) 59 % (42-75); PLATELET COUNT 310 10^3/uL (130-400); WHITE BLOOD COUNT 10.2 10^3/uL (4.3-11.0)
[2022-10-02 22:20] LABS: ALANINE AMINOTRANSFERASE 21 U/L (0-55); ALBUMIN 4.6 GM/DL (3.2-4.5); ALKALINE PHOSPHATASE 116 U/L (40-136); BILIRUBIN,TOTAL 0.8 MG/DL (0.1-1.0); BUN/CREATININE RATIO 11; CALCIUM 9.3 MG/DL (8.5-10.1); CARBON DIOXIDE 24 MMOL/L (21-32); CHLORIDE 98 MMOL/L (98-107); CREATININE SERUM 1.01 MG/DL (0.60-1.30); GFR ESTIMATED 84; GLUCOSE 132 MG/DL (70-105); LIPASE 28 U/L (8-78); POTASSIUM 4.3 MMOL/L (3.6-5.0); SODIUM 132 MMOL/L (135-145)
[2022-10-02 23:02] LABS: BILIRUBIN,URINE NEGATIVE (NEGATIVE); CLARITY,URINE CLEAR; GLUCOSE, URINE (UA) NEGATIVE (NEGATIVE); KETONES,URINE NEGATIVE (NEGATIVE); LEUKOCYTE ESTERASE ,URINE NEGATIVE (NEGATIVE); NITRITE,URINE NEGATIVE (NEGATIVE); PH,URINE 7.5 (5-9); PROTEIN,URINE NEGATIVE (NEGATIVE)
[2022-10-02 23:04] LABS: BACTERIA,URINE TRACE /HPF; COLOR,URINE DARK YELLOW; RBC,URINE 0-2 /HPF
== END 2022-10-02 23:15 | disposition home or self-care (01) ==
LOC: EDUNIT# 21:48 → ER FS 21:49
DX: R10.9 Unspecified abdominal pain (principal); M25.551 Pain in right hip; Z90.49 Acquired absence of other specified parts of digestive tract; Z96.641 Presence of right artificial hip joint; Z28.310 Unvaccinated for COVID-19
CPT/HCPCS: 36415; 80053; 81000; 83690; 85025; 86141; 99283

== ENCOUNTER 2023-02-03 22:13 | Emergency (ER) | payer MEDICARE ==
[~2023-02-03] VITALS: Ht 190.5 cm; Wt 88.4 kg
[2023-02-03] MEDS ORDERED: methylPREDNISolone 125 MG (Solu-MEDROL) VIAL IM STA (22:24)
[2023-02-03] MEDS ORDERED: RT-ALBUTEROL/IPRATROPIUM 3 ML (DUONEB) VIAL INH STA (22:24)
--- NOTE | 2023-02-03 22:29 | ED Respiratory ---
General Chief Complaint: Respiratory Problems Stated Complaint: R HIP PAIN,THROAT TIGHTING Source: patient History of Present Illness Date Seen by Provider: Feb 03, 2023 Time Seen by Provider: 22:15 Initial Comments 62-year-old male presenting with complaints of increased shortness of breath and sore throat. He also feels like he was having a panic attack due to not breathing. He had been using some glue or adhesive with some renovations in his house today. He thinks that that may have flared up his breathing and sore throat. He then was out walking to try and help with his chronic right hip pain and had a coughing fit. With that he has had increased pain to his right lower lateral ribs where he has had prior fractures. He had done several breathing treatments of albuterol throughout the day with the last one around 2100. Since he was still feeling short of breath and felt like his throat was getting more sore he came to the emergency department to be evaluated. He denies any fall or injury. He is not having a fever, chills, nausea, vomiting, abdominal pain. He does have shortness of breath with cough that is nonproductive. He has cut back on his tobacco use especially today due to the shortness of breath. Timing/Duration: this afternoon, getting worse Severity: moderate Prior Episodes/Possible Cause: frequent episodes, irritant gases exposure (adhesive that he was using at home) Modifying Factors: Worse With Activity, Worse With Coughing Associated Symptoms: cough; No dizziness, No earache, No facial pain, No fever/chills, No headache, No lightheadedness, No nasal congestion, No nasal drainage; shortness of breath, sore throat, wheezing Allergies and Home Medications Allergies Coded Allergies: ketorolac tromethamine (Verified Allergy, Severe, ANAPHYLAXIS, 01/30/19) prednisone (Verified Allergy, Severe, angry and agitated, 01/30/19) Penicillins (Verified Allergy, Intermediate, 01/30/19) sob, wheezing egg (Verified Allergy, Intermediate, 01/30/19) swelling meperidine HCl (Verified Allergy, Intermediate, 01/30/19) sob, wheezing propoxyphene HCl (Verified Allergy, Mild, 01/30/19) sob, wheezing topiramate (Verified Allergy, Mild, NAUSEA, 08/18/12) diarrhea, citalopram (Verified Allergy, Unknown, 12/14/18) metoprolol (Verified Adverse Reaction, Mild, 08/18/12) sob, wheezing Uncoded Allergies: honey bee venom (Allergy, Mild, 08/18/12) sob, wheezing EGGS (Allergy, Unknown, 04/05/19) TETANUS (Allergy, Unknown, 04/05/19) Patient Home Medication List Home Medication List Reviewed: Yes Albuterol Sulfate (Rx-Proventil Neb) 2.5 Mg/3 Ml Solution, 2.49 MG IH, (Repor mark) Entered as Reported by: ANGLE GARCIA on 08/18/12 1343 Aspirin (Lo-Dose Aspirin Ec) 81 Mg Tablet.dr, 81 MG PO DAILY, (Reported) Entered as Reported by: ANGLE GARCIA on 08/18/12 1343 Butalb/Acetaminophen/Caffeine (Hvwbse-Ijptefqb-Mykg 50-325-40) 1 Each Tablet, 1 EACH PO Q4H PRN for HEADACHE Prescribed by: NATALYA CALZADA on 04/23/192033 Butalb/Acetaminophen/Caffeine (Dhaomm-Bdavrcvu-Ubvw 50-325-40) 1 Each Tablet, 1 EACH PO Q6H Prescribed by: ALLISON OLMEDO on 01/11/20 1658 Carvedilol (Carvedilol) 3.125 Mg Tablet, 1 EACH PO BID, (Reported) Entered as Reported by: ANGLE GARCIA on 08/18/12 1343 Cetirizine Hcl (Cetirizine Hcl) 10 Mg Tablet, 10 MG PO DAILY, (Reported) Entered as Reported by: ANGLE GARCIA on 08/18/12 1343 Dexamethasone (Decadron) 4 Mg Tablet, 4 MG PO BID Prescribed by: GAVIN PEREZ on 10/04/20 232 Dexamethasone (Decadron) 6 Mg Tablet, 6 MG PO DAILY Prescribed by: ALLYSON GUTIERREZ on 07/08/21 0439 Doxycycline Hyclate (Doxycycline Hyclate) 100 Mg Tablet, 100 MG PO BID Prescribed by: GAVIN PEREZ on 04/05/192138 Doxycycline Hyclate (Doxycycline Hyclate) 100 Mg Tablet, 100 MG PO BID Prescribed by: ALLYSON GUTIERREZ on 07/08/21 0439 Doxycycline Hyclate (Doxycycline Hyclate) 100 Mg Tablet, 100 MG PO BID Prescribed by: LIZY JEAN BAPTISTE on 07/23/212010 Epinephrine (Epipen 2-Jatinder) 0.3 Mg/0.3 Ml Auto.injct, 0.3 MG IJ Q15M PRN for WHEEZING Prescribed by: NATALYA CALZADA on 01/30/192016 Epinephrine (Epipen 2-Jatinder) 0.3 Mg/0.3 Ml Auto.injct, 0.3 MG IJ Q20M Prescribed by: GAVIN PEREZ on 10/04/20 2320 Famotidine (Pepcid) 20 Mg Tablet, 20 MG PO DAILY Prescribed by: ALLISON OLMEDO on 07/16/19 1719 Famotidine (Pepcid) 20 Mg Tablet, 20 MG PO BID Prescribed by: GAVIN PEREZ on 08/10/19 184 Fluticasone Propionate (Flonase 0.05% Nasal [place]) 16 Gm [place], 2 SPRAYS NSEACH DAILY, (Reported) Entered as Reported by: ANGLE GARCIA on 08/18/12 1343 Hydroxyzine Pamoate (Hydroxyzine Pamoate) 25 Mg Capsule, 25 MG PO Q8 Prescribed by: GAVIN PEREZ on 08/10/19 1841 Ipratropium [place] (Atrovent Inhaler) 12.9 Gm Aers, 12.9 GM INH Q6H, (Reported) Entered as Reported by: ANGLE GARCIA on 08/18/12 1343 Lorazepam (Ativan) 1 Mg Tablet, 1 EACH PO TID PRN, (Reported) Entered as Reported by: ANGLE GARCIA on 08/18/12 1343 Metoclopramide HCl (Metoclopramide HCl) 10 Mg Tablet, 10 MG PO DAILY PRN PRN for headache Prescribed by: ALLYSON GUTIERREZ on 05/03/21 1556 Montelukast Sodium (Montelukast Sodium) 10 Mg Tablet, 10 MG PO DAILY, (Reported) Entered as Reported by: ANGLE GARCIA on 08/18/12 1343 Nitroglycerin (Nitroglycerin) 0.3 Mg Tab.subl, 0.3 MG SL PRN, (Reported) Entered as Reported by: ANGLE GARCIA on 08/18/12 1343 Omeprazole (Prilosec 20 Mg) 20 Mg Capsule.dr, 20 MG PO DAILY, (Reported) Entered as Reported by: ANGLE GARCIA on 08/18/12 1343 Oxycodone HCl/Acetaminophen (Percocet 5-325 mg Tablet) 1 Each Tablet, 1 TAB PO Q6H Prescribed by: NITIN ZHAO on 02/09/21 1720 Salsalate (Disalcid) 500 Mg Tab, 1,000 MG PO TID, (Reported) Entered as Reported by: ANGLE GARCIA on 08/18/12 1343 [albuterol] , 2 PUFF INH QID, (Reported) Entered as Reported by: ANGLE GARCIA on 08/18/12 1343 [asmanex] , 220 MCG INH, (Reported) Entered as Reported by: ANGLE GARCIA on 08/18/12 1343 Review of Systems Review of Systems Constitutional: No chills, No fever EENTM: see HPI Respiratory: see HPI Cardiovascular: see HPI Gastrointestinal: no symptoms reported Genitourinary: no symptoms reported Musculoskeletal: see HPI Skin: No rash Psychiatric/Neurological: Anxiety Past Phasbbf-Vuhmpj-Xlsvms Hx Patient Social History Tobacco Use?: Yes Tobacco type used: Cigarettes Smoking Status: Current Everyday Smoker Use of E-Cig and/or Vaping dev: No Substance use?: No Alcohol Use?: No Immunizations Up To Date First/Initial COVID19 Vaccinat: denies Second COVID19 Vaccination [place]: denies Third COVID19 Vaccination Date: denies Seasonal Allergies Seasonal Allergies: Yes Past Medical History Surgery/Hospitalization HX: HTN, Anxiety, COPD, Asthma, Hyperglycemia, elevated cholesterol, depression, [place] Lt. shoulder, Rt. hip replacement, vera. Surgeries: Yes (heart cath, left shoulder surgery and right hip replacement) Gallbladder, Joint Replacement Respiratory: Yes Asthma, Chronic Bronchitis, COPD, Emphysema Currently Using CPAP: No Currently Using BIPAP: No Cardiac: Yes Heart Attack, Hypertension, Palpitations Neurological: Yes Headaches /Migraines Genitourinary: No Gastrointestinal: No Musculoskeletal: No Arthritis Endocrine: No HEENT: No Cancer: No Psychosocial: Yes Anxiety Integumentary: No Blood Disorders: No Physical Exam Vital Signs - First Documented 02/03/23 22:19 Temp 36.2 Pulse 79 Resp 22 B/P (MAP) 167/90 (115) Pulse Ox 98 O2 Delivery Room Air Capillary Refill : Height: 6'3.00" Weight: 197lbs. 0oz. 89.403633ds; 26.00 BMI Method:Stated General Appearance: mild distress, thin HEENT: PERRL/EOMI, pharyngeal erythema; No tonsillar exudate Respiratory: respiratory distress, decreased breath sounds, accessory muscle use, wheezing, expiration, inspiration Cardiovascular: normal peripheral pulses, regular rate, rhythm Gastrointestinal: normal bowel sounds, non tender, soft, no pulsatile mass Neurologic/Psychiatric: alert, oriented x 3 Skin: normal color, warm/dry Progress/Results/Core Measures Suspected Sepsis SIRS Temperature: Pulse: Respiratory Rate: Blood Pressure / Mean: Results/Orders My Orders Orders - TOOTIE PAEZ MD Methylprednisolone Sod Succ (Solu-Medrol (02/03/23 22:24) Albuterol/Ipra Inhalation Soln (Duoneb I (02/03/23 22:24) Svn Small Volume Nebulizer (02/03/23 22:24) Vital Signs/I&O 02/03/23 02/03/23 02/03/23 22:19 22:34 22:52 Temp 36.2 36.2 Pulse 79 79 Resp 22 22 B/P (MAP) 167/90 (115) 167/90 Pulse Ox 98 99 99 O2 Delivery Room Air Room Air Room Air Capillary Refill : Progress Note #1: Progress Note Potential diagnosis of COPD exacerbation, chemical inhalation reaction, anxiety, upper respiratory infection, pneumonia, strep pharyngitis, viral syndrome. With his oxygen saturation at 99 to 100% on room air reassured patient that that looked good. He did have decreased air movement and tightness with auscultation of his lungs. He did have equal bilateral breath sounds. He had some tenderness of the right lateral ribs but no crepitus or step-off. From review of his previous medical visits to the emergency department he has received Solu-Medrol to help with his breathing in the past. He also has had a DuoNeb breathing treatment. He states he no longer has DuoNeb breathing treatments at home the [facility] only gives him albuterol. He has previously had x- rays to look at the ribs. I discussed with him that we can repeat x-rays of the ribs and the lungs to look for to see if there is any other acute injury tonight but whether he has a fractured rib or chest is bruised and strained the treatment would be the same. He agreed that imaging would not change treatment or be helpful. Will see how he feels with the solumedrol 125 mg IM x 1 and Duoneb nebulized breathing treatment. Progress Note #2: Progress Note On recheck of the patient he was breathing much better after his nebulized treatment. He was having burning and stinging pain in the left shoulder where he has had prior surgery and injury with his shoulder. He had the solumedrol shot in that area and it is stinging and burning in his arm. His throat was feeling better. Encouraged to drink plenty of fluids and stay well hydrated. Continue on home medicine and avoid further exposure to the glue/adhesive fumes. Departure Impression Primary Impression: COPD with exacerbation Additional Impressions: Pharyngitis Qualified Codes: J02.9 - Acute pharyngitis, unspecified Rib pain on right side Dyspnea Qualified Codes: R06.02 - Shortness of breath Disposition: HOME, SELF-CARE Condition: Stable Departure-Patient Inst. Decision time for Depature: 22:27 Referrals: JULIA HERRERA MD (PCP/Family) Primary Care Physician Patient Instructions: Sore Throat, Adult ED, How to Use a Nebulizer ED, COPD Exacerbation, Adult ED Add. Discharge Instructions: Try to stay away from fumes from the glue/adhesive you were using today in your home. Use your nebulizer treatments to help with cough and shortness of breath. The steroid shot should help with throat and tightness in your lungs. May try applying a topical lidocaine patch to rib where you have pain. Over the counter a version of this is called Lj Singh. [facility] and [facility] Herrera for continued symptoms or if not improving. All discharge instructions reviewed with patient and/or family. Voiced understanding. TOOTIE PAEZ MD Feb 03, 2023 22:29
[2023-02-03 22:52] VITALS: BP 167/90
== END 2023-02-03 22:53 | disposition home or self-care (01) ==
LOC: EDUNIT# 22:13 → ER FS 22:14
DX: J44.1 Chronic obstructive pulmonary disease with (acute) exacerbation (principal); J02.9 Acute pharyngitis, unspecified; R07.81 Pleurodynia; F17.210 Nicotine dependence, cigarettes, uncomplicated; Z28.310 Unvaccinated for COVID-19
CPT/HCPCS: 94640

== ENCOUNTER 2023-02-05 01:27 | Emergency (ER) | payer MEDICARE ==
[2023-02-05] MEDS ORDERED: DOXYCYCLINE 100 MG (VIBRAMYCIN) TABLET PO STA (01:44)
[2023-02-05] MEDS ORDERED: RT-ALBUTEROL/IPRATROPIUM 3 ML (DUONEB) VIAL INH ONE (01:45)
--- NOTE | 2023-02-05 01:54 | ED Respiratory ---
General Chief Complaint: General Problems/Pain Stated Complaint: CHEST/ASTHMA Nursing Triage Note: Pt states he did 4 Albuterol treatments today and is unable to calm himself down tonight. Source: patient, old records Exam Limitations: no limitations History of Present Illness Date Seen by Provider: Feb 05, 2023 Time Seen by Provider: 01:34 Initial Comments 62-year-old male with past medical history of COPD coming in due to wheezing, no nproductive cough, shortness of breath. Has been going on for couple days. He came to the ER yesterday, received a shot of Solu-Medrol and DuoNeb, states he was feeling significantly better after that was able to go to bed to take a nap. Today he woke up and particularly at nighttime was feeling more short of breath. He went for a walk and walked roughly 6 blocks before he started feeling more short of breath. He has been using albuterol the majority of the night for the last dose over 4 hours ago. Denies any chest pain, abdominal pain, nausea, vomiting, diarrhea, fever, chills, focal weakness or numbness, or any other concerns. Allergies and Home Medications Allergies Coded Allergies: ketorolac tromethamine (Verified Allergy, Severe, ANAPHYLAXIS, 01/30/19) prednisone (Verified Allergy, Severe, angry and agitated, 01/30/19) Penicillins (Verified Allergy, Intermediate, 01/30/19) sob, wheezing egg (Verified Allergy, Intermediate, 01/30/19) swelling meperidine HCl (Verified Allergy, Intermediate, 01/30/19) sob, wheezing propoxyphene HCl (Verified Allergy, Mild, 01/30/19) sob, wheezing topiramate (Verified Allergy, Mild, NAUSEA, 08/18/12) diarrhea, citalopram (Verified Allergy, Unknown, 12/14/18) metoprolol (Verified Adverse Reaction, Mild, 08/18/12) sob, wheezing Uncoded Allergies: honey bee venom (Allergy, Mild, 08/18/12) sob, wheezing EGGS (Allergy, Unknown, 04/05/19) TETANUS (Allergy, Unknown, 04/05/19) Patient Home Medication List Home Medication List Reviewed: Yes Albuterol Sulfate (Rx-Proventil Neb) 2.5 Mg/3 Ml Solution, 2.49 MG IH, (Reported) Entered as Reported by: ANGLE GARCIA on 08/18/12 1343 Aspirin (Lo-Dose Aspirin Ec) 81 Mg Tablet.dr, 81 MG PO DAILY, (Reported) Entered as Reported by: ANGLE GARCIA on 08/18/12 1343 Butalb/Acetaminophen/Caffeine (Ffsdzv-Szkgifvy-Shrf 50-325-40) 1 Each Tablet, 1 EACH PO Q4H PRN for HEADACHE Prescribed by: NATALYA CALZADA on 04/23/192033 Butalb/Acetaminophen/Caffeine (Nnudib-Cnjpjerv-Onzh 50-325-40) 1 Each Tablet, 1 EACH PO Q6H Prescribed by: ALLISON OLMEDO on 01/11/20 165 Carvedilol (Carvedilol) 3.125 Mg Tablet, 1 EACH PO BID, (Reported) Entered as Reported by: ANGLE GARCIA on 08/18/12 1343 Cetirizine Hcl (Cetirizine Hcl) 10 Mg Tablet, 10 MG PO DAILY, (Reported) Entered as Reported by: ANGLE GARCIA on 08/18/12 1343 Dexamethasone (Decadron) 4 Mg Tablet, 4 MG PO BID Prescribed by: GAVIN PEREZ on 10/04/202319 Dexamethasone (Decadron) 6 Mg Tablet, 6 MG PO DAILY Prescribed by: ALLYSON GUTIERREZ on 07/08/21438 Doxycycline Hyclate (Doxycycline Hyclate) 100 Mg Tablet, 100 MG PO BID Prescribed by: GAVIN PEREZ on 04/05/192138 Doxycycline Hyclate (Doxycycline Hyclate) 100 Mg Tablet, 100 MG PO BID Prescribed by: ALLYSON GUTIERREZ on 07/08/21438 Doxycycline Hyclate (Doxycycline Hyclate) 100 Mg Tablet, 100 MG PO BID Prescribed by: LIZY JEAN BAPTISTE on 07/23/212010 Epinephrine (Epipen 2-Jatinder) 0.3 Mg/0.3 Ml Auto.injct, 0.3 MG IJ Q15M PRN for WHEEZING Prescribed by: NATALYA CALZADA on 01/30/192016 Epinephrine (Epipen 2-Jatinder) 0.3 Mg/0.3 Ml Auto.injct, 0.3 MG IJ Q20M Prescribed by: GAVIN PEREZ on 10/04/202319 Famotidine (Pepcid) 20 Mg Tablet, 20 MG PO DAILY Prescribed by: ALLISON OLMEDO on 07/16/19 1719 Famotidine (Pepcid) 20 Mg Tablet, 20 MG PO BID Prescribed by: GAVIN PEREZ on 08/10/19 184 Fluticasone Propionate (Flonase 0.05% Nasal Start) 16 Gm Start, 2 SPRAYS NSEACH DAILY, (Reported) Entered as Reported by: ANGLE GARCIA on 08/18/12 1343 Hydroxyzine Pamoate (Hydroxyzine Pamoate) 25 Mg Capsule, 25 MG PO Q8 Prescribed by: GAVIN PEREZ on 08/10/19 184 Ipratropium [place] (Atrovent Inhaler) 12.9 Gm Aers, 12.9 GM INH Q6H, (Reported) Entered as Reported by: ANGLE GARCIA on 08/18/12 134 Lorazepam (Ativan) 1 Mg Tablet, 1 EACH PO TID PRN, (Reported) Entered as Reported by: ANGLE GARCIA on 08/18/12 1343 Metoclopramide HCl (Metoclopramide HCl) 10 Mg Tablet, 10 MG PO DAILY PRN PRN for headache Prescribed by: ALLYSON GUTIERREZ on 05/03/21 1556 Montelukast Sodium (Montelukast Sodium) 10 Mg Tablet, 10 MG PO DAILY, (Reported) Entered as Reported by: ANGLE GARCIA on 08/18/12 1343 Nitroglycerin (Nitroglycerin) 0.3 Mg Tab.subl, 0.3 MG SL PRN, (Reported) Entered as Reported by: ANGLE GARCIA on 08/18/12 1343 Omeprazole (Prilosec 20 Mg) 20 Mg Capsule.dr, 20 MG PO DAILY, (Reported) Entered as Reported by: ANGLE GARCIA on 08/18/12 1343 Oxycodone HCl/Acetaminophen (Percocet 5-325 mg Tablet) 1 Each Tablet, 1 TAB PO Q6H Prescribed by: NITIN ZHAO on 02/09/21 1720 Salsalate (Disalcid) 500 Mg Tab, 1,000 MG PO TID, (Reported) Entered as Reported by: ANGLE GARCIA on 08/18/12 1343 [albuterol] , 2 PUFF INH QID, (Reported) Entered as Reported by: ANGLE GARCIA on 08/18/12 1343 [asmanex] , 220 MCG INH, (Reported) Entered as Reported by: ANGLE GARCIA on 08/18/12 7343 Review of Systems Review of Systems Constitutional: No fever EENTM: no symptoms reported Respiratory: no symptoms reported Cardiovascular: no symptoms reported Gastrointestinal: see HPI Genitourinary: no symptoms reported Musculoskeletal: no symptoms reported Skin: no symptoms reported Psychiatric/Neurological: No Symptoms Reported Hematologic/Lymphatic: No Symptoms Reported Immunological/Allergic: no symptoms reported All Other Systems Reviewed Negative Unless Noted: Yes Past Nbhiknv-Yszmhz-Sohfvf Hx Patient Social History Tobacco Use?: No Use of E-Cig and/or Vaping dev: No Substance use?: No Alcohol Use?: No Pt feels they are or have been: No Immunizations Up To Date First/Initial COVID19 Vaccinat: denies Second COVID19 Vaccination Allen: denies Third COVID19 Vaccination Date: denies Seasonal Allergies Seasonal Allergies: Yes Past Medical History Surgery/Hospitalization HX: HTN, Anxiety, COPD, Asthma, Hyperglycemia, elevated cholesterol, depression, SC Lt. shoulder, Rt. hip replacement, vera. Surgeries: Yes (heart cath, left shoulder surgery and right hip replacement) Gallbladder, Joint Replacement Respiratory: Yes Asthma, Chronic Bronchitis, COPD, Emphysema Currently Using CPAP: No Currently Using BIPAP: No Cardiac: Yes Heart Attack, Hypertension, Palpitations Neurological: Yes Headaches /Migraines Genitourinary: No Gastrointestinal: No Musculoskeletal: No Arthritis Endocrine: No HEENT: No Cancer: No Psychosocial: Yes Anxiety Integumentary: No Blood Disorders: No Physical Exam Vital Signs - First Documented 02/05/23 01:32 Pulse 74 Resp 20 B/P (MAP) 168/92 (117) Pulse Ox 97 O2 Delivery Room Air Capillary Refill : Less Than 3 Seconds Height: 6'3.00" Weight: 197lbs. 0oz. [age]yo; 24.00 BMI Method:Stated General Appearance: WD/WN, no apparent distress Eyes: Bilateral Eye Normal Inspection HEENT: PERRL/EOMI, normal ENT inspection, pharynx normal Neck: non-tender, full range of motion, supple, normal inspection Respiratory: chest non-tender, no respiratory distress, no accessory muscle use, wheezing Cardiovascular: regular rate, rhythm, no edema, no murmur Gastrointestinal: normal bowel sounds, non tender, soft; No distended, No guarding, No rebound Extremities: normal range of motion, non-tender, normal inspection, no pedal edema, no calf tenderness, normal capillary refill Neurologic/Psychiatric: no motor/sensory deficits, alert, normal mood/affect Skin: normal color, warm/dry Progress/Results/Core Measures Suspected Sepsis SIRS Temperature: Pulse: 74 Respiratory Rate: 20 Blood Pressure 168 /92 Mean: 117 Results/Orders My Orders Orders - SIMBA FERGUSON MD Dexamethasone Oral Soln (Ed) (Decadron I (02/05/23 01:44) Doxycycline Hyclate Tablet (Vibramycin T (02/05/23 01:44) Albuterol/Ipra Inhalation Soln (Duoneb I (02/05/23 01:45) Vital Signs/I&O 02/05/23 01:32 Pulse 74 Resp 20 B/P (MAP) 168/92 (117) Pulse Ox 97 O2 Delivery Room Air Capillary Refill : Less Than 3 Seconds Blood Pressure Mean: 117 Progress Note : Progress Note 62-year-old male with above history coming in due to worsening wheezing in the setting of known COPD. ABCs were intact and vitals were stable on presentation. Physical exam with bilateral wheezing but no respiratory distress. He has normal oxygen saturation on room air. He was given a DuoNeb, oral Decadron, and a dose of doxycycline for likely COPD exacerbation. He has no lower extremity swelling or pain and no other clinical signs of a DVT or PE. He is not having any chest pain at all, ACS unlikely. Consider labs, but he is afebrile, and a CBC for his white blood count would not really change his management much. Additionally he is drinking plenty of fluids and urinating, CMP not ordered as likely normal electrolytes and creatinine. Given he is comfortable appearing with normal oxygen saturation, chest x-ray not obtained. I believe he is otherwise stable for discharge with outpatient follow-up. He was sent home with strict return precautions Departure Impression Primary Impression: COPD with exacerbation Disposition: HOME, SELF-CARE Condition: Stable Departure-Patient Inst. Decision time for Depature: 02:15 Referrals: JULIA HERRERA MD (PCP/Family) Primary Care Physician Patient Instructions: COPD Exacerbation, Adult ED Add. Discharge Instructions: We will take another dose of a different steroid for the next couple of days called dexamethasone. Take the first dose tomorrow on the since you received it today in the ER. You also be on an antibiotic for the next 5 days. These were sent to your pharmacy. Scripts Dexamethasone (Dexamethasone) 4 Mg Tablet 4 MG PO DAILY for 2 Days, #2 TAB Prov: SIMBA FERGUSON MD 02/05/23 Doxycycline Hyclate (Doxycycline Hyclate) 100 Mg Tablet 100 MG PO BID for 5 Days, #10 TAB 0 Refills Prov: SIMBA FERGUSON MD 02/05/23 Work/School Note: Work Release Form Date Seen in the Emergency Department: Feb 05, 2023 Return to Work: Feb 06, 2023 Restrictions: No Restrictions SIMBA FERGUSON MD Feb 05, 2023 01:54
[2023-02-05] MEDS ORDERED: DOXY100T2 PO (01:59)
[2023-02-05] MEDS ORDERED: DEXA4TAB PO (01:59)
[2023-02-05 02:01] VITALS: BP 168/92
== END 2023-02-05 02:05 | disposition home or self-care (01) ==
LOC: EDUNIT# 01:27 → ER FS 01:29
DX: J44.1 Chronic obstructive pulmonary disease with (acute) exacerbation (principal); Z88.0 Allergy status to penicillin; Z88.8 Allergy status to other drugs, medicaments and biological substances; Z28.310 Unvaccinated for COVID-19
CPT/HCPCS: 99283

== ENCOUNTER 2023-05-18 11:56 | Emergency (ER) | payer MEDICARE ==
[~2023-05-18] VITALS: Ht 193 cm; Wt 86.0 kg
[~2023-05-18 11:56] MED LIST changes: +DEXA4TAB PO
--- NOTE | 2023-05-18 12:27 | ED General ---
General Chief Complaint: Cardiac/General Problems Stated Complaint: HYPERTENSION Nursing Triage Note: PT SENT FROM [facility] FOR HIGH BLOOD PRESSURE AND NUMBNESS TO FACE. PT HAS A HX OF ANXIETY AND THEY THOUGHT HE WAS HAVING AN ALLERGIC REATION AFTER HIS ALLERGY SHOT THEY GAVE HIM SO THEY GAVE HIM A SHOT WITH THE EPIPEN. Source of Information: Patient, EMS History of Present Illness Date Seen by Provider: May 18, 2023 Time Seen by Provider: 11:58 Initial Comments 62-year-old male presenting by EMS from [facility] due to elevated blood pressure and numbness to the left side of his face. Patient has a history of anxiety and they thought that he was having an allergic reaction to an allergy shot that he was given this morning. The clinic had administered an EpiPen prior to EMS arriving. Patient's blood pressure was reported to be over 210 for the systolic number. For EMS he was 178 systolic. Patient reported that his symptoms were improving as his blood pressure was coming down. He thought that he was having a panic attack or anxiety it was contributing to his left facial numbness and high blood pressure. He also has a chronic recurrent migraine that he states started at 4 this morning. He usually takes the Ubrelvy to help with this however he did not take 1 today since he knew he was having an allergy shot and he was not sure how it would react with that. He also has chronic neck pain and had popped his neck in the clinic shortly before feeling like his left face was going numb. He pops his neck regularly and has chronic pain but states he has not had facial numbness with previously. He denies having any chest pain, increased shortness of breath, change in vision, numbness or weakness in his arms and legs. Timing/Duration: 1/2 Hour Severity: Mild Associated Systoms: No Chest Pain, No Cough, No Diaphoresis, No Fever/Chills; Headaches (chronic migraine headaches); No Malaise, No Nausea/Vomiting, No Rash, No Seizure, No Shortness of Air, No Syncope, No Weakness Allergies and Home Medications Allergies Coded Allergies: ketorolac tromethamine (Verified Allergy, Severe, ANAPHYLAXIS, 01/30/19) prednisone (Verified Allergy, Severe, angry and agitated, 01/30/19) Penicillins (Verified Allergy, Intermediate, 01/30/19) sob, wheezing egg (Verified Allergy, Intermediate, 01/30/19) swelling meperidine HCl (Verified Allergy, Intermediate, 01/30/19) sob, wheezing propoxyphene HCl (Verified Allergy, Mild, 01/30/19) sob, wheezing topiramate (Verified Allergy, Mild, NAUSEA, 08/18/12) diarrhea, citalopram (Verified Allergy, Unknown, 12/14/18) metoprolol (Verified Adverse Reaction, Mild, 08/18/12) sob, wheezing Uncoded Allergies: honey bee venom (Allergy, Mild, 08/18/12) sob, wheezing EGGS (Allergy, Unknown, 04/05/19) TETANUS (Allergy, Unknown, 04/05/19) Patient Home Medication List Home Medication List Reviewed: Yes Albuterol Sulfate (Rx-Proventil Neb) 2.5 Mg/3 Ml Solution, 2.49 MG IH, (Reported) Entered as Reported by: ANGLE GARCIA on 08/18/12 1343 Aspirin (Lo-Dose Aspirin Ec) 81 Mg Tablet.dr, 81 MG PO DAILY, (Reported) Entered as Reported by: ANGLE GARCIA on 08/18/12 1343 Butalb/Acetaminophen/Caffeine (Gpuurx-Qnywmsdd-Volo 50-325-40) 1 Each Tablet, 1 EACH PO Q4H PRN for HEADACHE Prescribed by: NATALYA CALZADA on 04/23/192033 Butalb/Acetaminophen/Caffeine (Yuvrcw-Bqogzdcg-Ncty 50-325-40) 1 Each Tablet, 1 EACH PO Q6H Prescribed by: ALLISON OLMEDO on 01/11/20 1658 Carvedilol (Carvedilol) 3.125 Mg Tablet, 1 EACH PO BID, (Reported) Entered as Reported by: ANGLE GARCIA on 08/18/12 1343 Cetirizine Hcl (Cetirizine Hcl) 10 Mg Tablet, 10 MG PO DAILY, (Reported) Entered as Reported by: ANGLE GARCIA on 08/18/12 1343 Dexamethasone (Decadron) 4 Mg Tablet, 4 MG PO BID Prescribed by: GAVIN PEREZ on 10/04/20 2320 Dexamethasone (Decadron) 6 Mg Tablet, 6 MG PO DAILY Prescribed by: ALLYSON GUTIERREZ on 07/08/21 0439 Dexamethasone (Dexamethasone) 4 Mg Tablet, 4 MG PO DAILY Prescribed by: SIMBA FERGUSON on 02/05/23 0159 Doxycycline Hyclate (Doxycycline Hyclate) 100 Mg Tablet, 100 MG PO BID Prescribed by: GAVIN PEREZ on 04/05/192138 Doxycycline Hyclate (Doxycycline Hyclate) 100 Mg Tablet, 100 MG PO BID Prescribed by: ALLYSON GUTIERREZ on 07/08/21 0439 Doxycycline Hyclate (Doxycycline Hyclate) 100 Mg Tablet, 100 MG PO BID Prescribed by: LIZY JEAN BAPTISTE on 07/23/212010 Doxycycline Hyclate (Doxycycline Hyclate) 100 Mg Tablet, 100 MG PO BID Prescribed by: SIMBA FERGUSON on 02/05/23 015 Epinephrine (Epipen 2-Jatinder) 0.3 Mg/0.3 Ml Auto.injct, 0.3 MG IJ Q15M PRN for WHEEZING Prescribed by: NATALYA CALZADA on 01/30/192016 Epinephrine (Epipen 2-Jatinder) 0.3 Mg/0.3 Ml Auto.injct, 0.3 MG IJ Q20M Prescribed by: GAVIN PEREZ on 10/04/20 2320 Famotidine (Pepcid) 20 Mg Tablet, 20 MG PO DAILY Prescribed by: ALLISON OLMEDO on 07/16/19 1719 Famotidine (Pepcid) 20 Mg Tablet, 20 MG PO BID Prescribed by: GAVIN PEREZ on 08/10/19 184 Fluticasone Propionate (Flonase 0.05% Nasal [place]) 16 Gm [place], 2 SPRAYS NSEACH DAILY, (Reported) Entered as Reported by: ANGLE GARCIA on 08/18/12 1343 Hydroxyzine Pamoate (Hydroxyzine Pamoate) 25 Mg Capsule, 25 MG PO Q8 Prescribed by: GAVIN PEREZ on 08/10/19 184 Ipratropium [place] (Atrovent Inhaler) 12.9 Gm Aers, 12.9 GM INH Q6H, (Reported) Entered as Reported by: ANGLE GARCIA on 08/18/12 1343 Lorazepam (Ativan) 1 Mg Tablet, 1 EACH PO TID PRN, (Reported) Entered as Reported by: ANGLE GARCIA on 08/18/12 1343 Metoclopramide HCl (Metoclopramide HCl) 10 Mg Tablet, 10 MG PO DAILY PRN PRN for headache Prescribed by: ALLYSON GUTIERREZ on 05/03/21 1556 Montelukast Sodium (Montelukast Sodium) 10 Mg Tablet, 10 MG PO DAILY, (Reported) Entered as Reported by: ANGLE GARCIA on 08/18/12 1343 Nitroglycerin (Nitroglycerin) 0.3 Mg Tab.subl, 0.3 MG SL PRN, (Reported) Entered as Reported by: ANGLE GARCIA on 08/18/12 134 Omeprazole (Prilosec 20 Mg) 20 Mg Capsule.dr, 20 MG PO DAILY, (Reported) Entered as Reported by: ANGLE GARCIA on 08/18/12 134 Oxycodone HCl/Acetaminophen (Percocet 5-325 mg Tablet) 1 Each Tablet, 1 TAB PO Q6H Prescribed by: NITIN ZHAO on 02/09/21 1720 Salsalate (Disalcid) 500 Mg Tab, 1,000 MG PO TID, (Reported) Entered as Reported by: ANGLE GARCIA on 08/18/12 1343 [albuterol] , 2 PUFF INH QID, (Reported) Entered as Reported by: ANGLE GARCIA on 08/18/12 1343 [asmanex] , 220 MCG INH, (Reported) Entered as Reported by: ANGLE GARCIA on 08/18/12 134 Review of Systems Review of Systems Constitutional: No chills, No dizziness, No fever EENTM: No epistaxis, No nose congestion Respiratory: No cough Cardiovascular: No chest pain Gastrointestinal: No nausea, No vomiting Genitourinary: No dysuria Musculoskeletal: see HPI Skin: No rash Psychiatric/Neurological: See HPI, Anxiety, Headache (migraine headache chronic), Paresthesia (left face) Past Wjbfmjk-Kosipl-Bepgdh Hx Patient Social History Tobacco Use?: Yes Tobacco type used: Cigarettes Smoking Status: Current Everyday Smoker Use of E-Cig and/or Vaping dev: No Substance use?: No Alcohol Use?: No Pt feels they are or have been: No Immunizations Up To Date First/Initial COVID19 Vaccinat: denies Second COVID19 Vaccination [place]: denies Third COVID19 Vaccination Date: denies Seasonal Allergies Seasonal Allergies: Yes Past Medical History Surgery/Hospitalization HX: HTN, Anxiety, COPD, Asthma, Hyperglycemia, elevated cholesterol, depression, [place] Lt. shoulder, Rt. hip replacement, vera. Surgeries: Yes (heart cath, left shoulder surgery and right hip replacement) Gallbladder, Joint Replacement Respiratory: Yes Asthma, Chronic Bronchitis, COPD, Emphysema Currently Using CPAP: No Currently Using BIPAP: No Cardiac: Yes Heart Attack, Hypertension, Palpitations Neurological: Yes Headaches /Migraines Genitourinary: No Gastrointestinal: No Musculoskeletal: No Arthritis Endocrine: No HEENT: No Cancer: No Psychosocial: Yes Anxiety Integumentary: No Blood Disorders: No Physical Exam Vital Signs Vital Signs - First Documented 05/18/23 12:02 Temp 35.9 Pulse 63 Resp 16 B/P (MAP) 174/89 (117) Pulse Ox 97 O2 Delivery Room Air Capillary Refill : Less Than 3 Seconds Height, Weight, BMI Height: 6'3.00" Weight: 197lbs. 0oz. 89.979059lw; 23.00 BMI Method:Stated General Appearance: No Apparent Distress, WD/WN HEENT: PERRL/EOMI, Pharynx Normal Neck: Full Range of Motion, Normal Inspection, Supple Respiratory: Chest Non Tender, Lungs Clear, Normal Breath Sounds, No Accessory Muscle Use, No Respiratory Distress Cardiovascular: Regular Rate, Rhythm, Normal Peripheral Pulses Gastrointestinal: Normal Bowel Sounds, No Pulsatile Mass, Non Tender, Soft Rectal: Deferred Extremity: Normal Capillary Refill, Normal Inspection, No Pedal Edema Neurologic/Psychiatric: Alert, Oriented x3, Sensory Deficit (reports left side of face feels like there is less sensation than the right side. He can feel ligh t touch bilaterally. No decreased sensation to rest of body. ) Skin: Normal Color, Warm/Dry Progress/Results/Core Measures Suspected Sepsis SIRS Temperature: Pulse: 63 Respiratory Rate: 16 Laboratory Tests 05/18/23 12:06: White Blood Count 12.5H Blood Pressure 174 /89 Mean: 117 Laboratory Tests 05/18/23 12:06: Creatinine 1.09, INR Comment 0.9, Platelet Count 326, Total Bilirubin 0.7 Results/Orders Lab Results Laboratory Tests Test 05/18/23 12:06 Range/Units White Blood Count 12.5 H 4.3-11.0 10^3/uL Red Blood Count 4.83 4.30-5.52 10^6/uL Hemoglobin 15.2 13.3-17.7 g/dL Hematocrit 44 40-54 % Mean Corpuscular Volume 90 80-99 fL Mean Corpuscular Hemoglobin 31 25-34 pg Mean Corpuscular Hemoglobin Concent 35 32-36 g/dL Red Cell Distribution Width 12.4 10.0-14.5 % Platelet Count 326 130-400 10^3/uL Mean Platelet Volume 9.4 9.0-12.2 fL Immature Granulocyte % (Auto) 0 % Neutrophils (%) (Auto) 54 42-75 % Lymphocytes (%) (Auto) 32 12-44 % Monocytes (%) (Auto) 9 0-12 % Eosinophils (%) (Auto) 4 0-10 % Basophils (%) (Auto) 1 0-10 % Neutrophils # (Auto) 6.7 1.8-7.8 X 10^3 Lymphocytes # (Auto) 4.1 H 1.0-4.0 X 10^3 Monocytes # (Auto) 1.1 H 0.0-1.0 X 10^3 Eosinophils # (Auto) 0.5 H 0.0-0.3 10^3/uL Basophils # (Auto) 0.1 0.0-0.1 10^3/uL Immature Granulocyte # (Auto) 0.0 0.0-0.1 10^3/uL Prothrombin Time 13.0 12.2-14.7 SEC INR Comment 0.9 0.8-1.4 Activated Partial Thromboplast Time 27 24-35 SEC Sodium Level 133 L 135-145 MMOL/L Potassium Level 3.9 3.6-5.0 MMOL/L Chloride Level 97 L 98-107 MMOL/L Carbon Dioxide Level 24 21-32 MMOL/L Anion Gap 12 5-14 MMOL/L Blood Urea Nitrogen 8 7-18 MG/DL Creatinine 1.09 0.60-1.30 MG/DL Estimat Glomerular Filtration Rate 76 BUN/Creatinine Ratio 7 Glucose Level 153 H 70-105 MG/DL Calcium Level 9.2 8.5-10.1 MG/DL Corrected Calcium 9.2 8.5-10.1 MG/DL Magnesium Level 1.9 1.6-2.4 MG/DL Total Bilirubin 0.7 0.1-1.0 MG/DL Aspartate Amino Transf (AST/SGOT) 14 5-34 U/L Alanine Aminotransferase (ALT/SGPT) 13 0-55 U/L Alkaline Phosphatase 134 40-136 U/L Troponin I < 0.30 <0.30 NG/ML Pro-B-Type Natriuretic Peptide < 36.0 <125.0 PG/ML Total Protein 6.2 L 6.4-8.2 GM/DL Albumin 4.0 3.2-4.5 GM/DL My Orders Orders - TOOTIE PAEZ MD Cbc With Automated Diff (05/18/23 12:14) Magnesium (05/18/23 12:14) Ekg Tracing (05/18/23 12:14) Comprehensive Metabolic Panel (05/18/23 12:14) Protime With Inr (05/18/23 12:14) Partial Thromboplastin Time (05/18/23 12:14) O2 (05/18/23 12:14) Monitor-Rhythm Ecg Trace Only (05/18/23 12:14) Ed Iv/Invasive Line Start (05/18/23 12:14) Troponin I Fs (05/18/23 12:14) Probnp Fs (05/18/23 12:14) Ct Head Wo (05/18/23 12:14) Vital Signs/I&O 05/18/23 05/18/23 12:02 13:47 Temp 35.9 35.9 Pulse 63 68 Resp 16 16 B/P (MAP) 174/89 (117) 148/84 Pulse Ox 97 98 O2 Delivery Room Air Room Air Capillary Refill : Less Than 3 Seconds Blood Pressure Mean: 117 Progress Note #1: Progress Note Possible diagnosis of anxiety, hypertension, stroke, TIA, electrolyte imbalance, hypoxia, COPD. Peripheral IV access initiated by EMS. We will draw labs for complete blood count, comprehensive metabolic profile, cardiac enzymes, clotting factors. Placed on cardiac vehicle monitor technician and my initial interpretation was that his heart rate was 62 and sinus rhythm. Electrocardiogram to further look at his heart rate and rhythm. CT scan of the head without IV contrast to look for signs of acute stroke, hemorrhage, mass. I offered to give a low-dose of Ativan or lorazepam for his anxiety but patient refused because he was worried that he would get hooked on Ativan like he felt that he was in the past. He stated he would rather just try to calm himself down in the room then take the Ativan again. Progress Note #2: Progress Note Blood pressure initially was 174/89 but as he was resting in the room he came down to 132/72. He reported continued improvement in the numbness and tingling to the left face. He was reassured that the blood count did not show any anemia or acute process to account for his left facial numbness. His CT scan of the head without IV contrast had looked similar to 1 from 2019. His electrocardiogram was not showing a cardiac ischemia or heart attack. His comprehensive metabolic profile had normal electrolytes and he was not showing signs of renal failure or liver failure. As he was continuing to feel better and blood pressure was coming down will discharge to home and encouraged him to follow-up with the clinic if having continued concerns. He personally felt that anxiety had caused a lot of the symptoms. As he is going down in the room he is becoming tired. He states he has not been sleeping well and felt that was part of his problems as well. He plans to go home and rest and take one of his medicines for migraine headache. Encouraged hydration and rest. Encouraged to check back with the clinic if having continued concerns. ECG Initial ECG Impression Date: May 18, 2023 Initial ECG Impression Time: 12:22 Initial ECG Rate: 57 Initial ECG Rhythm: S.Lencho Initial ECG Comparisson: Unchanged (01/27/2022) Comment On my initial interpretation and review the electrocardiogram shows sinus bradycardia with a heart rate of [address] elevation. MD interval 185 ms. QT interval 408 ms with a QTc interval 402 ms. Overall appears similar to prior tracing from January 27, 2022. Diagnostic Imaging Diagonstic Imaging: CT Plain Films/CT/US/NM/MRI: head Comments NAME: EMILE CHENG [facility] REC#: [id number] PT STATUS: REG ER : 1960 PHYSICIAN: TOOTIE PAEZ MD ADMIT DATE: 05/18/23/ER FS Draft Date of Exam:05/18/23 CT HEAD WO PROCEDURE: CT head without contrast. TECHNIQUE: Multiple contiguous axial images were obtained through the brain without the use of intravenous contrast. Auto Exposure Controls were utilized during the CT exam to meet ALARA standards for radiation dose reduction. INDICATION: Left facial droop. COMPARISON: Exam is compared with study 01/31/2020. FINDINGS: There is no intracerebral hemorrhage, hydrocephalus, edema, mass, mass effect, nor evidence for an elevation of the intracerebral pressures. Cisterns are patent. Ventricular system is stable in caliber and morphology. No displacement of the midline structures. No sulcal effacement. Orbits, sinuses, and calvarium are stable. IMPRESSION: Stable CT head. No hemorrhage, edema, or acute appearing abnormality. Dictated on workstation # [id number] Dict: 05/18/23 1235 Trans: 05/18/23 1239 [id number] Interpreted by: YOANA MOORE Electronically signed by: Departure Impression Primary Impression: Elevated blood pressure reading with diagnosis of hypertension Additional Impressions: Facial paresthesia Anxiety Disposition: HOME, SELF-CARE Condition: Improved Departure-Patient Inst. Decision time for Depature: 13:45 Referrals: JULIA HERRERA MD (PCP/Family) Primary Care Physician Patient Instructions: Anxiety, Adult ED, High Blood Pressure ED, DASH Diet, Paresthesia (DC) Add. Discharge Instructions: Your CT scan of the head looks the same as one from 2020. Your blood work and vital signs have all been good here in the Emergency Department. Your blood pressure came down on its own as you were able to rest and calm down in the room. Continue on your regular medicines and follow up with clinic for continued concerns. All discharge instructions reviewed with patient and/or family. Voiced under standing. TOOTIE PAEZ MD May 18, 2023 12:27
[2023-05-18 12:31] LABS: HEMATOCRIT 44 % (40-54); HEMOGLOBIN 15.2 g/dL (13.3-17.7); MEAN CORPUSCULAR HEMOGLOBIN 31 pg (25-34); MEAN CORPUSCULAR HGB CONC 35 g/dL (32-36); MEAN CORPUSCULAR VOLUME 90 fL (80-99); MEAN PLATELET VOLUME 9.4 fL (9.0-12.2); PLATELET COUNT 326 10^3/uL (130-400); WHITE BLOOD COUNT 12.5 10^3/uL (4.3-11.0)
[2023-05-18 12:32] LABS: BASOPHILS # (AUTO) 0.1 10^3/uL (0.0-0.1); BASOPHILS % (AUTO) 1 % (0-10); EOSINOPHILS # (AUTO) 0.5 10^3/uL (0.0-0.3); EOSINOPHILS % (AUTO) 4 % (0-10); LYMPHOCYTES # (AUTO) 4.1 X 10^3 (1.0-4.0); LYMPHOCYTES % (AUTO) 32 % (12-44); MONOCYTES # (AUTO) 1.1 X 10^3 (0.0-1.0); MONOCYTES % (AUTO) 9 % (0-12); NEUTROPHILS # (AUTO) 6.7 X 10^3 (1.8-7.8); NEUTROPHILS % (AUTO) 54 % (42-75)
--- NOTE | 2023-05-18 12:39 | Diagnostic Imaging Report ---
PROCEDURE: CT head without contrast. TECHNIQUE: Multiple contiguous axial images were obtained through the brain without the use of intravenous contrast. Auto Exposure Controls were utilized during the CT exam to meet ALARA standards for radiation dose reduction. INDICATION: Left facial droop. COMPARISON: Exam is compared with study 01/31/2020. FINDINGS: There is no intracerebral hemorrhage, hydrocephalus, edema, mass, mass effect, nor evidence for an elevation of the intracerebral pressures. Cisterns are patent. Ventricular system is stable in caliber and morphology. No displacement of the midline structures. No sulcal effacement. Orbits, sinuses, and calvarium are stable. IMPRESSION: Stable CT head. No hemorrhage, edema, or acute appearing abnormality. Dictated by: Dictated on workstation # [id number]
[2023-05-18 12:41] LABS: INR 0.9 (0.8-1.4)
[2023-05-18 13:25] LABS: BUN/CREATININE RATIO 7; CARBON DIOXIDE 24 MMOL/L (21-32); CHLORIDE 97 MMOL/L (98-107); CREATININE SERUM 1.09 MG/DL (0.60-1.30); GFR ESTIMATED 76; POTASSIUM 3.9 MMOL/L (3.6-5.0); SODIUM 133 MMOL/L (135-145)
[2023-05-18 13:26] LABS: ALANINE AMINOTRANSFERASE 13 U/L (0-55); ALKALINE PHOSPHATASE 134 U/L (40-136); BILIRUBIN,TOTAL 0.7 MG/DL (0.1-1.0); CALCIUM 9.2 MG/DL (8.5-10.1); GLUCOSE 153 MG/DL (70-105); MAGNESIUM 1.9 MG/DL (1.6-2.4); TOTAL PROTEIN 6.2 GM/DL (6.4-8.2)
[2023-05-18 13:47] VITALS: BP 148/84
== END 2023-05-18 13:47 | disposition home or self-care (01) ==
LOC: EDUNIT# 11:56 → ER FS 11:57
DX: I10 Essential (primary) hypertension (principal); F41.9 Anxiety disorder, unspecified; R20.2 Paresthesia of skin; I25.2 Old myocardial infarction; F17.210 Nicotine dependence, cigarettes, uncomplicated; Z98.61 Coronary angioplasty status
CPT/HCPCS: 36415; 70450; 80053; 83735; 83880; 84484; 85025; 85610; 85730; 93005; 93041

== ENCOUNTER → 2023-08-24 | Outpatient (CLI) | payer MEDICARE, OTHER | LOC: ORTHO 12:33 | PROVIDERS: ATTEND Internal Medicine Cardiovascular Disease | DX: S46.012A Strain of muscle(s) and tendon(s) of the rotator cuff of left shoulder, initial encounter (principal); X58.XXXA Exposure to other specified factors, initial encounter | CPT/HCPCS: 99203 ==